=== PATIENT | female | born 1970 | race Caucasian/White ===

== ENCOUNTER 2017-07-18 14:40 | Emergency (ER) | payer OTHER ==
[2017-07-18 15:04] LABS: Urine Blood 2+ (NEG); Urine Glucose TRACE (NEG); Urine Protein 2+ (NEG)
[2017-07-18 15:18] LABS: Urine Bacteria >50 /HPF (<20); Urine Culture Reflex Order NOT NEEDED; Urine RBC <5 /HPF (NONE SEEN)
[2017-07-18] MEDS ORDERED: LIDOCAINE 1% 20 ML MDV ONE (15:18)
[2017-07-18] MEDS ORDERED: CEFTRIAXONE 1000 MG/VIAL ONE (15:18)
[2017-07-18] MEDS ORDERED: ONDANSETRON 4 MG (ODT) TAB ONE (15:18)
--- NOTE | 2017-07-18 15:42 | EDPHYS ---
Physician Documentation [facility] Name: Xochitl Gonsalez Age: 47 yrs Sex: Female : 1970 Arrival Date: 07/18/2017 Time: 14:42 Bed 24 Private MD: Kalyani High ED Physician Andi Hernandez HPI: 07/18 15:11 This 47 yrs old Female presents to ER via Ambulatory with complaints of cp Urinary Problem. 15:11 The patient presents with urinary symptoms, dysuria, frequency. cp 15:11 Onset: The symptoms/episode began/occurred last week. Associated signs and symptoms: cp Pertinent negatives: constipation, diarrhea, fever, hematuria, vomiting, back pain. Severity of symptoms: in the emergency department the symptoms are unchanged, despite home interventions. 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 - Social history:: Smoking status: Patient/guardian denies using tobacco. ROS: 15:20 Constitutional: Negative for body aches, chills, fever, poor PO intake. cp 15:20 Eyes: Negative for injury, pain, redness, and discharge. cp 15:20 Neck: Negative for pain with movement, pain at rest, stiffness. 15:20 Cardiovascular: Negative for chest pain, edema, palpitations. 15:20 Respiratory: Negative for cough, shortness of breath, wheezing. 15:20 Abdomen/GI: Positive for abdominal pain, of the suprapubic area, Negative for vomiting, diarrhea, constipation. 15:20 : Positive for urinary symptoms. 15:20 Skin: Negative for cellulitis, rash. 15:20 Neuro: Negative for dizziness, headache, weakness. 15:20 All other systems are negative. Exam: 15:30 Constitutional: The patient appears in no acute distress, alert, awake, non-toxic, well cp developed, well nourished. 15:30 Head/Face: Normocephalic, atraumatic. cp 15:30 Eyes: Periorbital structures: appear normal, Conjunctiva: normal, no exudate, no injection, Lids and lashes: appear normal, bilaterally. 15:30 ENT: External ear(s): are unremarkable, Nose: is normal, Mouth: is normal, Posterior pharynx: is normal, airway is patent. 15:30 Neck: ROM/movement: is normal, is supple, without pain, no range of motions limitations. 15:30 Chest/axilla: Inspection: normal. 15:30 Cardiovascular: Rate: tachycardic, Rhythm: regular. 15:30 Respiratory: the patient does not display signs of respiratory distress, Respirations: normal, no use of accessory muscles, no retractions, no splinting, no tachypnea, labored breathing, is not present, Breath sounds: are clear throughout, no decreased breath sounds, no stridor, no wheezing. 15:30 Abdomen/GI: Inspection: abdomen appears normal, Bowel sounds: active, all quadrants, Palpation: soft, in all quadrants, mild abdominal tenderness, in the suprapubic area, rebound tenderness, is not appreciated, involuntary guarding, is not appreciated. 15:30 Back: CVA tenderness, is absent. Vital Signs: 14:47 BP 147 / 84; Pulse 113; Resp 18; Temp 97.8; Pulse Ox 100% on R/A; Weight 120.2 kg; la1 Height 5 ft. 6 in. (167.64 cm); 14:58 BP 133 / 78; Pulse 94; Resp 18; Pulse Ox 99% on R/A; tl3 15:25 BP 137 / 71; Pulse 104; Resp 16; Pulse Ox 100% ; tl3 15:56 BP 133 / 71; Pulse 96; Resp 18; Pulse Ox 100% ; tl3 14:47 Body Mass Index 42.77 (120.20 kg, 167.64 cm) la1 MDM: 14:48 Patient medically screened. wa 15:00 Differential diagnosis: pelvic inflammatory disease, urinary tract infection, cp vaginosis, sepsis, kidney stone, pyelonephritis. 15:40 Data reviewed: vital signs, nurses notes, lab test result(s), and as a result, I will cp discharge patient. 15:41 Counseling: I had a detailed discussion with the patient and/or guardian regarding: the cp historical points, exam findings, and any diagnostic results supporting the discharge/admit diagnosis, lab results, the need for outpatient follow up, a family practitioner, to return to the emergency department if symptoms worsen or persist or if there are any questions or concerns that arise at home. 07/18 15:02 Order name: Urine Microscopic Only [facility] 07/18 15:02 Order name: Urine Culture [facility] 07/18 15:03 Order name: Urine Dipstick--Ancillary (enter results) [facility] 07/18 15:03 Order name: Urine Dipstick-Ancillary; Complete Time: 15:06 [facility] 07/18 15:07 Interpretation: Normal except: UBLD 2+; UPROT 2+; U NIT POSITIVE; UESTR 3+. cp 07/18 15:11 Order name: PO challenge; Complete Time: 15:24 cp Administered Medications: 15:24 Drug: Rocephin (cefTRIAXone) 1 grams Route: IM; Site: right gluteus; tl3 15:56 Follow up: Response: No adverse reaction tl3 15:24 Drug: Zofran 4 mg Route: PO; tl3 15:38 Follow up: Response: No adverse reaction tl3 Disposition: 07/18/17 15:42 Discharged to Home. Impression: Urinary tract infection, site not specified. - Condition is Stable. - Discharge Instructions: Urinary Tract Infection. - Prescriptions for Pyridium 200 mg Oral Tablet - take 1 tablet by ORAL route every 8 hours for 3 days; 6 tablet. Zofran 4 mg Oral Tablet - take 1 tablet by ORAL route every 12 hours As needed; 20 tablet. Bactrim DS 800- 160 mg Oral Tablet - take 1 tablet by ORAL route every 12 hours for 7 days; 14 tablet. - Medication Reconciliation Form, Thank You Letter, Antibiotic Education, Prescription Opioid Use, Work release form form. - Follow up: Private Physician; When: 1 - 2 days; Reason: Recheck today's complaints. - Problem is new. - Symptoms have improved. Addendum: 07/27/2017 05:53 Co-signature as Attending Physician, Andi Hernandez MD I agree with the assessment and w a plan of care. Signatures: Dispatcher [employer] ED[facility] Lexx Carson RN RN la1 Mario Pittman PA PA cp Appiah, William, MD MD wa Lowrey, Tammy RN RN tl3 Corrections: (The following items were deleted from the chart) 07/18 15:58 15:42 07/18/2017 15:42 Discharged to Home. Impression: Urinary tract infection, site tl3 not specified. Condition is Stable. Forms are Medication Reconciliation Form, Thank You Letter, Antibiotic Education, Prescription Opioid Use. Follow up: Private Physician; When: 1 - 2 days; Reason: Recheck today's complaints. Problem is new. Symptoms have improved. cp
--- NOTE | 2017-07-18 15:42 | ER ---
Nurse's Notes [facility] Name: Xochitl Gonsalez Age: 47 yrs Sex: Female : 1970 Arrival Date: 07/18/2017 Time: 14:42 Bed 24 Private MD: Kalyani High Diagnosis: Urinary tract infection, site not specified Presentation: 07/18 14:45 Presenting complaint: Patient states: I have been having pain with urination and a la1 little bit of white discharge for the last few days. Pt denies N/V or back pain. Transition of care: patient was not received from another setting of care. Onset of symptoms was July 18, 2017. Initial Sepsis Screen: Does the patient meet any 2 criteria? No. Patient's initial sepsis screen is negative. Does the patient have a suspected source of infection? No. Patient's initial sepsis screen is negative. Care prior to arrival: None. 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 - Social history:: Smoking status: Patient/guardian denies using tobacco. Screenin:58 Abuse screen: Denies threats or abuse. Nutritional screening: No deficits noted. tl3 Tuberculosis screening: No symptoms or risk factors identified. Fall Risk None identified. Assessment: 14:58 Reassessment: pt c/o pain to bladder after urination. General: Appears uncomfortable, tl3 obese, well groomed, well developed, well nourished, Behavior is calm, cooperative, appropriate for age. Pain: Complains of pain in suprapubic area. Neuro: Level of Consciousness is awake, alert, obeys commands, Oriented to person, place, time, situation, Appropriate for age. Cardiovascular: Heart tones S1 S2 present Capillary refill < 3 seconds in bilateral fingers. Respiratory: Airway is patent Trachea midline Respiratory effort is even, unlabored, Respiratory pattern is regular, symmetrical, Breath sounds are clear bilaterally. GI: Bowel sounds present X 4 quads. hyperactive in right upper quadrant, left upper quadrant, right lower quadrant and left lower quadrant. : Reports cramping, urinary frequency, since last few days. EENT: No signs and/or symptoms were reported regarding the EENT system. Derm: No signs and/or symptoms reported regarding the dermatologic system. Musculoskeletal: No signs and/or symptoms reported regarding the musculoskeletal system. 15:25 Reassessment: No changes from previously documented assessment. Patient and/or family tl3 updated on plan of care and expected duration. Pain level reassessed. Patient is alert, oriented x 3, equal unlabored respirations, skin warm/dry/pink. pt taking PO challenge. 15:56 Reassessment: Patient appears in no apparent distress at this time. No changes from tl3 previously documented assessment. Patient and/or family updated on plan of care and expected duration. Pain level reassessed. Patient is alert, oriented x 3, equal unlabored respirations, skin warm/dry/pink. injection site without any redness, swelling or drainage. Vital Signs: 14:47 BP 147 / 84; Pulse 113; Resp 18; Temp 97.8; Pulse Ox 100% on R/A; Weight 120.2 kg; la1 Height 5 ft. 6 in. (167.64 cm); 14:58 BP 133 / 78; Pulse 94; Resp 18; Pulse Ox 99% on R/A; tl3 15:25 BP 137 / 71; Pulse 104; Resp 16; Pulse Ox 100% ; tl3 15:56 BP 133 / 71; Pulse 96; Resp 18; Pulse Ox 100% ; tl3 14:47 Body Mass Index 42.77 (120.20 kg, 167.64 cm) la1 ED Course: 14:42 Patient arrived in ED. mr 14:42 Kalyani High is Private Physician. mr 14:46 Triage completed. la1 14:47 Arm band placed on left wrist. la1 14:48 Andi Hernandez MD is Attending Physician. wa 14:48 Natalya Ha, ALE is Primary Nurse. tl3 14:48 Mario Pittman PA is PHCP. cp 14:58 Resting quietly. Awaiting ED provider evaluation. tl3 14:58 Patient has correct armband on for positive identification. Bed in low position. Call tl3 light in reach. Side rails up X 1. Pulse ox on. NIBP on. Warm blanket given. 14:58 No provider procedures requiring assistance completed. tl3 15:06 Urine Dipstick--Ancillary (enter results) Sent. tl3 15:56 Patient did not have IV access during this emergency room visit. tl3 Administered Medications: 15:24 Drug: Rocephin (cefTRIAXone) 1 grams Route: IM; Site: right gluteus; tl3 15:56 Follow up: Response: No adverse reaction tl3 15:24 Drug: Zofran 4 mg Route: PO; tl3 15:38 Follow up: Response: No adverse reaction tl3 Outcome: 15:42 Discharge ordered by MD. lara 15:56 Discharged to home ambulatory. tl3 15:56 Condition: stable 15:56 Discharge instructions given to patient, Instructed on discharge instructions, follow up and referral plans. medication usage, Demonstrated understanding of instructions, follow-up care, medications, Prescriptions given X 3. 15:58 Patient left the ED. tl3 Addendum: 07/22/2017 10:55 Addendum: Culture Results: Positive urine culture. Bacteria is resistant to, has i w intermediate sensitivity, or is not tested against prescribed antibiotics. Report given to NAZARIO for further evaluation and then to farm field manager for follow up with patient. Phone call Attempt #1 pt did not answer, left voice mail with call back number. 07/23/2017 18:42 Addendum: Culture Results: Positive urine culture. Pt instructed to follow-up with PCP. a a5 Pt states feeling better, pt states "I feel way better now". Signatures: Lolis Miner Molly More RN RN iw Cherry Knott RN RN aa5 Lexx Carson RN RN la1 Mario Pittman PA PA cp Appiah, William, MD MD wa Lowrey, Tammy, RN RN tl3 Corrections: (The following items were deleted from the chart) 07/22 10:56 10:55 Addendum: Culture Results: Positive urine culture. Bacteria is resistant to, has iw intermediate sensitivity, or is not tested against prescribed antibiotics. Report given to NAZARIO for further evaluation and then to farm field manager for follow up with patient. Phone call Attempt #1 pt did not answer, unable to leave [facility]
[2017-07-18 16:09] VITALS: TEMP 97.8
[2017-07-18 16:12] VITALS: O2SAT 100
[2017-07-18 16:13] VITALS: BP 133/71
== END 2017-07-18 15:58 | disposition home or self-care (01) ==
LOC: ER 14:40
DX: N39.0 Urinary tract infection, site not specified (principal)
CPT/HCPCS: 81003; 81015; 87077; 87086; 87088; 87186; 96372; 99284

== ENCOUNTER 2023-02-09 13:51 | Emergency (ER) | payer OTHER ==
--- OUTSIDE RECORDS SUMMARY | 2023-02-09 14:07 | XMS REPORT | Continuity of Care Document ---
:1970 Author Organization [facility] t Address [address] [place] [address] [place] [id number] Care Team Providers Name Role Phone Audrey Montgomery Primary Care Physician JACKIE RING Attending Clinician Unavailable EMILY DAS Attending Clinician Unavailable Ok Yap MD Attending Clinician [facility] Attending Clinician Unavailable Archana De La Torre DO Attending Clinician ARCHANA DE LA TORRE Attending Clinician Unavailable Lab, Ang - Db Attending Clinician Unavailable Audrey Montgomery Attending Clinician AUDREY NESS Attending Clinician Unavailable KEYLA DURHAM Attending Clinician Unavailable [email or web address] Attending Clinician Unavailable Doctor Unassigned, [place] Attending Clinician Unavailable IZABELA ELLIOTT Attending Clinician Unavailable Sara Jackson LVN Attending Clinician Unavailable Izabela Newman Attending Clinician JARED GARCIA Attending Clinician Unavailable Jared Wakefield Attending Clinician Unknown, Attending Attending Clinician Unavailable FANY RICHARD Attending Clinician Unavailable FANY RICHARD Attending Clinician Unavailable Jena Zarate RN Attending Clinician Unavailable [place], Nephrology Attending Clinician Unavailable Po, [facility] Main Attending Clinician Unavailable BRENNAN DIETRICH Attending Clinician Unavailable BRENNAN DIETRICH Attending Clinician Unavailable Prashant Lawrence MD Attending Clinician TABITHA TIRADO Attending Clinician Unavailable Provider, [facility] Temp Attending Clinician Unavailable Tabitha Tirado CNM Attending Clinician Fany Richard DO Attending Clinician Therapist, [facility] Respiratory Attending Clinician Unavailable León Dias MD Attending Clinician LEÓN DIAS Attending Clinician Unavailable Arden AGUILERA, Ronit Bobo Attending Clinician Unavailable , [facility] Sleep [facility] Bed Attending Clinician Unavailable Brennan Dietrich MD Attending Clinician VIKY SRINIVASAN Attending Clinician Unavailable Viky Srinivasan MD Attending Clinician Eduardo Ghotra MD Attending Clinician EDUARDO GHOTRA Attending Clinician Unavailable EDUARDO GHOTRA Attending Clinician Unavailable Ebraifeanyim ECOTHERAPIST, Rania Attending Clinician BELL QUEEN Attending Clinician Unavailable Bell Queen MD Attending Clinician Provider, [facility] Attending Clinician Unavailable Bismark Stewart RN Attending Clinician Unavailable DEDRICK JACOB Attending Clinician Unavailable VALENTIN ALDANA Attending Clinician Unavailable ARACELI LOMAS Attending Clinician Unavailable TOMY PATRICK Attending Clinician Unavailable [email or web address] Admitting Clinician Unavailable VIKY SRINIVASAN Admitting Clinician Unavailable Payers Payer Name Policy Type Policy Number Effective Date Expiration Date Violet boston [facility] [place] STAR [id number] 2021 00:00:00 Problems Condition Condition Condition Status Onset Resolution Last Treating Co mments Source Name Details Category Date Date Treatment Clinician Date History of History of Disease Active Overview : Univers hysterecto hysterecto 2-28 Formattin ity of my for my for 00:00: g of this [place] indication indication 00 note Me dical other than other than might be Branch cancer cancer different from the original. Still has ovaries Snoring Snoring Disease Active 2021-03 Univers 0-07 ity of 00:00: [place] 00 Medical Branch Prediabete Prediabete Disease Active 2021-03 U nivers s s 0-07 ity of 00:00: [place] [facility] Elevated Elevated Disease Active Unive rs brain brain 8-24 ity of natriureti natriureti [place] c peptide c peptide 00 Medi faye (BNP) (BNP) Branch level level Vitamin D Vitamin D Disease Active Uni vers deficiency deficiency 8-24 it y of 00:00: [place] 00 Medical Branch Elevated Elevated Disease Active Unive rs ALT ALT 8-24 ity of measuremen measuremen [place] [facility] [place] Uncontroll Uncontroll Disease Active U abhishek ed ed 8-21 ity of hypertensi hypertensi 00:[place] Bilateral Bilateral Disease Active Uni vers lower lower 8-21 ity of extremity extremity 00:00: [place] edema edema 00 Medical Branch Orthopnea Orthopnea Disease Active Uni vers 8-21 ity of 00:00: [place] 00 Medical Branch Anxiety Anxiety Disease Active Univers with with 8-21 it[place] of depression depression 00:00[place] [facility] [place] Hot Hot Disease Active Univers flashes flashes 8-21 ity of 00:00: [place] 00 Medical Branch Acquired Acquired Disease Active Unive rs hypothyroi hypothyroi 8-21 it y of dism dism 00:00: [place] [facility] Morbid Morbid Disease Active Univers obesity obesity 8-21 ity of with BMI with BMI 00:00: [place] of of 00 Medical 50.0-59.9, 50.0-59.9, Br anch adult adult PAD PAD Disease Active Univers (periphera (periphera 8-21 it y of l artery l artery 00:00: [place] disease) disease) 00 Medica l Branch Chronic Chronic Disease Active Univers migraine migraine 8-21 ity of without without 00:00: [place] aura aura 00 Medical without without Branch status status migrainosu migrainosu s, not s, not intractabl intractabl e e Allergies, Adverse Reactions, Alerts Allergy Allergy Status Severity Reaction(s) Onset Inactive Treating Comm ents Source Name Type Date Date Clinician EGG DRUG Active Other-Cmnt 2021-03 Univer s INGREDI - ity of 00:00: [place] 00 Medical Branch SHELLFIS DRUG Active Diarrhea 2021-03 Univer s H INGREDI 03-27 ity of DERIVED 00:00: 00 Medical Branch Egg Propensi Active Other - See 2021-03 Uni vers ty to comments 03-27 ity of adverse 00:00: [place] reaction 00 Medical s Branch Shellfis Propensi Active Diarrhea 2021-03 Univ ers h ty to 03-27 ity of Derived adverse 00:00: [place] reaction 00 Medical s Branch Ibuprofe Drug Active Other - See Uni vers n Allergy comments 10-24 ity of 00:00: [place] 00 Medical Branch IBUPROFE DRUG Active Low Other-Cmnt Univ ers N INGREDI 10-24 ity of 00:00: [place] [facility] Molds Propensi Active Other - See Had Uni vers Extract ty to comments 10-06 allergy ity of adverse 00:00: test done [place] reaction 00 Medical s Branch MOLDS DRUG Active High Other-Cmnt Univer s EXTRACT 10-06 ity of 00:00: Medical Branch Social History Social Habit Start Date Stop Date Quantity Comments Source History [facility] University o f Alcohol Frequency [facility] edical Branch History [facility] o f Alcohol Std Drinks [place] [facility] History [facility] o f Alcohol Binge [place] [facility] al Branch Gender identity Universit y of [facility] Sexual orientation Univer sity of [facility] Alcohol intake 2022-11-25 2022-11-25 Current drinker Unive rsity of 00:00:00 00:00:00 of alcohol [facility] (finding) Branch History of Social 2022-10-19 2022-10-19 Univers ity of function 00:00:00 00:00:00 [facility] Exposure to 2022-06-05 2022-06-15 Not sure University of SARS-CoV-2 (event) 00:00:00 15:25:00 [facility] Alcohol Comment 2022-05-05 2022-05-05 rarely Universit y of 00:00:00 00:00:00 [facility] Tobacco use and 2021-12-12 2021-12-12 Smokeless Universit y of exposure 00:00:00 00:00:00 tobacco non-user [facility] [place] Cigarettes smoked 2021-12-12 2021-12-12 Univers ity of current (pack per 00:00:00 00:00:00 [facility] ) - Reported Branch Cigarette 2021-12-12 2021-12-12 University of pack-years 00:00:00 00:00:00 [facility] History of tobacco 2001-10-06 Cigarette Smoker University of use 00:00:00 [facility] Sex [birth year] Universit y of 00:00:00 00:00:00 [facility] Smoking Status Start Date Stop Date Source Ex-smoker 2021-12-12 00:00:00 2021-12-12 00:00:00 Universi ty [facility] Never smoked tobacco [facility] Medications Ordered Filled Start Stop Current Ordering Indication Dosage Frequency Signature Comments Components Source Medication Medication Date Date Medication? Clinician (SIG) Name Name atenoloL 50 0 Yes [id number] 50mg Take 1 Univers mg tablet 8-24 tablet by ity o f 00:00: mouth [place] 00 every Medical morning. Branch hydroCHLORO 0 Yes [id number] 25mg Take 1 Univers thiazide 25 8-24 tablet by ity of mg tablet 00:00: mouth [place] 00 every Medical morning. Branch atorvastati 2022- Yes [id number] 20mg Take 1 Univers n 20 mg 8-24 tablet by ity of tablet 00:00: mouth at [place] 00 bedtime. Medical Branch traZODone 2022-0 Yes [id number] TAKE 1 U nivers 50 mg 8-24 TABLET BY ity of tablet 00:00: MOUTH [place] 00 EVERY Medical NIGHT AT [place] BEDTIME NEEDED FOR INSOMNIA atenoloL 50 2022-0 Yes [id number] 50mg Take 1 Univers mg tablet 8-24 tablet by ity o f 00:00: mouth [place] 00 every Medical morning. Branch hydroCHLORO 2022-0 Yes [id number] 25mg Take 1 Univers thiazide 25 8-24 tablet by ity of mg tablet 00:00: mouth [place] 00 every Medical morning. Branch atorvastati 2022-0 Yes [id number] 20mg Take 1 Univers n 20 mg 8-24 tablet by ity of tablet 00:00: mouth at [place] 00 bedtime. Medical Branch traZODone 2022-0 Yes [id number] TAKE 1 U nivers 50 mg 8-24 TABLET BY ity of tablet 00:00: MOUTH [place] 00 EVERY Medical NIGHT AT [place] BEDTIME NEEDED FOR INSOMNIA venlafaxine 2022-0 Yes [id number] Take 1 tab Univers 37.5 mg 8-24 PO every ity of tablet 00:00: other day [place] 00 x 5 weeks, Medical then take Branch 1 tab PO every 3 days x 3 weeks to taper. levothyroxi 2022-0 Yes [id number] 75ug Take 1 Univers ne 75 mcg 8-24 tablet by ity o f tablet 00:00: mouth [place] 00 every Medical morning. Branch atenoloL 50 2022-0 Yes [id number] 50mg Take 1 Univers mg tablet 8-24 tablet by ity o f 00:00: mouth [place] 00 every Medical morning. Branch hydroCHLORO 2022-0 Yes [id number] 25mg Take 1 Univers thiazide 25 8-24 tablet by ity of mg tablet 00:00: mouth [place] 00 every Medical morning. Branch atorvastati 2022-0 Yes [id number] 20mg Take 1 Univers n 20 mg 8-24 tablet by ity of tablet 00:00: mouth at [place] 00 bedtime. Medical Branch traZODone 2022-0 Yes [id number] TAKE 1 U nivers 50 mg 8-24 TABLET BY ity of tablet 00:00: MOUTH [place] 00 EVERY Medical NIGHT AT [place] BEDTIME NEEDED FOR INSOMNIA venlafaxine 2022-0 Yes [id number] Take 1 tab Univers 37.5 mg 8-24 PO every ity of tablet 00:00: other day [place] 00 x 5 weeks, Medical then take Branch 1 tab PO every 3 days x 3 weeks to taper. levothyroxi 2022-0 Yes [id number] 75ug Take 1 Univers ne 75 mcg 8-24 tablet by ity o f tablet 00:00: mouth [place] 00 every Medical morning. Branch atenoloL 50 2022-0 Yes [id number] 50mg Take 1 Univers mg tablet 8-24 tablet by ity o f 00:00: mouth [place] 00 every Medical morning. Branch hydroCHLORO 2022-0 Yes [id number] 25mg Take 1 Univers thiazide 25 8-24 tablet by ity of mg tablet 00:00: mouth [place] 00 every Medical morning. Branch atorvastati 2022-0 Yes [id number] 20mg Take 1 Univers n 20 mg 8-24 tablet by ity of tablet 00:00: mouth at [place] 00 bedtime. Medical Branch traZODone 2022-0 Yes [id number] TAKE 1 U nivers 50 mg 8-24 TABLET BY ity of tablet 00:00: MOUTH [place] 00 EVERY Medical NIGHT AT [place] BEDTIME NEEDED FOR INSOMNIA venlafaxine 2022-0 Yes [id number] Take 1 tab Univers 37.5 mg 8-24 PO every ity of tablet 00:00: other day [place] 00 x 5 weeks, Medical then take Branch 1 tab PO every 3 days x 3 weeks to taper. levothyroxi 2022-0 Yes [id number] 75ug Take 1 Univers ne 75 mcg 8-24 tablet by ity o f tablet 00:00: mouth [place] 00 every Medical morning. Branch atenoloL 50 2022-0 Yes [id number] 50mg Take 1 Univers mg tablet 8-24 tablet by ity o f 00:00: mouth [place] 00 every Medical morning. Branch hydroCHLORO 2022-0 Yes [id number] 25mg Take 1 Univers thiazide 25 8-24 tablet by ity of mg tablet 00:00: mouth [place] 00 every Medical morning. Branch atorvastati 2022-0 Yes [id number] 20mg Take 1 Univers n 20 mg 8-24 tablet by ity of tablet 00:00: mouth at [place] 00 bedtime. Medical Branch traZODone 2022-0 Yes [id number] TAKE 1 U nivers 50 mg 8-24 TABLET BY ity of tablet 00:00: MOUTH [place] 00 EVERY Medical NIGHT AT [place] BEDTIME NEEDED FOR INSOMNIA venlafaxine 2022-0 Yes [id number] Take 1 tab Univers 37.5 mg 8-24 PO every ity of tablet 00:00: other day [place] 00 x 5 weeks, Medical then take Branch 1 tab PO every 3 days x 3 weeks to taper. levothyroxi 2022-0 Yes [id number] 75ug Take 1 Univers ne 75 mcg 8-24 tablet by ity o f tablet 00:00: mouth [place] 00 every Medical morning. Branch atenoloL 50 2022-0 Yes [id number] 50mg Take 1 Univers mg tablet 8-24 tablet by ity o f 00:00: mouth [place] 00 every Medical morning. Branch hydroCHLORO 2022-0 Yes [id number] 25mg Take 1 Univers thiazide 25 8-24 tablet by ity of mg tablet 00:00: mouth [place] 00 every Medical morning. Branch atorvastati 2022-0 Yes [id number] 20mg Take 1 Univers n 20 mg 8-24 tablet by ity of tablet 00:00: mouth at [place] 00 bedtime. Medical Branch traZODone 2022-0 Yes [id number] TAKE 1 U nivers 50 mg 8-24 TABLET BY ity of tablet 00:00: MOUTH [place] 00 EVERY Medical NIGHT AT [place] BEDTIME NEEDED FOR INSOMNIA venlafaxine 0 Yes [id number] Take 1 tab Univers 37.5 mg 8-24 PO every ity of tablet 00:00: other day [place] 00 x 5 weeks, Medical then take Branch 1 tab PO every 3 days x 3 weeks to taper. levothyroxi 2022-0 Yes [id number] 75ug Take 1 Univers ne 75 mcg 8-24 tablet by ity o f tablet 00:00: mouth [place] 00 every Medical morning. Branch atenoloL 50 2022-0 Yes [id number] 50mg Take 1 Univers mg tablet 8-24 tablet by ity o f 00:00: mouth [place] 00 every Medical morning. Branch hydroCHLORO 2022-0 Yes [id number] 25mg Take 1 Univers thiazide 25 8-24 tablet by ity of mg tablet 00:00: mouth [place] 00 every Medical morning. Branch atorvastati 2022-0 Yes [id number] 20mg Take 1 Univers n 20 mg 8-24 tablet by ity of tablet 00:00: mouth at [place] 00 bedtime. Medical Branch traZODone 2022-0 Yes [id number] TAKE 1 U nivers 50 mg 8-24 TABLET BY ity of tablet 00:00: MOUTH [place] 00 EVERY Medical NIGHT AT [place] BEDTIME NEEDED FOR INSOMNIA venlafaxine 2022-0 Yes [id number] Take 1 tab Univers 37.5 mg 8-24 PO every ity of tablet 00:00: other day [place] 00 x 5 weeks, Medical then take Branch 1 tab PO every 3 days x 3 weeks to taper. levothyroxi 2022-0 Yes [id number] 75ug Take 1 Univers ne 75 mcg 8-24 tablet by ity o f tablet 00:00: mouth [place] 00 every Medical morning. Branch hydroCHLORO 2022-0 Yes [id number] 25mg Take 1 Univers thiazide 25 8-24 tablet by ity of mg tablet 00:00: mouth [place] 00 every Medical morning. Branch atorvastati 2022-0 Yes [id number] 20mg Take 1 Univers n 20 mg 8-24 tablet by ity of tablet 00:00: mouth at [place] 00 bedtime. Medical Branch traZODone 2022-0 Yes [id number] TAKE 1 U nivers 50 mg 8-24 TABLET BY ity of tablet 00:00: MOUTH [place] 00 EVERY Medical NIGHT AT [place] BEDTIME NEEDED FOR INSOMNIA venlafaxine 0 Yes [id number] Take 1 tab Univers 37.5 mg 8-24 PO every ity of tablet 00:00: other day [place] 00 x 5 weeks, Medical then take Branch 1 tab PO every 3 days x 3 weeks to taper. levothyroxi 2022-0 Yes [id number] 75ug Take 1 Univers ne 75 mcg 8-24 tablet by ity o f tablet 00:00: mouth [place] 00 every Medical morning. Branch hydroCHLORO 0 Yes [id number] 25mg Take 1 Univers thiazide 25 8-24 tablet by ity of mg tablet 00:00: mouth [place] 00 every Medical morning. Branch atorvastati 2022-0 Yes [id number] 20mg Take 1 Univers n 20 mg 8-24 tablet by ity of tablet 00:00: mouth at [place] 00 bedtime. Medical Branch traZODone 2022-0 Yes [id number] TAKE 1 U nivers 50 mg 8-24 TABLET BY ity of tablet 00:00: MOUTH [place] 00 EVERY Medical NIGHT AT [place] BEDTIME NEEDED FOR INSOMNIA venlafaxine 2022-0 Yes [id number] Take 1 tab Univers 37.5 mg 8-24 PO every ity of tablet 00:00: other day [place] 00 x 5 weeks, Medical then take Branch 1 tab PO every 3 days x 3 weeks to taper. levothyroxi 2022-0 Yes [id number] 75ug Take 1 Univers ne 75 mcg 8-24 tablet by ity o f tablet 00:00: mouth [place] 00 every Medical morning. Branch hydroCHLORO 2022-0 Yes [id number] 25mg Take 1 Univers thiazide 25 8-24 tablet by ity of mg tablet 00:00: mouth [place] 00 every Medical morning. Branch atorvastati 2022-0 Yes [id number] 20mg Take 1 Univers n 20 mg 8-24 tablet by ity of tablet 00:00: mouth at [place] 00 bedtime. Medical Branch traZODone 2022-0 Yes [id number] TAKE 1 U nivers 50 mg 8-24 TABLET BY ity of tablet 00:00: MOUTH [place] 00 EVERY Medical NIGHT AT [place] BEDTIME NEEDED FOR INSOMNIA venlafaxine 2022-0 Yes [id number] Take 1 tab Univers 37.5 mg 8-24 PO every ity of tablet 00:00: other day [place] 00 x 5 weeks, Medical then take Branch 1 tab PO every 3 days x 3 weeks to taper. levothyroxi 2022-0 Yes [id number] 75ug Take 1 Univers ne 75 mcg 8-24 tablet by ity o f tablet 00:00: mouth [place] 00 every Medical morning. Branch hydroCHLORO 2022-0 Yes [id number] 25mg Take 1 Univers thiazide 25 8-24 tablet by ity of mg tablet 00:00: mouth [place] 00 every Medical morning. Branch atorvastati 2022-0 Yes [id number] 20mg Take 1 Univers n 20 mg 8-24 tablet by ity of tablet 00:00: mouth at [place] 00 bedtime. Medical Branch traZODone 2022-0 Yes [id number] TAKE 1 U nivers 50 mg 8-24 TABLET BY ity of tablet 00:00: MOUTH [place] 00 EVERY Medical NIGHT AT [place] BEDTIME NEEDED FOR INSOMNIA venlafaxine 2022-0 Yes [id number] Take 1 tab Univers 37.5 mg 8-24 PO every ity of tablet 00:00: other day [place] 00 x 5 weeks, Medical then take Branch 1 tab PO every 3 days x 3 weeks to taper. levothyroxi 2022-0 Yes [id number] 75ug Take 1 Univers ne 75 mcg 8-24 tablet by ity o f tablet 00:00: mouth [place] 00 every Medical morning. Branch hydroCHLORO 2022-0 Yes [id number] 25mg Take 1 Univers thiazide 25 8-24 tablet by ity of mg tablet 00:00: mouth [place] 00 every Medical morning. Branch atorvastati 2022-0 Yes [id number] 20mg Take 1 Univers n 20 mg 8-24 tablet by ity of tablet 00:00: mouth at [place] 00 bedtime. Medical Branch traZODone 2022-0 Yes [id number] TAKE 1 U nivers 50 mg 8-24 TABLET BY ity of tablet 00:00: MOUTH [place] 00 EVERY Medical NIGHT AT [place] BEDTIME NEEDED FOR INSOMNIA venlafaxine 2022-0 Yes [id number] Take 1 tab Univers 37.5 mg 8-24 PO every ity of tablet 00:00: other day [place] 00 x 5 weeks, Medical then take Branch 1 tab PO every 3 days x 3 weeks to taper. levothyroxi 2022-0 Yes [id number] 75ug Take 1 Univers ne 75 mcg 8-24 tablet by ity o f tablet 00:00: mouth [place] 00 every Medical morning. Branch hydroCHLORO 2022-0 Yes [id number] 25mg Take 1 Univers thiazide 25 8-24 tablet by ity of mg tablet 00:00: mouth [place] 00 every Medical morning. Branch atorvastati 2022-0 Yes [id number] 20mg Take 1 Univers n 20 mg 8-24 tablet by ity of tablet 00:00: mouth at [place] 00 bedtime. Medical Branch traZODone 2022-0 Yes [id number] TAKE 1 U nivers 50 mg 8-24 TABLET BY ity of tablet 00:00: MOUTH [place] 00 EVERY Medical NIGHT AT [place] BEDTIME NEEDED FOR INSOMNIA venlafaxine 2022-0 Yes [id number] Take 1 tab Univers 37.5 mg 8-24 PO every ity of tablet 00:00: other day [place] 00 x 5 weeks, Medical then take Branch 1 tab PO every 3 days x 3 weeks to taper. levothyroxi 2022-0 Yes [id number] 75ug Take 1 Univers ne 75 mcg 8-24 tablet by ity o f tablet 00:00: mouth [place] 00 every Medical morning. Branch hydroCHLORO 2022-0 Yes [id number] 25mg Take 1 Univers thiazide 25 8-24 tablet by ity of mg tablet 00:00: mouth [place] 00 every Medical morning. Branch atorvastati 2022-0 Yes [id number] 20mg Take 1 Univers n 20 mg 8-24 tablet by ity of tablet 00:00: mouth at [place] 00 bedtime. Medical Branch traZODone 2022-0 Yes [id number] TAKE 1 U nivers 50 mg 8-24 TABLET BY ity of tablet 00:00: MOUTH [place] 00 EVERY Medical NIGHT AT [place] BEDTIME NEEDED FOR INSOMNIA venlafaxine 0 Yes [id number] Take 1 tab Univers 37.5 mg 8-24 PO every ity of tablet 00:00: other day [place] 00 x 5 weeks, Medical then take Branch 1 tab PO every 3 days x 3 weeks to taper. levothyroxi 2022-0 Yes [id number] 75ug Take 1 Univers ne 75 mcg 8-24 tablet by ity o f tablet 00:00: mouth [place] 00 every Medical morning. Branch hydroCHLORO 2022-0 Yes [id number] 25mg Take 1 Univers thiazide 25 8-24 tablet by ity of mg tablet 00:00: mouth [place] 00 every Medical morning. Branch atorvastati 0 Yes [id number] 20mg Take 1 Univers n 20 mg 8-24 tablet by ity of tablet 00:00: mouth at [place] 00 bedtime. Medical Branch traZODone 2022-0 Yes [id number] TAKE 1 U nivers 50 mg 8-24 TABLET BY ity of tablet 00:00: MOUTH [place] 00 EVERY Medical NIGHT AT [place] BEDTIME NEEDED FOR INSOMNIA venlafaxine 0 Yes [id number] Take 1 tab Univers 37.5 mg 8-24 PO every ity of tablet 00:00: other day [place] 00 x 5 weeks, Medical then take Branch 1 tab PO every 3 days x 3 weeks to taper. levothyroxi 2022-0 Yes [id number] 75ug Take 1 Univers ne 75 mcg 8-24 tablet by ity o f tablet 00:00: mouth [place] 00 every Medical morning. Branch hydroCHLORO 2022-0 Yes [id number] 25mg Take 1 Univers thiazide 25 8-24 tablet by ity of mg tablet 00:00: mouth [place] 00 every Medical morning. Branch atorvastati 2022-0 Yes [id number] 20mg Take 1 Univers n 20 mg 8-24 tablet by ity of tablet 00:00: mouth at [place] 00 bedtime. Medical Branch traZODone 2022-0 Yes [id number] TAKE 1 U nivers 50 mg 8-24 TABLET BY ity of tablet 00:00: MOUTH [place] 00 EVERY Medical NIGHT AT [place] BEDTIME NEEDED FOR INSOMNIA venlafaxine 2022-0 Yes [id number] Take 1 tab Univers 37.5 mg 8-24 PO every ity of tablet 00:00: other day [place] 00 x 5 weeks, Medical then take Branch 1 tab PO every 3 days x 3 weeks to taper. levothyroxi 2022-0 Yes [id number] 75ug Take 1 Univers ne 75 mcg 8-24 tablet by ity o f tablet 00:00: mouth [place] 00 every Medical morning. Branch hydroCHLORO 2022-0 Yes [id number] 25mg Take 1 Univers thiazide 25 8-24 tablet by ity of mg tablet 00:00: mouth [place] 00 every Medical morning. Branch atorvastati 2022-0 Yes [id number] 20mg Take 1 Univers n 20 mg 8-24 tablet by ity of tablet 00:00: mouth at [place] 00 bedtime. Medical Branch traZODone 2022-0 Yes [id number] TAKE 1 U nivers 50 mg 8-24 TABLET BY ity of tablet 00:00: MOUTH [place] 00 EVERY Medical NIGHT AT [place] BEDTIME NEEDED FOR INSOMNIA venlafaxine 2022-0 Yes [id number] Take 1 tab Univers 37.5 mg 8-24 PO every ity of tablet 00:00: other day [place] 00 x 5 weeks, Medical then take Branch 1 tab PO every 3 days x 3 weeks to taper. levothyroxi 2022-0 Yes [id number] 75ug Take 1 Univers ne 75 mcg 8-24 tablet by ity o f tablet 00:00: mouth [place] 00 every Medical morning. Branch hydroCHLORO 2022-0 Yes [id number] 25mg Take 1 Univers thiazide 25 8-24 tablet by ity of mg tablet 00:00: mouth [place] 00 every Medical morning. Branch atorvastati 2022-0 Yes [id number] 20mg Take 1 Univers n 20 mg 8-24 tablet by ity of tablet 00:00: mouth at [place] 00 bedtime. Medical Branch traZODone 2022-0 Yes [id number] TAKE 1 U nivers 50 mg 8-24 TABLET BY ity of tablet 00:00: MOUTH [place] 00 EVERY Medical NIGHT AT [place] BEDTIME NEEDED FOR INSOMNIA venlafaxine 2022-0 Yes [id number] Take 1 tab Univers 37.5 mg 8-24 PO every ity of tablet 00:00: other day [place] 00 x 5 weeks, Medical then take Branch 1 tab PO every 3 days x 3 weeks to taper. levothyroxi 2022-0 Yes [id number] 75ug Take 1 Univers ne 75 mcg 8-24 tablet by ity o f tablet 00:00: mouth [place] 00 every Medical morning. Branch hydroCHLORO 2022-0 Yes [id number] 25mg Take 1 Univers thiazide 25 8-24 tablet by ity of mg tablet 00:00: mouth [place] 00 every Medical morning. Branch atorvastati 2022-0 Yes [id number] 20mg Take 1 Univers n 20 mg 8-24 tablet by ity of tablet 00:00: mouth at [place] 00 bedtime. Medical Branch traZODone 2022-0 Yes [id number] TAKE 1 U nivers 50 mg 8-24 TABLET BY ity of tablet 00:00: MOUTH [place] 00 EVERY Medical NIGHT AT [place] BEDTIME NEEDED FOR INSOMNIA venlafaxine 0 Yes [id number] Take 1 tab Univers 37.5 mg 8-24 PO every ity of tablet 00:00: other day [place] 00 x 5 weeks, Medical then take Branch 1 tab PO every 3 days x 3 weeks to taper. levothyroxi 2022-0 Yes [id number] 75ug Take 1 Univers ne 75 mcg 8-24 tablet by ity o f tablet 00:00: mouth [place] 00 every Medical morning. Branch hydroCHLORO 2022-0 Yes [id number] 25mg Take 1 Univers thiazide 25 8-24 tablet by ity of mg tablet 00:00: mouth [place] 00 every Medical morning. Branch atorvastati 2022-0 Yes [id number] 20mg Take 1 Univers n 20 mg 8-24 tablet by ity of tablet 00:00: mouth at [place] 00 bedtime. Medical Branch traZODone 2022-0 Yes [id number] TAKE 1 U nivers 50 mg 8-24 TABLET BY ity of tablet 00:00: MOUTH [place] 00 EVERY Medical NIGHT AT [place] BEDTIME NEEDED FOR INSOMNIA venlafaxine 2022-0 Yes [id number] Take 1 tab [facility] 37.5 mg 8-24 PO every [facility] of tablet 00:00: other day [place] 00 x 5 weeks, Medical then take Branch 1 tab PO every 3 days x 3 weeks to taper. levothyroxi 2022-0 Yes [id number] 75ug Take 1 [facility] ne 75 mcg 8-24 tablet by ity o f tablet 00:00: mouth [place] 00 every Medical morning. Branch hydroCHLORO 2022-0 Yes [id number] 25mg Take 1 [facility] thiazide 25 8-24 tablet by [facility]y of mg tablet 00:00: mouth [place] 00 every Medical morning. Branch atorvastati 2022-0 Yes [id number] 20mg Take 1 [facility] n 20 mg 8-24 tablet by [facility] of tablet 00:00: mouth at [place] 00 bedtime. Medical Branch traZODone 2022-0 Yes [id number] TAKE 1 [facility] nivers 50 mg 8-24 TABLET BY ity of tablet 00:00: MOUTH [place] 00 EVERY Medical NIGHT AT [place] BEDTIME NEEDED FOR INSOMNIA venlafaxine 2022-0 Yes [id number] Take 1 tab [facility] 37.5 mg 8-24 PO every [facility] of tablet 00:00: other day [place] 00 x 5 weeks, Medical then take Branch 1 tab PO every 3 days x 3 weeks to taper. levothyroxi 2022-0 Yes [id number] 75ug Take 1 [facility] ne 75 mcg 8-24 tablet by ity o f tablet 00:00: mouth [place] 00 every Medical morning. Branch hydroCHLORO 2022-0 Yes [id number] 25mg Take 1 [facility] thiazide 25 8-24 tablet by ity of mg tablet 00:00: mouth [place] 00 every Medical morning. Branch atorvastati 2022-0 Yes [id number] 20mg Take 1 [facility] n 20 mg 8-24 tablet by it[facility] of tablet 00:00: mouth at [place] 00 bedtime. Medical Branch traZODone 2022-0 Yes [id number] TAKE 1 [facility] nivers 50 mg 8-24 TABLET BY ity of tablet 00:00: MOUTH [place] 00 EVERY Medical NIGHT AT [place] BEDTIME NEEDED FOR INSOMNIA venlafaxine 2022-0 Yes [id number] Take 1 tab [facility] 37.5 mg 8-24 PO every [facility] of tablet 00:00: other day [place] 00 x 5 weeks, Medical then take Branch 1 tab PO every 3 days x 3 weeks to taper. levothyroxi 2022-0 Yes [id number] 75ug Take 1 [facility] ne 75 mcg 8-24 tablet by ity o f tablet 00:00: mouth [place] 00 every Medical morning. Branch hydroCHLORO 2022-0 Yes [id number] 25mg Take 1 [facility] thiazide 25 8-24 tablet by [facility] of mg tablet 00:00: mouth [place] 00 every Medical morning. Branch atorvastati 2022-0 Yes [id number] 20mg Take 1 [facility] n 20 mg 8-24 tablet by [facility] of tablet 00:00: mouth at [place] 00 bedtime. Medical Branch traZODone 2022-0 Yes [id number] TAKE 1 [facility] nivers 50 mg 8-24 TABLET BY it[facility] of tablet 00:00: MOUTH [place] 00 EVERY Medical NIGHT AT [place] BEDTIME NEEDED FOR INSOMNIA venlafaxine 2022-0 Yes [id number] Take 1 tab [facility] 37.5 mg 8-24 PO every [facility] of tablet 00:00: other day [place] 00 x 5 weeks, Medical then take Branch 1 tab PO every 3 days x 3 weeks to taper. levothyroxi 2022-0 Yes [id number] 75ug Take 1 [facility] ne 75 mcg 8-24 tablet by ity o f tablet 00:00: mouth [place] 00 every Medical morning. Branch hydroCHLORO 2022-0 Yes [id number] 25mg Take 1 [facility] thiazide 25 8-24 tablet by [facility]y of mg tablet 00:00: mouth [place] 00 every Medical morning. Branch atorvastati 2022-0 Yes [id number] 20mg Take 1 [facility] n 20 mg 8-24 tablet by [facility] of tablet 00:00: mouth at [place] 00 bedtime. Medical Branch traZODone 2022-0 Yes [id number] TAKE 1 [facility] nivers 50 mg 8-24 TABLET BY ity of tablet 00:00: MOUTH [place] 00 EVERY Medical NIGHT AT [place] BEDTIME NEEDED FOR INSOMNIA venlafaxine 2022-0 Yes [id number] Take 1 tab [facility] 37.5 mg 8-24 PO every [facility] of tablet 00:00: other day [place] 00 x 5 weeks, Medical then take Branch 1 tab PO every 3 days x 3 weeks to taper. levothyroxi 2022-0 Yes [id number] 75ug Take 1 [facility] ne 75 mcg 8-24 tablet by ity o f tablet 00:00: mouth [place] 00 every Medical morning. Branch hydroCHLORO 2022-0 Yes [id number] 25mg Take 1 [facility] thiazide 25 8-24 tablet by ity of mg tablet 00:00: mouth [place] 00 every Medical morning. Branch atorvastati 2022-0 Yes [id number] 20mg Take 1 [facility] n 20 mg 8-24 tablet by [facility] of tablet 00:00: mouth at [place] 00 bedtime. Medical Branch traZODone 2022-0 Yes [id number] TAKE 1 [facility] nivers 50 mg 8-24 TABLET BY ity of tablet 00:00: MOUTH [place] 00 EVERY Medical NIGHT AT [place] BEDTIME NEEDED FOR INSOMNIA venlafaxine 2022-0 Yes [id number] Take 1 tab [facility] 37.5 mg 8-24 PO every [facility] of tablet 00:00: other day [place] 00 x 5 weeks, Medical then take Branch 1 tab PO every 3 days x 3 weeks to taper. levothyroxi 2022-0 Yes [id number] 75ug Take 1 [facility] ne 75 mcg 8-24 tablet by ity o f tablet 00:00: mouth [place] 00 every Medical morning. Branch hydroCHLORO 2022-0 Yes [id number] 25mg Take 1 [facility] thiazide 25 8-24 tablet by ity of mg tablet 00:00: mouth [place] 00 every Medical morning. Branch atorvastati 2022-0 Yes [id number] 20mg Take 1 [facility] n 20 mg 8-24 tablet by it[facility] of tablet 00:00: mouth at [place] 00 bedtime. Medical Branch traZODone 2022-0 Yes [id number] TAKE 1 [facility] nivers 50 mg 8-24 TABLET BY it[facility] of tablet 00:00: MOUTH [place] 00 EVERY Medical NIGHT AT [place] BEDTIME NEEDED FOR INSOMNIA venlafaxine 2022-0 Yes [id number] Take 1 tab [facility] 37.5 mg 8-24 PO every [facility] of tablet 00:00: other day [place] 00 x 5 weeks, Medical then take Branch 1 tab PO every 3 days x 3 weeks to taper. levothyroxi 2022-0 Yes [id number] 75ug Take 1 [facility] ne 75 mcg 8-24 tablet by ity o f tablet 00:00: mouth [place] 00 every Medical morning. Branch hydroCHLORO 2022-0 Yes [id number] 25mg Take 1 [facility] thiazide 25 8-24 tablet by ity of mg tablet 00:00: mouth [place] 00 every Medical morning. Branch atorvastati 2022-0 Yes [id number] 20mg Take 1 [facility] n 20 mg 8-24 tablet by ity of tablet 00:00: mouth at [place] 00 bedtime. Medical Branch traZODone 2023-0 Yes [id number] TAKE 1 [facility] nivers 50 mg 8-24 TABLET BY ity of tablet 00:00: MOUTH [place] 00 EVERY Medical NIGHT AT [place] BEDTIME NEEDED FOR INSOMNIA venlafaxine Yes [id number] Take 1 tab [facility] 37.5 mg 8-24 PO every it[facility] of tablet 00:00: other day [place] 00 x 5 weeks, Medical then take Branch 1 tab PO every 3 days x 3 weeks to taper. levothyroxi Yes [id number] 75ug Take 1 [facility] ne 75 mcg 8-24 tablet by ity o f tablet 00:00: mouth [place] 00 every Medical morning. [place] atenoloL 50 2022- No [id number] 50mg Take 1 [facility] mg tablet 10-29 tablet by ity of 00:00: 00:00 [facility] 00 :00 every Medical morning. [place] atenoloL 50 2022- No [id number] 50mg Take 1 [facility] mg tablet 10-29 tablet by ity of 00:00: 00:00 [facility] 00 :00 every Medical morning. [place] atenoloL 50 2022- No [id number] 50mg Take 1 [facility] mg tablet 10-29 tablet by ity of 00:00: 00:00 [facility] 00 :00 every Medical morning. [place] atenoloL 50 2022- No [id number] 50mg Take 1 [facility] mg tablet 10-29 tablet by ity of 00:00: 00:00 [facility] 00 :00 every Medical morning. [place] atenoloL 50 2022- No [id number] 50mg Take 1 [facility] mg tablet 10-29 tablet by ity of 00:00: 00:00 [facility] 00 :00 every Medical morning. [place] atenoloL 50 2022-2022- No [id number] 50mg Take 1 [facility] mg tablet 10-29- tablet by ity of 00:00: 00:00 [facility] 00 :00 every Medical morning. [place] atenoloL 50 2022-2022- No [id number] 50mg Take 1 [facility] mg tablet 10-29 tablet by ity of 00:00: 00:00 [facility] 00 :00 every Medical morning. [place] atenoloL 50 2022-0 2022- No [id number] 50mg Take 1 [facility] mg tablet 8-24 09-20 tablet by ity of 00:00: 00:00 mouth [place] 00 :00 every Medical morning. Branch ATENOLOL 50 2022-0 Yes [id number] TAKE ONE [facility] mg tablet 8-20 TABLET BY ity o f 00:00: MOUTH [place] 00 EVERY Medical MORNING Branch ATENOLOL 50 2022-0 2022- No [id number] TAKE ONE [facility] mg tablet 8-20 08-24 TABLET BY ity of 00:00: 00:00 MOUTH [place] 00 :00 EVERY Medical MORNING Branch ATENOLOL 50 2022-0 2022- No [id number] TAKE ONE [facility] mg tablet 8-20 08-24 TABLET BY ity of 00:00: 00:00 MOUTH [place] 00 :00 EVERY Medical MORNING Branch atenoloL 50 2022-0 Yes [id number] 50mg Take 1 [facility] mg tablet 8-15 tablet by ity o f 00:00: mouth in [place] 00 the Medical morning. Branch atenoloL 50 2022-0 Yes [id number] 50mg Take 1 [facility] mg tablet 8-15 tablet by ity o f 00:00: mouth in [place] 00 the Medical morning. Branch atenoloL 50 2022-0 Yes [id number] 50mg Take 1 [facility] mg tablet 8-15 tablet by ity o f 00:00: mouth in [place] 00 the Medical morning. Branch atenoloL 50 2022-0 Yes [id number] 50mg Take 1 [facility] mg tablet 8-15 tablet by ity o f 00:00: mouth in [place] 00 the Medical morning. Branch atenoloL 50 2022-0 Yes [id number] 50mg Take 1 [facility] mg tablet 8-15 tablet by ity o f 00:00: mouth in [place] 00 the Medical morning. Branch atenoloL 50 2022-0 Yes [id number] 50mg Take 1 [facility] mg tablet 8-15 tablet by ity o f 00:00: mouth in [place] 00 the Medical morning. Branch atenoloL 50 2022-0 Yes [id number] 50mg Take 1 [facility] mg tablet 8-15 tablet by ity o f 00:00: mouth in [place] 00 the Medical morning. Branch atenoloL 50 2022-0 Yes [id number] 50mg Take 1 [facility] mg tablet 8-15 tablet by ity o f 00:00: mouth in [place] the Medical morning. Branch atenoloL 50 3-0 Yes [id number] 50mg Take 1 [facility] mg tablet 8-15 tablet by ity o f 00:00: mouth in [place] the Medical morning. Branch atenoloL 50 3-0 Yes [id number] 50mg Take 1 [facility] mg tablet 8-15 tablet by ity o f 00:00: mouth in [place] the Medical morning. Branch atenoloL 50 3-0 Yes [id number] 50mg Take 1 [facility] mg tablet 8-15 tablet by ity o f 00:00: mouth in [place] the Medical morning. Branch atenoloL 50 3-0 Yes [id number] 50mg Take 1 [facility] mg tablet 8-15 tablet by ity o f 00:00: mouth in [place] the Medical morning. Branch atenoloL 50 3-0 Yes [id number] 50mg Take 1 [facility] mg tablet 8-15 tablet by ity o f 00:00: mouth in [place] the Medical morning. Branch atenoloL 50 3-0 Yes [id number] 50mg Take 1 [facility] mg tablet 8-15 tablet by ity o f 00:00: mouth in [place] the Medical morning. Branch atenoloL 50 3-0 Yes [id number] 50mg Take 1 [facility] mg tablet 8-15 tablet by ity o f 00:00: mouth in [place] the Medical morning. Branch atenoloL 50 3-0 Yes [id number] 50mg Take 1 [facility] mg tablet 8-15 tablet by ity o f 00:00: mouth in [place] the Medical morning. Branch atenoloL 50 3-0 Yes [id number] 50mg Take 1 [facility] mg tablet 8-15 tablet by ity o f 00:00: mouth in [place] the Medical morning. Branch atenoloL 50 3-0 Yes [id number] 50mg Take 1 [facility] mg tablet 8-15 tablet by ity o f 00:00: mouth in [place] the Medical morning. Branch atenoloL 50 3-0 Yes [id number] 50mg Take 1 [facility] mg tablet 8-15 tablet by ity o f 00:00: mouth in [place] the Medical morning. Branch atenoloL 50 3-0 Yes [id number] 50mg Take 1 [facility] mg tablet 8-15 tablet by ity o f 00:00: mouth in [place] the Medical morning. Branch atenoloL 50 2022-0 Yes [id number] 50mg Take 1 [facility] mg tablet 8-15 tablet by ity o f 00:00: mouth in [place] the Medical morning. Branch atenoloL 50 3-0 Yes [id number] 50mg Take 1 [facility] mg tablet 8-15 tablet by ity o f 00:00: mouth in [place] the Medical morning. Branch atenoloL 50 2022-0 Yes [id number] 50mg Take 1 [facility] mg tablet 8-15 tablet by ity o f 00:00: mouth in [place] the Medical morning. Branch atenoloL 50 3-0 Yes [id number] 50mg Take 1 [facility] mg tablet 8-15 tablet by ity o f 00:00: mouth in [place] the Medical morning. Branch atenoloL 50 2022-0 Yes [id number] 50mg Take 1 [facility] mg tablet 8-15 tablet by ity o f 00:00: mouth in [place] the Medical morning. Branch atenoloL 50 2022-0 Yes [id number] 50mg Take 1 [facility] mg tablet 8-15 tablet by ity o f 00:00: mouth in [place] the Medical morning. Branch atenoloL 50 2022-0 Yes [id number] 50mg Take 1 [facility] mg tablet 8-15 tablet by ity o f 00:00: mouth in [place] the Medical morning. Branch atenoloL 50 2022-0 Yes [id number] 50mg Take 1 [facility] mg tablet 8-15 tablet by ity o f 00:00: mouth in [place] the Medical morning. Branch atenoloL 50 2022-0 Yes [id number] 50mg Take 1 [facility] mg tablet 8-15 tablet by ity o f 00:00: mouth in [place] the Medical morning. Branch baclofen 10 2022-0 Yes baclofen [place] mg tablet 8-14 10 mg ity of 08:13: tablet [address] baclofen 10 2022-0 Yes baclofen [place] mg tablet 8-14 10 mg ity of 08:13: tablet [address] baclofen 10 2022-0 Yes baclofen [place] mg tablet 8-14 10 mg ity of 08:13: tablet [address] baclofen 10 2023-0 Yes baclofen [place] mg tablet 8-14 10 mg ity of 08:13: tablet [address] baclofen 10 Yes baclofen [place] mg tablet 8-14 10 mg ity of 08:13: tablet [address] baclofen 10 Yes baclofen [place] mg tablet 8-14 10 mg ity of 08:13: tablet [address] baclofen 10 Yes baclofen [place] mg tablet 8-14 10 mg ity of 08:13: tablet [address] baclofen 10 Yes baclofen [place] mg tablet 8-14 10 mg ity of 08:13: tablet [address] baclofen 10 Yes baclofen [place] mg tablet 8-14 10 mg ity of 08:13: tablet [address] baclofen 10 Yes baclofen [place] mg tablet 8-14 10 mg ity of 08:13: tablet [address] baclofen 10 Yes baclofen [place] mg tablet 8-14 10 mg ity of 08:13: tablet [address] baclofen 10 Yes baclofen [place] mg tablet 8-14 10 mg ity of 08:13: tablet [address] baclofen 10 Yes baclofen [place] mg tablet 8-14 10 mg ity of 08:13: tablet [address] baclofen 10 0 Yes baclofen [place] mg tablet 8-14 10 mg ity of 08:13: tablet [address] baclofen 10 Yes baclofen [place] mg tablet 8-14 10 mg ity of 08:13: tablet [address] baclofen 10 0 Yes baclofen [place] mg tablet 8-14 10 mg ity of 08:13: tablet [address] baclofen 10 Yes baclofen [place] mg tablet 8-14 10 mg ity of 08:13: tablet [address] baclofen 10 0 Yes baclofen [place] mg tablet 8-14 10 mg ity of 08:13: tablet [address] baclofen 10 Yes baclofen [place] mg tablet 8-14 10 mg ity of 08:13: tablet [address] baclofen 10 0 Yes baclofen [place] mg tablet 8-14 10 mg ity of 08:13: tablet [address] baclofen 10 0 Yes baclofen [place] mg tablet 8-14 10 mg ity of 08:13: tablet [address] baclofen 10 0 Yes baclofen [place] mg tablet 8-14 10 mg ity of 08:13: tablet [address] baclofen 10 Yes baclofen [place] mg tablet 8-14 10 mg ity of 08:13: tablet [address] baclofen 10 Yes baclofen [place] mg tablet 8-14 10 mg ity of 08:13: tablet [address] baclofen 10 Yes baclofen [place] mg tablet 8-14 10 mg ity of 08:13: tablet [address] baclofen 10 Yes baclofen [place] mg tablet 8-14 10 mg ity of 08:13: tablet [address] baclofen 10 Yes baclofen [place] mg tablet 8-14 10 mg ity of 08:13: tablet [address] baclofen 10 Yes baclofen [place] mg tablet 8-14 10 mg ity of 08:13: tablet [address] baclofen 10 0 Yes baclofen [place] mg tablet 8-14 10 mg ity of 08:13: tablet [address] baclofen 10 0 Yes baclofen [place] mg tablet 8-14 10 mg ity of 08:13: tablet [address] baclofen 10 0 Yes baclofen [place] mg tablet 8-14 10 mg ity of 08:13: tablet [address] baclofen 10 2022-0 Yes baclofen [place] mg tablet 8-14 10 mg ity of 08:13: tablet [address] baclofen 10 2022-0 Yes baclofen [place] mg tablet 8-14 10 mg ity of 08:13: tablet [address] baclofen 10 2022-0 Yes baclofen [place] mg tablet 8-14 10 mg ity of 08:13: tablet [address] baclofen 10 0 Yes baclofen [place] mg tablet 8-14 10 mg ity of 08:13: tablet [place] [address] Medical Branch baclofen 10 Yes baclofen Un [facility] mg tablet 8-14 10 mg ity of 08:13: tablet [place] [address] Medical Branch baclofen 10 Yes baclofen [place] mg tablet 8-14 10 mg ity of 08:13: tablet [place] [address] Medical Branch baclofen 10 Yes baclofen [place] mg tablet 8-14 10 mg ity of 08:13: tablet [place] [address] Medical Branch baclofen 10 Yes baclofen [place] mg tablet 8-14 10 mg ity of 08:13: tablet [place] [address] Medical Branch baclofen 10 Yes baclofen [place] mg tablet 8-14 10 mg ity of 08:13: tablet [place] [address] Medical Branch baclofen 10 Yes baclofen [facility] [place] mg tablet 8-14 10 mg ity of 08:13: tablet [address] ubrogepant 2022-0 Yes [id number] 100mg Take 1 [facility] 100 mg Tab 8-14 tablet by ity of 00:00: mouth as [place] [address] needed for Medical Other Branch (Headache) for up to 40 doses. If symptoms persist or return, may repeat dose after 2 hours. Maximum: 200 mg per 24 hours topiramate 3-0 Yes [id number] 50mg Take 1 [facility] 50 mg 8-14 tablet by ity of tablet 00:00: mouth in [place] [address] the Medical morning Branch and 1 tablet in the evening. ubrogepant 3-0 Yes [id number] 100mg Take 1 [facility] 100 mg Tab 8-14 tablet by ity of 00:00: mouth as [place] [address] needed for Medical Other Branch (Headache) for up to 40 doses. If symptoms persist or return, may repeat dose after 2 hours. Maximum: 200 mg per 24 hours topiramate 3-0 Yes [id number] 50mg Take 1 [facility] 50 mg 8-14 tablet by ity of tablet 00:00: mouth in [place] 00 the Medical morning Branch and 1 tablet in the evening. ubrogepant 2023-0 Yes [id number] 100mg Take 1 [facility] 100 mg Tab 8-14 tablet by ity of 00:00: mouth as [place] [address] needed for Medical Other Branch (Headache) for up to 40 doses. If symptoms persist or return, may repeat dose after 2 hours. Maximum: 200 mg per 24 hours topiramate 2023-0 Yes [id number] 50mg Take 1 [facility] 50 mg 8-14 tablet by ity of tablet 00:00: mouth in [place] 00 the Medical morning Branch and 1 tablet in the evening. ubrogepant 2023-0 Yes [id number] 100mg Take 1 [facility] 100 mg Tab 8-14 tablet by ity of 00:00: mouth as [place] 00 needed for Medical Other Branch (Headache) for up to 40 doses. If symptoms persist or return, may repeat dose after 2 hours. Maximum: 200 mg per 24 hours topiramate 2023-0 Yes [id number] 50mg Take 1 [facility] 50 mg 8-14 tablet by ity of tablet 00:00: mouth in [place] 00 the Medical morning Branch and 1 tablet in the evening. ubrogepant 2023-0 Yes [id number] 100mg Take 1 [facility] 100 mg Tab 8-14 tablet by ity of 00:00: mouth as [place] needed for Medical Other Branch (Headache) . If symptoms persist or return, may repeat dose after 2 hours. Maximum: 200 mg per 24 hours topiramate 2023-0 Yes [id number] 50mg Take 1 [facility] 50 mg 8-14 tablet by ity of tablet 00:00: mouth in [place] 00 the Medical morning Branch and 1 tablet in the evening. ubrogepant 2023-0 Yes [id number] 100mg Take 1 [facility] 100 mg Tab 8-14 tablet by ity of 00:00: mouth as [place] 00 needed for Medical Other Branch (Headache) . If symptoms persist or return, may repeat dose after 2 hours. Maximum: 200 mg per 24 hours topiramate 2023-0 Yes [id number] 50mg Take 1 [facility] 50 mg 8-14 tablet by ity of tablet 00:00: mouth in [place] 00 the Medical morning Branch and 1 tablet in the evening. ubrogepant 2023-0 Yes [id number] 100mg Take 1 [facility] 100 mg Tab 8-14 tablet by ity of 00:00: mouth as [place] 00 needed for Medical Other Branch (Headache) . If symptoms persist or return, may repeat dose after 2 hours. Maximum: 200 mg per 24 hours topiramate 2023-0 Yes [id number] 50mg Take 1 [facility] 50 mg 8-14 tablet by ity of tablet 00:00: mouth in [place] 00 the Medical morning Branch and 1 tablet in the evening. ubrogepant 2023-0 Yes [id number] 100mg Take 1 [facility] 100 mg Tab 8-14 tablet by ity of 00:00: mouth as [place] 00 needed for Medical Other Branch (Headache) . If symptoms persist or return, may repeat dose after 2 hours. Maximum: 200 mg per 24 hours topiramate 2023-0 Yes [id number] 50mg Take 1 [facility] 50 mg 8-14 tablet by ity of tablet 00:00: mouth in [place] 00 the Medical morning Branch and 1 tablet in the evening. ubrogepant 2023-0 Yes [id number] 100mg Take 1 [facility] 100 mg Tab 8-14 tablet by ity of 00:00: mouth as [place] [address] needed for Medical Other Branch (Headache) . If symptoms persist or return, may repeat dose after 2 hours. Maximum: 200 mg per 24 hours topiramate 2023-0 Yes [id number] 50mg Take 1 [facility] 50 mg 8-14 tablet by ity of tablet 00:00: mouth in [place] 00 the Medical morning Branch and 1 tablet in the evening. ubrogepant 2023-0 Yes [id number] 100mg Take 1 [facility] 100 mg Tab 8-14 tablet by ity of 00:00: mouth as [place] [address] needed for Medical Other Branch (Headache) . If symptoms persist or return, may repeat dose after 2 hours. Maximum: 200 mg per 24 hours topiramate 2023-0 Yes [id number] 50mg Take 1 [facility] 50 mg 8-14 tablet by ity of tablet 00:00: mouth in [place] 00 the Medical morning Branch and 1 tablet in the evening. ubrogepant 2023-0 Yes [id number] 100mg Take 1 [facility] 100 mg Tab 8-14 tablet by ity of 00:00: mouth as [place] [address] needed for Medical Other Branch (Headache) . If symptoms persist or return, may repeat dose after 2 hours. Maximum: 200 mg per 24 hours topiramate 2023-0 Yes [id number] 50mg Take 1 [facility] 50 mg 8-14 tablet by ity of tablet 00:00: mouth in [place] 00 the Medical morning Branch and 1 tablet in the evening. ubrogepant 2023-0 Yes [id number] 100mg Take 1 [facility] 100 mg Tab 8-14 tablet by ity of 00:00: mouth as [place] 00 needed for Medical Other Branch (Headache) . If symptoms persist or return, may repeat dose after 2 hours. Maximum: 200 mg per 24 hours topiramate 2023-0 Yes [id number] 50mg Take 1 [facility] 50 mg 8-14 tablet by ity of tablet 00:00: mouth in [place] 00 the Medical morning Branch and 1 tablet in the evening. ubrogepant 2023-0 Yes [id number] 100mg Take 1 [facility] 100 mg Tab 8-14 tablet by ity of 00:00: mouth as [place] 00 needed for Medical Other Branch (Headache) . If symptoms persist or return, may repeat dose after 2 hours. Maximum: 200 mg per 24 hours topiramate 2023-0 Yes [id number] 50mg Take 1 [facility] 50 mg 8-14 tablet by ity of tablet 00:00: mouth in [place] 00 the Medical morning Branch and 1 tablet in the evening. ubrogepant 2023-0 Yes [id number] 100mg Take 1 [facility] 100 mg Tab 8-14 tablet by ity of 00:00: mouth as [place] needed for Medical Other Branch (Headache) . If symptoms persist or return, may repeat dose after 2 hours. Maximum: 200 mg per 24 hours topiramate 2023-0 Yes [id number] 50mg Take 1 [facility] 50 mg 8-14 tablet by ity of tablet 00:00: mouth in [place] 00 the Medical morning Branch and 1 tablet in the evening. ubrogepant 2023-0 Yes [id number] 100mg Take 1 [facility] 100 mg Tab 8-14 tablet by ity of 00:00: mouth as [place] needed for Medical Other Branch (Headache) . If symptoms persist or return, may repeat dose after 2 hours. Maximum: 200 mg per 24 hours topiramate 2023-0 Yes [id number] 50mg Take 1 [facility] 50 mg 8-14 tablet by ity of tablet 00:00: mouth in [place] 00 the Medical morning Branch and 1 tablet in the evening. ubrogepant 2023-0 Yes [id number] 100mg Take 1 [facility] 100 mg Tab 8-14 tablet by ity of 00:00: mouth as [place] 00 needed for Medical Other Branch (Headache) . If symptoms persist or return, may repeat dose after 2 hours. Maximum: 200 mg per 24 hours topiramate 2023-0 Yes [id number] 50mg Take 1 [facility] 50 mg 8-14 tablet by ity of tablet 00:00: mouth in [place] 00 the Medical morning Branch and 1 tablet in the evening. ubrogepant 2023-0 Yes [id number] 100mg Take 1 [facility] 100 mg Tab 8-14 tablet by ity of 00:00: mouth as [place] 00 needed for Medical Other Branch (Headache) . If symptoms persist or return, may repeat dose after 2 hours. Maximum: 200 mg per 24 hours topiramate 2023-0 Yes [id number] 50mg Take 1 [facility] 50 mg 8-14 tablet by ity of tablet 00:00: mouth in [place] 00 the Medical morning Branch and 1 tablet in the evening. ubrogepant 2023-0 Yes [id number] 100mg Take 1 [facility] 100 mg Tab 8-14 tablet by ity of 00:00: mouth as [place] [address] needed for Medical Other Branch (Headache) . If symptoms persist or return, may repeat dose after 2 hours. Maximum: 200 mg per 24 hours topiramate 2023-0 Yes [id number] 50mg Take 1 [facility] 50 mg 8-14 tablet by ity of tablet 00:00: mouth in [place] 00 the Medical morning Branch and 1 tablet in the evening. ubrogepant 2023-0 Yes [id number] 100mg Take 1 [facility] 100 mg Tab 8-14 tablet by ity of 00:00: mouth as [place] [address] needed for Medical Other Branch (Headache) . If symptoms persist or return, may repeat dose after 2 hours. Maximum: 200 mg per 24 hours topiramate 2023-0 Yes [id number] 50mg Take 1 [facility] 50 mg 8-14 tablet by ity of tablet 00:00: mouth in [place] 00 the Medical morning Branch and 1 tablet in the evening. ubrogepant 2023-0 Yes [id number] 100mg Take 1 [facility] 100 mg Tab 8-14 tablet by ity of 00:00: mouth as [place] 00 needed for Medical Other Branch (Headache) . If symptoms persist or return, may repeat dose after 2 hours. Maximum: 200 mg per 24 hours topiramate 2023-0 Yes [id number] 50mg Take 1 [facility] 50 mg 8-14 tablet by [facility]y of tablet 00:00: mouth in [place] 00 the Medical morning Branch and 1 tablet in the evening. ubrogepant 2023-0 Yes [id number] 100mg Take 1 [facility] 100 mg Tab 8-14 tablet by [facility] of 00:00: mouth as [place] 00 needed for Medical Other Branch (Headache) . If symptoms persist or return, may repeat dose after 2 hours. Maximum: 200 mg per 24 hours topiramate 2023-0 Yes [id number] 50mg Take 1 [facility] 50 mg 8-14 tablet by [facility] of tablet 00:00: mouth in [place] 00 the Medical morning Branch and 1 tablet in the evening. ubrogepant 2023-0 Yes [id number] 100mg Take 1 [facility] 100 mg Tab 8-14 tablet by [facility] of 00:00: mouth as [place] 00 needed for Medical Other Branch (Headache) . If symptoms persist or return, may repeat dose after 2 hours. Maximum: 200 mg per 24 hours topiramate 2023-0 Yes [id number] 50mg Take 1 [facility] 50 mg 8-14 tablet by [facility] of tablet 00:00: mouth in [place] 00 the Medical morning Branch and 1 tablet in the evening. ubrogepant 2023-0 Yes [id number] 100mg Take 1 [facility] 100 mg Tab 8-14 tablet by [facility] of 00:00: mouth as [place] 00 needed for Medical Other Branch (Headache) . If symptoms persist or return, may repeat dose after 2 hours. Maximum: 200 mg per 24 hours topiramate 2023-0 Yes [id number] 50mg Take 1 [facility] 50 mg 8-14 tablet by [facility] of tablet 00:00: mouth in [place] 00 the Medical morning Branch and 1 tablet in the evening. ubrogepant 2023-0 Yes [id number] 100mg Take 1 [facility] 100 mg Tab 8-14 tablet by [facility] of 00:00: mouth as [place] 00 needed for Medical Other Branch (Headache) . If symptoms persist or return, may repeat dose after 2 hours. Maximum: 200 mg per 24 hours topiramate 2023-0 Yes [id number] 50mg Take 1 [facility] 50 mg 8-14 tablet by [facility] of tablet 00:00: mouth in [place] 00 the Medical morning Branch and 1 tablet in the evening. ubrogepant 2023-0 Yes [id number] 100mg Take 1 [facility] 100 mg Tab 8-14 tablet by [facility] of 00:00: mouth as [place] 00 needed for Medical Other Branch (Headache) . If symptoms persist or return, may repeat dose after 2 hours. Maximum: 200 mg per 24 hours topiramate 2023-0 Yes [id number] 50mg Take 1 [facility] 50 mg 8-14 tablet by [facility] of tablet 00:00: mouth in [place] 00 the Medical morning Branch and 1 tablet in the evening. ubrogepant 2023-0 Yes [id number] 100mg Take 1 [facility] 100 mg Tab 8-14 tablet by [facility] of 00:00: mouth as [place] 00 needed for Medical Other Branch (Headache) . If symptoms persist or return, may repeat dose after 2 hours. Maximum: 200 mg per 24 hours topiramate 2023-0 Yes [id number] 50mg Take 1 [facility] 50 mg 8-14 tablet by [facility] of tablet 00:00: mouth in [place] 00 the Medical morning Branch and 1 tablet in the evening. ubrogepant 2023-0 Yes [id number] 100mg Take 1 [facility] 100 mg Tab 8-14 tablet by [facility] of 00:00: mouth as [place] 00 needed for Medical Other Branch (Headache) . If symptoms persist or return, may repeat dose after 2 hours. Maximum: 200 mg per 24 hours topiramate 2023-0 Yes [id number] 50mg Take 1 [facility] 50 mg 8-14 tablet by [facility] of tablet 00:00: mouth in [place] 00 the Medical morning Branch and 1 tablet in the evening. ubrogepant 2023-0 Yes [id number] 100mg Take 1 [facility] 100 mg Tab 8-14 tablet by [facility] of 00:00: mouth as [place] 00 needed for Medical Other Branch (Headache) . If symptoms persist or return, may repeat dose after 2 hours. Maximum: 200 mg per 24 hours topiramate 2023-0 Yes [id number] 50mg Take 1 [facility] 50 mg 8-14 tablet by [facility] of tablet 00:00: mouth in [place] 00 the Medical morning Branch and 1 tablet in the evening. ubrogepant 2023-0 Yes [id number] 100mg Take 1 [facility] 100 mg Tab 8-14 tablet by [facility] of 00:00: mouth as [place] 00 needed for Medical Other Branch (Headache) . If symptoms persist or return, may repeat dose after 2 hours. Maximum: 200 mg per 24 hours topiramate 2023-0 Yes [id number] 50mg Take 1 [facility] 50 mg 8-14 tablet by [facility] of tablet 00:00: mouth in [place] 00 the Medical morning Branch and 1 tablet in the evening. ubrogepant 2023-0 Yes [id number] 100mg Take 1 [facility] 100 mg Tab 8-14 tablet by [facility] of 00:00: mouth as [place] 00 needed for Medical Other Branch (Headache) . If symptoms persist or return, may repeat dose after 2 hours. Maximum: 200 mg per 24 hours topiramate 2023-0 Yes [id number] 50mg Take 1 [facility] 50 mg 8-14 tablet by [facility] of tablet 00:00: mouth in [place] 00 the Medical morning Branch and 1 tablet in the evening. ubrogepant 2023-0 Yes [id number] 100mg Take 1 [facility] 100 mg Tab 8-14 tablet by [facility] of 00:00: mouth as [place] 00 needed for Medical Other Branch (Headache) . If symptoms persist or return, may repeat dose after 2 hours. Maximum: 200 mg per 24 hours topiramate 2023-0 Yes [id number] 50mg Take 1 [facility] 50 mg 8-14 tablet by [facility] of tablet 00:00: mouth in [place] 00 the Medical morning Branch and 1 tablet in the evening. ubrogepant 2023-0 Yes [id number] 100mg Take 1 [facility] 100 mg Tab 8-14 tablet by [facility] of 00:00: mouth as [place] 00 needed for Medical Other Branch (Headache) . If symptoms persist or return, may repeat dose after 2 hours. Maximum: 200 mg per 24 hours topiramate 2023-0 Yes [id number] 50mg Take 1 [facility] 50 mg 8-14 tablet by [facility] of tablet 00:00: mouth in [place] 00 the Medical morning Branch and 1 tablet in the evening. hydroCHLORO 2023-0 Yes [id number] 25mg Take 1 [facility] thiazide 25 6-14 tablet by [facility] of mg tablet 00:00: mouth [place] 00 every Medical morning. Branch Follow-up for refills and fasting labs. traZODone 2023-0 Yes [id number] TAKE 1 [facility] 50 mg 6-14 TABLET BY [facility] of tablet 00:00: MOUTH [place] 00 EVERY Medical NIGHT AT Branch BEDTIME NEEDED FOR INSOMNIA hydroCHLORO 2023-0 Yes [id number] 25mg Take 1 [facility] thiazide 25 6-14 tablet by [facility] of mg tablet 00:00: mouth [place] 00 every Medical morning. Branch Follow-up for refills and fasting labs. traZODone 2023-0 Yes [id number] TAKE 1 [facility] 50 mg 6-14 TABLET BY it[facility] of tablet 00:00: MOUTH [place] 00 EVERY Medical NIGHT AT Branch BEDTIME NEEDED FOR INSOMNIA hydroCHLORO 2023-0 Yes [id number] 25mg Take 1 [facility] thiazide 25 6-14 tablet by [facility] of mg tablet 00:00: mouth [place] 00 every Medical morning. Branch Follow-up for refills and fasting labs. traZODone 2023-0 Yes [id number] TAKE 1 [facility] 50 mg 6-14 TABLET BY [facility] of tablet 00:00: MOUTH [place] 00 EVERY Medical NIGHT AT Branch BEDTIME NEEDED FOR INSOMNIA hydroCHLORO 2023-0 Yes [id number] 25mg Take 1 [facility] thiazide 25 6-14 tablet by [facility] of mg tablet 00:00: mouth [place] 00 every Medical morning. Branch Follow-up for refills and fasting labs. traZODone 2023-0 Yes [id number] TAKE 1 [facility] 50 mg 6-14 TABLET BY [facility] of tablet 00:00: MOUTH [place] 00 EVERY Medical NIGHT AT Branch BEDTIME NEEDED FOR INSOMNIA hydroCHLORO 2023-0 Yes [id number] 25mg Take 1 [facility] thiazide 25 6-14 tablet by [facility] of mg tablet 00:00: mouth [place] 00 every Medical morning. Branch Follow-up for refills and fasting labs. traZODone 2023-0 Yes [id number] TAKE 1 [facility] 50 mg 6-14 TABLET BY [facility] of tablet 00:00: MOUTH [place] 00 EVERY Medical NIGHT AT Branch BEDTIME NEEDED FOR INSOMNIA hydroCHLORO 2023-0 Yes [id number] 25mg Take 1 [facility] thiazide 25 6-14 tablet by [facility] of mg tablet 00:00: mouth [place] 00 every Medical morning. Branch Follow-up for refills and fasting labs. traZODone 2023-0 Yes [id number] TAKE 1 [facility] 50 mg 6-14 TABLET BY [facility] of tablet 00:00: MOUTH [place] 00 EVERY Medical NIGHT AT Branch BEDTIME NEEDED FOR INSOMNIA hydroCHLORO 2023-0 Yes [id number] 25mg Take 1 [facility] thiazide 25 6-14 tablet by [facility] of mg tablet 00:00: mouth [place] 00 every Medical morning. Branch Follow-up for refills and fasting labs. traZODone 2023-0 Yes [id number] TAKE 1 [facility] 50 mg 6-14 TABLET BY [facility] of tablet 00:00: MOUTH [place] 00 EVERY Medical NIGHT AT Branch BEDTIME NEEDED FOR INSOMNIA hydroCHLORO 2022-0 2022- No [id number] 25mg Take 1 [facility] thiazide 25 6-14 08-24 tablet by it y of mg tablet 00:00: 00:00 mouth [place] 00 :00 every Medical morning. Branch Follow-up for refills and fasting labs. traZODone 2022- No [id number] TAKE 1 [facility] 50 mg 6-14 08-24 TABLET BY [facility] of tablet 00:00: 00:00 MOUTH [place] 00 :00 EVERY Medical NIGHT AT Branch BEDTIME NEEDED FOR INSOMNIA hydroCHLORO 2022- No [id number] 25mg Take 1 [facility] thiazide 25 6-14 08-24 tablet by it y of mg tablet 00:00: 00:00 mouth [place] 00 :00 every Medical morning. Branch Follow-up for refills and fasting labs. traZODone 2022- No [id number] TAKE 1 [facility] 50 mg 6-14 08-24 TABLET BY [facility] of tablet 00:00: 00:00 MOUTH [place] 00 :00 EVERY Medical NIGHT AT Branch BEDTIME NEEDED FOR INSOMNIA AMLODIPINE 2022-0 Yes [id number] TAKE ONE [facility] 10 mg 6-12 TABLET BY [facility] of tablet 00:00: MOUTH [place] 00 EVERY Medical MORNING Branch AMLODIPINE 3-0 Yes [id number] TAKE ONE [facility] 10 mg 6-12 TABLET BY [facility] of tablet 00:00: MOUTH [place] 00 EVERY Medical MORNING Branch AMLODIPINE 3-0 Yes [id number] TAKE ONE [facility] 10 mg 6-12 TABLET BY [facility] of tablet 00:00: MOUTH [place] 00 EVERY Medical MORNING Branch AMLODIPINE 2023-0 Yes [id number] TAKE ONE [facility] 10 mg 6-12 TABLET BY [facility] of tablet 00:00: MOUTH [place] 00 EVERY Medical MORNING Branch AMLODIPINE 3-0 Yes [id number] TAKE ONE [facility] 10 mg 6-12 TABLET BY [facility] of tablet 00:00: MOUTH [place] 00 EVERY Medical MORNING Branch AMLODIPINE 2023-0 Yes [id number] TAKE ONE [facility] 10 mg 6-12 TABLET BY [facility] of tablet 00:00: MOUTH [place] 00 EVERY Medical MORNING Branch AMLODIPINE 3-0 Yes [id number] TAKE ONE [facility] 10 mg 6-12 TABLET BY [facility] of tablet 00:00: MOUTH [place] 00 EVERY Medical MORNING Branch AMLODIPINE 2023-0 Yes [id number] TAKE ONE [facility] 10 mg 6-12 TABLET BY [facility] of tablet 00:00: MOUTH [place] 00 EVERY Medical MORNING Branch AMLODIPINE 2023-0 Yes [id number] TAKE ONE [facility] 10 mg 6-12 TABLET BY [facility] of tablet 00:00: MOUTH [place] 00 EVERY Medical MORNING Branch AMLODIPINE 2023-0 Yes [id number] TAKE ONE [facility] 10 mg 6-12 TABLET BY [facility] of tablet 00:00: MOUTH [place] 00 EVERY Medical MORNING Branch AMLODIPINE 2023-0 Yes [id number] TAKE ONE [facility] 10 mg 6-12 TABLET BY it[facility] of tablet 00:00: MOUTH [place] 00 EVERY Medical MORNING Branch AMLODIPINE 2023-0 Yes [id number] TAKE ONE [facility] 10 mg 6-12 TABLET BY ity of tablet 00:00: MOUTH 00 EVERY Medical MORNING Branch AMLODIPINE 2023-0 Yes [id number] TAKE ONE [facility] 10 mg 6-12 TABLET BY it[facility] of tablet 00:00: MOUTH 00 EVERY Medical MORNING Branch AMLODIPINE 2023-0 Yes [id number] TAKE ONE [facility] 10 mg 6-12 TABLET BY it[facility] of tablet 00:00: MOUTH [place] 00 EVERY Medical MORNING Branch AMLODIPINE 2023-0 Yes [id number] TAKE ONE [facility] 10 mg 6-12 TABLET BY ity of tablet 00:00: MOUTH 00 EVERY Medical MORNING Branch AMLODIPINE 2023-0 Yes [id number] TAKE ONE [facility] 10 mg 6-12 TABLET BY ity of tablet 00:00: MOUTH 00 EVERY Medical MORNING Branch AMLODIPINE 2023-0 Yes [id number] TAKE ONE [facility] 10 mg 6-12 TABLET BY ity of tablet 00:00: MOUTH 00 EVERY Medical MORNING Branch AMLODIPINE 2023-0 Yes [id number] TAKE ONE [facility] 10 mg 6-12 TABLET BY ity of tablet 00:00: MOUTH [place] 00 EVERY Medical MORNING Branch AMLODIPINE 2023-0 Yes [id number] TAKE ONE [facility] 10 mg 6-12 TABLET BY it[facility] of tablet 00:00: MOUTH [place] 00 EVERY Medical MORNING Branch AMLODIPINE 2023-0 Yes [id number] TAKE ONE [facility] 10 mg 6-12 TABLET BY ity of tablet 00:00: MOUTH [place] 00 EVERY Medical MORNING Branch AMLODIPINE 2023-0 Yes [id number] TAKE ONE [facility] 10 mg 6-12 TABLET BY ity of tablet 00:00: MOUTH [place] 00 EVERY Medical MORNING Branch AMLODIPINE 2023-0 Yes [id number] TAKE ONE [facility] 10 mg 6-12 TABLET BY ity of tablet 00:00: MOUTH [place] 00 EVERY Medical MORNING Branch AMLODIPINE 2023-0 Yes [id number] TAKE ONE [facility] 10 mg 6-12 TABLET BY ity of tablet 00:00: MOUTH [place] 00 EVERY Medical MORNING Branch AMLODIPINE 2023-0 Yes [id number] TAKE ONE [facility] 10 mg 6-12 TABLET BY ity of tablet 00:00: MOUTH [place] 00 EVERY Medical MORNING Branch AMLODIPINE 2023-0 Yes [id number] TAKE ONE [facility] 10 mg 6-12 TABLET BY ity of tablet 00:00: MOUTH [place] 00 EVERY Medical MORNING Branch AMLODIPINE 2023-0 Yes [id number] TAKE ONE [facility] 10 mg 6-12 TABLET BY it[facility] of tablet 00:00: MOUTH [place] 00 EVERY Medical MORNING Branch AMLODIPINE 2023-0 Yes [id number] TAKE ONE [facility] 10 mg 6-12 TABLET BY ity of tablet 00:00: MOUTH [place] 00 EVERY Medical MORNING Branch AMLODIPINE 2023-0 Yes [id number] TAKE ONE [facility] 10 mg 6-12 TABLET BY ity of tablet 00:00: MOUTH [place] 00 EVERY Medical MORNING Branch AMLODIPINE 2023-0 Yes [id number] TAKE ONE [facility] 10 mg 6-12 TABLET BY ity of tablet 00:00: MOUTH [place] 00 EVERY Medical MORNING Branch AMLODIPINE 2023-0 Yes [id number] TAKE ONE [facility] 10 mg 6-12 TABLET BY ity of tablet 00:00: MOUTH [place] 00 EVERY Medical MORNING Branch AMLODIPINE 2023-0 Yes [id number] TAKE ONE [facility] 10 mg 6-12 TABLET BY ity of tablet 00:00: MOUTH [place] 00 EVERY Medical MORNING Branch AMLODIPINE 2023-0 Yes [id number] TAKE ONE [facility] 10 mg 6-12 TABLET BY ity of tablet 00:00: MOUTH [place] 00 EVERY Medical MORNING Branch AMLODIPINE 2023-0 Yes [id number] TAKE ONE [facility] 10 mg 6-12 TABLET BY ity of tablet 00:00: MOUTH [place] 00 EVERY Medical MORNING Branch AMLODIPINE 2023-0 Yes [id number] TAKE ONE [facility] 10 mg 6-12 TABLET BY ity of tablet 00:00: MOUTH [place] 00 EVERY Medical MORNING Branch AMLODIPINE 2023-0 Yes [id number] TAKE ONE [facility] 10 mg 6-12 TABLET BY ity of tablet 00:00: MOUTH [place] 00 EVERY Medical MORNING Branch AMLODIPINE 2023-0 Yes [id number] TAKE ONE [facility] 10 mg 6-12 TABLET BY ity of tablet 00:00: MOUTH [place] 00 EVERY Medical MORNING Branch atorvastati 2022-0 Yes [id number] 20mg Take 1 [facility] n 20 mg 6-08 tablet by it[facility] of tablet 00:00: mouth at [place] [address] bedtime. Medical MUST BE Branch SEEN FOR FURTHER REFILLS atorvastati 2022-0 Yes [id number] 20mg Take 1 [facility] n 20 mg 6-08 tablet by ity of tablet 00:00: mouth at [place] [address] bedtime. Medical MUST BE Branch SEEN FOR FURTHER REFILLS atorvastati 2022-0 Yes [id number] 20mg Take 1 [facility] n 20 mg 6-08 tablet by ity of tablet 00:00: mouth at [place] [address] bedtime. Medical MUST BE Branch SEEN FOR FURTHER REFILLS atorvastati 2022-0 Yes [id number] 20mg Take 1 [facility] n 20 mg 6-08 tablet by ity of tablet 00:00: mouth at [place] [address] bedtime. Medical MUST BE Branch SEEN FOR FURTHER REFILLS atorvastati 2022-0 Yes [id number] 20mg Take 1 [facility] n 20 mg 6-08 tablet by ity of tablet 00:00: mouth at [place] [address] bedtime. Medical MUST BE Branch SEEN FOR FURTHER REFILLS atorvastati 2022-0 Yes [id number] 20mg Take 1 [facility] n 20 mg 6-08 tablet by ity of tablet 00:00: mouth at [place] [address] bedtime. Medical MUST BE Branch SEEN FOR FURTHER REFILLS atorvastati 2022-0 Yes [id number] 20mg Take 1 [facility] n 20 mg 6-08 tablet by ity of tablet 00:00: mouth at [place] [address] bedtime. Medical MUST BE Branch SEEN FOR FURTHER REFILLS atorvastati 2022-0 Yes [id number] 20mg Take 1 [facility] n 20 mg 6-08 tablet by ity of tablet 00:00: mouth at [place] [address] bedtime. Medical MUST BE Branch SEEN FOR FURTHER REFILLS atorvastati 2022-0 Yes [id number] 20mg Take 1 [facility] n 20 mg 6-08 tablet by ity of tablet 00:00: mouth at [place] [address] bedtime. Medical MUST BE Branch SEEN FOR FURTHER REFILLS atorvastati 2022-0 Yes [id number] 20mg Take 1 [facility] n 20 mg 6-08 tablet by ity of tablet 00:00: mouth at [place] 00 bedtime. Medical MUST BE Branch SEEN FOR FURTHER REFILLS atorvastati 2023-0 2023- No [id number] 20mg Take 1 [facility] n 20 mg 08-13 tablet by ity of tablet 00:00: 00:00 mouth at [place] 00 :00 bedtime. Medical MUST BE Branch SEEN FOR FURTHER REFILLS atorvastati 2023-0 2023- No [id number] 20mg Take 1 [facility] n 20 mg 08-13 tablet by ity of tablet 00:00: 00:00 mouth at [place] 00 :00 bedtime. Medical MUST BE Branch SEEN FOR FURTHER REFILLS methylPREDN 2023-0 Yes [id number] follow [facility] ISolone 6-05 package ity of (MEDROL, 00:00: directions [place],) 4 mg 00 Medical tablets Branch methylPREDN 2023-0 Yes [id number] follow [facility] ISolone 6-05 package ity of (MEDROL, 00:00: directions [place],) 4 mg 00 Medical tablets Branch methylPREDN 2023-0 Yes [id number] follow [facility] ISolone 6-05 package ity of (MEDROL, 00:00: directions [place],) 4 mg 00 Medical tablets Branch methylPREDN 2023-0 Yes [id number] follow [facility] ISolone 6-05 package ity of (MEDROL, 00:00: directions [place],) 4 mg 00 Medical tablets Branch methylPREDN 2023-0 Yes [id number] follow [facility] ISolone 6-05 package ity of (MEDROL, 00:00: directions [place],) 4 mg 00 Medical tablets Branch methylPREDN 2023-0 Yes [id number] follow [facility] ISolone 6-05 package ity of (MEDROL, 00:00: directions [place],) 4 mg 00 Medical tablets Branch methylPREDN 2023-0 Yes [id number] follow [facility] ISolone 6-05 package ity of (MEDROL, 00:00: directions [place],) 4 mg 00 Medical tablets Branch methylPREDN 2023-0 Yes [id number] follow [facility] ISolone 6-05 package ity of (MEDROL, 00:00: directions [place],) 4 mg 00 Medical tablets Branch methylPREDN 2023-0 Yes [id number] follow [facility] ISolone 6-05 package ity of (MEDROL, 00:00: directions [place],) 4 mg 00 Medical tablets Branch methylPREDN 3-0 Yes [id number] follow [facility] ISolone 6-05 package ity of (MEDROL, 00:00: directions [place],) 4 mg 00 Medical tablets Branch methylPREDN 3-0 Yes [id number] follow [facility] ISolone 6-05 package ity of (MEDROL, 00:00: directions [place],) 4 mg 00 Medical tablets Branch methylPREDN 2022-0 3- No [id number] follow [facility] ISolone 6-05 08-24 package ity of (MEDROL, 00:00: 00:00 directions [place],) 4 mg 00 :00 Medical tablets Branch methylPREDN 2022-0 3- No [id number] follow [facility] ISolone 6-05 08-24 package ity of (MEDROL, 00:00: 00:00 directions [place],) 4 mg 00 :00 Medical tablets Branch amoxicillin 2022-0 3- No [id number] 1{tbl} Take 1 [facility] -clavulanat 6-05 06-16 tablet by it y of e 00:00: 04:59 mouth in [place] (AUGMENTIN) 00 :00 the Medical 875-125 mg morning Branch per tablet and 1 tablet in the evening. Do all this for 10 days. amoxicillin 2022-0 2022- No [id number] 1{tbl} Take 1 [facility] -clavulanat 6-05 06-16 tablet by it y of e 00:00: 04:59 mouth in [place] (AUGMENTIN) 00 :00 the Medical 875-125 mg morning Branch per tablet and 1 tablet in the evening. Do all this for 10 days. amoxicillin 2022-0 2022- No [id number] 1{tbl} Take 1 [facility] -clavulanat 6-05 06-16 tablet by it y of e 00:00: 04:59 mouth in [place] (AUGMENTIN) 00 :00 the Medical 875-125 mg morning Branch per tablet and 1 tablet in the evening. Do all this for 10 days. amoxicillin 2022-0 3- No [id number] 1{tbl} Take 1 [facility] -clavulanat 6-05 06-16 tablet by it y of e 00:00: 04:59 mouth in [place] (AUGMENTIN) 00 :00 the Medical 875-125 mg morning Branch per tablet and 1 tablet in the evening. Do all this for 10 days. amoxicillin 2022- No [id number] 1{tbl} Take 1 [facility] -clavulanat 6- 06-16 tablet by it y of e 00:00: 04:59 mouth in [place] (AUGMENTIN) 00 :00 the Medical 875-125 mg morning Branch per tablet and 1 tablet in the evening. Do all this for 10 days. codeine-gua 2022- No 10mL Take 10 mL [facility] ifenesin 08-10-11 by mouth ity of 10-100 mg/5 00:00: 04:59 every 6 [place] mL oral 00 :00 (six) Medical solution hours as Branch needed for Cough for up to 5 days. Indication s: cough codeine-gua 2022- No 10mL Take 10 mL [facility] ifenesin 08-10-11 by mouth ity of 10-100 mg/5 00:00: 04:59 every 6 [place] mL oral 00 :00 (six) Medical solution hours as Branch needed for Cough for up to 5 days. Indication s: cough traZODone 2022-0 Yes [id number] TAKE 1 [facility] n[facility] 50 mg 4-26 TABLET BY ity of tablet 00:00: MOUTH [place] 00 EVERY Medical NIGHT AT Branch BEDTIME NEEDED FOR INSOMNIA traZODone 2022-0 Yes [id number] TAKE 1 [facility] nivers 50 mg 4-26 TABLET BY ity of tablet 00:00: MOUTH [place] 00 EVERY Medical NIGHT AT Branch BEDTIME NEEDED FOR INSOMNIA traZODone 2022-0 Yes [id number] TAKE 1 [facility] nivers 50 mg 4-26 TABLET BY ity of tablet 00:00: MOUTH [place] 00 EVERY Medical NIGHT AT Branch BEDTIME NEEDED FOR INSOMNIA traZODone 2022-0 Yes [id number] TAKE 1 [facility] nivers 50 mg 4-26 TABLET BY ity of tablet 00:00: MOUTH [place] 00 EVERY Medical NIGHT AT Branch BEDTIME NEEDED FOR INSOMNIA traZODone 2022-0 2022- No [id number] TAKE 1 [facility] 50 mg 4-26 06-14 TABLET BY ity of tablet 00:00: 00:00 MOUTH [place] 00 :00 EVERY Medical NIGHT AT Branch BEDTIME NEEDED FOR INSOMNIA traZODone 2023-0 2023- No [id number] TAKE 1 [facility] 50 mg 4-26 06-14 TABLET BY ity of tablet 00:00: 00:00 MOUTH [place] 00 :00 EVERY Medical NIGHT AT [place] BEDTIME NEEDED FOR INSOMNIA aspirin 81 2023-0 Yes 81mg Take 1 [facility] mg chewable 4-10 tablet by ity of tablet 00:00: mouth in [place] 00 the Medical morning. Branch aspirin 81 2023-0 Yes 81mg Take 1 [facility] mg chewable 4-10 tablet by ity of tablet 00:00: mouth in [place] 00 the Medical morning. Branch aspirin 81 2023-0 Yes 81mg Take 1 [facility] mg chewable 4-10 tablet by ity of tablet 00:00: mouth in [place] the Medical morning. Branch aspirin 81 2023-0 Yes 81mg Take 1 [facility] mg chewable 4-10 tablet by ity of tablet 00:00: mouth in [place] the Medical morning. Branch aspirin 81 2023-0 Yes 81mg Take 1 [facility] mg chewable 4-10 tablet by ity of tablet 00:00: mouth in [place] the Medical morning. Branch aspirin 81 2023-0 Yes 81mg Take 1 [facility] mg chewable 4-10 tablet by ity of tablet 00:00: mouth in [place] the Medical morning. Branch aspirin 81 2023-0 Yes 81mg Take 1 [facility] mg chewable 4-10 tablet by ity of tablet 00:00: mouth in [place] the Medical morning. Branch aspirin 81 2023-0 Yes 81mg Take 1 [facility] mg chewable 4-10 tablet by ity of tablet 00:00: mouth in [place] the Medical morning. Branch aspirin 81 2023-0 Yes 81mg Take 1 [facility] mg chewable 4-10 tablet by ity of tablet 00:00: mouth in [place] 00 the Medical morning. Branch aspirin 81 2023-0 Yes 81mg Take 1 [facility] mg chewable 4-10 tablet by ity of tablet 00:00: mouth in [place] 00 the Medical morning. Branch aspirin 81 2023-0 Yes 81mg Take 1 [facility] mg chewable 4-10 tablet by ity of tablet 00:00: mouth in [place] 00 the Medical morning. Branch aspirin 81 2023-0 Yes 81mg Take 1 [facility] mg chewable 4-10 tablet by ity of tablet 00:00: mouth in [place] 00 the Medical morning. Branch aspirin 81 2023-0 Yes 81mg Take 1 [facility] mg chewable 4-10 tablet by ity of tablet 00:00: mouth in [place] 00 the Medical morning. Branch aspirin 81 2023-0 Yes 81mg Take 1 [facility] mg chewable 4-10 tablet by ity of tablet 00:00: mouth in [place] 00 the Medical morning. Branch aspirin 81 2023-0 Yes 81mg Take 1 [facility] mg chewable 4-10 tablet by ity of tablet 00:00: mouth in [place] 00 the Medical morning. Branch aspirin 81 2023-0 Yes 81mg Take 1 [facility] mg chewable 4-10 tablet by ity of tablet 00:00: mouth in [place] the Medical morning. Branch aspirin 81 2023-0 Yes 81mg Take 1 [facility] rs mg chewable 4-10 tablet by ity of tablet 00:00: mouth in [place] the Medical morning. Branch aspirin 81 2023-0 Yes 81mg Take 1 [facility] mg chewable 4-10 tablet by ity of tablet 00:00: mouth in [place] the Medical morning. Branch aspirin 81 2023-0 Yes 81mg Take 1 [facility] mg chewable 4-10 tablet by ity of tablet 00:00: mouth in [place] the Medical morning. Branch aspirin 81 2023-0 Yes 81mg Take 1 [facility] mg chewable 4-10 tablet by ity of tablet 00:00: mouth in [place] 00 the Medical morning. Branch aspirin 81 2023-0 Yes 81mg Take 1 [facility] mg chewable 4-10 tablet by ity of tablet 00:00: mouth in [place] 00 the Medical morning. Branch aspirin 81 2023-0 Yes 81mg Take 1 [facility] mg chewable 4-10 tablet by ity of tablet 00:00: mouth in [place] 00 the Medical morning. Branch aspirin 81 2023-0 Yes 81mg Take 1 [facility] mg chewable 4-10 tablet by ity of tablet 00:00: mouth in [place] 00 the Medical morning. Branch aspirin 81 2023-0 Yes 81mg Take 1 [facility] mg chewable 4-10 tablet by ity of tablet 00:00: mouth in [place] 00 the Medical morning. Branch aspirin 81 2023-0 Yes 81mg Take 1 [facility] mg chewable 4-10 tablet by ity of tablet 00:00: mouth in [place] 00 the Medical morning. Branch aspirin 81 2023-0 Yes 81mg Take 1 [facility] mg chewable 4-10 tablet by ity of tablet 00:00: mouth in [place] 00 the Medical morning. Branch aspirin 81 2023-0 Yes 81mg Take 1 [facility] mg chewable 4-10 tablet by ity of tablet 00:00: mouth in [place] 00 the Medical morning. Branch aspirin 81 2023-0 Yes 81mg Take 1 [facility] mg chewable 4-10 tablet by ity of tablet 00:00: mouth in [place] 00 the Medical morning. Branch aspirin 81 2023-0 Yes 81mg Take 1 [facility] mg chewable 4-10 tablet by ity of tablet 00:00: mouth in [place] 00 the Medical morning. Branch aspirin 81 2023-0 Yes 81mg Take 1 [facility] mg chewable 4-10 tablet by ity of tablet 00:00: mouth in [place] the Medical morning. Branch aspirin 81 2023-0 Yes 81mg Take 1 [facility] mg chewable 4-10 tablet by [facility] tablet 00:00: mouth in [place] the Medical morning. Branch aspirin 81 2023-0 Yes 81mg Take 1 [facility] mg chewable 4-10 tablet by [facility] tablet 00:00: mouth in [place] 00 the Medical morning. Branch aspirin 81 2023-0 Yes 81mg Take 1 [facility] mg chewable 4-10 tablet by [facility] tablet 00:00: mouth in [place] 00 the Medical morning. Branch aspirin 81 2023-0 Yes 81mg Take 1 [facility] mg chewable 4-10 tablet by [facility] tablet 00:00: mouth in [place] 00 the Medical morning. Branch aspirin 81 2023-0 Yes 81mg Take 1 [facility] mg chewable 4-10 tablet by [facility] tablet 00:00: mouth in [place] 00 the Medical morning. Branch aspirin 81 2023-0 Yes 81mg Take 1 [facility] mg chewable 4-10 tablet by [facility] tablet 00:00: mouth in [place] 00 the Medical morning. Branch aspirin 81 2023-0 Yes 81mg Take 1 [facility] mg chewable 4-10 tablet by [facility] tablet 00:00: mouth in [place] 00 the Medical morning. Branch aspirin 81 2023-0 Yes 81mg Take 1 [facility] mg chewable 4-10 tablet by [facility] tablet 00:00: mouth in [place] 00 the Medical morning. Branch aspirin 81 2023-0 Yes 81mg Take 1 [facility] mg chewable 4-10 tablet by [facility] tablet 00:00: mouth in [place] 00 the Medical morning. Branch aspirin 81 2023-0 Yes 81mg Take 1 [facility] mg chewable 4-10 tablet by [facility] tablet 00:00: mouth in [place] 00 the Medical morning. Branch aspirin 81 2023-0 Yes 81mg Take 1 [facility] mg chewable 4-10 tablet by [facility] tablet 00:00: mouth in [place] 00 the Medical morning. Branch aspirin 81 2023-0 Yes 81mg Take 1 [facility] mg chewable 4-10 tablet by [facility] tablet 00:00: mouth in [place] 00 the Medical morning. Branch aspirin 81 2023-0 Yes 81mg Take 1 [facility] mg chewable 4-10 tablet by [facility] of tablet 00:00: mouth in [place] 00 the Medical morning. Branch aspirin 81 2023-0 Yes 81mg Take 1 [facility] mg chewable 4-10 tablet by [facility] tablet 00:00: mouth in [place] 00 the Medical morning. Branch traZODone 2023-0 Yes [id number] TAKE 1 [facility] 50 mg 3-24 ATBLET BY [facility] of tablet 00:00: MOUTH [place] 00 EVERY Medical NIGHT AT [place] BEDTIME NEEDED FOR INSOMNIA HYDROCHLORO 3-0 Yes [id number] TAKE ONE [facility] THIAZIDE 25 3-24 TABLET BY [facility] of mg tablet 00:00: MOUTH [place] 00 EVERY Medical MORNING Branch traZODone 2023-0 Yes [id number] TAKE 1 [facility] 50 mg 3-24 ATBLET BY ity of tablet 00:00: MOUTH [place] 00 EVERY Medical NIGHT AT [place] BEDTIME NEEDED FOR INSOMNIA HYDROCHLORO 2023-0 Yes [id number] TAKE ONE [facility] THIAZIDE 25 3-24 TABLET BY [facility] of mg tablet 00:00: MOUTH [place] 00 EVERY Medical MORNING Branch traZODone 2023-0 Yes [id number] TAKE 1 [facility] 50 mg 3-24 ATBLET BY ity of tablet 00:00: MOUTH [place] 00 EVERY Medical NIGHT AT Branch BEDTIME NEEDED FOR INSOMNIA HYDROCHLORO 2023-0 Yes [id number] TAKE ONE [facility] THIAZIDE 25 3-24 TABLET BY [facility] of mg tablet 00:00: MOUTH [place] 00 EVERY Medical MORNING Branch traZODone 3-0 Yes [id number] TAKE 1 [facility] 50 mg 3-24 ATBLET BY ity of tablet 00:00: MOUTH [place] 00 EVERY Medical NIGHT AT Branch BEDTIME NEEDED FOR INSOMNIA HYDROCHLORO 3-0 Yes [id number] TAKE ONE [facility] THIAZIDE 25 3-24 TABLET BY it[facility] of mg tablet 00:00: MOUTH [place] 00 EVERY Medical MORNING Branch traZODone 3-0 Yes [id number] TAKE 1 [facility] 50 mg 3-24 ATBLET BY ity of tablet 00:00: MOUTH [place] 00 EVERY Medical NIGHT AT Branch BEDTIME NEEDED FOR INSOMNIA HYDROCHLORO 2022-0 Yes [id number] TAKE ONE [facility] THIAZIDE 25 3-24 TABLET BY ity of mg tablet 00:00: MOUTH [place] 00 EVERY Medical MORNING Branch traZODone 2022-0 Yes [id number] TAKE 1 [facility] 50 mg 3-24 ATBLET BY ity of tablet 00:00: MOUTH [place] 00 EVERY Medical NIGHT AT Branch BEDTIME NEEDED FOR INSOMNIA HYDROCHLORO 3-0 Yes [id number] TAKE ONE [facility] THIAZIDE 25 3-24 TABLET BY ity of mg tablet 00:00: MOUTH [place] 00 EVERY Medical MORNING Branch traZODone 3-0 Yes [id number] TAKE 1 [facility] 50 mg 3-24 ATBLET BY ity of tablet 00:00: MOUTH [place] 00 EVERY Medical NIGHT AT Branch BEDTIME NEEDED FOR INSOMNIA HYDROCHLORO 3-0 Yes [id number] TAKE ONE [facility] THIAZIDE 25 3-24 TABLET BY ity of mg tablet 00:00: MOUTH [place] 00 EVERY Medical MORNING Branch traZODone 3-0 Yes [id number] TAKE 1 [facility] 50 mg 3-24 ATBLET BY ity of tablet 00:00: MOUTH [place] 00 EVERY Medical NIGHT AT Branch BEDTIME NEEDED FOR INSOMNIA HYDROCHLORO 3-0 Yes [id number] TAKE ONE [facility] THIAZIDE 25 3-24 TABLET BY ity of mg tablet 00:00: MOUTH [place] 00 EVERY Medical MORNING Branch HYDROCHLORO 2023-0 Yes [id number] TAKE ONE [facility] THIAZIDE 25 3-24 TABLET BY ity of mg tablet 00:00: MOUTH [place] 00 EVERY Medical MORNING Branch HYDROCHLORO 2023-0 Yes [id number] TAKE ONE [facility] THIAZIDE 25 3-24 TABLET BY ity of mg tablet 00:00: [facility] 00 EVERY Medical MORNING Branch HYDROCHLORO 2023-0 Yes [id number] TAKE ONE Univers THIAZIDE 25 3-24 TABLET BY ity of mg tablet 00:00: [facility] 00 EVERY Medical MORNING Branch HYDROCHLORO 2023-0 Yes [id number] TAKE ONE Univers THIAZIDE 25 3-24 TABLET BY ity of mg tablet 00:00: [facility] 00 EVERY Medical MORNING Branch HYDROCHLORO 2023-0 Yes [id number] TAKE ONE [facility] THIAZIDE 25 3-24 TABLET BY ity of mg tablet 00:00: [facility] 00 EVERY Medical MORNING Branch HYDROCHLORO 2023-0 2023- No [id number] TAKE ONE Univers THIAZIDE 25 3-24 06-13 TABLET BY it y of mg tablet 00:00: 00:00 [facility] 00 :00 EVERY Medical MORNING Branch HYDROCHLORO 2023-0 2023- No [id number] TAKE ONE Univers THIAZIDE 25 3-24 06-13 TABLET BY it y of mg tablet 00:00: 00:00 [facility] 00 :00 EVERY Medical MORNING Branch traZODone 3-0 3- No [id number] TAKE 1 [facility] 50 mg 3-24 04-26 ATBLET BY ity of tablet 00:00: 00:00 [facility] 00 :00 EVERY Medical NIGHT AT Branch BEDTIME NEEDED FOR INSOMNIA PANTOPRAZOL 2022-0 Yes [id number] TAKE ONE Univers E 40 mg EC 3-15 TABLET BY ity of tablet 00:00: [facility] 00 EVERY Medical MORNING Branch PANTOPRAZOL 3-0 Yes [id number] TAKE ONE Univers E 40 mg EC 3-15 TABLET BY ity of tablet 00:00: [facility] 00 EVERY Medical MORNING Branch PANTOPRAZOL 3-0 Yes [id number] TAKE ONE Univers E 40 mg EC 3-15 TABLET BY ity of tablet 00:00: [facility] 00 EVERY Medical MORNING Branch PANTOPRAZOL 3-0 Yes [id number] TAKE ONE Univers E 40 mg EC 3-15 TABLET BY ity of tablet 00:00: [facility] 00 EVERY Medical MORNING Branch PANTOPRAZOL 3-0 Yes [id number] TAKE ONE Univers E 40 mg EC 3-15 TABLET BY ity of tablet 00:00: [facility] 00 EVERY Medical MORNING Branch PANTOPRAZOL 2023-0 Yes [id number] TAKE ONE Univers E 40 mg EC 3-15 TABLET BY ity of tablet 00:00: [facility] 00 EVERY Medical MORNING Branch PANTOPRAZOL 2023-0 Yes [id number] TAKE ONE Univers E 40 mg EC 3-15 TABLET BY ity of tablet 00:00: [facility] 00 EVERY Medical MORNING Branch PANTOPRAZOL 3-0 Yes [id number] TAKE ONE Univers E 40 mg EC 3-15 TABLET BY ity of tablet 00:00: [facility] 00 EVERY Medical MORNING Branch PANTOPRAZOL 3-0 Yes [id number] TAKE ONE Univers E 40 mg EC 3-15 TABLET BY ity of tablet 00:00: [facility] EVERY Medical MORNING Branch PANTOPRAZOL 2022-0 Yes [id number] TAKE ONE Univers E 40 mg EC 3-15 TABLET BY ity of tablet 00:00: [facility] EVERY Medical MORNING Branch PANTOPRAZOL 3-0 Yes [id number] TAKE ONE Univers E 40 mg EC 3-15 TABLET BY ity of tablet 00:00: [facility] EVERY Medical MORNING Branch PANTOPRAZOL 3-0 Yes [id number] TAKE ONE Univers E 40 mg EC 3-15 TABLET BY ity of tablet 00:00: [facility] EVERY Medical MORNING Branch PANTOPRAZOL 3-0 Yes [id number] TAKE ONE Univers E 40 mg EC 3-15 TABLET BY ity of tablet 00:00: [facility] EVERY Medical MORNING Branch PANTOPRAZOL 3-0 Yes [id number] TAKE ONE Univers E 40 mg EC 3-15 TABLET BY ity of tablet 00:00: [facility] EVERY Medical MORNING Branch PANTOPRAZOL 2023-0 Yes [id number] TAKE ONE Univers E 40 mg EC 3-15 TABLET BY ity of tablet 00:00: [facility] 00 EVERY Medical MORNING Branch PANTOPRAZOL 2023-0 Yes [id number] TAKE ONE Univers E 40 mg EC 3-15 TABLET BY ity of tablet 00:00: [facility] 00 EVERY Medical MORNING Branch PANTOPRAZOL 3-0 Yes [id number] TAKE ONE Univers E 40 mg EC 3-15 TABLET BY ity of tablet 00:00: [facility] EVERY Medical MORNING Branch PANTOPRAZOL 3-0 Yes [id number] TAKE ONE Univers E 40 mg EC 3-15 TABLET BY ity of tablet 00:00: MOUTH [place] 00 EVERY Medical MORNING Branch PANTOPRAZOL 2023-0 Yes [id number] TAKE ONE Univers E 40 mg EC 3-15 TABLET BY ity of tablet 00:00: MOUTH [place] 00 EVERY Medical MORNING Branch PANTOPRAZOL 2023-0 Yes [id number] TAKE ONE Univers E 40 mg EC 3-15 TABLET BY ity of tablet 00:00: MOUTH [place] 00 EVERY Medical MORNING Branch PANTOPRAZOL 2023-0 Yes [id number] TAKE ONE Univers E 40 mg EC 3-15 TABLET BY ity of tablet 00:00: MOUTH [place] 00 EVERY Medical MORNING Branch PANTOPRAZOL 2023-0 Yes [id number] TAKE ONE Univers E 40 mg EC 3-15 TABLET BY ity of tablet 00:00: MOUTH [place] 00 EVERY Medical MORNING Branch PANTOPRAZOL 2023-0 Yes [id number] TAKE ONE Univers E 40 mg EC 3-15 TABLET BY ity of tablet 00:00: MOUTH [place] 00 EVERY Medical MORNING Branch PANTOPRAZOL 2023-0 Yes [id number] TAKE ONE Univers E 40 mg EC 3-15 TABLET BY ity of tablet 00:00: MOUTH [place] 00 EVERY Medical MORNING Branch PANTOPRAZOL 2023-0 Yes [id number] TAKE ONE Univers E 40 mg EC 3-15 TABLET BY ity of tablet 00:00: MOUTH [place] 00 EVERY Medical MORNING Branch PANTOPRAZOL 2023-0 Yes [id number] TAKE ONE Univers E 40 mg EC 3-15 TABLET BY ity of tablet 00:00: MOUTH [place] 00 EVERY Medical MORNING Branch PANTOPRAZOL 2023-0 Yes [id number] TAKE ONE Univers E 40 mg EC 3-15 TABLET BY ity of tablet 00:00: MOUTH [place] 00 EVERY Medical MORNING Branch PANTOPRAZOL 2023-0 Yes [id number] TAKE ONE Univers E 40 mg EC 3-15 TABLET BY ity of tablet 00:00: MOUTH [place] 00 EVERY Medical MORNING Branch PANTOPRAZOL 2023-0 Yes [id number] TAKE ONE Univers E 40 mg EC 3-15 TABLET BY ity of tablet 00:00: MOUTH [place] 00 EVERY Medical MORNING Branch PANTOPRAZOL 2023-0 Yes [id number] TAKE ONE Univers E 40 mg EC 3-15 TABLET BY ity of tablet 00:00: MOUTH [place] 00 EVERY Medical MORNING Branch PANTOPRAZOL 2023-0 Yes [id number] TAKE ONE Univers E 40 mg EC 3-15 TABLET BY ity of tablet 00:00: MOUTH [place] 00 EVERY Medical MORNING Branch PANTOPRAZOL 2023-0 Yes [id number] TAKE ONE Univers E 40 mg EC 3-15 TABLET BY ity of tablet 00:00: MOUTH [place] 00 EVERY Medical MORNING Branch PANTOPRAZOL 2023-0 Yes [id number] TAKE ONE Univers E 40 mg EC 3-15 TABLET BY ity of tablet 00:00: MOUTH [place] 00 EVERY Medical MORNING Branch PANTOPRAZOL 2023-0 Yes [id number] TAKE ONE Univers E 40 mg EC 3-15 TABLET BY ity of tablet 00:00: MOUTH [place] 00 EVERY Medical MORNING Branch PANTOPRAZOL 2023-0 Yes [id number] TAKE ONE Univers E 40 mg EC 3-15 TABLET BY ity of tablet 00:00: MOUTH [place] 00 EVERY Medical MORNING Branch PANTOPRAZOL 3-0 Yes [id number] TAKE ONE Univers E 40 mg EC 3-15 TABLET BY ity of tablet 00:00: [facility] 00 EVERY Medical MORNING Branch PANTOPRAZOL 3-0 Yes [id number] TAKE ONE Univers E 40 mg EC 3-15 TABLET BY ity of tablet 00:00: MOUTH [place] 00 EVERY Medical MORNING Branch PANTOPRAZOL 2023-0 Yes [id number] TAKE ONE Univers E 40 mg EC 3-15 TABLET BY ity of tablet 00:00: MOUTH [place] 00 EVERY Medical MORNING Branch PANTOPRAZOL 2023-0 Yes [id number] TAKE ONE Univers E 40 mg EC 3-15 TABLET BY ity of tablet 00:00: [facility] 00 EVERY Medical MORNING Branch PANTOPRAZOL 2023-0 Yes [id number] TAKE ONE Univers E 40 mg EC 3-15 TABLET BY ity of tablet 00:00: [facility] 00 EVERY Medical MORNING Branch PANTOPRAZOL 2023-0 Yes [id number] TAKE ONE Univers E 40 mg EC 3-15 TABLET BY ity of tablet 00:00: MOUTH [place] 00 EVERY Medical MORNING Branch PANTOPRAZOL 2023-0 Yes [id number] TAKE ONE Univers E 40 mg EC 3-15 TABLET BY ity of tablet 00:00: [facility] 00 EVERY Medical MORNING Branch PANTOPRAZOL 2023-0 Yes [id number] TAKE ONE Univers E 40 mg EC 3-15 TABLET BY ity of tablet 00:00: [facility] 00 EVERY Medical MORNING Branch PANTOPRAZOL 3-0 Yes [id number] TAKE ONE Univers E 40 mg EC 3-15 TABLET BY ity of tablet 00:00: MOUTH [place] 00 EVERY Medical MORNING Branch PANTOPRAZOL 2022-0 Yes [id number] TAKE ONE Univers E 40 mg EC 3-15 TABLET BY ity of tablet 00:00: MOUTH [place] 00 EVERY Medical MORNING Branch PANTOPRAZOL 2022-0 Yes [id number] TAKE ONE Univers E 40 mg EC 3-15 TABLET BY ity of tablet 00:00: MOUTH [place] EVERY Medical MORNING Branch PANTOPRAZOL 2022-0 Yes [id number] TAKE ONE Univers E 40 mg EC 3-15 TABLET BY ity of tablet 00:00: MOUTH [place] 00 EVERY Medical MORNING Branch PANTOPRAZOL 2022-0 Yes [id number] TAKE ONE Univers E 40 mg EC 3-15 TABLET BY ity of tablet 00:00: MOUTH [place] EVERY Medical MORNING Branch PANTOPRAZOL 2022-0 Yes [id number] TAKE ONE Univers E 40 mg EC 3-15 TABLET BY ity of tablet 00:00: MOUTH [place] EVERY Medical MORNING Branch PANTOPRAZOL 2022-0 Yes [id number] TAKE ONE Univers E 40 mg EC 3-15 TABLET BY ity of tablet 00:00: MOUTH [place] 00 EVERY Medical MORNING Branch acetaminoph 2022- No acetaminop Univers en-codeine 05-05 hen 300 ity o f 300-30 mg 19:35: 00:00 mg-codeine [place] tablet 30 :00 30 mg Medical tablet Branch acetaminoph 2022- No acetaminop Univers en-codeine 05-05 hen 300 ity o f 300-30 mg 19:35: 00:00 mg-codeine [place] tablet 30 :00 30 mg Medical tablet Branch acetaminoph 2022- No acetaminop Univers en-codeine 05-05 hen 300 ity o f 300-30 mg 19:35: 00:00 mg-codeine [place] tablet 30 :00 30 mg Medical tablet Branch gabapentin 2022- No gabapentin [facility] 300 mg 05-05 300 mg ity of capsule 19:34: 00:[place] 1 [place] :[place] tab BID [facility] Branch gabapentin 2022- No gabapentin Univers 300 mg 05-05 300 mg ity of capsule 19:34: 00:00 capsule 1 [place] :[place] tab BID Medical Branch gabapentin 3-0 3- No gabapentin [facility] 300 mg 2- 02-28 300 mg ity of capsule 19:34: 00:[place] :[place] tab BID [facility] Branch baclofen 10 2022-0 Yes baclofen [facility] mg tablet 2-28 10 mg ity of 09:12: tablet [address] Branch baclofen 10 2022-0 Yes baclofen [facility] mg tablet 2-28 10 mg ity of 09:12: tablet [address] Branch baclofen 10 0 Yes baclofen [facility] mg tablet 2-28 10 mg ity of 09:12: tablet [address] Branch baclofen 10 Yes baclofen [facility] mg tablet 2-28 10 mg ity of 09:12: tablet [address] baclofen 10 Yes baclofen [facility] mg tablet 2-28 10 mg ity of 09:12: tablet [address] baclofen 10 Yes baclofen [facility] mg tablet 2-28 10 mg ity of 09:12: tablet [address] baclofen 10 Yes baclofen [facility] mg tablet 2-28 10 mg ity of 09:12: tablet [address] Branch baclofen 10 Yes baclofen [facility] mg tablet 2-28 10 mg ity of 09:12: tablet [address] baclofen 10 0 Yes baclofen [facility] mg tablet 2-28 10 mg ity of 09:12: tablet [address] Branch baclofen 10 2022-0 Yes baclofen [facility] mg tablet 2-28 10 mg ity of 09:12: tablet [address] baclofen 10 2022-0 Yes baclofen [facility] mg tablet 2-28 10 mg ity of 09:12: tablet [address] Branch baclofen 10 2022- Yes baclofen [facility] mg tablet 2-28 10 mg ity of 09:12: tablet [address] baclofen 10 0 Yes baclofen [facility] mg tablet 2-28 10 mg ity of 09:12: tablet [address] Branch baclofen 10 2022-0 Yes baclofen [facility] mg tablet 2-28 10 mg ity of 09:12: tablet [facility] baclofen 10 0 Yes baclofen [facility] mg tablet 2-28 10 mg ity of 09:12: tablet [facility] baclofen 10 0 Yes baclofen [facility] mg tablet 2-28 10 mg ity of 09:12: tablet [facility] baclofen 10 0 Yes baclofen [facility] mg tablet 2-28 10 mg ity of 09:12: tablet [place] [facility] baclofen 10 0 Yes baclofen [facility] mg tablet 2-28 10 mg ity of 09:12: tablet [place] [facility] baclofen 10 0 Yes baclofen [facility] mg tablet 2-28 10 mg ity of 09:12: tablet [place] [facility] baclofen 10 Yes baclofen [facility] mg tablet 2-28 10 mg ity of 09:12: tablet [place] [facility] traZODone 2022-0 Yes [id number] TAKE ONE Univers 50 mg 1-17 TABLET BY ity of tablet 00:00: MOUTH [place] 00 EVERY Medical NIGHT AT Branch BEDTIME NEEDED FOR INSOMNIA traZODone 3-0 Yes [id number] TAKE ONE Univers 50 mg 1-17 TABLET BY ity of tablet 00:00: MOUTH [place] 00 EVERY Medical NIGHT AT Branch BEDTIME NEEDED FOR INSOMNIA traZODone 2023-0 Yes [id number] TAKE ONE Univers 50 mg 1-17 TABLET BY ity of tablet 00:00: MOUTH [place] 00 EVERY Medical NIGHT AT Branch BEDTIME NEEDED FOR INSOMNIA traZODone 2023-0 Yes [id number] TAKE ONE Univers 50 mg 1-17 TABLET BY ity of tablet 00:00: MOUTH [place] 00 EVERY Medical NIGHT AT Branch BEDTIME NEEDED FOR INSOMNIA traZODone 2023-0 Yes [id number] TAKE ONE Univers 50 mg 1-17 TABLET BY ity of tablet 00:00: MOUTH [place] 00 EVERY Medical NIGHT AT Branch BEDTIME NEEDED FOR INSOMNIA traZODone 2023-0 Yes [id number] TAKE ONE Univers 50 mg 1-17 TABLET BY ity of tablet 00:00: MOUTH [place] 00 EVERY Medical NIGHT AT Branch BEDTIME NEEDED FOR INSOMNIA traZODone 2023-0 Yes [id number] TAKE ONE [facility] 50 mg 1-17 TABLET BY ity of tablet 00:00: MOUTH [place] 00 EVERY Medical NIGHT AT Branch BEDTIME NEEDED FOR INSOMNIA traZODone 2023-0 Yes [id number] TAKE ONE [facility] 50 mg 1-17 TABLET BY ity of tablet 00:00: MOUTH [place] 00 EVERY Medical NIGHT AT Branch BEDTIME NEEDED FOR INSOMNIA traZODone 2023-0 Yes [id number] TAKE ONE Univers 50 mg 1-17 TABLET BY ity of tablet 00:00: MOUTH [place] 00 EVERY Medical NIGHT AT Branch BEDTIME NEEDED FOR INSOMNIA traZODone 2023-0 Yes [id number] TAKE ONE Univers 50 mg 1-17 TABLET BY ity of tablet 00:00: MOUTH [place] 00 EVERY Medical NIGHT AT Branch BEDTIME NEEDED FOR INSOMNIA traZODone 2023-0 Yes [id number] TAKE ONE Univers 50 mg 1-17 TABLET BY ity of tablet 00:00: MOUTH [place] 00 EVERY Medical NIGHT AT Branch BEDTIME NEEDED FOR INSOMNIA traZODone 2023-0 Yes [id number] TAKE ONE Univers 50 mg 1-17 TABLET BY ity of tablet 00:00: MOUTH [place] 00 EVERY Medical NIGHT AT Branch BEDTIME NEEDED FOR INSOMNIA traZODone 2023-0 Yes [id number] TAKE ONE Univers 50 mg 1-17 TABLET BY ity of tablet 00:00: MOUTH [place] 00 EVERY Medical NIGHT AT Branch BEDTIME NEEDED FOR INSOMNIA traZODone 2023-0 Yes [id number] TAKE ONE Univers 50 mg 1-17 TABLET BY ity of tablet 00:00: MOUTH [place] 00 EVERY Medical NIGHT AT Branch BEDTIME NEEDED FOR INSOMNIA traZODone 2023-0 Yes [id number] TAKE ONE Univers 50 mg 1-17 TABLET BY ity of tablet 00:00: MOUTH [place] 00 EVERY Medical NIGHT AT Branch BEDTIME NEEDED FOR INSOMNIA traZODone 2023-0 Yes [id number] TAKE ONE [facility] 50 mg 1-17 TABLET BY ity of tablet 00:00: MOUTH [place] 00 EVERY Medical NIGHT AT Branch BEDTIME NEEDED FOR INSOMNIA traZODone 2023-0 Yes [id number] TAKE ONE [facility] 50 mg 1-17 TABLET BY ity of tablet 00:00: MOUTH [place] 00 EVERY Medical NIGHT AT Branch BEDTIME NEEDED FOR INSOMNIA traZODone 2023-0 2023- No [id number] TAKE ONE [facility] 50 mg 1-17 03-24 TABLET BY ity of tablet 00:00: 00:00 MOUTH [place] 00 :00 EVERY Medical NIGHT AT [place] BEDTIME NEEDED FOR INSOMNIA traZODone 2023-0 2023- No [id number] TAKE ONE Univers 50 mg 1-17 03-24 TABLET BY ity of tablet 00:00: 00:00 MOUTH [place] 00 :00 EVERY Medical NIGHT AT [place] BEDTIME NEEDED FOR INSOMNIA HYDROCHLORO 2023-0 Yes [id number] TAKE ONE Univers THIAZIDE 25 1-09 TABLET BY ity of mg tablet 00:00: MOUTH [place] 00 EVERY Medical MORNING Branch HYDROCHLORO 2023-0 Yes [id number] TAKE ONE Univers THIAZIDE 25 1-09 TABLET BY ity of mg tablet 00:00: MOUTH [place] 00 EVERY Medical MORNING Branch HYDROCHLORO 2023-0 Yes [id number] TAKE ONE Univers THIAZIDE 25 1-09 TABLET BY ity of mg tablet 00:00: MOUTH [place] 00 EVERY Medical MORNING Branch HYDROCHLORO 2023-0 Yes [id number] TAKE ONE Univers THIAZIDE 25 1-09 TABLET BY ity of mg tablet 00:00: MOUTH [place] 00 EVERY Medical MORNING Branch HYDROCHLORO 2023-0 Yes [id number] TAKE ONE Univers THIAZIDE 25 1-09 TABLET BY ity of mg tablet 00:00: MOUTH [place] 00 EVERY Medical MORNING Branch HYDROCHLORO 2023-0 Yes [id number] TAKE ONE Univers THIAZIDE 25 1-09 TABLET BY ity of mg tablet 00:00: MOUTH [place] 00 EVERY Medical MORNING Branch HYDROCHLORO 2023-0 Yes [id number] TAKE ONE [facility] THIAZIDE 25 1-09 TABLET BY ity of mg tablet 00:00: MOUTH [place] 00 EVERY Medical MORNING Branch HYDROCHLORO 2023-0 Yes [id number] TAKE ONE [facility] THIAZIDE 25 1-09 TABLET BY ity of mg tablet 00:00: MOUTH [place] 00 EVERY Medical MORNING Branch HYDROCHLORO 2023-0 Yes [id number] TAKE ONE Univers THIAZIDE 25 1-09 TABLET BY ity of mg tablet 00:00: MOUTH [place] 00 EVERY Medical MORNING Branch HYDROCHLORO 2023-0 Yes [id number] TAKE ONE Univers THIAZIDE 25 1-09 TABLET BY ity of mg tablet 00:00: MOUTH [place] 00 EVERY Medical MORNING Branch HYDROCHLORO 2023-0 Yes [id number] TAKE ONE Univers THIAZIDE 25 1-09 TABLET BY ity of mg tablet 00:00: MOUTH [place] 00 EVERY Medical MORNING Branch HYDROCHLORO 2023-0 Yes [id number] TAKE ONE Univers THIAZIDE 25 1-09 TABLET BY ity of mg tablet 00:00: MOUTH [place] 00 EVERY Medical MORNING Branch HYDROCHLORO 2023-0 Yes [id number] TAKE ONE Univers THIAZIDE 25 1-09 TABLET BY ity of mg tablet 00:00: MOUTH [place] 00 EVERY Medical MORNING Branch HYDROCHLORO 2023-0 Yes [id number] TAKE ONE Univers THIAZIDE 25 1-09 TABLET BY ity of mg tablet 00:00: MOUTH [place] 00 EVERY Medical MORNING Branch HYDROCHLORO 2023-0 Yes [id number] TAKE ONE Univers THIAZIDE 25 1-09 TABLET BY ity of mg tablet 00:00: MOUTH [place] 00 EVERY Medical MORNING Branch HYDROCHLORO 2023-0 Yes [id number] TAKE ONE Univers THIAZIDE 25 1-09 TABLET BY ity of mg tablet 00:00: MOUTH [place] 00 EVERY Medical MORNING Branch HYDROCHLORO 2023-0 Yes [id number] TAKE ONE Univers THIAZIDE 25 1-09 TABLET BY ity of mg tablet 00:00: MOUTH [place] 00 EVERY Medical MORNING Branch HYDROCHLORO 2023-0 Yes [id number] TAKE ONE Univers THIAZIDE 25 1-09 TABLET BY ity of mg tablet 00:00: MOUTH [place] 00 EVERY Medical MORNING Branch HYDROCHLORO 2023-0 Yes [id number] TAKE ONE Univers THIAZIDE 25 1-09 TABLET BY ity of mg tablet 00:00: MOUTH [place] 00 EVERY Medical MORNING Branch HYDROCHLORO 2023-0 Yes [id number] TAKE ONE Univers THIAZIDE 25 1-09 TABLET BY ity of mg tablet 00:00: MOUTH [place] 00 EVERY Medical MORNING Branch HYDROCHLORO 2023-0 Yes [id number] TAKE ONE Univers THIAZIDE 25 1-09 TABLET BY ity of mg tablet 00:00: MOUTH [place] 00 EVERY Medical MORNING Branch HYDROCHLORO 2023-0 2023- No [id number] TAKE ONE Univers THIAZIDE 25 1-09 03-24 TABLET BY it y of mg tablet 00:00: 00:00 MOUTH [place] 00 :00 EVERY Medical MORNING Branch HYDROCHLORO 2023-0 2023- No [id number] TAKE ONE Univers THIAZIDE 25 1-09 03-24 TABLET BY it y of mg tablet 00:00: 00:00 MOUTH [place] 00 :00 EVERY Medical MORNING Branch budesonide- 2021-1 Yes [id number] 2{puff} Inhale 2 Univers formoteroL 2-13 Puffs in ity o f (SYMBICORT) 00:00: the [place] 160-4.5 00 morning Medical mcg/actuati and 2 Branch on inhaler Puffs in the evening. budesonide- 2021-03 Yes [id number] 2{puff} Inhale 2 Univers formoteroL 2-13 Puffs in ity o f (SYMBICORT) 00:00: the [place] 160-4.5 00 morning Medical mcg/actuati and 2 Branch on inhaler Puffs in the evening. budesonide- 2021-03 Yes [id number] 2{puff} Inhale 2 Univers formoteroL 2-13 Puffs in ity o f (SYMBICORT) 00:00: the [place] 160-4.5 00 morning Medical mcg/actuati and 2 Branch on inhaler Puffs in the evening. budesonide- 2021-03 Yes [id number] 2{puff} Inhale 2 Univers formoteroL 2-13 Puffs in ity o f (SYMBICORT) 00:00: the [place] 160-4.5 00 morning Medical mcg/actuati and 2 Branch on inhaler Puffs in the evening. budesonide- 2021-03 Yes [id number] 2{puff} Inhale 2 Univers formoteroL 2-13 Puffs in ity o f (SYMBICORT) 00:00: the [place] 160-4.5 00 morning Medical mcg/actuati and 2 Branch on inhaler Puffs in the evening. budesonide- 2021-03 Yes [id number] 2{puff} Inhale 2 Univers formoteroL 2-13 Puffs in ity o f (SYMBICORT) 00:00: the [place] 160-4.5 00 morning Medical mcg/actuati and 2 Branch on inhaler Puffs in the evening. budesonide- 2021-03 Yes [id number] 2{puff} Inhale 2 Univers formoteroL 2-13 Puffs in ity o f (SYMBICORT) 00:00: the [place] 160-4.5 00 morning Medical mcg/actuati and 2 Branch on inhaler Puffs in the evening. budesonide- 2021-03 Yes [id number] 2{puff} Inhale 2 Univers formoteroL 2-13 Puffs in ity o f (SYMBICORT) 00:00: the [place] 160-4.5 00 morning Medical mcg/actuati and 2 Branch on inhaler Puffs in the evening. budesonide- 2021-03 Yes [id number] 2{puff} Inhale 2 Univers formoteroL 2-13 Puffs in ity o f (SYMBICORT) 00:00: the [place] 160-4.5 00 morning Medical mcg/actuati and 2 Branch on inhaler Puffs in the evening. budesonide- 2021-03 Yes [id number] 2{puff} Inhale 2 [facility] formoteroL 2-13 Puffs in ity o f (SYMBICORT) 00:00: the [place] 160-4.5 00 morning Medical mcg/actuati and 2 Branch on inhaler Puffs in the evening. budesonide- 2021-03 Yes [id number] 2{puff} Inhale 2 [facility] formoteroL 2-13 Puffs in ity o f (SYMBICORT) 00:00: the [place] 160-4.5 00 morning Medical mcg/actuati and 2 Branch on inhaler Puffs in the evening. budesonide- 2021-03 Yes [id number] 2{puff} Inhale 2 [facility] formoteroL 2-13 Puffs in ity o f (SYMBICORT) 00:00: the [place] 160-4.5 00 morning Medical mcg/actuati and 2 Branch on inhaler Puffs in the evening. budesonide- 2021-03 Yes [id number] 2{puff} Inhale 2 [facility] formoteroL 2-13 Puffs in ity o f (SYMBICORT) 00:00: the [place] 160-4.5 00 morning Medical mcg/actuati and 2 Branch on inhaler Puffs in the evening. budesonide- 2021-03 Yes [id number] 2{puff} Inhale 2 [facility] formoteroL 2-13 Puffs in ity o f (SYMBICORT) 00:00: the [place] 160-4.5 00 morning Medical mcg/actuati and 2 Branch on inhaler Puffs in the evening. budesonide- 2021-03 Yes [id number] 2{puff} Inhale 2 [facility] formoteroL 2-13 Puffs in ity o f (SYMBICORT) 00:00: the [place] 160-4.5 00 morning Medical mcg/actuati and 2 Branch on inhaler Puffs in the evening. budesonide- 2021-03 Yes [id number] 2{puff} Inhale 2 [facility] formoteroL 2-13 Puffs in ity o f (SYMBICORT) 00:00: the [place] 160-4.5 00 morning Medical mcg/actuati and 2 Branch on inhaler Puffs in the evening. budesonide- 2021-03 Yes [id number] 2{puff} Inhale 2 [facility] formoteroL 2-13 Puffs in ity o f (SYMBICORT) 00:00: the [place] 160-4.5 00 morning Medical mcg/actuati and 2 Branch on inhaler Puffs in the evening. budesonide- 2021-03 Yes [id number] 2{puff} Inhale 2 [facility] formoteroL 2-13 Puffs in ity o f (SYMBICORT) 00:00: the [place] 160-4.5 00 morning Medical mcg/actuati and 2 Branch on inhaler Puffs in the evening. budesonide- 2021-03 Yes [id number] 2{puff} Inhale 2 [facility] formoteroL 2-13 Puffs in ity o f (SYMBICORT) 00:00: the [place] 160-4.5 00 morning Medical mcg/actuati and 2 Branch on inhaler Puffs in the evening. budesonide- 2021-03 Yes [id number] 2{puff} Inhale 2 [facility] formoteroL 2-13 Puffs in ity o f (SYMBICORT) 00:00: the [place] 160-4.5 00 morning Medical mcg/actuati and 2 Branch on inhaler Puffs in the evening. budesonide- 2021-03 Yes [id number] 2{puff} Inhale 2 [facility] formoteroL 2-13 Puffs in ity o f (SYMBICORT) 00:00: the [place] 160-4.5 00 morning Medical mcg/actuati and 2 Branch on inhaler Puffs in the evening. budesonide- 2021-03 Yes [id number] 2{puff} Inhale 2 [facility] formoteroL 2-13 Puffs in ity o f (SYMBICORT) 00:00: the [place] 160-4.5 00 morning Medical mcg/actuati and 2 Branch on inhaler Puffs in the evening. budesonide- 2021-03 Yes [id number] 2{puff} Inhale 2 [facility] formoteroL 2-13 Puffs in ity o f (SYMBICORT) 00:00: the [place] 160-4.5 00 morning Medical mcg/actuati and 2 Branch on inhaler Puffs in the evening. budesonide- 2021-03 Yes [id number] 2{puff} Inhale 2 [facility] formoteroL 2-13 Puffs in ity o f (SYMBICORT) 00:00: the [place] 160-4.5 00 morning Medical mcg/actuati and 2 Branch on inhaler Puffs in the evening. budesonide- 2021-03 Yes [id number] 2{puff} Inhale 2 [facility] formoteroL 2-13 Puffs in ity o f (SYMBICORT) 00:00: the [place] 160-4.5 00 morning Medical mcg/actuati and 2 Branch on inhaler Puffs in the evening. budesonide- 2021-03 Yes [id number] 2{puff} Inhale 2 [facility] formoteroL 2-13 Puffs in ity o f (SYMBICORT) 00:00: the [place] 160-4.5 00 morning Medical mcg/actuati and 2 Branch on inhaler Puffs in the evening. budesonide- 2021-03 Yes [id number] 2{puff} Inhale 2 [facility] formoteroL 2-13 Puffs in ity o f (SYMBICORT) 00:00: the [place] 160-4.5 00 morning Medical mcg/actuati and 2 Branch on inhaler Puffs in the evening. budesonide- 2021-03 Yes [id number] 2{puff} Inhale 2 [facility] formoteroL 2-13 Puffs in ity o f (SYMBICORT) 00:00: the [place] 160-4.5 00 morning Medical mcg/actuati and 2 Branch on inhaler Puffs in the evening. budesonide- 2021-03 Yes [id number] 2{puff} Inhale 2 [facility] formoteroL 2-13 Puffs in ity o f (SYMBICORT) 00:00: the [place] 160-4.5 00 morning Medical mcg/actuati and 2 Branch on inhaler Puffs in the evening. budesonide- 2021-03 Yes [id number] 2{puff} Inhale 2 [facility] formoteroL 2-13 Puffs in ity o f (SYMBICORT) 00:00: the [place] 160-4.5 00 morning Medical mcg/actuati and 2 Branch on inhaler Puffs in the evening. budesonide- 2021-03 Yes [id number] 2{puff} Inhale 2 [facility] formoteroL 2-13 Puffs in ity o f (SYMBICORT) 00:00: the [place] 160-4.5 00 morning Medical mcg/actuati and 2 Branch on inhaler Puffs in the evening. budesonide- 2021-03 Yes [id number] 2{puff} Inhale 2 [facility] formoteroL 2-13 Puffs in ity o f (SYMBICORT) 00:00: the [place] 160-4.5 00 morning Medical mcg/actuati and 2 Branch on inhaler Puffs in the evening. budesonide- 2021-03 Yes [id number] 2{puff} Inhale 2 [facility] formoteroL 2-13 Puffs in ity o f (SYMBICORT) 00:00: the [place] 160-4.5 00 morning Medical mcg/actuati and 2 Branch on inhaler Puffs in the evening. budesonide- 2021-03 Yes [id number] 2{puff} Inhale 2 [facility] formoteroL 2-13 Puffs in ity o f (SYMBICORT) 00:00: the [place] 160-4.5 00 morning Medical mcg/actuati and 2 Branch on inhaler Puffs in the evening. budesonide- 2021-03 Yes [id number] 2{puff} Inhale 2 [facility] formoteroL 2-13 Puffs in ity o f (SYMBICORT) 00:00: the [place] 160-4.5 00 morning Medical mcg/actuati and 2 Branch on inhaler Puffs in the evening. budesonide- 2021-03 Yes [id number] 2{puff} Inhale 2 [facility] formoteroL 2-13 Puffs in ity o f (SYMBICORT) 00:00: the [place] 160-4.5 00 morning Medical mcg/actuati and 2 Branch on inhaler Puffs in the evening. budesonide- 2021-03 Yes [id number] 2{puff} Inhale 2 [facility] formoteroL 2-13 Puffs in ity o f (SYMBICORT) 00:00: the [place] 160-4.5 00 morning Medical mcg/actuati and 2 Branch on inhaler Puffs in the evening. budesonide- 2021-03 Yes [id number] 2{puff} Inhale 2 [facility] formoteroL 2-13 Puffs in ity o f (SYMBICORT) 00:00: the [place] 160-4.5 00 morning Medical mcg/actuati and 2 Branch on inhaler Puffs in the evening. budesonide- 2021-03 Yes [id number] 2{puff} Inhale 2 [facility] formoteroL 2-13 Puffs in ity o f (SYMBICORT) 00:00: the [place] 160-4.5 00 morning Medical mcg/actuati and 2 Branch on inhaler Puffs in the evening. budesonide- 2021-03 Yes [id number] 2{puff} Inhale 2 [facility] formoteroL 2-13 Puffs in ity o f (SYMBICORT) 00:00: the [place] 160-4.5 00 morning Medical mcg/actuati and 2 Branch on inhaler Puffs in the evening. budesonide- 2021-03 Yes [id number] 2{puff} Inhale 2 [facility] formoteroL 2-13 Puffs in ity o f (SYMBICORT) 00:00: the [place] 160-4.5 00 morning Medical mcg/actuati and 2 Branch on inhaler Puffs in the evening. budesonide- 2021-03 Yes [id number] 2{puff} Inhale 2 [facility] formoteroL 2-13 Puffs in ity o f (SYMBICORT) 00:00: the [place] 160-4.5 00 morning Medical mcg/actuati and 2 Branch on inhaler Puffs in the evening. budesonide- 2021-03 Yes [id number] 2{puff} Inhale 2 [facility] formoteroL 2-13 Puffs in ity o f (SYMBICORT) 00:00: the [place] 160-4.5 00 morning Medical mcg/actuati and 2 Branch on inhaler Puffs in the evening. budesonide- 2021-03 Yes [id number] 2{puff} Inhale 2 [facility] formoteroL 2-13 Puffs in ity o f (SYMBICORT) 00:00: the [place] 160-4.5 00 morning Medical mcg/actuati and 2 Branch on inhaler Puffs in the evening. budesonide- 2021-03 Yes [id number] 2{puff} Inhale 2 [facility] formoteroL 2-13 Puffs in ity o f (SYMBICORT) 00:00: the [place] 160-4.5 00 morning Medical mcg/actuati and 2 Branch on inhaler Puffs in the evening. budesonide- 2021-03 Yes [id number] 2{puff} Inhale 2 [facility] formoteroL 2-13 Puffs in ity o f (SYMBICORT) 00:00: the [place] 160-4.5 00 morning Medical mcg/actuati and 2 Branch on inhaler Puffs in the evening. budesonide- 2021-03 Yes [id number] 2{puff} Inhale 2 [facility] formoteroL 2-13 Puffs in ity o f (SYMBICORT) 00:00: the [place] 160-4.5 00 morning Medical mcg/actuati and 2 Branch on inhaler Puffs in the evening. budesonide- 2021-03 Yes [id number] 2{puff} Inhale 2 [facility] formoteroL 2-13 Puffs in ity o f (SYMBICORT) 00:00: the [place] 160-4.5 00 morning Medical mcg/actuati and 2 Branch on inhaler Puffs in the evening. budesonide- 2021-03 Yes [id number] 2{puff} Inhale 2 [facility] formoteroL 2-13 Puffs in ity o f (SYMBICORT) 00:00: the [place] 160-4.5 00 morning Medical mcg/actuati and 2 Branch on inhaler Puffs in the evening. budesonide- 2021-03 Yes [id number] 2{puff} Inhale 2 [facility] formoteroL 2-13 Puffs in ity o f (SYMBICORT) 00:00: the [place] 160-4.5 00 morning Medical mcg/actuati and 2 Branch on inhaler Puffs in the evening. budesonide- 2021-03 Yes [id number] 2{puff} Inhale 2 [facility] formoteroL 2-13 Puffs in ity o f (SYMBICORT) 00:00: the [place] 160-4.5 00 morning Medical mcg/actuati and 2 Branch on inhaler Puffs in the evening. budesonide- 2021-03 Yes [id number] 2{puff} Inhale 2 [facility] formoteroL 2-13 Puffs in ity o f (SYMBICORT) 00:00: the [place] 160-4.5 00 morning Medical mcg/actuati and 2 Branch on inhaler Puffs in the evening. budesonide- 2021-03 Yes [id number] 2{puff} Inhale 2 [facility] formoteroL 2-13 Puffs in ity o f (SYMBICORT) 00:00: the [place] 160-4.5 00 morning Medical mcg/actuati and 2 Branch on inhaler Puffs in the evening. budesonide- 2021-03 Yes [id number] 2{puff} Inhale 2 [facility] formoteroL 2-13 Puffs in ity o f (SYMBICORT) 00:00: the [place] 160-4.5 00 morning Medical mcg/actuati and 2 Branch on inhaler Puffs in the evening. budesonide- 2021-03 Yes [id number] 2{puff} Inhale 2 [facility] formoteroL 2-13 Puffs in ity o f (SYMBICORT) 00:00: the [place] 160-4.5 00 morning Medical mcg/actuati and 2 Branch on inhaler Puffs in the evening. budesonide- 2021-03 Yes [id number] 2{puff} Inhale 2 [facility] formoteroL 2-13 Puffs in ity o f (SYMBICORT) 00:00: the [place] 160-4.5 00 morning Medical mcg/actuati and 2 Branch on inhaler Puffs in the evening. budesonide- 2021-03 Yes [id number] 2{puff} Inhale 2 [facility] formoteroL 2-13 Puffs in ity o f (SYMBICORT) 00:00: the [place] 160-4.5 00 morning Medical mcg/actuati and 2 Branch on inhaler Puffs in the evening. budesonide- 2021-03 Yes [id number] 2{puff} Inhale 2 [facility] formoteroL 2-13 Puffs in ity o f (SYMBICORT) 00:00: the [place] 160-4.5 00 morning Medical mcg/actuati and 2 Branch on inhaler Puffs in the evening. budesonide- 2021-03 Yes [id number] 2{puff} Inhale 2 [facility] formoteroL 2-13 Puffs in ity o f (SYMBICORT) 00:00: the [place] 160-4.5 00 morning Medical mcg/actuati and 2 Branch on inhaler Puffs in the evening. budesonide- 2021-03 Yes [id number] 2{puff} Inhale 2 [facility] formoteroL 2-13 Puffs in ity o f (SYMBICORT) 00:00: the [place] 160-4.5 00 morning Medical mcg/actuati and 2 Branch on inhaler Puffs in the evening. budesonide- 2021-03 Yes [id number] 2{puff} Inhale 2 [facility] formoteroL 2-13 Puffs in ity o f (SYMBICORT) 00:00: the [place] 160-4.5 00 morning Medical mcg/actuati and 2 Branch on inhaler Puffs in the evening. budesonide- 2021-03 Yes [id number] 2{puff} Inhale 2 [facility] formoteroL 2-13 Puffs in ity o f (SYMBICORT) 00:00: the [place] 160-4.5 00 morning Medical mcg/actuati and 2 Branch on inhaler Puffs in the evening. budesonide- 2021-03 Yes [id number] 2{puff} Inhale 2 [facility] formoteroL 2-13 Puffs in ity o f (SYMBICORT) 00:00: the [place] 160-4.5 00 morning Medical mcg/actuati and 2 Branch on inhaler Puffs in the evening. budesonide- 2021-03 Yes [id number] 2{puff} Inhale 2 [facility] formoteroL 2-13 Puffs in ity o f (SYMBICORT) 00:00: the [place] 160-4.5 00 morning Medical mcg/actuati and 2 Branch on inhaler Puffs in the evening. budesonide- 2021-03 Yes [id number] 2{puff} Inhale 2 [facility] formoteroL 2-13 Puffs in ity o f (SYMBICORT) 00:00: the [place] 160-4.5 00 morning Medical mcg/actuati and 2 Branch on inhaler Puffs in the evening. budesonide- 2021-03 Yes [id number] 2{puff} Inhale 2 [facility] formoteroL 2-13 Puffs in ity o f (SYMBICORT) 00:00: the [place] 160-4.5 00 morning Medical mcg/actuati and 2 Branch on inhaler Puffs in the evening. budesonide- 2021-03 Yes [id number] 2{puff} Inhale 2 [facility] formoteroL 2-13 Puffs in ity o f (SYMBICORT) 00:00: the [place] 160-4.5 00 morning Medical mcg/actuati and 2 Branch on inhaler Puffs in the evening. budesonide- 2021-03 Yes [id number] 2{puff} Inhale 2 [facility] formoteroL 2-13 Puffs in ity o f (SYMBICORT) 00:00: the [place] 160-4.5 00 morning Medical mcg/actuati and 2 Branch on inhaler Puffs in the evening. budesonide- 2021-03 Yes [id number] 2{puff} Inhale 2 [facility] formoteroL 2-13 Puffs in ity o f (SYMBICORT) 00:00: the [place] 160-4.5 00 morning Medical mcg/actuati and 2 Branch on inhaler Puffs in the evening. budesonide- 2021-03 Yes [id number] 2{puff} Inhale 2 [facility] formoteroL 2-13 Puffs in ity o f (SYMBICORT) 00:00: the [place] 160-4.5 00 morning Medical mcg/actuati and 2 Branch on inhaler Puffs in the evening. budesonide- 2021-03 Yes [id number] 2{puff} Inhale 2 [facility] formoteroL 2-13 Puffs in ity o f (SYMBICORT) 00:00: the [place] 160-4.5 00 morning Medical mcg/actuati and 2 Branch on inhaler Puffs in the evening. budesonide- 2021-03 Yes [id number] 2{puff} Inhale 2 [facility] formoteroL 2-13 Puffs in ity o f (SYMBICORT) 00:00: the [place] 160-4.5 00 morning Medical mcg/actuati and 2 Branch on inhaler Puffs in the evening. budesonide- 2021-03 Yes [id number] 2{puff} Inhale 2 [facility] formoteroL 2-13 Puffs in ity o f (SYMBICORT) 00:00: the [place] 160-4.5 00 morning Medical mcg/actuati and 2 Branch on inhaler Puffs in the evening. budesonide- 2021-03 Yes [id number] 2{puff} Inhale 2 [facility] formoteroL 2-13 Puffs in ity o f (SYMBICORT) 00:00: the [place] 160-4.5 00 morning Medical mcg/actuati and 2 Branch on inhaler Puffs in the evening. hydroCHLORO 2021-03- No 25mg Take 25 mg [facility] thiazide 25 2-12 12-12 by mouth ity of mg tablet 08:49: 00:00 in the [place] 02 :00 morning. Medical Branch hydroCHLORO 2021-03- No 25mg Take 25 mg [facility] thiazide 25 2-12 12-12 by mouth ity of mg tablet 08:49: 00:00 in the [place] 02 :00 morning. Medical Branch hydroCHLORO 2021-03- No 25mg Take 25 mg [facility] thiazide 25 2-12 12-12 by mouth ity of mg tablet 08:49: 00:00 in the [place] 02 :00 morning. Medical Branch hydroCHLORO 2021-03- No 25mg Take 25 mg [facility] thiazide 25 2-12 12-12 by mouth ity of mg tablet 08:49: 00:00 in the [place] 02 :00 morning. Medical Branch hydroCHLORO 2021-03- No 25mg Take 25 mg [facility] thiazide 25 2-12 12-12 by mouth ity of mg tablet 08:49: 00:00 in the [place] 02 :00 morning. Medical Branch traZODone 2021-03 Yes [id number] TAKE ONE [facility] 50 mg 2-12 TABLET BY ity of tablet 00:00: MOUTH [place] [id number] EVERY Medical NIGHT AT [place] BEDTIME NEEDED FOR INSOMNIA traZODone 2021-03 Yes [id number] TAKE ONE [facility] 50 mg 2-12 TABLET BY ity of tablet 00:00: MOUTH [place] 00 EVERY Medical NIGHT AT [place] BEDTIME NEEDED FOR INSOMNIA hydroCHLORO 2021-03 Yes [id number] 25mg Take 1 [facility] thiazide 25 2-12 tablet by ity of mg tablet 00:00: mouth in [facility] 00 the Medical morning. Branch traZODone 2021-03 Yes [id number] TAKE ONE Univers 50 mg 2-12 TABLET BY ity of tablet 00:00: MOUTH [place] 00 EVERY Medical NIGHT AT Branch BEDTIME NEEDED FOR INSOMNIA traZODone 2021-03 Yes [id number] TAKE ONE [facility] 50 mg 2-12 TABLET BY ity of tablet 00:00: MOUTH [place] 00 EVERY Medical NIGHT AT Branch BEDTIME NEEDED FOR INSOMNIA hydroCHLORO 2021-03 Yes [id number] 25mg Take 1 [facility] thiazide 25 2-12 tablet by ity of mg tablet 00:00: mouth [place] 00 the Medical morning. Branch traZODone 2021-03 Yes [id number] TAKE ONE [facility] 50 mg 2-12 TABLET BY ity of tablet 00:00: MOUTH [place] 00 EVERY Medical NIGHT AT Branch BEDTIME NEEDED FOR INSOMNIA hydroCHLORO 2021-03 Yes [id number] 25mg Take 1 [facility] thiazide 25 2-12 tablet by ity of mg tablet 00:00: mouth [place] 00 the Medical morning. Branch traZODone 2021-03 Yes [id number] TAKE ONE [facility] 50 mg 2-12 TABLET BY ity of tablet 00:00: MOUTH [place] 00 EVERY Medical NIGHT AT Branch BEDTIME NEEDED FOR INSOMNIA hydroCHLORO 2021-03 Yes [id number] 25mg Take 1 [facility] thiazide 25 2-12 tablet by ity of mg tablet 00:00: mouth [place] 00 the Medical morning. Branch traZODone 2021-03 Yes [id number] TAKE ONE [facility] 50 mg 2-12 TABLET BY ity of tablet 00:00: MOUTH [place] 00 EVERY Medical NIGHT AT Branch BEDTIME NEEDED FOR INSOMNIA hydroCHLORO 2021-03 Yes [id number] 25mg Take 1 [facility] thiazide 25 2-12 tablet by ity of mg tablet 00:00: mouth [place] 00 the Medical morning. Branch traZODone 2021-03 Yes [id number] TAKE ONE [facility] 50 mg 2-12 TABLET BY ity of tablet 00:00: MOUTH [place] 00 EVERY Medical NIGHT AT Branch BEDTIME NEEDED FOR INSOMNIA traZODone 2021-03 Yes [id number] TAKE ONE [facility] 50 mg 2-12 TABLET BY ity of tablet 00:00: MOUTH [place] 00 EVERY Medical NIGHT AT Branch BEDTIME NEEDED FOR INSOMNIA traZODone 2021-03 Yes [id number] TAKE ONE [facility] 50 mg 2-12 TABLET BY ity of tablet 00:00: MOUTH [place] 00 EVERY Medical NIGHT AT [place] BEDTIME NEEDED FOR INSOMNIA traZODone 2021-03- No [id number] TAKE ONE [facility] 50 mg 2-12 - TABLET BY ity of tablet 00:00: 00:00 MOUTH [place] 00 :00 EVERY Medical NIGHT AT [place] BEDTIME NEEDED FOR INSOMNIA hydroCHLORO 2021-03- No [id number] 25mg Take 1 [facility] thiazide 25 2-12 - tablet by it y of mg tablet 00:00: 00:00 mouth in [place] 00 :00 the Medical morning. Branch amLODIPine 2021-03 Yes [id number] 10mg Take 1 U nivers 10 mg 2-07 tablet by ity of tablet 00:00: mouth in [place] 00 the Medical morning. Branch amLODIPine 2021-03 Yes [id number] 10mg Take 1 U nivers 10 mg 2-07 tablet by ity of tablet 00:00: mouth in [place] 00 the Medical morning. Branch amLODIPine 2021-03 Yes [id number] 10mg Take 1 U nivers 10 mg 2-07 tablet by ity of tablet 00:00: mouth in [place] 00 the Medical morning. Branch amLODIPine 2021-03 Yes [id number] 10mg Take 1 U nivers 10 mg 2-07 tablet by ity of tablet 00:00: mouth in [place] 00 the Medical morning. Branch amLODIPine 2021-03 Yes [id number] 10mg Take 1 U nivers 10 mg 2-07 tablet by ity of tablet 00:00: mouth in [place] 00 the Medical morning. Branch amLODIPine 2021-03 Yes [id number] 10mg Take 1 U nivers 10 mg 2-07 tablet by ity of tablet 00:00: mouth in [place] 00 the Medical morning. Branch amLODIPine 2021-03 Yes [id number] 10mg Take 1 U nivers 10 mg 2-07 tablet by ity of tablet 00:00: mouth in [place] 00 the Medical morning. Branch amLODIPine 2021-03 Yes [id number] 10mg Take 1 U nivers 10 mg 2-07 tablet by ity of tablet 00:00: mouth in [place] 00 the Medical morning. Branch amLODIPine 2021-03 Yes [id number] 10mg Take 1 U nivers 10 mg 2-07 tablet by ity of tablet 00:00: mouth in [place] 00 the Medical morning. Branch amLODIPine 2021-03 Yes [id number] 10mg Take 1 U nivers 10 mg 2-07 tablet by ity of tablet 00:00: mouth in [place] the Medical morning. Branch amLODIPine 2021- Yes [id number] 10mg Take 1 U nivers 10 mg 2-07 tablet by ity of tablet 00:00: mouth in [place] the Medical morning. Branch amLODIPine 2021-03 Yes [id number] 10mg Take 1 U nivers 10 mg 2-07 tablet by ity of tablet 00:00: mouth in [place] 00 the Medical morning. Branch amLODIPine 2021-03 Yes [id number] 10mg Take 1 U nivers 10 mg 2-07 tablet by ity of tablet 00:00: mouth in [place] the Medical morning. Branch amLODIPine 2021- Yes [id number] 10mg Take 1 U nivers 10 mg 2-07 tablet by ity of tablet 00:00: mouth in [place] the Medical morning. Branch amLODIPine 2021-03 Yes [id number] 10mg Take 1 U nivers 10 mg 2-07 tablet by ity of tablet 00:00: mouth in [place] the Medical morning. Branch amLODIPine 2021-03 Yes [id number] 10mg Take 1 U nivers 10 mg 2-07 tablet by ity of tablet 00:00: mouth in [place] the Medical morning. Branch amLODIPine 2021-03 Yes [id number] 10mg Take 1 U nivers 10 mg 2-07 tablet by ity of tablet 00:00: mouth in [place] the Medical morning. Branch amLODIPine 2021- Yes [id number] 10mg Take 1 U nivers 10 mg 2-07 tablet by ity of tablet 00:00: mouth in [place] the Medical morning. Branch amLODIPine 2021- Yes [id number] 10mg Take 1 U nivers 10 mg 2-07 tablet by ity of tablet 00:00: mouth in [place] the Medical morning. Branch amLODIPine 2021- Yes [id number] 10mg Take 1 U nivers 10 mg 2-07 tablet by ity of tablet 00:00: mouth in [place] 00 the Medical morning. Branch amLODIPine 2021- Yes [id number] 10mg Take 1 U nivers 10 mg 2-07 tablet by ity of tablet 00:00: mouth in [place] 00 the Medical morning. Branch amLODIPine 2021-03 Yes [id number] 10mg Take 1 U nivers 10 mg 2-07 tablet by ity of tablet 00:00: mouth in [place] the Medical morning. Branch amLODIPine 2021-1 Yes [id number] 10mg Take 1 U nivers 10 mg 2-07 tablet by ity of tablet 00:00: mouth in [place] the Medical morning. Branch amLODIPine 2021- Yes [id number] 10mg Take 1 U nivers 10 mg 2-07 tablet by ity of tablet 00:00: mouth in [place] the Medical morning. Branch amLODIPine 2021- Yes [id number] 10mg Take 1 U nivers 10 mg 2-07 tablet by ity of tablet 00:00: mouth in [place] the Medical morning. Branch amLODIPine 2021- Yes [id number] 10mg Take 1 U nivers 10 mg 2-07 tablet by ity of tablet 00:00: mouth in [place] the Medical morning. Branch amLODIPine 2021- Yes [id number] 10mg Take 1 U nivers 10 mg 2-07 tablet by ity of tablet 00:00: mouth in [place] the Medical morning. Branch amLODIPine 2021-03 Yes [id number] 10mg Take 1 U nivers 10 mg 2-07 tablet by ity of tablet 00:00: mouth in [place] the Medical morning. Branch amLODIPine 2021- Yes [id number] 10mg Take 1 U nivers 10 mg 2-07 tablet by ity of tablet 00:00: mouth in [place] the Medical morning. Branch amLODIPine 2021- Yes [id number] 10mg Take 1 U nivers 10 mg 2-07 tablet by ity of tablet 00:00: mouth in [place] the Medical morning. Branch amLODIPine 2021- Yes [id number] 10mg Take 1 U nivers 10 mg 2-07 tablet by ity of tablet 00:00: mouth in [place] 00 the Medical morning. Branch amLODIPine 2021-1 Yes [id number] 10mg Take 1 U nivers 10 mg 2-07 tablet by ity of tablet 00:00: mouth in [place] 00 the Medical morning. Branch amLODIPine 2021-1 Yes [id number] 10mg Take 1 U nivers 10 mg 2-07 tablet by ity of tablet 00:00: mouth in [place] 00 the Medical morning. Branch amLODIPine 2021-03 Yes [id number] 10mg Take 1 U nivers 10 mg 2-07 tablet by ity of tablet 00:00: mouth in [place] 00 the Medical morning. Branch amLODIPine 2021-03 Yes [id number] 10mg Take 1 U nivers 10 mg 2-07 tablet by ity of tablet 00:00: mouth in [place] 00 the Medical morning. Branch amLODIPine 2021-03 Yes [id number] 10mg Take 1 U nivers 10 mg 2-07 tablet by ity of tablet 00:00: mouth in [place] 00 the Medical morning. Branch amLODIPine 2021-03 Yes [id number] 10mg Take 1 U nivers 10 mg 2-07 tablet by ity of tablet 00:00: mouth in [place] 00 the Medical morning. Branch amLODIPine 2021-03 Yes [id number] 10mg Take 1 U nivers 10 mg 2-07 tablet by ity of tablet 00:00: mouth in [place] the Medical morning. Branch amLODIPine 2021-03 Yes [id number] 10mg Take 1 U nivers 10 mg 2-07 tablet by ity of tablet 00:00: mouth in [place] the Medical morning. Branch amLODIPine 2021-03 Yes [id number] 10mg Take 1 U nivers 10 mg 2-07 tablet by ity of tablet 00:00: mouth in [place] the Medical morning. Branch amLODIPine 2021-03 Yes [id number] 10mg Take 1 U nivers 10 mg 2-07 tablet by ity of tablet 00:00: mouth in [place] the Medical morning. Branch amLODIPine 2021-03 Yes [id number] 10mg Take 1 U nivers 10 mg 2-07 tablet by ity of tablet 00:00: mouth in [place] the Medical morning. Branch amLODIPine 2021-03 Yes [id number] 10mg Take 1 U nivers 10 mg 2-07 tablet by ity of tablet 00:00: mouth in [place] 00 the Medical morning. Branch amLODIPine 2021-03- No [id number] 10mg Take 1 [facility] 10 mg 2-07 06-12 tablet by ity of tablet 00:00: 00:00 mouth in [place] 00 :00 the Medical morning. Branch hydroCHLORO 2021-03 Yes 25mg Take 25 mg [facility] thiazide 25 1-22 by mouth ity of mg tablet 09:16: in the [place] 49 morning. Medical Branch gabapentin 2021-03 Yes gabapentin U nivers 300 mg 1-22 300 mg ity of capsule 09:16: capsule 1 [place] 49 tab BID Medical Branch acetaminoph 2021-03 Yes acetaminop [facility] en-codeine 1-22 hen 300 ity of 300-30 mg 09:16: mg-codeine [place] tablet 49 30 mg Medical tablet Branch hydroCHLORO 2021-03 Yes 25mg Take 25 mg [facility] thiazide 25 1-22 by mouth ity of mg tablet 09:16: in the [place] 49 morning. Medical Branch gabapentin 2021-03 Yes gabapentin U nivers 300 mg 1-22 300 mg ity of capsule 09:16: capsule 1 [place] 49 tab BID Medical Branch acetaminoph 2021-03 Yes acetaminop [facility] en-codeine 1-22 hen 300 ity of 300-30 mg 09:16: mg-codeine [place] tablet 49 30 mg Medical tablet Branch hydroCHLORO 2021-03 Yes 25mg Take 25 mg [facility] thiazide 25 1-22 by mouth ity of mg tablet 09:16: in the [place] morning. Medical Branch gabapentin 2021-03 Yes gabapentin U n[facility] 300 mg 1-22 300 mg ity of capsule 09:16: capsule 1 [place] 49 tab BID [facility] Branch acetaminoph 2021-03 Yes acetaminop [facility] en-codeine 1-22 hen 300 ity of 300-30 mg 09:16: mg-codeine [place] tablet 49 30 mg Medical tablet Branch hydroCHLORO 2021-03 Yes 25mg Take 25 mg [facility] thiazide 25 1-22 by mouth ity of mg tablet 09:16: in the [place] morning. Medical Branch gabapentin 2021-03 Yes gabapentin U n[facility] 300 mg 1-22 300 mg ity of capsule 09:16: capsule 1 [place] 49 tab BID Medical Branch acetaminoph 2021-03 Yes acetaminop [facility] en-codeine 1-22 hen 300 ity of 300-30 mg 09:16: mg-codeine [place] tablet 49 30 mg Medical tablet Branch hydroCHLORO 2021-03 Yes 25mg Take 25 mg [facility] thiazide 25 1-22 by mouth ity of mg tablet 09:16: in the [place] 49 morning. Medical Branch gabapentin 2021-03 Yes gabapentin U n[facility] 300 mg 1-22 300 mg ity of capsule 09:16: capsule 1 [place] 49 tab BID Medical Branch acetaminoph 2021-03 Yes acetaminop [facility] en-codeine 1-22 hen 300 ity of 300-30 mg 09:16: mg-codeine [place] tablet 49 30 mg Medical tablet Branch hydroCHLORO 2021-03 Yes 25mg Take 25 mg [facility] thiazide 25 1-22 by mouth ity of mg tablet 09:16: in the [place] 49 morning. Medical Branch gabapentin 2021-03 Yes gabapentin U nivers 300 mg 1-22 300 mg ity of capsule 09:16: capsule 1 [place] 49 tab BID [facility] 2021-03 Yes acetaminop [facility] en-codeine 1-22 hen 300 ity of 300-30 mg 09:16: mg-codeine [place] tablet 49 30 mg Medical tablet Branch gabapentin 2021-03 Yes gabapentin U nivers 300 mg 1-22 300 mg ity of capsule 09:16: capsule 1 [place] 49 tab BID [facility] acetamino 2021-03 Yes acetaminop [facility] en-codeine 1-22 hen 300 ity of 300-30 mg 09:16: mg-codeine [place] tablet 49 30 mg Medical tablet Branch gabapentin 2021-03 Yes gabapentin U nivers 300 mg 1-22 300 mg ity of capsule 09:16: capsule 1 [place] 49 tab BID [facility] acetamino 2021-03 Yes acetaminop [facility] en-codeine 1-22 hen 300 ity of 300-30 mg 09:16: mg-codeine [place] tablet 49 30 mg Medical tablet Branch gabapentin 2021-03 Yes gabapentin U n[facility] 300 mg 1-22 300 mg ity of capsule 09:16: capsule 1 [place] 49 tab BID [facility] acetamino 2021-03 Yes acetaminop [facility] en-codeine 1-22 hen 300 ity of 300-30 mg 09:16: mg-codeine [place] tablet 49 30 mg Medical tablet Branch gabapentin 2021-03 Yes gabapentin U n[facility] 300 mg 1-22 300 mg ity of capsule 09:16: capsule 1 [place] 49 tab BID [facility] acetamino 2021-03 Yes acetaminop [facility] en-codeine 1-22 hen 300 ity of 300-30 mg 09:16: mg-codeine [place] tablet 49 30 mg Medical tablet Branch gabapentin 2021-03 Yes gabapentin U [facility] 300 mg 1-22 300 mg ity of capsule 09:16: capsule 1 [place] 49 tab BID [facility] 2021-03 Yes acetaminop [facility] en-codeine 1-22 hen 300 ity of 300-30 mg 09:16: mg-codeine [place] tablet 49 30 mg Medical tablet Branch gabapentin 2021-03 Yes gabapentin U [facility] 300 mg 1-22 300 mg ity of capsule 09:16: capsule 1 [place] 49 tab BID [facility] 2021-03 Yes acetaminop [facility] en-codeine 1-22 hen 300 ity of 300-30 mg 09:16: mg-codeine [place] tablet 49 30 mg Medical tablet Branch gabapentin 2021-03 Yes gabapentin U [facility] 300 mg 1-22 300 mg ity of capsule 09:16: capsule 1 [place] 49 tab BID [facility] 2021-03 Yes acetaminop [facility] en-codeine 1-22 hen 300 ity of 300-30 mg 09:16: mg-codeine [place] tablet 49 30 mg Medical tablet Branch gabapentin 2021-03 Yes gabapentin U [facility] 300 mg 1-22 300 mg ity of capsule 09:16: capsule 1 [place] 49 tab BID [facility] 2021-03 Yes acetaminop [facility] en-codeine 1-22 hen 300 ity of 300-30 mg 09:16: mg-codeine [place] tablet 49 30 mg Medical tablet Branch gabapentin 2021-03 Yes gabapentin U [facility] 300 mg 1-22 300 mg ity of capsule 09:16: capsule 1 [place] 49 tab BID [facility] 2021-03 Yes acetaminop [facility] en-codeine 1-22 hen 300 ity of 300-30 mg 09:16: mg-codeine [place] tablet 49 30 mg Medical tablet Branch gabapentin 2021-03 Yes gabapentin U n[facility] 300 mg 1-22 300 mg ity of capsule 09:16: capsule 1 [place] 49 tab BID [facility] 2021-03 Yes acetaminop [facility] en-codeine 1-22 hen 300 ity of 300-30 mg 09:16: mg-codeine [place] tablet 49 30 mg Medical tablet Branch gabapentin 2021-03 Yes gabapentin U n[facility] 300 mg 1-22 300 mg ity of capsule 09:16: capsule 1 [place] 49 tab BID [facility] 2022-1 Yes acetaminop [facility] en-codeine 1-22 hen 300 ity of 300-30 mg 09:16: mg-codeine [place] tablet 49 30 mg Medical tablet Branch gabapentin 2021-03 Yes gabapentin U [facility] 300 mg 1-22 300 mg ity of capsule 09:16: capsule 1 [place] 49 tab BID [facility] 2021-03 Yes acetaminop [facility] en-codeine 1-22 hen 300 ity of 300-30 mg 09:16: mg-codeine [place] tablet 49 30 mg Medical tablet Branch gabapentin 2021-03 Yes gabapentin U n[facility] 300 mg 1-22 300 mg ity of capsule 09:16: capsule 1 [place] 49 tab BID [facility] 2021-03 Yes acetaminop [facility] en-codeine 1-22 hen 300 ity of 300-30 mg 09:16: mg-codeine [place] tablet 49 30 mg Medical tablet Branch gabapentin 2021-03 Yes gabapentin U [facility] 300 mg 1-22 300 mg ity of capsule 09:16: capsule 1 [place] 49 tab BID [facility] 2021-03 Yes acetaminop [facility] en-codeine 1-22 hen 300 ity of 300-30 mg 09:16: mg-codeine [place] tablet 49 30 mg Medical tablet Branch gabapentin 2021-03 Yes gabapentin U [facility] 300 mg 1-22 300 mg ity of capsule 09:16: capsule 1 [place] 49 tab BID [facility] 2021-03 Yes acetaminop [facility] en-codeine 1-22 hen 300 ity of 300-30 mg 09:16: mg-codeine [place] tablet 49 30 mg Medical tablet Branch gabapentin 2021-03 Yes gabapentin U [facility] 300 mg 1-22 300 mg ity of capsule 09:16: capsule 1 [place] 49 tab BID [facility] 2021-03 Yes acetaminop [facility] en-codeine 1-22 hen 300 ity of 300-30 mg 09:16: mg-codeine [place] tablet 49 30 mg Medical tablet Branch gabapentin 2021-03 Yes gabapentin U n[facility] 300 mg 1-22 300 mg ity of capsule 09:16: capsule 1 [place] 49 tab BID [facility] 2021-03 Yes acetaminop [facility] en-codeine 1-22 hen 300 ity of 300-30 mg 09:16: mg-codeine [place] tablet 49 30 mg Medical tablet Branch gabapentin 2021-03 Yes gabapentin U [facility] 300 mg 1-22 300 mg ity of capsule 09:16: capsule 1 [place] 49 tab BID [facility] 2021-03 Yes acetaminop [facility] en-codeine 1-22 hen 300 ity of 300-30 mg 09:16: mg-codeine [place] tablet 49 30 mg Medical tablet Branch gabapentin 2021-03 Yes gabapentin U n[facility] 300 mg 1-22 300 mg ity of capsule 09:16: capsule 1 [place] 49 tab BID [facility] 2021-03 Yes acetaminop [facility] en-codeine 1-22 hen 300 ity of 300-30 mg 09:16: mg-codeine [place] tablet 49 30 mg Medical tablet Branch gabapentin 2021-03 Yes gabapentin U n[facility] 300 mg 1-22 300 mg ity of capsule 09:16: capsule 1 [place] 49 tab BID [facility] 2021-03 Yes acetaminop [facility] en-codeine 1-22 hen 300 ity of 300-30 mg 09:16: mg-codeine [place] tablet 49 30 mg Medical tablet Branch gabapentin 2021-03 Yes gabapentin U n[facility] 300 mg 1-22 300 mg ity of capsule 09:16: capsule 1 [place] 49 tab BID [facility] 2021-03 Yes acetaminop [facility] en-codeine 1-22 hen 300 ity of 300-30 mg 09:16: mg-codeine [place] tablet 49 30 mg Medical tablet Branch gabapentin 2021-03 Yes gabapentin U n[facility] 300 mg 1-22 300 mg ity of capsule 09:16: capsule 1 [place] 49 tab BID [facility] 2021-03 Yes acetaminop [facility] en-codeine 1-22 hen 300 ity of 300-30 mg 09:16: mg-codeine [place] tablet 49 30 mg Medical tablet Branch gabapentin 2021-03 Yes gabapentin U n[facility] 300 mg 1-22 300 mg ity of capsule 09:16: capsule 1 [place] 49 tab BID [facility] 2021-03 Yes acetaminop [facility] en-codeine 1-22 hen 300 ity of 300-30 mg 09:16: mg-codeine [place] tablet 49 30 mg Medical tablet Branch gabapentin 2021-03 Yes gabapentin U n[facility] 300 mg 1-22 300 mg ity of capsule 09:16: capsule 1 [place] 49 tab BID Medical Branch acetaminoph 2021-03 Yes acetaminop [facility] en-codeine 1-22 hen 300 ity of 300-30 mg 09:16: mg-codeine [place] tablet 49 30 mg Medical tablet Branch hydroCHLORO 2021-03 Yes 25mg Take 25 mg [facility] thiazide 25 1-22 by mouth ity of mg tablet 09:16: in the [place] 49 morning. Medical Branch gabapentin 2021-03 Yes gabapentin U n[facility] 300 mg 1-22 300 mg ity of capsule 09:16: capsule 1 [place] 49 tab BID Medical Branch acetaminoph 2021-03 Yes acetaminop [facility] en-codeine 1-22 hen 300 ity of 300-30 mg 09:16: mg-codeine [place] tablet 49 30 mg Medical tablet Branch traZODone 2021-03 Yes [id number] TAKE ONE Univers 50 mg 1-10 TABLET BY ity of tablet 00:00: MOUTH AT [place] 00 BEDTIME Medical NEEDED FOR Branch INSOMNIA traZODone 2021-03 Yes [id number] TAKE ONE [facility] 50 mg 1-10 TABLET BY ity of tablet 00:00: MOUTH AT [place] 00 BEDTIME Medical NEEDED FOR Branch INSOMNIA traZODone 2021-03 Yes [id number] TAKE ONE [facility] 50 mg 1-10 TABLET BY ity of tablet 00:00: MOUTH AT [place] 00 BEDTIME Medical NEEDED FOR Branch INSOMNIA traZODone 2021-03 Yes [id number] TAKE ONE [facility] 50 mg 1-10 TABLET BY ity of tablet 00:00: MOUTH AT [place] 00 BEDTIME Medical NEEDED FOR Branch INSOMNIA traZODone 2021-03 Yes [id number] TAKE ONE [facility] 50 mg 1-10 TABLET BY ity of tablet 00:00: MOUTH AT [place] 00 BEDTIME Medical NEEDED FOR Branch INSOMNIA traZODone 2021-03 Yes [id number] TAKE ONE [facility] 50 mg 1-10 TABLET BY ity of tablet 00:00: MOUTH AT [place] 00 BEDTIME Medical NEEDED FOR Branch INSOMNIA traZODone 2021-03 Yes [id number] TAKE ONE [facility] 50 mg 1-10 TABLET BY ity of tablet 00:00: MOUTH AT [place] [address] BEDTIME Medical NEEDED FOR Branch INSOMNIA traZODone 2021-03- No [id number] TAKE ONE [facility] 50 mg 1-10 12-12 TABLET BY ity of tablet 00:00: 00:00 MOUTH AT [place] 00 :00 BEDTIME Medical NEEDED FOR Branch INSOMNIA topiramate 2021-032- No 50mg Take 50 mg Univers (TOPAMAX) 0-14 10-14 by mouth. ity of 50 mg 09:34: 00:00 [place] tablet 45 :00 Medical Branch topiramate 2021-1 Yes [id number] 50mg Take 1 [facility] 50 mg 0-14 tablet by ity of tablet 00:00: mouth in [place] 00 the Medical morning Branch and 1 tablet in the evening. topiramate 2021-1 Yes [id number] 50mg Take 1 [facility] 50 mg 0-14 tablet by ity of tablet 00:00: mouth in [place] 00 the Medical morning Branch and 1 tablet in the evening. topiramate 2021-1 Yes [id number] 50mg Take 1 [facility] 50 mg 0-14 tablet by ity of tablet 00:00: mouth in [place] 00 the Medical morning Branch and 1 tablet in the evening. topiramate 2021-1 Yes [id number] 50mg Take 1 [facility] 50 mg 0-14 tablet by ity of tablet 00:00: mouth in [place] 00 the Medical morning Branch and 1 tablet in the evening. topiramate 2021-1 Yes [id number] 50mg Take 1 [facility] 50 mg 0-14 tablet by ity of tablet 00:00: mouth in [place] 00 the Medical morning Branch and 1 tablet in the evening. topiramate 2021-1 Yes [id number] 50mg Take 1 [facility] 50 mg 0-14 tablet by ity of tablet 00:00: mouth in [place] 00 the Medical morning Branch and 1 tablet in the evening. topiramate 2021-1 Yes [id number] 50mg Take 1 [facility] 50 mg 0-14 tablet by ity of tablet 00:00: mouth in [place] 00 the Medical morning Branch and 1 tablet in the evening. topiramate 2021-1 Yes [id number] 50mg Take 1 [facility] 50 mg 0-14 tablet by ity of tablet 00:00: mouth in [place] 00 the Medical morning Branch and 1 tablet in the evening. topiramate 2021-1 Yes [id number] 50mg Take 1 [facility] 50 mg 0-14 tablet by ity of tablet 00:00: mouth in [place] 00 the Medical morning Branch and 1 tablet in the evening. topiramate 2-1 Yes [id number] 50mg Take 1 [facility] 50 mg 0-14 tablet by ity of tablet 00:00: mouth in [place] [address] the Medical morning Branch and 1 tablet in the evening. topiramate 2-1 Yes [id number] 50mg Take 1 [facility] 50 mg 0-14 tablet by ity of tablet 00:00: mouth in [place] [address] the Medical morning Branch and 1 tablet in the evening. topiramate 2021-1 Yes [id number] 50mg Take 1 [facility] 50 mg 0-14 tablet by ity of tablet 00:00: mouth in [place] [address] the Medical morning Branch and 1 tablet in the evening. topiramate 2021-1 Yes [id number] 50mg Take 1 [facility] 50 mg 0-14 tablet by ity of tablet 00:00: mouth in [place] [address] the Medical morning Branch and 1 tablet in the evening. topiramate 2021-1 Yes [id number] 50mg Take 1 [facility] 50 mg 0-14 tablet by ity of tablet 00:00: mouth in [place] [address] the Medical morning Branch and 1 tablet in the evening. topiramate 2021-1 Yes [id number] 50mg Take 1 [facility] 50 mg 0-14 tablet by ity of tablet 00:00: mouth in [place] [address] the Medical morning Branch and 1 tablet in the evening. topiramate 2021-1 Yes [id number] 50mg Take 1 [facility] 50 mg 0-14 tablet by ity of tablet 00:00: mouth in [place] [address] the Medical morning Branch and 1 tablet in the evening. topiramate 2021-1 Yes [id number] 50mg Take 1 [facility] 50 mg 0-14 tablet by ity of tablet 00:00: mouth in [place] [address] the Medical morning Branch and 1 tablet in the evening. topiramate 2-1 Yes [id number] 50mg Take 1 [facility] 50 mg 0-14 tablet by ity of tablet 00:00: mouth in [place] [address] the Medical morning Branch and 1 tablet in the evening. topiramate 2-1 Yes [id number] 50mg Take 1 [facility] 50 mg 0-14 tablet by ity of tablet 00:00: mouth in [place] [address] the Medical morning Branch and 1 tablet in the evening. topiramate 2-1 Yes [id number] 50mg Take 1 [facility] 50 mg 0-14 tablet by ity of tablet 00:00: mouth in [place] [address] the Medical morning Branch and 1 tablet in the evening. topiramate 2021-1 Yes [id number] 50mg Take 1 [facility] 50 mg 0-14 tablet by ity of tablet 00:00: mouth in [place] [address] the Medical morning Branch and 1 tablet in the evening. topiramate 2021-1 Yes [id number] 50mg Take 1 [facility] 50 mg 0-14 tablet by ity of tablet 00:00: mouth in [place] [address] the Medical morning Branch and 1 tablet in the evening. topiramate 2021-1 Yes [id number] 50mg Take 1 [facility] 50 mg 0-14 tablet by ity of tablet 00:00: mouth in [place] [address] the Medical morning Branch and 1 tablet in the evening. topiramate 2021-1 Yes [id number] 50mg Take 1 [facility] 50 mg 0-14 tablet by ity of tablet 00:00: mouth in [place] [address] the Medical morning Branch and 1 tablet in the evening. topiramate 2021-1 Yes [id number] 50mg Take 1 [facility] 50 mg 0-14 tablet by ity of tablet 00:00: mouth in [place] [address] the Medical morning [place] and 1 tablet in the evening. topiramate 2021-1 Yes [id number] 50mg Take 1 [facility] 50 mg 0-14 tablet by ity of tablet 00:00: mouth in [place] [address] the Medical morning [place] and 1 tablet in the evening. topiramate 2021-1 Yes [id number] 50mg Take 1 [facility] 50 mg 0-14 tablet by ity of tablet 00:00: mouth in [place] [address] the Medical morning Branch and 1 tablet in the evening. topiramate 2021-1 Yes [id number] 50mg Take 1 [facility] 50 mg 0-14 tablet by ity of tablet 00:00: mouth in [place] [address] the Medical morning Branch and 1 tablet in the evening. topiramate 2021-1 Yes [id number] 50mg Take 1 [facility] 50 mg 0-14 tablet by ity of tablet 00:00: mouth in [place] [address] the Medical morning [place] and 1 tablet in the evening. topiramate 2021-1 Yes [id number] 50mg Take 1 [facility] 50 mg 0-14 tablet by ity of tablet 00:00: mouth in [address] Medical morning [place] and 1 tablet in the evening. topiramate 2021-1 Yes [id number] 50mg Take 1 [facility] 50 mg 0-14 tablet by ity of tablet 00:00: mouth in [place] 00 the Medical morning Branch and 1 tablet in the evening. topiramate 2021-1 Yes [id number] 50mg Take 1 [facility] 50 mg 0-14 tablet by ity of tablet 00:00: mouth in [place] 00 the Medical morning Branch and 1 tablet in the evening. topiramate 2021-1 Yes [id number] 50mg Take 1 [facility] 50 mg 0-14 tablet by ity of tablet 00:00: mouth in [place] 00 the Medical morning Branch and 1 tablet in the evening. topiramate 2021-1 Yes [id number] 50mg Take 1 [facility] 50 mg 0-14 tablet by ity of tablet 00:00: mouth in [place] [address] the Medical morning Branch and 1 tablet in the evening. topiramate 2021-1 Yes [id number] 50mg Take 1 [facility] 50 mg 0-14 tablet by ity of tablet 00:00: mouth in [place] [address] the Medical morning Branch and 1 tablet in the evening. topiramate 2021-1 Yes [id number] 50mg Take 1 [facility] 50 mg 0-14 tablet by ity of tablet 00:00: mouth in [place] [address] the Medical morning Branch and 1 tablet in the evening. topiramate 2021-1 Yes [id number] 50mg Take 1 [facility] 50 mg 0-14 tablet by ity of tablet 00:00: mouth in [place] [address] the Medical morning Branch and 1 tablet in the evening. topiramate 2021-1 Yes [id number] 50mg Take 1 [facility] 50 mg 0-14 tablet by ity of tablet 00:00: mouth in [place] [address] the Medical morning Branch and 1 tablet in the evening. topiramate 2021-1 Yes [id number] 50mg Take 1 [facility] 50 mg 0-14 tablet by ity of tablet 00:00: mouth in [place] [address] the Medical morning Branch and 1 tablet in the evening. topiramate 2021-1 Yes [id number] 50mg Take 1 [facility] 50 mg 0-14 tablet by ity of tablet 00:00: mouth in [place] [address] the Medical morning Branch and 1 tablet in the evening. topiramate 2021-1 Yes [id number] 50mg Take 1 [facility] 50 mg 0-14 tablet by ity of tablet 00:00: mouth in [place] [address] the Medical morning Branch and 1 tablet in the evening. topiramate 2-1 Yes [id number] 50mg Take 1 [facility] 50 mg 0-14 tablet by ity of tablet 00:00: mouth in [place] [address] the Medical morning Branch and 1 tablet in the evening. topiramate 2-1 Yes [id number] 50mg Take 1 [facility] 50 mg 0-14 tablet by ity of tablet 00:00: mouth in [place] [address] the Medical morning Branch and 1 tablet in the evening. topiramate 2-1 Yes [id number] 50mg Take 1 [facility] 50 mg 0-14 tablet by ity of tablet 00:00: mouth in [place] [address] the Medical morning Branch and 1 tablet in the evening. topiramate 2-1 Yes [id number] 50mg Take 1 [facility] 50 mg 0-14 tablet by ity of tablet 00:00: mouth in [place] [address] the Medical morning Branch and 1 tablet in the evening. topiramate 2021-1 Yes [id number] 50mg Take 1 [facility] 50 mg 0-14 tablet by ity of tablet 00:00: mouth in [place] [address] the Medical morning [place] and 1 tablet in the evening. topiramate 2021-1 Yes [id number] 50mg Take 1 [facility] 50 mg 0-14 tablet by ity of tablet 00:00: mouth in [place] [address] the Medical morning [place] and 1 tablet in the evening. topiramate 2-1 Yes [id number] 50mg Take 1 [facility] 50 mg 0-14 tablet by ity of tablet 00:00: mouth in [place] [address] the Medical morning [place] and 1 tablet in the evening. topiramate 2-1 Yes [id number] 50mg Take 1 [facility] 50 mg 0-14 tablet by ity of tablet 00:00: mouth in [address] Medical morning [place] and 1 tablet in the evening. topiramate 2-1 Yes [id number] 50mg Take 1 [facility] 50 mg 0-14 tablet by ity of tablet 00:00: mouth in [address] Medical morning [place] and 1 tablet in the evening. topiramate 2022-1 Yes [id number] 50mg Take 1 [facility] 50 mg 0-14 tablet by ity of tablet 00:00: mouth in [address] Medical morning [place] and 1 tablet in the evening. topiramate 2022-1 Yes [id number] 50mg Take 1 [facility] 50 mg 0-14 tablet by ity of tablet 00:00: mouth in [place] 00 the Medical morning Branch and 1 tablet in the evening. topiramate 2021-03 Yes [id number] 50mg Take 1 [facility] 50 mg 0-14 tablet by ity of tablet 00:00: mouth in [place] 00 the Medical morning Branch and 1 tablet in the evening. topiramate 2021-03 Yes [id number] 50mg Take 1 [facility] 50 mg 0-14 tablet by ity of tablet 00:00: mouth in [place] 00 the Medical morning Branch and 1 tablet in the evening. topiramate 2021-03 Yes [id number] 50mg Take 1 [facility] 50 mg 0-14 tablet by ity of tablet 00:00: mouth in [place] 00 the Medical morning Branch and 1 tablet in the evening. topiramate 2021-03- No [id number] 50mg Take 1 [facility] 50 mg 0-14 08-14 tablet by ity of tablet 00:00: 00:00 mouth in [place] 00 :00 the Medical morning Branch and 1 tablet in the evening. topiramate 2021-03- No [id number] 50mg Take 1 [facility] 50 mg 0-14 08-14 tablet by ity of tablet 00:00: 00:00 mouth in [place] 00 :00 the Medical morning Branch and 1 tablet in the evening. topiramate 2021-03- No [id number] 50mg Take 1 [facility] 50 mg 0-14 08-14 tablet by ity of tablet 00:00: 00:00 mouth in [place] 00 :00 the Medical morning [place] and 1 tablet in the evening. topiramate 2021-03 Yes 50mg Take 50 mg U nivers (TOPAMAX) 0-07 by mouth. ity o f 50 mg 09:14: [place] tablet 20 [facility] topiramate 2021-03 Yes 50mg Take 50 mg U nivers (TOPAMAX) 0-07 by mouth. ity o f 50 mg 09:14: [place] tablet 20 [facility] topiramate 2021-03 Yes 50mg Take 50 mg U nivers (TOPAMAX) 0-07 by mouth. ity o f 50 mg 09:14: [place] tablet 20 [facility] topiramate 2021-03 Yes 50mg Take 50 mg U nivers (TOPAMAX) 0-07 by mouth. ity o f 50 mg 09:14: [place] tablet 20 Medical Branch topiramate 2021-03 Yes 50mg Take 50 mg U nivers (TOPAMAX) 0-07 by mouth. ity o f 50 mg 09:14: [place] tablet 20 Medical Branch topiramate 2021-03 Yes 50mg Take 50 mg U nivers (TOPAMAX) 0-07 by mouth. ity o f 50 mg 09:14: [place] tablet 20 Medical Branch atorvastati 2021-03- No Take by Un beto n calcium 0-07 10-07 mouth. ity of (ATORVASTAT 09:12: 00:00 [place] IN ORAL) 58 :00 Medical Branch atorvastati 2021-03- No Take by Un beto n calcium 0-07 10-07 mouth. ity of (ATORVASTAT 09:12: 00:00 [place] IN ORAL) 58 :00 Medical Branch atorvastati 2021-03- No Take by Un beto n calcium 0-07 10-07 mouth. ity of (ATORVASTAT 09:12: 00:00 [place] IN ORAL) 58 :00 Medical Branch atorvastati 2021-03- No Take by Un beto n calcium 0-07 10-07 mouth. ity of (ATORVASTAT 09:12: 00:00 [place] IN ORAL) 58 :00 Medical Branch atorvastati 2021-03- No Take by Un beto n calcium 0-07 10-07 mouth. ity of (ATORVASTAT 09:12: 00:00 [place] IN ORAL) 58 :00 Medical [place] gabapentin 2021-03 Yes gabapentin U nivers 300 mg 0-07 300 mg ity of capsule 08:16: capsule 1 [place] 06 tab BID Medical Branch acetaminoph 2021-03 Yes acetaminop [facility] en-codeine 0-07 hen 300 ity of 300-30 mg 08:16: mg-codeine [place] tablet 06 30 mg Medical tablet Branch gabapentin 2021-03 Yes gabapentin U nivers 300 mg 0-07 300 mg ity of capsule 08:16: capsule 1 [place] 06 tab BID Medical Branch acetaminoph 2021-03 Yes acetaminop [facility] en-codeine 0-07 hen 300 ity of 300-30 mg 08:16: mg-codeine [place] tablet 06 30 mg Medical tablet Branch gabapentin 2021-03 Yes gabapentin U nivers 300 mg 0-07 300 mg ity of capsule 08:16: capsule 1 [place] 06 tab BID [facility] 2021-03 Yes acetaminop Univers en-codeine 0-07 hen 300 ity of 300-30 mg 08:16: mg-codeine [place] tablet 06 30 mg Medical tablet Branch gabapentin 2021-03 Yes gabapentin U nivers 300 mg 0-07 300 mg ity of capsule 08:16: capsule 1 [place] tab BID [facility] 2021-03 Yes acetaminop Univers en-codeine 0-07 hen 300 ity of 300-30 mg 08:16: mg-codeine [place] tablet 06 30 mg Medical tablet Branch gabapentin 2021-03 Yes gabapentin U nivers 300 mg 0-07 300 mg ity of capsule 08:16: capsule 1 tab BID [facility] 2021-03 Yes acetaminop [facility] en-codeine 0-07 hen 300 ity of 300-30 mg 08:16: mg-codeine [place] tablet 06 30 mg Medical tablet Branch gabapentin 2021-03 Yes gabapentin U nivers 300 mg 0-07 300 mg ity of capsule 08:16: capsule 1 tab BID [facility] 2021-03 Yes acetaminop [facility] en-codeine 0-07 hen 300 ity of 300-30 mg 08:16: mg-codeine [place] tablet 06 30 mg Medical tablet Branch gabapentin 2021-03 Yes gabapentin U nivers 300 mg 0-07 300 mg ity of capsule 08:16: capsule 1 [place] tab BID [facility] 2021-03 Yes acetaminop [facility] en-codeine 0-07 hen 300 ity of 300-30 mg 08:16: mg-codeine [place] tablet 06 30 mg Medical tablet Branch gabapentin 2021-03 Yes gabapentin U nivers 300 mg 0-07 300 mg ity of capsule 08:16: capsule 1 [place] tab BID [facility] 2021-03 Yes acetaminop [facility] en-codeine 0-07 hen 300 ity of 300-30 mg 08:16: mg-codeine [place] tablet 06 30 mg Medical tablet Branch gabapentin 2021-03 Yes gabapentin U nivers 300 mg 0-07 300 mg ity of capsule 08:16: capsule 1 06 tab BID Medical Branch acetaminoph 2021-03 Yes acetaminop [facility] en-codeine 0-07 hen 300 ity of 300-30 mg 08:16: mg-codeine [place] tablet 06 30 mg Medical tablet Branch gabapentin 2021-03 Yes gabapentin [facility] 300 mg 0-07 300 mg [facility] capsule 08:16: capsule 1 06 tab BID [facility] acetaminoph 2021-03 Yes acetaminop [facility] en-codeine 0-07 hen 300 [facility] of 300-30 mg 08:16: mg-codeine [place] tablet 06 30 mg Medical tablet Branch gabapentin 2021-03 Yes gabapentin [facility] 300 mg 0-07 300 mg [facility] capsule 08:16: capsule 1 06 tab BID [facility] acetaminoph 2021-03 Yes acetaminop [facility] en-codeine 0-07 hen 300 [facility] of 300-30 mg 08:16: mg-codeine [place] tablet 06 30 mg Medical tablet Branch amLODIPine 2021-03 Yes [id number] 5mg Take 1 [facility] n[facility] 5 mg tablet 0-07 tablet by [facility] of 00:00: mouth in [place] the Medical morning. Branch atenoloL 50 2021-03 Yes [id number] 50mg Take 1 [facility] mg tablet 0-07 tablet by [facility] o f 00:00: mouth in [place] the Medical morning. Branch atorvastati 2021-03 Yes [id number] 20mg Take 1 [facility] n 20 mg 0-07 tablet by [facility] of tablet 00:00: mouth at [place] 00 bedtime. [facility] venlafaxine 2021-03 Yes [id number] 37.5mg Take 1 [facility] 37.5 mg 0-07 tablet by [facility] of tablet 00:00: mouth in [place] the Medical morning. Branch amLODIPine 2021-03 Yes [id number] 5mg Take 1 [facility] n[facility] 5 mg tablet 0-07 tablet by [facility] of 00:00: mouth in [place] the Medical morning. Branch atenoloL 50 2021-03 Yes [id number] 50mg Take 1 [facility] mg tablet 0-07 tablet by [facility] o f 00:00: mouth in [place] 00 the Medical morning. [facility] atorvastati 2021-03 Yes [id number] 20mg Take 1 [facility] n 20 mg 0-07 tablet by [facility] of tablet 00:00: mouth at [place] 00 bedtime. [facility] venlafaxine 2021-03 Yes [id number] 37.5mg Take 1 [facility] 37.5 mg 0-07 tablet by [facility] of tablet 00:00: mouth in [place] 00 the Medical morning. Branch atenoloL 50 2021-03 Yes [id number] 50mg Take 1 [facility] mg tablet 0-07 tablet by [facility] o f 00:00: mouth in [place] 00 the Medical morning. [facility] atorvastati 2021-03 Yes [id number] 20mg Take 1 [facility] n 20 mg 0-07 tablet by [facility] of tablet 00:00: mouth at [place] 00 bedtime. [facility] venlafaxine 2021-03 Yes [id number] 37.5mg Take 1 [facility] 37.5 mg 0-07 tablet by [facility] of tablet 00:00: mouth in [place] 00 the Medical morning. Branch atenoloL 50 2021-03 Yes [id number] 50mg Take 1 [facility] mg tablet 0-07 tablet by [facility] o f 00:00: mouth in [place] the Medical morning. [facility] atorvastati 2021-03 Yes [id number] 20mg Take 1 [facility] n 20 mg 0-07 tablet by [facility] of tablet 00:00: mouth at [place] 00 bedtime. [facility] venlafaxine 2021-03 Yes [id number] 37.5mg Take 1 [facility] 37.5 mg 0-07 tablet by [facility] of tablet 00:00: mouth in [place] the Medical morning. Branch atenoloL 50 2021-03 Yes [id number] 50mg Take 1 [facility] mg tablet 0-07 tablet by [facility] o f 00:00: mouth in [place] the Medical morning. [facility] atorvastati 2021-03 Yes [id number] 20mg Take 1 [facility] n 20 mg 0-07 tablet by [facility] of tablet 00:00: mouth at [place] 00 bedtime. [facility] venlafaxine 2021-03 Yes [id number] 37.5mg Take 1 [facility] 37.5 mg 0-07 tablet by [facility] of tablet 00:00: mouth in [place] 00 the Medical morning. Branch atenoloL 50 2021-03 Yes [id number] 50mg Take 1 [facility] mg tablet 0-07 tablet by [facility] o f 00:00: mouth in [place] 00 the Medical morning. [facility] atorvastati 2021-03 Yes [id number] 20mg Take 1 [facility] n 20 mg 0-07 tablet by [facility] of tablet 00:00: mouth at [place] 00 bedtime. [facility] venlafaxine 2021-03 Yes [id number] 37.5mg Take 1 [facility] 37.5 mg 0-07 tablet by [facility] of tablet 00:00: mouth in [place] the Medical morning. Branch atenoloL 50 2021-03 Yes [id number] 50mg Take 1 [facility] mg tablet 0-07 tablet by [facility] o f 00:00: mouth in [place] the Medical morning. [facility] atorvastati 2021-03 Yes [id number] 20mg Take 1 [facility] n 20 mg 0-07 tablet by [facility] of tablet 00:00: mouth at [place] 00 bedtime. [facility] venlafaxine 2021-03 Yes [id number] 37.5mg Take 1 [facility] 37.5 mg 0-07 tablet by [facility] of tablet 00:00: mouth in [place] the Medical morning. Branch atenoloL 50 2021-03 Yes [id number] 50mg Take 1 [facility] mg tablet 0-07 tablet by [facility] o f 00:00: mouth in [place] the Medical morning. [facility] atorvastati 2021-03 Yes [id number] 20mg Take 1 [facility] n 20 mg 0-07 tablet by [facility] of tablet 00:00: mouth at [place] 00 bedtime. [facility] venlafaxine 2021-03 Yes [id number] 37.5mg Take 1 [facility] 37.5 mg 0-07 tablet by [facility] of tablet 00:00: mouth in [place] the Medical morning. Branch atenoloL 50 2021-03 Yes [id number] 50mg Take 1 [facility] mg tablet 0-07 tablet by [facility] o f 00:00: mouth in [place] the Medical morning. [facility] atorvastati 2021-03 Yes [id number] 20mg Take 1 [facility] n 20 mg 0-07 tablet by [facility] of tablet 00:00: mouth at [place] 00 bedtime. [facility] venlafaxine 2021-03 Yes [id number] 37.5mg Take 1 [facility] 37.5 mg 0-07 tablet by [facility] of tablet 00:00: mouth in [place] 00 the Medical morning. Branch atenoloL 50 2021-03 Yes [id number] 50mg Take 1 [facility] mg tablet 0-07 tablet by [facility] o f 00:00: mouth in [place] 00 the Medical morning. [facility] atorvastati 2021-03 Yes [id number] 20mg Take 1 [facility] n 20 mg 0-07 tablet by [facility] of tablet 00:00: mouth at [place] 00 bedtime. [facility] venlafaxine 2021-03 Yes [id number] 37.5mg Take 1 [facility] 37.5 mg 0-07 tablet by [facility] of tablet 00:00: mouth in [place] 00 the Medical morning. Branch atenoloL 50 2021-03 Yes [id number] 50mg Take 1 [facility] mg tablet 0-07 tablet by [facility] o f 00:00: mouth in [place] 00 the Medical morning. [facility] atorvastati 2021-03 Yes [id number] 20mg Take 1 [facility] n 20 mg 0-07 tablet by [facility] of tablet 00:00: mouth at [place] 00 bedtime. [facility] venlafaxine 2021-03 Yes [id number] 37.5mg Take 1 [facility] 37.5 mg 0-07 tablet by [facility] of tablet 00:00: mouth in [place] the Medical morning. Branch atenoloL 50 2021-03 Yes [id number] 50mg Take 1 [facility] mg tablet 0-07 tablet by [facility] o f 00:00: mouth in [place] 00 the Medical morning. [facility] atorvastati 2021-03 Yes [id number] 20mg Take 1 [facility] n 20 mg 0-07 tablet by [facility] of tablet 00:00: mouth at [place] [address] bedtime. [facility] venlafaxine 2021-03 Yes [id number] 37.5mg Take 1 [facility] 37.5 mg 0-07 tablet by [facility] of tablet 00:00: mouth in [place] the Medical morning. Branch atenoloL 50 2021-03 Yes [id number] 50mg Take 1 [facility] mg tablet 0-07 tablet by [facility] o f 00:00: mouth in [place] 00 the Medical morning. [facility] atorvastati 2021-03 Yes [id number] 20mg Take 1 [facility] n 20 mg 0-07 tablet by [facility] of tablet 00:00: mouth at [place] [address] bedtime. [facility] venlafaxine 2021-03 Yes [id number] 37.5mg Take 1 [facility] 37.5 mg 0-07 tablet by [facility] of tablet 00:00: mouth in [place] 00 the Medical morning. Branch atenoloL 50 2021-03 Yes [id number] 50mg Take 1 [facility] mg tablet 0-07 tablet by [facility] o f 00:00: mouth in [place] the Medical morning. [facility] atorvastati 2021-03 Yes [id number] 20mg Take 1 [facility] n 20 mg 0-07 tablet by [facility] of tablet 00:00: mouth at [place] 00 bedtime. [facility] venlafaxine 2021-03 Yes [id number] 37.5mg Take 1 [facility] 37.5 mg 0-07 tablet by [facility] of tablet 00:00: mouth in [place] 00 the Medical morning. Branch atenoloL 50 2021-03 Yes [id number] 50mg Take 1 [facility] mg tablet 0-07 tablet by [facility] o f 00:00: mouth in [place] 00 the Medical morning. [facility] atorvastati 2021-03 Yes [id number] 20mg Take 1 [facility] n 20 mg 0-07 tablet by [facility] of tablet 00:00: mouth at [place] 00 bedtime. [facility] venlafaxine 2021-03 Yes [id number] 37.5mg Take 1 [facility] 37.5 mg 0-07 tablet by [facility] of tablet 00:00: mouth in [place] the Medical morning. Branch atenoloL 50 2021-03 Yes [id number] 50mg Take 1 [facility] mg tablet 0-07 tablet by [facility] o f 00:00: mouth in [place] the Medical morning. [facility] atorvastati 2021-03 Yes [id number] 20mg Take 1 [facility] n 20 mg 0-07 tablet by [facility] of tablet 00:00: mouth at [place] 00 bedtime. [facility] venlafaxine 2021-03 Yes [id number] 37.5mg Take 1 [facility] 37.5 mg 0-07 tablet by [facility] of tablet 00:00: mouth in [place] the Medical morning. Branch atenoloL 50 2021-03 Yes [id number] 50mg Take 1 [facility] mg tablet 0-07 tablet by [facility] o f 00:00: mouth in [place] 00 the Medical morning. [facility] atorvastati 2021-03 Yes [id number] 20mg Take 1 [facility] n 20 mg 0-07 tablet by [facility] of tablet 00:00: mouth at [place] 00 bedtime. [facility] venlafaxine 2021-03 Yes [id number] 37.5mg Take 1 [facility] 37.5 mg 0-07 tablet by [facility] of tablet 00:00: mouth in [place] the Medical morning. Branch atenoloL 50 2021-03 Yes [id number] 50mg Take 1 [facility] mg tablet 0-07 tablet by [facility] o f 00:00: mouth in [place] the Medical morning. [facility] atorvastati 2021-03 Yes [id number] 20mg Take 1 [facility] n 20 mg 0-07 tablet by [facility] of tablet 00:00: mouth at [place] 00 bedtime. [facility] venlafaxine 2021-03 Yes [id number] 37.5mg Take 1 [facility] 37.5 mg 0-07 tablet by [facility] of tablet 00:00: mouth in [place] 00 the Medical morning. Branch atenoloL 50 2021-03 Yes [id number] 50mg Take 1 [facility] mg tablet 0-07 tablet by [facility] o f 00:00: mouth in [place] the Medical morning. [facility] atorvastati 2021-03 Yes [id number] 20mg Take 1 [facility] n 20 mg 0-07 tablet by [facility] of tablet 00:00: mouth at [place] [address] bedtime. [facility] venlafaxine 2021-03 Yes [id number] 37.5mg Take 1 [facility] 37.5 mg 0-07 tablet by [facility] of tablet 00:00: mouth in [place] the Medical morning. Branch atenoloL 50 2021-03 Yes [id number] 50mg Take 1 [facility] mg tablet 0-07 tablet by [facility] o f 00:00: mouth in [place] the Medical morning. [facility] atorvastati 2021-03 Yes [id number] 20mg Take 1 [facility] n 20 mg 0-07 tablet by [facility] of tablet 00:00: mouth at [place] 00 bedtime. [facility] venlafaxine 2021-03 Yes [id number] 37.5mg Take 1 [facility] 37.5 mg 0-07 tablet by [facility] of tablet 00:00: mouth in [place] 00 the Medical morning. Branch atenoloL 50 2021-03 Yes [id number] 50mg Take 1 [facility] mg tablet 0-07 tablet by it[facility] o f 00:00: mouth in [place] 00 the Medical morning. [facility] atorvastati 2021-03 Yes [id number] 20mg Take 1 [facility] n 20 mg 0-07 tablet by [facility] of tablet 00:00: mouth at [place] [address] bedtime. [facility] venlafaxine 2021-03 Yes [id number] 37.5mg Take 1 [facility] 37.5 mg 0-07 tablet by [facility] of tablet 00:00: mouth in [place] 00 the Medical morning. [facility] atenoloL 50 2021-03 Yes [id number] 50mg Take 1 [facility] mg tablet 0-07 tablet by [facility] o f 00:00: mouth in [place] 00 the Medical morning. [facility] atorvastati 2021-03 Yes [id number] 20mg Take 1 [facility] n 20 mg 0-07 tablet by [facility] of tablet 00:00: mouth at [place] 00 bedtime. [facility] venlafaxine 2021-03 Yes [id number] 37.5mg Take 1 [facility] 37.5 mg 0-07 tablet by [facility] of tablet 00:00: mouth in [place] 00 the Medical morning. Branch atenoloL 50 2021-03 Yes [id number] 50mg Take 1 [facility] mg tablet 0-07 tablet by [facility] o f 00:00: mouth in [place] 00 the Medical morning. [facility] atorvastati 2021-03 Yes [id number] 20mg Take 1 [facility] n 20 mg 0-07 tablet by [facility] of tablet 00:00: mouth at [place] 00 bedtime. [facility] venlafaxine 2021-03 Yes [id number] 37.5mg Take 1 [facility] 37.5 mg 0-07 tablet by [facility] of tablet 00:00: mouth in [place] the Medical morning. Branch atenoloL 50 2021-03 Yes [id number] 50mg Take 1 [facility] mg tablet 0-07 tablet by [facility] o f 00:00: mouth in [place] 00 the Medical morning. [facility] atorvastati 2021-03 Yes [id number] 20mg Take 1 [facility] n 20 mg 0-07 tablet by [facility] of tablet 00:00: mouth at [place] 00 bedtime. [facility] venlafaxine 2021-03 Yes [id number] 37.5mg Take 1 [facility] 37.5 mg 0-07 tablet by [facility] of tablet 00:00: mouth in [place] 00 the Medical morning. Branch atenoloL 50 2021-03 Yes [id number] 50mg Take 1 [facility] mg tablet 0-07 tablet by [facility] o f 00:00: mouth in [place] 00 the Medical morning. [facility] atorvastati 2021-03 Yes [id number] 20mg Take 1 [facility] n 20 mg 0-07 tablet by [facility] of tablet 00:00: mouth at [place] 00 bedtime. [facility] venlafaxine 2021-03 Yes [id number] 37.5mg Take 1 [facility] 37.5 mg 0-07 tablet by [facility] of tablet 00:00: mouth in [place] 00 the Medical morning. Branch atenoloL 50 2021-03 Yes [id number] 50mg Take 1 [facility] mg tablet 0-07 tablet by ity o f 00:00: mouth in [place] 00 the Medical morning. [facility] atorvastati 2021-03 Yes [id number] 20mg Take 1 [facility] n 20 mg 0-07 tablet by [facility] of tablet 00:00: mouth at [place] 00 bedtime. [facility] venlafaxine 2021-03 Yes [id number] 37.5mg Take 1 [facility] 37.5 mg 0-07 tablet by [facility] of tablet 00:00: mouth in [place] 00 the Medical morning. Branch atenoloL 50 2021-03 Yes [id number] 50mg Take 1 [facility] mg tablet 0-07 tablet by [facility] o f 00:00: mouth in [place] 00 the Medical morning. [facility] atorvastati 2021-03 Yes [id number] 20mg Take 1 [facility] n 20 mg 0-07 tablet by [facility] of tablet 00:00: mouth at [place] 00 bedtime. [facility] venlafaxine 2021-03 Yes [id number] 37.5mg Take 1 [facility] 37.5 mg 0-07 tablet by [facility] of tablet 00:00: mouth in [place] 00 the Medical morning. Branch atenoloL 50 2021-03 Yes [id number] 50mg Take 1 [facility] mg tablet 0-07 tablet by [facility] o f 00:00: mouth in [place] 00 the Medical morning. [facility] atorvastati 2021-03 Yes [id number] 20mg Take 1 [facility] n 20 mg 0-07 tablet by [facility] of tablet 00:00: mouth at [place] 00 bedtime. [facility] venlafaxine 2021-03 Yes [id number] 37.5mg Take 1 [facility] 37.5 mg 0-07 tablet by [facility] of tablet 00:00: mouth in [place] 00 the Medical morning. Branch atenoloL 50 2021-03 Yes [id number] 50mg Take 1 [facility] mg tablet 0-07 tablet by [facility] o f 00:00: mouth in [place] 00 the Medical morning. [facility] atorvastati 2021-03 Yes [id number] 20mg Take 1 [facility] n 20 mg 0-07 tablet by [facility] of tablet 00:00: mouth at [place] 00 bedtime. [facility] venlafaxine 2021-03 Yes [id number] 37.5mg Take 1 [facility] 37.5 mg 0-07 tablet by [facility] of tablet 00:00: mouth in [place] the Medical morning. Branch atenoloL 50 2021-03 Yes [id number] 50mg Take 1 [facility] mg tablet 0-07 tablet by [facility] o f 00:00: mouth in [place] the Medical morning. [facility] atorvastati 2021-03 Yes [id number] 20mg Take 1 [facility] n 20 mg 0-07 tablet by [facility] of tablet 00:00: mouth at [place] 00 bedtime. [facility] venlafaxine 2021-03 Yes [id number] 37.5mg Take 1 [facility] 37.5 mg 0-07 tablet by [facility] of tablet 00:00: mouth in [place] the Medical morning. Branch atenoloL 50 2021-03 Yes [id number] 50mg Take 1 [facility] mg tablet 0-07 tablet by [facility] o f 00:00: mouth in [place] the Medical morning. [facility] atorvastati 2021-03 Yes [id number] 20mg Take 1 [facility] n 20 mg 0-07 tablet by [facility] of tablet 00:00: mouth at [place] 00 bedtime. [facility] venlafaxine 2021-03 Yes [id number] 37.5mg Take 1 [facility] 37.5 mg 0-07 tablet by [facility] of tablet 00:00: mouth in [place] the Medical morning. Branch atenoloL 50 2021-03 Yes [id number] 50mg Take 1 [facility] mg tablet 0-07 tablet by [facility] o f 00:00: mouth in [place] the Medical morning. [facility] atorvastati 2021-03 Yes [id number] 20mg Take 1 [facility] n 20 mg 0-07 tablet by [facility] of tablet 00:00: mouth at [place] 00 bedtime. [facility] venlafaxine 2021-03 Yes [id number] 37.5mg Take 1 [facility] 37.5 mg 0-07 tablet by [facility] of tablet 00:00: mouth in [place] 00 the Medical morning. Branch atenoloL 50 2021-03 Yes [id number] 50mg Take 1 [facility] mg tablet 0-07 tablet by [facility] o f 00:00: mouth in [place] 00 the Medical morning. [facility] atorvastati 2021-03 Yes [id number] 20mg Take 1 [facility] n 20 mg 0-07 tablet by [facility] of tablet 00:00: mouth at [place] 00 bedtime. [facility] venlafaxine 2021-03 Yes [id number] 37.5mg Take 1 [facility] 37.5 mg 0-07 tablet by [facility] of tablet 00:00: mouth in [place] 00 the Medical morning. [facility] atenoloL 50 2021-03 Yes [id number] 50mg Take 1 [facility] mg tablet 0-07 tablet by [facility] o f 00:00: mouth in [place] 00 the Medical morning. [facility] atorvastati 2021-03 Yes [id number] 20mg Take 1 [facility] n 20 mg 0-07 tablet by [facility] of tablet 00:00: mouth at [place] 00 bedtime. [facility] venlafaxine 2021-03 Yes [id number] 37.5mg Take 1 [facility] 37.5 mg 0-07 tablet by [facility] of tablet 00:00: mouth in [place] the Medical morning. [facility] atenoloL 50 2021-03 Yes [id number] 50mg Take 1 [facility] mg tablet 0-07 tablet by [facility] o f 00:00: mouth in [place] the Medical morning. [facility] atorvastati 2021-03 Yes [id number] 20mg Take 1 [facility] n 20 mg 0-07 tablet by [facility] of tablet 00:00: mouth at [place] [address] bedtime. [facility] venlafaxine 2021-03 Yes [id number] 37.5mg Take 1 [facility] 37.5 mg 0-07 tablet by [facility] of tablet 00:00: mouth in [place] the Medical morning. Branch atenoloL 50 2021-03 Yes [id number] 50mg Take 1 [facility] mg tablet 0-07 tablet by [facility] o f 00:00: mouth in [place] 00 the Medical morning. [facility] atorvastati 2021-03 Yes [id number] 20mg Take 1 [facility] n 20 mg 0-07 tablet by [facility] of tablet 00:00: mouth at [place] [address] bedtime. [facility] venlafaxine 2021-03 Yes [id number] 37.5mg Take 1 [facility] 37.5 mg 0-07 tablet by [facility] of tablet 00:00: mouth in [place] 00 the Medical morning. [facility] atenoloL 50 2021-03 Yes [id number] 50mg Take 1 [facility] mg tablet 0-07 tablet by [facility] o f 00:00: mouth in [place] 00 the Medical morning. [facility] atorvastati 2021-03 Yes [id number] 20mg Take 1 [facility] n 20 mg 0-07 tablet by [facility] of tablet 00:00: mouth at [place] 00 bedtime. [facility] venlafaxine 2021-03 Yes [id number] 37.5mg Take 1 [facility] 37.5 mg 0-07 tablet by [facility] of tablet 00:00: mouth in [place] the Medical morning. Branch atenoloL 50 2021-03 Yes [id number] 50mg Take 1 [facility] mg tablet 0-07 tablet by [facility] o f 00:00: mouth in [place] the Medical morning. [facility] atorvastati 2021-03 Yes [id number] 20mg Take 1 [facility] n 20 mg 0-07 tablet by [facility] of tablet 00:00: mouth at [place] [address] bedtime. [facility] venlafaxine 2021-03 Yes [id number] 37.5mg Take 1 [facility] 37.5 mg 0-07 tablet by [facility] of tablet 00:00: mouth in [place] the Medical morning. [facility] atenoloL 50 2021-03 Yes [id number] 50mg Take 1 [facility] mg tablet 0-07 tablet by [facility] o f 00:00: mouth in [place] the Medical morning. [facility] atorvastati 2021-03 Yes [id number] 20mg Take 1 [facility] n 20 mg 0-07 tablet by [facility] of tablet 00:00: mouth at [place] [address] bedtime. [facility] venlafaxine 2021-03 Yes [id number] 37.5mg Take 1 [facility] 37.5 mg 0-07 tablet by [facility] of tablet 00:00: mouth in [place] the Medical morning. [facility] atenoloL 50 2021-03 Yes [id number] 50mg Take 1 [facility] mg tablet 0-07 tablet by [facility] o f 00:00: mouth in [place] 00 the Medical morning. [facility] atorvastati 2021-03 Yes [id number] 20mg Take 1 [facility] n 20 mg 0-07 tablet by [facility] of tablet 00:00: mouth at [place] 00 bedtime. [facility] venlafaxine 2021-03 Yes [id number] 37.5mg Take 1 [facility] 37.5 mg 0-07 tablet by [facility] of tablet 00:00: mouth in [place] 00 the Medical morning. Branch atenoloL 50 2021-03 Yes [id number] 50mg Take 1 [facility] mg tablet 0-07 tablet by [facility] o f 00:00: mouth in [place] 00 the Medical morning. [facility] atorvastati 2021-03 Yes [id number] 20mg Take 1 [facility] n 20 mg 0-07 tablet by [facility] of tablet 00:00: mouth at [place] 00 bedtime. [facility] venlafaxine 2021-03 Yes [id number] 37.5mg Take 1 [facility] 37.5 mg 0-07 tablet by [facility] of tablet 00:00: mouth in [place] 00 the Medical morning. [facility] atenoloL 50 2021-03 Yes [id number] 50mg Take 1 [facility] mg tablet 0-07 tablet by [facility] o f 00:00: mouth in [place] 00 the Medical morning. [facility] atorvastati 2021-03 Yes [id number] 20mg Take 1 [facility] n 20 mg 0-07 tablet by [facility] of tablet 00:00: mouth at [place] 00 bedtime. [facility] venlafaxine 2021-03 Yes [id number] 37.5mg Take 1 [facility] 37.5 mg 0-07 tablet by [facility] of tablet 00:00: mouth in [place] 00 the Medical morning. [facility] atenoloL 50 2021-03 Yes [id number] 50mg Take 1 [facility] mg tablet 0-07 tablet by [facility] o f 00:00: mouth in [place] 00 the Medical morning. [facility] atorvastati 2021-03 Yes [id number] 20mg Take 1 [facility] n 20 mg 0-07 tablet by [facility] of tablet 00:00: mouth at [place] 00 bedtime. [facility] venlafaxine 2021-03 Yes [id number] 37.5mg Take 1 [facility] 37.5 mg 0-07 tablet by [facility] of tablet 00:00: mouth in [place] 00 the Medical morning. Branch atenoloL 50 2021-03 Yes [id number] 50mg Take 1 [facility] mg tablet 0-07 tablet by [facility] o f 00:00: mouth in [place] 00 the Medical morning. [facility] atorvastati 2021-03 Yes [id number] 20mg Take 1 [facility] n 20 mg 0-07 tablet by [facility] of tablet 00:00: mouth at [place] 00 bedtime. [facility] venlafaxine 2021-03 Yes [id number] 37.5mg Take 1 [facility] 37.5 mg 0-07 tablet by [facility] of tablet 00:00: mouth in [place] the Medical morning. [place] atenoloL 50 2021-03 Yes [id number] 50mg Take 1 [facility] mg tablet 0-07 tablet by [facility] o f 00:00: mouth in [place] the Medical morning. [facility] atorvastati 2021-03 Yes [id number] 20mg Take 1 [facility] n 20 mg 0-07 tablet by [facility] of tablet 00:00: mouth at [place] [address] bedtime. [facility] venlafaxine 2021-03 Yes [id number] 37.5mg Take 1 [facility] 37.5 mg 0-07 tablet by [facility] of tablet 00:00: mouth in [place] the Medical morning. [facility] atenoloL 50 2021-03 Yes [id number] 50mg Take 1 [facility] mg tablet 0-07 tablet by [facility] o f 00:00: mouth in [place] the Medical morning. [place] venlafaxine 2021-03 Yes [id number] 37.5mg Take 1 [facility] 37.5 mg 0-07 tablet by [facility] of tablet 00:00: mouth in [place] the Medical morning. [facility] atenoloL 50 2021-03 Yes [id number] 50mg Take 1 [facility] mg tablet 0-07 tablet by [facility] o f 00:00: mouth in [place] the Medical morning. [facility] venlafaxine 2021-03 Yes [id number] 37.5mg Take 1 [facility] 37.5 mg 0-07 tablet by [facility] of tablet 00:00: mouth in [place] the Medical morning. [facility] atenoloL 50 2021-03 Yes [id number] 50mg Take 1 [facility] mg tablet 0-07 tablet by [facility] o f 00:00: mouth in [place] the Medical morning. [facility] venlafaxine 2021-03 Yes [id number] 37.5mg Take 1 [facility] 37.5 mg 0-07 tablet by [facility] of tablet 00:00: mouth in [place] 00 the Medical morning. Branch atenoloL 50 2021-03 Yes [id number] 50mg Take 1 [facility] mg tablet 0-07 tablet by [facility] o f 00:00: mouth in [place] 00 the Medical morning. [facility] venlafaxine 2021-03 Yes [id number] 37.5mg Take 1 [facility] 37.5 mg 0-07 tablet by [facility] of tablet 00:00: mouth in [place] 00 the Medical morning. [facility] atenoloL 50 2021-03 Yes [id number] 50mg Take 1 [facility] mg tablet 0-07 tablet by [facility] o f 00:00: mouth in [place] the Medical morning. [facility] venlafaxine 2021-03 Yes [id number] 37.5mg Take 1 [facility] 37.5 mg 0-07 tablet by [facility] of tablet 00:00: mouth in [place] the Medical morning. Branch atenoloL 50 2021-03 Yes [id number] 50mg Take 1 [facility] mg tablet 0-07 tablet by [facility] o f 00:00: mouth in [place] the Medical morning. [facility] venlafaxine 2021-03 Yes [id number] 37.5mg Take 1 [facility] 37.5 mg 0-07 tablet by [facility] of tablet 00:00: mouth in [place] the Medical morning. Branch atenoloL 50 2021-03 Yes [id number] 50mg Take 1 [facility] mg tablet 0-07 tablet by [facility] o f 00:00: mouth in [place] the Medical morning. [facility] venlafaxine 2021-03 Yes [id number] 37.5mg Take 1 [facility] 37.5 mg 0-07 tablet by [facility] of tablet 00:00: mouth in [place] the Medical morning. [facility] venlafaxine 2021-03 Yes [id number] 37.5mg Take 1 [facility] 37.5 mg 0-07 tablet by [facility] of tablet 00:00: mouth in [place] the Medical morning. [facility] venlafaxine 2021-03 Yes [id number] 37.5mg Take 1 [facility] 37.5 mg 0-07 tablet by [facility] of tablet 00:00: mouth in [place] the Medical morning. [facility] venlafaxine 2021-03 Yes [id number] 37.5mg Take 1 [facility] 37.5 mg 0-07 tablet by [facility] of tablet 00:00: mouth in [place] the Medical morning. [facility] venlafaxine 2021-03 Yes [id number] 37.5mg Take 1 [facility] 37.5 mg 0-07 tablet by [facility] of tablet 00:00: mouth in [place] 00 the Medical morning. [facility] amLODIPine 2021-03 Yes [id number] 5mg Take 1 [facility] n[facility] 5 mg tablet 0-07 tablet by [facility] of 00:00: mouth in [place] 00 the Medical morning. [facility] atenoloL 50 2021-03 Yes [id number] 50mg Take 1 [facility] mg tablet 0-07 tablet by [facility] o f 00:00: mouth in [place] 00 the Medical morning. [facility] atorvastati 2021-03 Yes [id number] 20mg Take 1 [facility] n 20 mg 0-07 tablet by [facility] of tablet 00:00: mouth at [place] [address] bedtime. [facility] amLODIPine 2021-03 Yes [id number] 5mg Take 1 [facility] n[facility] 5 mg tablet 0-07 tablet by [facility] of 00:00: mouth in [place] 00 the Medical morning. [facility] atenoloL 50 2021-03 Yes [id number] 50mg Take 1 [facility] mg tablet 0-07 tablet by [facility] o f 00:00: mouth in [place] 00 the Medical morning. [facility] atorvastati 2021-03 Yes [id number] 20mg Take 1 [facility] n 20 mg 0-07 tablet by [facility] of tablet 00:00: mouth at [place] [address] bedtime. [facility] amLODIPine 2021-03 Yes [id number] 5mg Take 1 [facility] n[facility] 5 mg tablet 0-07 tablet by [facility] of 00:00: mouth in [place] the Medical morning. [facility] atenoloL 50 2021-03 Yes [id number] 50mg Take 1 [facility] mg tablet 0-07 tablet by [facility] o f 00:00: mouth in [place] the Medical morning. [facility] atorvastati 2021-03 Yes [id number] 20mg Take 1 [facility] n 20 mg 0-07 tablet by [facility] of tablet 00:00: mouth at [place] [address] bedtime. [facility] amLODIPine 2021-03 Yes [id number] 5mg Take 1 [facility] n[facility] 5 mg tablet 0-07 tablet by [facility] of 00:00: mouth in [place] the Medical morning. [facility] atenoloL 50 2021-03 Yes [id number] 50mg Take 1 [facility] mg tablet 0-07 tablet by [facility] o f 00:00: mouth in [place] 00 the Medical morning. [facility] atorvastati 2021-03 Yes [id number] 20mg Take 1 [facility] n 20 mg 0-07 tablet by ity of tablet 00:00: mouth at [place] [address] bedtime. [facility] Branch amLODIPine 2021-03 Yes [id number] 5mg Take 1 U nivers 5 mg tablet 0-07 tablet by ity of 00:00: mouth in [place] 00 the Medical morning. Branch atenoloL 50 2021-03 Yes [id number] 50mg Take 1 [facility] mg tablet 0-07 tablet by ity o f 00:00: mouth in [place] the Medical morning. Branch atorvastati 2021-03 Yes [id number] 20mg Take 1 [facility] n 20 mg 0-07 tablet by ity of tablet 00:00: mouth at [place] [address] bedtime. [facility] Branch venlafaxine 2021-03 Yes [id number] 37.5mg Take 1 [facility] 37.5 mg 0-07 tablet by ity of tablet 00:00: mouth in [place] 00 the Medical morning. Branch amLODIPine 2021-03 Yes [id number] 5mg Take 1 U nivers 5 mg tablet 0-07 tablet by ity of 00:00: mouth in [place] 00 the Medical morning. Branch atenoloL 50 2021-03 Yes [id number] 50mg Take 1 [facility] mg tablet 0-07 tablet by ity o f 00:00: mouth in [place] the Medical morning. Branch atorvastati 2021-03 Yes [id number] 20mg Take 1 [facility] n 20 mg 0-07 tablet by ity of tablet 00:00: mouth at [place] [address] bedtime. [facility] Branch venlafaxine 2021-03 Yes [id number] 37.5mg Take 1 [facility] 37.5 mg 0-07 tablet by ity of tablet 00:00: mouth in [place] the Medical morning. Branch amLODIPine 2021-03 Yes [id number] 5mg Take 1 U nivers 5 mg tablet 0-07 tablet by ity of 00:00: mouth in [place] the Medical morning. Branch atenoloL 50 2021-03 Yes [id number] 50mg Take 1 [facility] mg tablet 0-07 tablet by ity o f 00:00: mouth in [place] the Medical morning. Branch atorvastati 2021-03 Yes [id number] 20mg Take 1 [facility] n 20 mg 0-07 tablet by ity of tablet 00:00: mouth at [place] [address] bedtime. [facility] Branch venlafaxine 2021-03 Yes [id number] 37.5mg Take 1 [facility] 37.5 mg 0-07 tablet by ity of tablet 00:00: mouth in [place] 00 the Medical morning. Branch amLODIPine 2021-03 Yes [id number] 5mg Take 1 U nivers 5 mg tablet 0-07 tablet by ity of 00:00: mouth in [place] 00 the Medical morning. Branch atenoloL 50 2021-03 Yes [id number] 50mg Take 1 [facility] mg tablet 0-07 tablet by ity o f 00:00: mouth in [place] the Medical morning. Branch atorvastati 2021-03 Yes [id number] 20mg Take 1 [facility] n 20 mg 0-07 tablet by ity of tablet 00:00: mouth at [place] [address] bedtime. [facility] Branch venlafaxine 2021-03 Yes [id number] 37.5mg Take 1 [facility] 37.5 mg 0-07 tablet by ity of tablet 00:00: mouth in [place] 00 the Medical morning. Branch amLODIPine 2021-03 Yes [id number] 5mg Take 1 [facility] nivers 5 mg tablet 0-07 tablet by ity of 00:00: mouth in [place] the Medical morning. Branch atenoloL 50 2021-03 Yes [id number] 50mg Take 1 [facility] mg tablet 0-07 tablet by ity o f 00:00: mouth in [place] the Medical morning. Branch atorvastati 2021-03 Yes [id number] 20mg Take 1 [facility] n 20 mg 0-07 tablet by ity of tablet 00:00: mouth at [place] [address] bedtime. [facility] Branch venlafaxine 2021-03 Yes [id number] 37.5mg Take 1 [facility] 37.5 mg 0-07 tablet by ity of tablet 00:00: mouth in [place] the Medical morning. Branch amLODIPine 2021-03 Yes [id number] 5mg Take 1 [facility] nivers 5 mg tablet 0-07 tablet by ity of 00:00: mouth in [place] the Medical morning. Branch atenoloL 50 2021-03 Yes [id number] 50mg Take 1 [facility] mg tablet 0-07 tablet by ity o f 00:00: mouth in [place] the Medical morning. Branch atorvastati 2021-03 Yes [id number] 20mg Take 1 [facility] n 20 mg 0-07 tablet by ity of tablet 00:00: mouth at [place] [address] bedtime. Medical Branch venlafaxine 2021-03 Yes [id number] 37.5mg Take 1 [facility] 37.5 mg 0-07 tablet by ity of tablet 00:00: mouth in [place] 00 the Medical morning. Branch amLODIPine 2021-03 Yes [id number] 5mg Take 1 [facility] nivers 5 mg tablet 0-07 tablet by ity of 00:00: mouth in [place] 00 the Medical morning. Branch atenoloL 50 2021-03 Yes [id number] 50mg Take 1 [facility] mg tablet 0-07 tablet by ity o f 00:00: mouth in [place] 00 the Medical morning. Branch atorvastati 2021-03 Yes [id number] 20mg Take 1 [facility] n 20 mg 0-07 tablet by ity of tablet 00:00: mouth at [place] 00 bedtime. [facility] Branch venlafaxine 2021-03 Yes [id number] 37.5mg Take 1 [facility] 37.5 mg 0-07 tablet by ity of tablet 00:00: mouth in [place] 00 the Medical morning. Branch amLODIPine 2021-03 Yes [id number] 5mg Take 1 [facility] nivers 5 mg tablet 0-07 tablet by ity of 00:00: mouth in [place] 00 the Medical morning. Branch atenoloL 50 2021-03 Yes [id number] 50mg Take 1 [facility] mg tablet 0-07 tablet by ity o f 00:00: mouth in [place] 00 the Medical morning. Branch atorvastati 2021-03 Yes [id number] 20mg Take 1 [facility] n 20 mg 0-07 tablet by ity of tablet 00:00: mouth at [place] [address] bedtime. Medical Branch venlafaxine 2021-03 Yes [id number] 37.5mg Take 1 [facility] 37.5 mg 0-07 tablet by ity of tablet 00:00: mouth in [place] 00 the Medical morning. Branch venlafaxine 2021-03- No [id number] 37.5mg Take 1 [facility] 37.5 mg 0-07 08-24 tablet by ity of tablet 00:00: 00:00 mouth in [place] 00 :00 the Medical morning. Branch venlafaxine 2021-03- No [id number] 37.5mg Take 1 [facility] 37.5 mg 0-07 08-24 tablet by ity of tablet 00:00: 00:00 mouth in [place] 00 :00 the Medical morning. Branch venlafaxine 2021-03- No [id number] 37.5mg Take 1 [facility] 37.5 mg 0-07 08-24 tablet by ity of tablet 00:00: 00:00 mouth in [place] 00 :00 the Medical morning. Branch atenoloL 50 2021-03- No [id number] 50mg Take 1 [facility] mg tablet 0- 08-14 tablet by ity of 00:00: 00:00 mouth in [place] 00 :00 the Medical morning. Branch atenoloL 50 2021-03- No [id number] 50mg Take 1 [facility] mg tablet 0- 08-14 tablet by ity of 00:00: 00:00 mouth in [place] 00 :00 the Medical morning. Branch atorvastati 2021-03- No [id number] 20mg Take 1 [facility] n 20 mg 0-09 10-08 tablet by ity of tablet 00:00: 00:00 mouth at [place] 00 :00 bedtime. [facility] Branch atorvastati 2021-03- No [id number] 20mg Take 1 [facility] n 20 mg 0-09 10-08 tablet by ity of tablet 00:00: 00:00 mouth at [place] 00 :00 bedtime. [facility] amLODIPine 2021-03- No [id number] 5mg Take 1 [facility] 5 mg tablet 0-07 tablet by it y of 00:00: 00:00 mouth in [place] 00 :00 the Medical morning. Branch amLODIPine 2021-2021- No [id number] 5mg Take 1 [facility] 5 mg tablet 0-09 16-07 tablet by it y of 00:00: 00:00 mouth in [place] 00 :00 the Medical morning. Branch amLODIPine 2021-2021- No [id number] 5mg Take 1 [facility] 5 mg tablet 0-09 16-07 tablet by it y of 00:00: 00:00 mouth in [place] 00 :00 the Medical morning. Branch pantoprazol 2021-03- No 40mg Take 40 mg [facility] e 40 mg EC 0-05 10-05 by mouth ity of tablet 13:28: 00:00 in the [place] 05 :00 morning. Medical Branch pantoprazol 2021-2021- No 40mg Take 40 mg [facility] e 40 mg EC 0-05 10-05 by mouth ity of tablet 13:28: 00:00 in the [place] 05 :00 morning. [facility] Branch pantoprazol 2021-03- No 40mg Take 40 mg [facility] e 40 mg EC 0-05 10-05 by mouth ity of tablet 13:28: 00:00 in the [place] 05 :00 morning. [facility] Branch pantoprazol 2021-03- 40mg Take 40 mg [facility] e 40 mg EC 0-05 10-05 by mouth ity of tablet 13:28: 00:00 in the [place] 02 :00 morning. [facility] Branch pantoprazol 2021-03 Yes [id number] 40mg Take 1 [facility] e 40 mg EC 0-05 tablet by ity of tablet 00:00: mouth in [place] 00 the Medical morning. Branch pantoprazol 2021-03 Yes [id number] 40mg Take 1 [facility] e 40 mg EC 0-05 tablet by ity of tablet 00:00: mouth in [place] the Medical morning. Branch pantoprazol 2021-03 Yes [id number] 40mg Take 1 [facility] e 40 mg EC 0-05 tablet by ity of tablet 00:00: mouth in [place] the Medical morning. Branch pantoprazol 2021-03 Yes [id number] 40mg Take 1 [facility] e 40 mg EC 0-05 tablet by ity of tablet 00:00: mouth in [place] 00 the Medical morning. Branch pantoprazol 2021-03 Yes [id number] 40mg Take 1 [facility] e 40 mg EC 0-05 tablet by ity of tablet 00:00: mouth in [place] the Medical morning. Branch pantoprazol 2021-03 Yes [id number] 40mg Take 1 [facility] e 40 mg EC 0-05 tablet by ity of tablet 00:00: mouth in [place] the Medical morning. Branch pantoprazol 2021-03 Yes [id number] 40mg Take 1 [facility] e 40 mg EC 0-05 tablet by ity of tablet 00:00: mouth in [place] the Medical morning. Branch pantoprazol 2021-03 Yes [id number] 40mg Take 1 [facility] e 40 mg EC 0-05 tablet by ity of tablet 00:00: mouth in [place] 00 the Medical morning. Branch pantoprazol 2021-03 Yes [id number] 40mg Take 1 [facility] e 40 mg EC 0-05 tablet by ity of tablet 00:00: mouth in [place] 00 the Medical morning. Branch pantoprazol 2021-03 Yes [id number] 40mg Take 1 [facility] e 40 mg EC 0-05 tablet by ity of tablet 00:00: mouth in [place] 00 the Medical morning. Branch pantoprazol 2021- Yes [id number] 40mg Take 1 [facility] e 40 mg EC 0-05 tablet by ity of tablet 00:00: mouth in [place] 00 the Medical morning. Branch pantoprazol 2021-03 Yes [id number] 40mg Take 1 [facility] e 40 mg EC 0-05 tablet by ity of tablet 00:00: mouth in [place] 00 the Medical morning. Branch pantoprazol 2021-03 Yes [id number] 40mg Take 1 [facility] e 40 mg EC 0-05 tablet by ity of tablet 00:00: mouth in [place] the Medical morning. Branch pantoprazol 2021-03 Yes [id number] 40mg Take 1 [facility] e 40 mg EC 0-05 tablet by ity of tablet 00:00: mouth in [place] the Medical morning. Branch pantoprazol 2021-03 Yes [id number] 40mg Take 1 [facility] e 40 mg EC 0-05 tablet by ity of tablet 00:00: mouth in [place] the Medical morning. Branch pantoprazol 2021-03 Yes [id number] 40mg Take 1 [facility] e 40 mg EC 0-05 tablet by ity of tablet 00:00: mouth in [place] the Medical morning. Branch pantoprazol 2021-03 Yes [id number] 40mg Take 1 [facility] e 40 mg EC 0-05 tablet by ity of tablet 00:00: mouth in [place] the Medical morning. Branch pantoprazol 2021-03 Yes [id number] 40mg Take 1 [facility] e 40 mg EC 0-05 tablet by ity of tablet 00:00: mouth in [place] the Medical morning. Branch pantoprazol 2021-03 Yes [id number] 40mg Take 1 [facility] e 40 mg EC 0-05 tablet by ity of tablet 00:00: mouth in [place] the Medical morning. Branch pantoprazol 2021-03 Yes [id number] 40mg Take 1 [facility] e 40 mg EC 0-05 tablet by ity of tablet 00:00: mouth in [place] 00 the Medical morning. Branch pantoprazol 2021-03 Yes [id number] 40mg Take 1 [facility] e 40 mg EC 0-05 tablet by ity of tablet 00:00: mouth in [place] 00 the Medical morning. Branch pantoprazol 2021-03 Yes [id number] 40mg Take 1 [facility] e 40 mg EC 0-05 tablet by ity of tablet 00:00: mouth in [place] 00 the Medical morning. Branch pantoprazol 2021-03 Yes [id number] 40mg Take 1 [facility] e 40 mg EC 0-05 tablet by ity of tablet 00:00: mouth in [place] the Medical morning. Branch pantoprazol 2021-03 Yes [id number] 40mg Take 1 [facility] e 40 mg EC 0-05 tablet by ity of tablet 00:00: mouth in [place] the Medical morning. Branch pantoprazol 2021-03 Yes [id number] 40mg Take 1 [facility] e 40 mg EC 0-05 tablet by ity of tablet 00:00: mouth in [place] the Medical morning. Branch pantoprazol 2021-03 Yes [id number] 40mg Take 1 [facility] e 40 mg EC 0-05 tablet by ity of tablet 00:00: mouth in [place] the Medical morning. Branch pantoprazol 2021-03 Yes [id number] 40mg Take 1 [facility] e 40 mg EC 0-05 tablet by ity of tablet 00:00: mouth in [place] the Medical morning. Branch pantoprazol 2021-03 Yes [id number] 40mg Take 1 [facility] e 40 mg EC 0-05 tablet by ity of tablet 00:00: mouth in [place] the Medical morning. Branch pantoprazol 2021-03 Yes [id number] 40mg Take 1 [facility] e 40 mg EC 0-05 tablet by ity of tablet 00:00: mouth in [place] the Medical morning. Branch pantoprazol 2021-03 Yes [id number] 40mg Take 1 [facility] e 40 mg EC 0-05 tablet by ity of tablet 00:00: mouth in [place] the Medical morning. Branch pantoprazol 2021-03 Yes [id number] 40mg Take 1 [facility] e 40 mg EC 0-05 tablet by ity of tablet 00:00: mouth in [place] the Medical morning. Branch pantoprazol 2021-03 Yes [id number] 40mg Take 1 [facility] e 40 mg EC 0-05 tablet by ity of tablet 00:00: mouth in [place] the Medical morning. Branch traZODone 2021-03 Yes [id number] Take 1 tab [facility] 50 mg 0-05 PO qhs as ity of tablet 00:00: needed for [place] [address] insomnia Medical Branch pantoprazol 2021-03 Yes [id number] 40mg Take 1 [facility] e 40 mg EC 0-05 tablet by ity of tablet 00:00: mouth in [place] the Medical morning. Branch traZODone 2021- Yes [id number] Take 1 tab [facility] 50 mg 0-05 PO qhs as ity of tablet 00:00: needed for [place] insomnia Medical Branch pantoprazol 2021-03 Yes [id number] 40mg Take 1 [facility] e 40 mg EC 0-05 tablet by ity of tablet 00:00: mouth in [place] the Medical morning. Branch traZODone 2021- Yes [id number] Take 1 tab [facility] 50 mg 0-05 PO qhs as ity of tablet 00:00: needed for [place] insomnia Medical Branch pantoprazol 2021-03 Yes [id number] 40mg Take 1 [facility] e 40 mg EC 0-05 tablet by ity of tablet 00:00: mouth in [place] the morning. Branch traZODone 2021- Yes [id number] Take 1 tab [facility] 50 mg 0-05 PO qhs as ity of tablet 00:00: needed for [place] insomnia Medical Branch pantoprazol 2021-03 Yes [id number] 40mg Take 1 [facility] e 40 mg EC 0-05 tablet by ity of tablet 00:00: mouth in [place] the morning. Branch traZODone 2021-03 Yes [id number] Take 1 tab [facility] 50 mg 0-05 PO qhs as ity of tablet 00:00: needed for [place] insomnia Medical Branch pantoprazol 2021-03 Yes [id number] 40mg Take 1 [facility] e 40 mg EC 0-05 tablet by ity of tablet 00:00: mouth in [place] the morning. Branch traZODone 2021- Yes [id number] Take 1 tab [facility] 50 mg 0-05 PO qhs as ity of tablet 00:00: needed for [place] insomnia Medical Branch pantoprazol 2021-03 Yes [id number] 40mg Take 1 [facility] e 40 mg EC 0-05 tablet by ity of tablet 00:00: mouth in [place] the morning. Branch traZODone 2021- Yes [id number] Take 1 tab [facility] 50 mg 0-05 PO qhs as ity of tablet 00:00: needed for [place] insomnia Medical Branch pantoprazol 2021-03 Yes [id number] 40mg Take 1 [facility] e 40 mg EC 0-05 tablet by ity of tablet 00:00: mouth in [place] the Medical morning. Branch traZODone 2021- Yes [id number] Take 1 tab [facility] 50 mg 0-05 PO qhs as ity of tablet 00:00: needed for [place] insomnia Medical Branch pantoprazol 2021- Yes [id number] 40mg Take 1 [facility] e 40 mg EC 0-05 tablet by ity of tablet 00:00: mouth in [place] the Medical morning. Branch traZODone 2021- Yes [id number] Take 1 tab [facility] 50 mg 0-05 PO qhs as ity of tablet 00:00: needed for [place] insomnia Medical Branch pantoprazol 2021- Yes [id number] 40mg Take 1 [facility] e 40 mg EC 0-05 tablet by ity of tablet 00:00: mouth in [place] the Medical morning. Branch traZODone 2021- Yes [id number] Take 1 tab [facility] 50 mg 0-05 PO qhs as ity of tablet 00:00: needed for [place] insomnia Medical Branch pantoprazol 2021- Yes [id number] 40mg Take 1 [facility] e 40 mg EC 0-05 tablet by ity of tablet 00:00: mouth in [place] the Medical morning. Branch traZODone 2021- Yes [id number] Take 1 tab [facility] 50 mg 0-05 PO qhs as ity of tablet 00:00: needed for [place] insomnia Medical Branch pantoprazol 2021- Yes [id number] 40mg Take 1 [facility] e 40 mg EC 0-05 tablet by ity of tablet 00:00: mouth in [place] the Medical morning. Branch traZODone 2021- Yes [id number] Take 1 tab [facility] 50 mg 0-05 PO qhs as ity of tablet 00:00: needed for [place] insomnia Medical Branch pantoprazol 2021- Yes [id number] 40mg Take 1 [facility] e 40 mg EC 0-05 tablet by ity of tablet 00:00: mouth in [place] the Medical morning. Branch pantoprazol 2021- Yes [id number] 40mg Take 1 [facility] e 40 mg EC 0-05 tablet by ity of tablet 00:00: mouth in [place] the Medical morning. Branch pantoprazol 2021- Yes [id number] 40mg Take 1 [facility] e 40 mg EC 0-05 tablet by ity of tablet 00:00: mouth in [place] 00 the Medical morning. [place] pantoprazol 2021-03- No [id number] 40mg Take 1 [facility] e 40 mg EC 0-05 03-15 tablet by ity of tablet 00:00: 00:00 mouth in [place] 00 :00 the Medical morning. [place] pantoprazol 2021-03- No [id number] 40mg Take 1 [facility] e 40 mg EC 0-05 03-15 tablet by ity of tablet 00:00: 00:00 mouth in [place] 00 :00 the Medical morning. [place] traZODone 2021-03- No [id number] Take 1 tab [facility] 50 mg 0-05 11-10 PO qhs as ity of tablet 00:00: 00:[place] [facility] traZODone 2021-03- No [id number] Take 1 tab [facility] 50 mg 0-05 11-10 PO qhs as ity of tablet 00:00: 00:[place] insomnia [facility] montelukast 2021- No montelukas [facility] 10 mg -16 -16 t 10 mg ity of tablet 11:00: 00:00 tablet [place] 11 :00 [facility] montelukast 2021- No mont[place]ukas [facility] 10 mg -16 -16 t 10 mg ity of tablet 11:00: 00:00 tablet [place] 11 :00 [facility] montelukast 2021- No montelukas [facility] 10 mg -16 -16 t 10 mg ity of tablet 11:00: 00:00 tablet [place] 11 :00 [facility] montelukast 2021- No montelukas [facility] 10 mg 16 -16 t 10 mg ity of tablet 11:00: 00:00 tablet [place] 11 :00 [facility] montelukast 2021- No montelukas [facility] 10 mg -16 -16 t 10 mg ity of tablet 11:00: 00:00 tablet [place] 11 :00 [facility] atenoloL 50 Yes [id number] 50mg Take 1 [facility] mg tablet 8-21 tablet by ity o f 00:00: mouth in [place] 00 the Medical morning. Branch atenoloL 50 2021-0 Yes [id number] 50mg Take 1 [facility] mg tablet 8-21 tablet by ity o f 00:00: mouth in [place] 00 the Medical morning. Branch atenoloL 50 2021-0 Yes [id number] 50mg Take 1 [facility] mg tablet 8-21 tablet by ity o f 00:00: mouth in [place] 00 the Medical morning. Branch atenoloL 50 2021-0 Yes [id number] 50mg Take 1 [facility] mg tablet 8-21 tablet by ity o f 00:00: mouth in [place] 00 the Medical morning. Branch atenoloL 50 2021-0 2- No [id number] 50mg Take 1 [facility] mg tablet 8-21 10-07 tablet by ity of 00:00: 00:00 mouth in [place] 00 :00 the Medical morning. Branch atenoloL 50 2021-0 2- No [id number] 50mg Take 1 [facility] mg tablet 8-21 10-07 tablet by ity of 00:00: 00:00 mouth in [place] 00 :00 the Medical morning. Branch atenoloL 50 2021-0 2021- No [id number] 50mg Take 1 [facility] mg tablet 8-21 10-07 tablet by ity of 00:00: 00:00 mouth in [place] 00 :00 the Medical morning. Branch atenoloL 50 2021-0 2- No [id number] 50mg Take 1 [facility] mg tablet 8-21 10-07 tablet by ity of 00:00: 00:00 mouth in [place] 00 :00 the Medical morning. Branch atorvastati Yes Take by Uni vers n calcium 8-19 mouth. ity of (ATORVASTAT 15:51: [place] IN ORAL) [facility] Branch atorvastati Yes Take by Uni vers n calcium 8-19 mouth. ity of (ATORVASTAT 15:51: [place] IN ORAL) [facility] Branch atorvastati Yes Take by Uni vers n calcium 8-19 mouth. ity of (ATORVASTAT 15:51: [place] IN ORAL) 07 [facility] Branch atorvastati Yes Take by Uni vers n calcium 8-19 mouth. ity of (ATORVASTAT 15:51: [place] IN ORAL) 07 Medical Branch pantoprazol 2022-0 Yes 40mg Take 40 mg [facility] e 40 mg EC 8-19 by mouth ity o f tablet 14:46: in the [place] 55 morning. Medical Branch pantoprazol 2-0 Yes 40mg Take 40 mg [facility] e 40 mg EC 8-19 by mouth ity o f tablet 14:46: in the [place] 55 morning. Medical Branch pantoprazol 2-0 Yes 40mg Take 40 mg [facility] e 40 mg EC 8-19 by mouth ity o f tablet 14:46: in the [place] 55 morning. Medical Branch montelukast 2021-0 Yes montelukas [facility] 10 mg 8-19 t 10 mg ity of tablet 14:45: tablet [place] 54 Medical Branch hydroCHLORO 2022-0 Yes 25mg Take 25 mg [facility] thiazide 25 8-19 by mouth ity of mg tablet 14:45: in the [place] 54 morning. Medical Branch hydroCHLORO 2-0 Yes 25mg Take 25 mg [facility] thiazide 25 8-19 by mouth ity of mg tablet 14:45: in the [place] 54 morning. Medical Branch hydroCHLORO 2-0 Yes 25mg Take 25 mg [facility] thiazide 25 8-19 by mouth ity of mg tablet 14:45: in the [place] 54 morning. Medical Branch hydroCHLORO 2022-0 Yes 25mg Take 25 mg [facility] thiazide 25 8-19 by mouth ity of mg tablet 14:45: in the [place] 54 morning. Medical Branch hydroCHLORO 2022-0 Yes 25mg Take 25 mg [facility] thiazide 25 8-19 by mouth ity of mg tablet 14:45: in the [place] 54 morning. Medical Branch hydroCHLORO 2022-0 Yes 25mg Take 25 mg [facility] thiazide 25 8-19 by mouth ity of mg tablet 14:45: in the [place] 54 morning. Medical Branch hydroCHLORO 2022-0 Yes 25mg Take 25 mg [facility] thiazide 25 8-19 by mouth ity of mg tablet 14:45: in the [place] 54 morning. Medical Branch hydroCHLORO 2022-0 Yes 25mg Take 25 mg [facility] thiazide 25 8-19 by mouth ity of mg tablet 14:45: in the [place] 54 morning. Medical Branch hydroCHLORO 2022-0 Yes 25mg Take 25 mg [facility] thiazide 25 8-19 by mouth ity of mg tablet 14:45: in the [place] 54 morning. Medical Branch hydroCHLORO 2022-0 Yes 25mg Take 25 mg [facility] thiazide 25 8-19 by mouth ity of mg tablet 14:45: in the [place] 54 morning. Medical Branch hydroCHLORO 2021-0 Yes 25mg Take 25 mg [facility] thiazide 25 8-19 by mouth ity of mg tablet 14:45: in the [place] 54 morning. Medical Branch hydroCHLORO 2021-0 Yes 25mg Take 25 mg [facility] thiazide 25 8-19 by mouth ity of mg tablet 14:45: in the [place] 54 morning. Medical Branch hydroCHLORO 2021-0 Yes 25mg Take 25 mg [facility] thiazide 25 8-19 by mouth ity of mg tablet 14:45: in the [place] 54 morning. Medical Branch hydroCHLORO 2021-0 Yes 25mg Take 25 mg [facility] thiazide 25 8-19 by mouth ity of mg tablet 14:45: in the [place] 54 morning. Medical Branch hydroCHLORO 2021-0 Yes 25mg Take 25 mg [facility] thiazide 25 8-19 by mouth ity of mg tablet 14:45: in the [place] 54 morning. Medical Branch hydroCHLORO 2021-0 Yes 25mg Take 25 mg [facility] thiazide 25 8-19 by mouth ity of mg tablet 14:45: in the [place] 54 morning. Medical Branch baclofen 10 Yes baclofen Un beto mg tablet 8-19 10 mg ity of 14:43: tablet [facility] Branch baclofen 10 Yes baclofen Un beto mg tablet 8-19 10 mg ity of 14:43: tablet [facility] baclofen 10 Yes baclofen Un beto mg tablet 8-19 10 mg ity of 14:43: tablet [facility] Branch baclofen 10 Yes baclofen Un beto mg tablet 8-19 10 mg ity of 14:43: tablet [facility] Branch baclofen 10 Yes baclofen Un beto mg tablet 8-19 10 mg ity of 14:43: tablet [facility] Branch baclofen 10 Yes baclofen Un beto mg tablet 8-19 10 mg ity of 14:43: tablet [facility] baclofen 10 Yes baclofen Un beto mg tablet 8-19 10 mg ity of 14:43: tablet [facility] Branch baclofen 10 Yes baclofen Un beto mg tablet 8-19 10 mg ity of 14:43: tablet [address] [place] [address] baclofen 10 Yes baclofen Un beto mg tablet 8-19 10 mg ity of 14:43: tablet [address] [place] [address] baclofen 10 Yes baclofen Un beto mg tablet 8-19 10 mg ity of 14:43: tablet [address] [place] [address] baclofen 10 Yes baclofen Un beto mg tablet 8-19 10 mg ity of 14:43: tablet [address] [place] [address] baclofen 10 Yes baclofen Un beto mg tablet 8-19 10 mg ity of 14:43: tablet [address] [place] [address] baclofen 10 Yes baclofen Un beto mg tablet 8-19 10 mg ity of 14:43: tablet [address] [place] [address] baclofen 10 Yes baclofen Un beto mg tablet 8-19 10 mg ity of 14:43: tablet [address] [place] [address] baclofen 10 Yes baclofen Un beto mg tablet 8-19 10 mg ity of 14:43: tablet [address] [place] [address] baclofen 10 Yes baclofen Un beto mg tablet 8-19 10 mg ity of 14:43: tablet [address] [place] [address] baclofen 10 Yes baclofen Un beto mg tablet 8-19 10 mg ity of 14:43: tablet [address] [place] [address] baclofen 10 Yes baclofen Un beto mg tablet 8-19 10 mg ity of 14:43: tablet [address] [place] [address] baclofen 10 Yes baclofen Un beto mg tablet 8-19 10 mg ity of 14:43: tablet [address] [place] [address] baclofen 10 Yes baclofen Un beto mg tablet 8-19 10 mg ity of 14:43: tablet [address] [place] [address] baclofen 10 Yes baclofen Un beto mg tablet 8-19 10 mg ity of 14:43: tablet [address] [place] [address] baclofen 10 Yes baclofen Un beto mg tablet 8-19 10 mg ity of 14:43: tablet [address] [place] [address] baclofen 10 Yes baclofen Un beto mg tablet 8-19 10 mg ity of 14:43: tablet [address] [place] [address] baclofen 10 Yes baclofen Un beto mg tablet 8-19 10 mg ity of 14:43: tablet [facility] baclofen 10 Yes baclofen Un beto mg tablet 8-19 10 mg ity of 14:43: tablet [facility] baclofen 10 Yes baclofen Un beto mg tablet 8-19 10 mg ity of 14:43: tablet [facility] baclofen 10 Yes baclofen Un beto mg tablet 8-19 10 mg ity of 14:43: tablet [facility] baclofen 10 Yes baclofen Un beto mg tablet 8-19 10 mg ity of 14:43: tablet [address] [place] [address] baclofen 10 Yes baclofen Un beto mg tablet 8-19 10 mg ity of 14:43: tablet [facility] baclofen 10 Yes baclofen [facility] mg tablet 8-19 10 mg ity of 14:43: tablet [address] [place] [address] baclofen 10 Yes baclofen [facility] mg tablet 8-19 10 mg ity of 14:43: tablet [facility] baclofen 10 Yes baclofen [place] mg tablet 8-19 10 mg ity of 14:43: tablet [address] [place] [address] baclofen 10 Yes baclofen [place] mg tablet 8-19 10 mg ity of 14:43: tablet [address] [place] [address] baclofen 10 Yes baclofen [place] mg tablet 8-19 10 mg ity of 14:43: tablet [facility] baclofen 10 Yes baclofen [place] mg tablet 8-19 10 mg ity of 14:43: tablet [address] [place] [address] baclofen 10 Yes baclofen [place] mg tablet 8-19 10 mg ity of 14:43: tablet [facility] baclofen 10 Yes baclofen [place] mg tablet 8-19 10 mg ity of 14:43: tablet [address] [place] [address] baclofen 10 Yes baclofen [place] mg tablet 8-19 10 mg ity of 14:43: tablet [address] [place] [address] baclofen 10 Yes baclofen [facility] [place] mg tablet 8-19 10 mg ity of 14:43: tablet [facility] baclofen 10 Yes baclofen [place] mg tablet 8-19 10 mg ity of 14:43: tablet [facility] baclofen 10 Yes baclofen [place] mg tablet 8-19 10 mg ity of 14:43: tablet [facility] baclofen 10 Yes baclofen [facility] mg tablet 8-19 10 mg ity of 14:43: tablet [facility] baclofen 10 Yes baclofen [facility] [place] mg tablet 8-19 10 mg ity of 14:43: tablet [facility] baclofen 10 Yes baclofen [facility] [place] mg tablet 8-19 10 mg ity of 14:43: tablet [facility] baclofen 10 Yes baclofen [facility] [place] mg tablet 8-19 10 mg ity of 14:43: tablet [facility] baclofen 10 Yes baclofen [facility] mg tablet 8-19 10 mg ity of 14:43: tablet [facility] levothyroxi Yes [id number] 75ug Take 1 [facility] ne 75 mcg 8-19 tablet by ity o f tablet 00:00: mouth [place] 00 every Medical morning. Branch levothyroxi 0 Yes [id number] 75ug Take 1 [facility] ne 75 mcg 8-19 tablet by ity o f tablet 00:00: mouth [place] 00 every Medical morning. Branch levothyroxi 0 Yes [id number] 75ug Take 1 [facility] ne 75 mcg 8-19 tablet by ity o f tablet 00:00: mouth [place] 00 every Medical morning. Branch levothyroxi 0 Yes [id number] 75ug Take 1 [facility] ne 75 mcg 8-19 tablet by ity o f tablet 00:00: mouth [place] 00 every Medical morning. Branch levothyroxi 0 Yes [id number] 75ug Take 1 [facility] ne 75 mcg 8-19 tablet by ity o f tablet 00:00: mouth [place] 00 every Medical morning. Branch levothyroxi 0 Yes [id number] 75ug Take 1 [facility] ne 75 mcg 8-19 tablet by ity o f tablet 00:00: mouth [place] 00 every Medical morning. Branch levothyroxi 2021-0 Yes [id number] 75ug Take 1 [facility] ne 75 mcg 8-19 tablet by ity o f tablet 00:00: mouth [place] 00 every Medical morning. Branch levothyroxi 2021-0 Yes [id number] 75ug Take 1 [facility] ne 75 mcg 8-19 tablet by ity o f tablet 00:00: mouth [place] 00 every Medical morning. Branch levothyroxi 2021-0 Yes [id number] 75ug Take 1 [facility] ne 75 mcg 8-19 tablet by ity o f tablet 00:00: mouth [place] 00 every Medical morning. Branch levothyroxi 2021-0 Yes [id number] 75ug Take 1 [facility] ne 75 mcg 8-19 tablet by ity o f tablet 00:00: mouth [place] 00 every Medical morning. Branch levothyroxi 2021-0 Yes [id number] 75ug Take 1 [facility] ne 75 mcg 8-19 tablet by ity o f tablet 00:00: mouth [place] 00 every Medical morning. Branch levothyroxi 2021-0 Yes [id number] 75ug Take 1 [facility] ne 75 mcg 8-19 tablet by ity o f tablet 00:00: mouth [place] 00 every Medical morning. Branch levothyroxi 2021-0 Yes [id number] 75ug Take 1 [facility] ne 75 mcg 8-19 tablet by ity o f tablet 00:00: mouth [place] 00 every Medical morning. Branch levothyroxi 2021-0 Yes [id number] 75ug Take 1 [facility] ne 75 mcg 8-19 tablet by ity o f tablet 00:00: mouth [place] 00 every Medical morning. Branch levothyroxi 2021-0 Yes [id number] 75ug Take 1 [facility] ne 75 mcg 8-19 tablet by ity o f tablet 00:00: mouth [place] 00 every Medical morning. Branch levothyroxi 2021-0 Yes [id number] 75ug Take 1 [facility] ne 75 mcg 8-19 tablet by ity o f tablet 00:00: mouth [place] 00 every Medical morning. Branch levothyroxi 2021-0 Yes [id number] 75ug Take 1 [facility] ne 75 mcg 8-19 tablet by ity o f tablet 00:00: mouth [place] 00 every Medical morning. Branch levothyroxi 2021-0 Yes [id number] 75ug Take 1 [facility] ne 75 mcg 8-19 tablet by ity o f tablet 00:00: mouth [place] 00 every Medical morning. Branch levothyroxi 2021-0 Yes [id number] 75ug Take 1 [facility] ne 75 mcg 8-19 tablet by ity o f tablet 00:00: mouth [place] 00 every Medical morning. Branch levothyroxi 2021-0 Yes [id number] 75ug Take 1 [facility] ne 75 mcg 8-19 tablet by ity o f tablet 00:00: mouth [place] 00 every Medical morning. Branch levothyroxi 2021-0 Yes [id number] 75ug Take 1 [facility] ne 75 mcg 8-19 tablet by ity o f tablet 00:00: mouth [place] 00 every Medical morning. Branch levothyroxi 2021-0 Yes [id number] 75ug Take 1 [facility] ne 75 mcg 8-19 tablet by ity o f tablet 00:00: mouth [place] 00 every Medical morning. Branch levothyroxi 2021-0 Yes [id number] 75ug Take 1 [facility] ne 75 mcg 8-19 tablet by ity o f tablet 00:00: mouth [place] 00 every Medical morning. Branch levothyroxi 2021-0 Yes [id number] 75ug Take 1 [facility] ne 75 mcg 8-19 tablet by ity o f tablet 00:00: mouth [place] 00 every Medical morning. Branch levothyroxi 2021-0 Yes [id number] 75ug Take 1 [facility] ne 75 mcg 8-19 tablet by ity o f tablet 00:00: mouth [place] 00 every Medical morning. Branch levothyroxi 2021-0 Yes [id number] 75ug Take 1 [facility] ne 75 mcg 8-19 tablet by ity o f tablet 00:00: mouth [place] 00 every Medical morning. Branch levothyroxi 2021-0 Yes [id number] 75ug Take 1 [facility] ne 75 mcg 8-19 tablet by ity o f tablet 00:00: mouth [place] 00 every Medical morning. Branch levothyroxi 2021-0 Yes [id number] 75ug Take 1 [facility] ne 75 mcg 8-19 tablet by ity o f tablet 00:00: mouth [place] 00 every Medical morning. Branch levothyroxi 2021-0 Yes [id number] 75ug Take 1 [facility] ne 75 mcg 8-19 tablet by ity o f tablet 00:00: mouth [place] 00 every Medical morning. Branch levothyroxi 2021-0 Yes [id number] 75ug Take 1 [facility] ne 75 mcg 8-19 tablet by ity o f tablet 00:00: mouth [place] 00 every Medical morning. Branch levothyroxi 2021-0 Yes [id number] 75ug Take 1 [facility] ne 75 mcg 8-19 tablet by ity o f tablet 00:00: mouth [place] 00 every Medical morning. Branch levothyroxi 2021-0 Yes [id number] 75ug Take 1 [facility] ne 75 mcg 8-19 tablet by ity o f tablet 00:00: mouth [place] 00 every Medical morning. Branch levothyroxi 2021-0 Yes [id number] 75ug Take 1 [facility] ne 75 mcg 8-19 tablet by ity o f tablet 00:00: mouth [place] 00 every Medical morning. Branch levothyroxi 2021-0 Yes [id number] 75ug Take 1 [facility] ne 75 mcg 8-19 tablet by ity o f tablet 00:00: mouth [place] 00 every Medical morning. Branch levothyroxi 2021-0 Yes [id number] 75ug Take 1 [facility] ne 75 mcg 8-19 tablet by ity o f tablet 00:00: mouth [place] 00 every Medical morning. Branch levothyroxi 2021-0 Yes [id number] 75ug Take 1 [facility] ne 75 mcg 8-19 tablet by ity o f tablet 00:00: mouth [place] 00 every Medical morning. Branch levothyroxi 2021-0 Yes [id number] 75ug Take 1 [facility] ne 75 mcg 8-19 tablet by ity o f tablet 00:00: mouth [place] 00 every Medical morning. Branch levothyroxi 2021-0 Yes [id number] 75ug Take 1 [facility] ne 75 mcg 8-19 tablet by ity o f tablet 00:00: mouth [place] 00 every Medical morning. Branch levothyroxi 2021-0 Yes [id number] 75ug Take 1 [facility] ne 75 mcg 8-19 tablet by ity o f tablet 00:00: mouth [place] 00 every Medical morning. Branch levothyroxi 2021-0 Yes [id number] 75ug Take 1 [facility] ne 75 mcg 8-19 tablet by ity o f tablet 00:00: mouth [place] 00 every Medical morning. Branch levothyroxi 2021-0 Yes [id number] 75ug Take 1 [facility] ne 75 mcg 8-19 tablet by ity o f tablet 00:00: mouth [place] 00 every Medical morning. Branch levothyroxi 2021-0 Yes [id number] 75ug Take 1 [facility] ne 75 mcg 8-19 tablet by ity o f tablet 00:00: mouth [place] 00 every Medical morning. Branch levothyroxi 2021-0 Yes [id number] 75ug Take 1 [facility] ne 75 mcg 8-19 tablet by ity o f tablet 00:00: mouth [place] 00 every Medical morning. Branch levothyroxi 2021-0 Yes [id number] 75ug Take 1 [facility] ne 75 mcg 8-19 tablet by ity o f tablet 00:00: mouth [place] 00 every Medical morning. Branch levothyroxi 2021-0 Yes [id number] 75ug Take 1 [facility] ne 75 mcg 8-19 tablet by ity o f tablet 00:00: mouth [place] 00 every Medical morning. Branch levothyroxi 2021-0 Yes [id number] 75ug Take 1 [facility] ne 75 mcg 8-19 tablet by ity o f tablet 00:00: mouth [place] 00 every Medical morning. Branch levothyroxi 2021-0 Yes [id number] 75ug Take 1 [facility] ne 75 mcg 8-19 tablet by ity o f tablet 00:00: mouth [place] 00 every Medical morning. Branch levothyroxi 2021-0 Yes [id number] 75ug Take 1 [facility] ne 75 mcg 8-19 tablet by ity o f tablet 00:00: mouth [place] 00 every Medical morning. Branch levothyroxi 2021-0 Yes [id number] 75ug Take 1 [facility] ne 75 mcg 8-19 tablet by ity o f tablet 00:00: mouth [place] 00 every Medical morning. Branch levothyroxi 2021-0 Yes [id number] 75ug Take 1 [facility] ne 75 mcg 8-19 tablet by ity o f tablet 00:00: mouth [place] 00 every Medical morning. Branch levothyroxi 2021-0 Yes [id number] 75ug Take 1 [facility] ne 75 mcg 8-19 tablet by ity o f tablet 00:00: mouth [place] 00 every Medical morning. Branch levothyroxi 2021-0 Yes [id number] 75ug Take 1 [facility] ne 75 mcg 8-19 tablet by ity o f tablet 00:00: mouth [place] 00 every Medical morning. Branch levothyroxi 2021-0 Yes [id number] 75ug Take 1 [facility] ne 75 mcg 8-19 tablet by ity o f tablet 00:00: mouth [place] 00 every Medical morning. Branch levothyroxi 2021-0 Yes [id number] 75ug Take 1 [facility] ne 75 mcg 8-19 tablet by ity o f tablet 00:00: mouth [place] 00 every Medical morning. Branch levothyroxi 2021-0 Yes [id number] 75ug Take 1 [facility] ne 75 mcg 8-19 tablet by ity o f tablet 00:00: mouth [place] 00 every Medical morning. Branch levothyroxi 2021-0 Yes [id number] 75ug Take 1 [facility] ne 75 mcg 8-19 tablet by ity o f tablet 00:00: mouth [place] 00 every Medical morning. Branch venlafaxine 2021-0 Yes [id number] 37.5mg Take 1 [facility] 37.5 mg 8-19 tablet by ity of tablet 00:00: mouth in [place] 00 the Medical morning. Branch levothyroxi 2021-0 Yes [id number] 75ug Take 1 [facility] ne 75 mcg 8-19 tablet by ity o f tablet 00:00: mouth [place] 00 every Medical morning. Branch venlafaxine 2021-0 Yes [id number] 37.5mg Take 1 [facility] 37.5 mg 8-19 tablet by ity of tablet 00:00: mouth in [place] 00 the Medical morning. Branch levothyroxi 2021-0 Yes [id number] 75ug Take 1 [facility] ne 75 mcg 8-19 tablet by ity o f tablet 00:00: mouth [place] 00 every Medical morning. Branch venlafaxine 2021-0 Yes [id number] 37.5mg Take 1 [facility] 37.5 mg 8-19 tablet by ity of tablet 00:00: mouth in [place] 00 the Medical morning. Branch levothyroxi 2021-0 Yes [id number] 75ug Take 1 [facility] ne 75 mcg 8-19 tablet by ity o f tablet 00:00: mouth [place] 00 every Medical morning. Branch venlafaxine 2021-0 Yes [id number] 37.5mg Take 1 [facility] 37.5 mg 8-19 tablet by ity of tablet 00:00: mouth in [place] 00 the Medical morning. Branch levothyroxi 2021-0 Yes [id number] 75ug Take 1 [facility] ne 75 mcg 8-19 tablet by ity o f tablet 00:00: mouth [place] 00 every Medical morning. Branch venlafaxine 2021-0 Yes [id number] 37.5mg Take 1 [facility] 37.5 mg 8-19 tablet by ity of tablet 00:00: mouth in [place] 00 the Medical morning. Branch levothyroxi 2021-0 Yes [id number] 75ug Take 1 [facility] ne 75 mcg 8-19 tablet by ity o f tablet 00:00: mouth [place] 00 every Medical morning. Branch venlafaxine 2021-0 Yes [id number] 37.5mg Take 1 [facility] 37.5 mg 8-19 tablet by ity of tablet 00:00: mouth in [place] 00 the Medical morning. Branch levothyroxi 2021-0 Yes [id number] 75ug Take 1 [facility] ne 75 mcg 8-19 tablet by ity o f tablet 00:00: mouth [place] 00 every Medical morning. Branch venlafaxine 2021-0 Yes [id number] 37.5mg Take 1 [facility] 37.5 mg 8-19 tablet by ity of tablet 00:00: mouth in [place] 00 the Medical morning. Branch levothyroxi 2021-0 Yes [id number] 75ug Take 1 [facility] ne 75 mcg 8-19 tablet by ity o f tablet 00:00: mouth [place] 00 every Medical morning. Branch venlafaxine 2021-0 Yes [id number] 37.5mg Take 1 [facility] 37.5 mg 8-19 tablet by ity of tablet 00:00: mouth in [place] 00 the Medical morning. Branch levothyroxi 2021-0 Yes [id number] 75ug Take 1 [facility] ne 75 mcg 8-19 tablet by ity o f tablet 00:00: mouth [place] 00 every Medical morning. Branch levothyroxi 2021-0 Yes [id number] 75ug Take 1 [facility] ne 75 mcg 8-19 tablet by ity o f tablet 00:00: mouth [place] 00 every Medical morning. Branch levothyroxi 2021-0 Yes [id number] 75ug Take 1 [facility] ne 75 mcg 8-19 tablet by ity o f tablet 00:00: mouth [place] 00 every Medical morning. Branch levothyroxi 2021-0 Yes [id number] 75ug Take 1 [facility] ne 75 mcg 8-19 tablet by ity o f tablet 00:00: mouth [place] 00 every Medical morning. Branch levothyroxi 2021-0 Yes [id number] 75ug Take 1 [facility] ne 75 mcg 8-19 tablet by ity o f tablet 00:00: mouth [place] 00 every Medical morning. Branch levothyroxi 0 Yes [id number] 75ug Take 1 [facility] ne 75 mcg 8-19 tablet by ity o f tablet 00:00: mouth [place] 00 every Medical morning. Branch levothyroxi 0 Yes [id number] 75ug Take 1 [facility] ne 75 mcg 8-19 tablet by ity o f tablet 00:00: mouth [place] 00 every Medical morning. Branch levothyroxi 0 Yes [id number] 75ug Take 1 [facility] ne 75 mcg 8-19 tablet by ity o f tablet 00:00: mouth [place] 00 every Medical morning. Branch levothyroxi Yes [id number] 75ug Take 1 [facility] ne 75 mcg 8-19 tablet by ity o f tablet 00:00: mouth [place] 00 every Medical morning. Branch levothyroxi Yes [id number] 75ug Take 1 [facility] ne 75 mcg 8-19 tablet by ity o f tablet 00:00: mouth [place] 00 every Medical morning. Branch levothyroxi 2022- No [id number] 75ug Take 1 [facility] ne 75 mcg 8-19 08-24 tablet by ity of tablet 00:00: 00:00 mouth [place] 00 :00 every Medical morning. Branch levothyroxi 2021-0 2022- No [id number] 75ug Take 1 [facility] ne 75 mcg 8-19 08-24 tablet by ity of tablet 00:00: 00:00 mouth [place] 00 :00 every Medical morning. Branch levothyroxi 2021-2022- No [id number] 75ug Take 1 [facility] ne 75 mcg 8-19 08-24 tablet by ity of tablet 00:00: 00:00 mouth [place] 00 :00 every Medical morning. Branch levothyroxi 2021-0 2022- No [id number] 75ug Take 1 [facility] ne 75 mcg 8-19 08-24 tablet by ity of tablet 00:00: 00:00 mouth [place] 00 :00 every Medical morning. Branch levothyroxi 2021-0 2022- No [id number] 75ug Take 1 [facility] ne 75 mcg 8-19 08-24 tablet by ity of tablet 00:00: 00:00 mouth [place] 00 :00 every Medical morning. [place] levothyroxi 2022- No [id number] 75ug Take 1 [facility] ne 75 mcg 8-19 08-24 tablet by ity of tablet 00:00: 00:00 mouth [place] 00 :00 every Medical morning. [place] venlafaxine 2021- No [id number] 37.5mg Take 1 [facility] 37.5 mg 8-19 10-07 tablet by ity of tablet 00:00: 00:00 mouth in [place] 00 :00 the Medical morning. [place] venlafaxine 2021- No [id number] 37.5mg Take 1 [facility] 37.5 mg 8-19 10-07 tablet by ity of tablet 00:00: 00:00 mouth in [place] 00 :00 the Medical morning. [place] venlafaxine 2021- No [id number] 37.5mg Take 1 [facility] 37.5 mg 8-19 10-07 tablet by ity of tablet 00:00: 00:00 mouth in [place] 00 :00 the Medical morning. [place] venlafaxine 2021- No [id number] 37.5mg Take 1 [facility] 37.5 mg 8-19 10-07 tablet by ity of tablet 00:00: 00:00 mouth in [place] 00 :00 the Medical morning. [place] venlafaxine 2021- No [id number] 37.5mg Take 1 [facility] 37.5 mg 8-19 10-07 tablet by ity of tablet 00:00: 00:00 mouth in [place] 00 :00 the Medical morning. [place] fluticasone Yes [id number] 2{spray Use 2 [facility] propionate 8-01 } Sprays in ity of (FLONASE 00:00: each [place] ALLERGY 00 nostril in Medica l RELIEF) 50 the Branch mcg/actuati morning. on nasal spray fluticasone Yes [id number] 2{spray Use 2 [facility] propionate 8-01 } Sprays in ity of (FLONASE 00:00: each [place] ALLERGY 00 nostril in Medica l RELIEF) 50 the Branch mcg/actuati morning. on nasal spray fluticasone Yes [id number] 2{spray Use 2 [facility] propionate 8-01 } Sprays in ity of (FLONASE 00:00: each [place] ALLERGY 00 nostril in Medica l RELIEF) 50 the Branch mcg/actuati morning. on nasal spray fluticasone Yes [id number] 2{spray Use 2 [facility] propionate 8 } Sprays in ity of (FLONASE 00:00: each [place] ALLERGY 00 nostril in Medica l RELIEF) 50 the Branch mcg/actuati morning. on nasal spray fluticasone 2021- No [id number] 2{spray Use 2 [facility] propionate 10-06 } Sprays in ity of (FLONASE 00:00: 00:00 each [place] ALLERGY 00 :00 nostril in Medica l RELIEF) 50 the Branch mcg/actuati morning. on nasal spray fluticasone 2021- No [id number] 2{spray Use 2 [facility] propionate 10-06 } Sprays in ity of (FLONASE 00:00: 00:00 each [place] ALLERGY 00 :00 nostril in Medica l RELIEF) 50 the Branch mcg/actuati morning. on nasal spray fluticasone 2021- No [id number] 2{spray Use 2 [facility] propionate 10-06 } Sprays in ity of (FLONASE 00:00: 00:00 each [place] ALLERGY 00 :00 nostril in Medica l RELIEF) 50 the Branch mcg/actuati morning. on nasal spray fluticasone 2021- No [id number] 2{spray Use 2 [facility] propionate 10-06 } Sprays in ity of (FLONASE 00:00: 00:00 each [place] ALLERGY 00 :00 nostril in Medica l RELIEF) 50 the Branch mcg/actuati morning. on nasal spray fluticasone 2021- No [id number] 2{spray Use 2 [facility] propionate 10-06 } Sprays in ity of (FLONASE 00:00: 00:00 each [place] ALLERGY 00 :00 nostril in Medica l RELIEF) 50 the Branch mcg/actuati morning. on nasal spray montelukast 2- No [id number] 10mg Take 1 [facility] (SINGULAIR) 10-06 tablet by it y of 10 mg 00:00: 04:59 mouth in [place] tablet 00 :00 the Medical morning Branch for 30 days. montelukast 2021- No [id number] 10mg Take 1 [facility] (SINGULAIR) 10-06 tablet by it y of 10 mg 00:00: 04:59 mouth in [place] tablet 00 :00 the Medical morning Branch for 30 days. montelukast 2021- No [id number] 10mg Take 1 [facility] (SINGULAIR) 10-06 tablet by it y of 10 mg 00:00: 04:59 mouth in [place] tablet 00 :00 the Medical morning Branch for 30 days. montelukast 2021- No [id number] 10mg Take 1 [facility] (SINGULAIR) 10-06 tablet by it y of 10 mg 00:00: 04:59 mouth in [place] tablet 00 :00 the Medical morning Branch for 30 days. albuterol Yes [id number] 2{puff} Inhale 2 [facility] 90 7-06 Puffs ity of mcg/actuati 00:00: every 6 [place] on inhaler 00 (six) Medical hours as Branch needed for Wheezing or Shortness of Breath. albuterol Yes [id number] 2{puff} Inhale 2 [facility] 90 7-06 Puffs ity of mcg/actuati 00:00: every 6 [place] on inhaler 00 (six) Medical hours as Branch needed for Wheezing or Shortness of Breath. albuterol Yes [id number] 2{puff} Inhale 2 [facility] 90 7-06 Puffs ity of mcg/actuati 00:00: every 6 [place] on inhaler 00 (six) Medical hours as Branch needed for Wheezing or Shortness of Breath. albuterol Yes [id number] 2{puff} Inhale 2 [facility] 90 7-06 Puffs ity of mcg/actuati 00:00: every 6 [place] on inhaler 00 (six) Medical hours as Branch needed for Wheezing or Shortness of Breath. albuterol 2021- No [id number] 2{puff} Inhale 2 [facility] 90 7-06 10-07 Puffs ity of mcg/actuati 00:00: 00:00 every 6 [place] on inhaler 00 :00 (six) Medical hours as Branch needed for Wheezing or Shortness of Breath. albuterol 2021- No [id number] 2{puff} Inhale 2 [facility] 90 7-06 10-07 Puffs ity of mcg/actuati 00:00: 00:00 every 6 [place] on inhaler 00 :00 (six) Medical hours as Branch needed for Wheezing or Shortness of Breath. albuterol 2021- No [id number] 2{puff} Inhale 2 [facility] 90 7-06 10-07 Puffs ity of mcg/actuati 00:00: 00:00 every 6 [place] on inhaler 00 :00 (six) Medical hours as Branch needed for Wheezing or Shortness of Breath. albuterol 2021- No [id number] 2{puff} Inhale 2 [facility] 90 7-06 10-07 Puffs ity of mcg/actuati 00:00: 00:00 every 6 [place] on inhaler 00 :00 (six) Medical hours as Branch needed for Wheezing or Shortness of Breath. albuterol 2021- No [id number] 2{puff} Inhale 2 [facility] 90 7-06 10-07 Puffs ity of mcg/actuati 00:00: 00:00 every 6 [place] on inhaler 00 :00 (six) Medical hours as Branch needed for Wheezing or Shortness of Breath. traZODone 2018-03 Yes [facility] 50 mg 1-19 ity of tablet 00:00: [place] 00 [facility] traZODone 2018-03 Yes Univers 50 mg 1-19 ity of tablet 00:00: [place] 00 [facility] traZODone 2018-03 Yes [facility] 50 mg 1-19 ity of tablet 00:00: [place] 00 [facility] traZODone 2018-03- No Univers 50 mg 1-19 10-05 ity of tablet 00:00: 00:00 [place] 00 :00 [facility] traZODone 2018-03- No Univers 50 mg 1-19 10-05 ity of tablet 00:00: 00:00 [place] 00 :00 [facility] traZODone 2018-03- No Univers 50 mg 1-19 10-05 ity of tablet 00:00: 00:00 [place] 00 :00 [facility] traZODone 2018-03- No Univers 50 mg 1-19 10-05 ity of tablet 00:00: 00:00 [place] 00 :00 Medical Branch topiramate 2018-03 Yes 50mg Take 50 mg U nivers 50 mg 1-15 by mouth ity of tablet 00:00: in the [place] 00 morning Medical and 50 mg Branch in the evening. topiramate 2018-03 Yes 50mg Take 50 mg U nivers 50 mg 1-15 by mouth ity of tablet 00:00: in the [place] 00 morning Medical and 50 mg Branch in the evening. topiramate 2018-03 Yes 50mg Take 50 mg U nivers 50 mg 1-15 by mouth ity of tablet 00:00: in the [place] 00 morning Medical and 50 mg Branch in the evening. topiramate 2018-03 Yes 50mg Take 50 mg U nivers 50 mg 1-15 by mouth ity of tablet 00:00: in the [place] 00 morning Medical and 50 mg Branch in the evening. topiramate 2018-03- No 50mg Take 50 mg [facility] 50 mg 1-15 10-07 by mouth ity of tablet 00:00: 00:00 in the [place] 00 :00 morning Medical and 50 mg Branch in the evening. topiramate 2018-03- No 50mg Take 50 mg [facility] 50 mg 1-15 10-07 by mouth ity of tablet 00:00: 00:00 in the [place] 00 :00 morning Medical and 50 mg Branch in the evening. topiramate 2018-03- No 50mg Take 50 mg [facility] 50 mg 1-15 10-07 by mouth ity of tablet 00:00: 00:00 in the [place] 00 :00 morning Medical and 50 mg Branch in the evening. topiramate 2018-03- No 50mg Take 50 mg [facility] 50 mg 1-15 10-07 by mouth ity of tablet 00:00: 00:00 in the [place] 00 :00 morning Medical and 50 mg Branch in the evening. topiramate 2018-03- No 50mg Take 50 mg [facility] 50 mg 1-15 10-07 by mouth ity of tablet 00:00: 00:00 in the [place] 00 :00 morning Medical and 50 mg Branch in the evening. diclofenac 2018- Yes NAZARIO EXT AA U nivers 3 % gel 0-18 BID ity of 00:00: [place] 00 Medical Branch diclofenac 2018-1 Yes NAZARIO EXT AA U nivers 3 % gel 0-18 BID ity of 00:00: [place] 00 Medical Branch diclofenac 2019- Yes NAZARIO EXT AA U nivers 3 % gel 0-18 BID ity of 00:00: [place] 00 Medical Branch diclofenac 2019 Yes NAZARIO EXT AA U nivers 3 % gel 0-18 BID ity of 00:00: [place] 00 Medical Branch diclofenac 2019- Yes NAZARIO EXT AA U nivers 3 % gel 0-18 BID ity of 00:00: [place] Medical Branch diclofenac 2019- Yes NAZARIO EXT AA U nivers 3 % gel 0-18 BID ity of 00:00: [place] 00 Medical Branch diclofenac 2018-03 Yes NAZARIO EXT AA U nivers 3 % gel 0-18 BID ity of 00:00: [place] Medical Branch diclofenac 2019- Yes NAZARIO EXT AA U nivers 3 % gel 0-18 BID ity of 00:00: [place] [facility] Branch diclofenac 2018-03 Yes NAZARIO EXT AA U nivers 3 % gel 0-18 BID ity of 00:00: [place] [facility] Branch diclofenac 2019- Yes NAZARIO EXT AA U nivers 3 % gel 0-18 BID ity of 00:00: [place] [facility] Branch diclofenac 2018-03 Yes NAZARIO EXT AA U nivers 3 % gel 0-18 BID ity of 00:00: [place] 00 Medical Branch diclofenac 2019- Yes NAZARIO EXT AA U nivers 3 % gel 0-18 BID ity of 00:00: [place] [facility] Branch diclofenac 2019- Yes NAZARIO EXT AA U nivers 3 % gel 0-18 BID ity of 00:00: [place] 00 Medical Branch diclofenac 2019- Yes NAZARIO EXT AA U nivers 3 % gel 0-18 BID ity of 00:00: [place] 00 Medical Branch diclofenac 2019- Yes NAZARIO EXT AA U nivers 3 % gel 0-18 BID ity of 00:00: [place] 00 Medical Branch diclofenac 2019- Yes NAZARIO EXT AA U nivers 3 % gel 0-18 BID ity of 00:00: [place] 00 Medical Branch diclofenac 2019- Yes NAZARIO EXT AA U nivers 3 % gel 0-18 BID ity of 00:00: [place] 00 Medical Branch diclofenac 2019- Yes NAZARIO EXT AA U nivers 3 % gel 0-18 BID ity of 00:00: [place] 00 Medical Branch diclofenac 2019- Yes NAZARIO EXT AA U nivers 3 % gel 0-18 BID ity of 00:00: [place] 00 Medical Branch diclofenac 2019- Yes NAZARIO EXT AA U nivers 3 % gel 0-18 BID ity of 00:00: [place] 00 Medical Branch diclofenac 2019- Yes NAZARIO EXT AA U nivers 3 % gel 0-18 BID ity of 00:00: [place] Medical Branch diclofenac 2019- Yes NAZARIO EXT AA U nivers 3 % gel 0-18 BID ity of 00:00: [facility] diclofenac 2019- Yes NAZARIO EXT AA U nivers 3 % gel 0-18 BID ity of 00:00: [facility] diclofenac 2018- Yes NAZARIO EXT AA U nivers 3 % gel 0-18 BID ity of 00:00: [place] [facility] diclofenac 2019- Yes NAZARIO EXT AA U nivers 3 % gel 0-18 BID ity of 00:00: [facility] diclofenac 2018- Yes NAZARIO EXT AA U nivers 3 % gel 0-18 BID ity of 00:00: [facility] diclofenac 2019- Yes NAZARIO EXT AA U nivers 3 % gel 0-18 BID ity of 00:00: [facility] diclofenac 2018- Yes NAZARIO EXT AA U nivers 3 % gel 0-18 BID ity of 00:00: [place] [facility] diclofenac 2019- Yes NAZARIO EXT AA U nivers 3 % gel 0-18 BID ity of 00:00: [place] [facility] diclofenac 2019- Yes NAZARIO EXT AA U nivers 3 % gel 0-18 BID ity of 00:00: [place] [facility] diclofenac 2019- Yes NAZARIO EXT AA U nivers 3 % gel 0-18 BID ity of 00:00: [place] [facility] diclofenac 2019- Yes NAZARIO EXT AA U nivers 3 % gel 0-18 BID ity of 00:00: [place] [facility] diclofenac 2019- Yes NAZARIO EXT AA U nivers 3 % gel 0-18 BID ity of 00:00: [place] [facility] diclofenac 2019- Yes NAZARIO EXT AA U nivers 3 % gel 0-18 BID ity of 00:00: [place] [facility] diclofenac 2019- Yes NAZARIO EXT AA U nivers 3 % gel 0-18 BID ity of 00:00: [place] [facility] diclofenac 2019- Yes NAZARIO EXT AA U nivers 3 % gel 0-18 BID ity of 00:00: [place] [facility] diclofenac 2019- Yes NAZARIO EXT AA U nivers 3 % gel 0-18 BID ity of 00:00: [place] [facility] diclofenac 2019- Yes NAZARIO EXT AA U nivers 3 % gel 0-18 BID ity of 00:00: [facility] diclofenac 2019- Yes NAZARIO EXT AA U nivers 3 % gel 0-18 BID ity of 00:00: [place] [facility] diclofenac 2019- Yes NAZARIO EXT AA U nivers 3 % gel 0-18 BID ity of 00:00: [facility] diclofenac 2019- Yes NAZARIO EXT AA U nivers 3 % gel 0-18 BID ity of 00:00: [facility] diclofenac 2019- Yes NAZARIO EXT AA U nivers 3 % gel 0-18 BID ity of 00:00: [place] [facility] diclofenac 2019- Yes NAZARIO EXT AA U nivers 3 % gel 0-18 BID ity of 00:00: [facility] diclofenac 2019- Yes NAZARIO EXT AA U nivers 3 % gel 0-18 BID ity of 00:00: [facility] diclofenac 2019- Yes NAZARIO EXT AA U nivers 3 % gel 0-18 BID ity of 00:00: [place] [facility] diclofenac 2019- Yes NAZARIO EXT AA U nivers 3 % gel 0-18 BID ity of 00:00: [place] [facility] diclofenac 2019- Yes NAZARIO EXT AA U nivers 3 % gel 0-18 BID ity of 00:00: [place] [facility] diclofenac 2019- Yes NAZARIO EXT AA U nivers 3 % gel 0-18 BID ity of 00:00: [place] [facility] diclofenac 2019- Yes NAZARIO EXT AA U nivers 3 % gel 0-18 BID ity of 00:00: [place] [facility] diclofenac 2019- Yes NAZARIO EXT AA U nivers 3 % gel 0-18 BID ity of 00:00: [place] [facility] diclofenac 2019- Yes NAZARIO EXT AA U nivers 3 % gel 0-18 BID ity of 00:00: [place] [facility] diclofenac 2019- Yes NAZARIO EXT AA U nivers 3 % gel 0-18 BID ity of 00:00: [place] [facility] diclofenac 2019- Yes NAZARIO EXT AA U nivers 3 % gel 0-18 BID ity of 00:00: [place] [facility] diclofenac 2019- Yes NAZARIO EXT AA U nivers 3 % gel 0-18 BID ity of 00:00: [place] [facility] diclofenac 2019- Yes NAZARIO EXT AA U nivers 3 % gel 0-18 BID ity of 00:00: [place] [facility] diclofenac 2018-03 Yes NAZARIO EXT AA U nivers 3 % gel 0-18 BID ity of 00:00: [place] [facility] diclofenac 2019- Yes NAZARIO EXT AA U nivers 3 % gel 0-18 BID ity of 00:00: [place] [facility] diclofenac 2018- Yes NAZARIO EXT AA U nivers 3 % gel 0-18 BID ity of 00:00: [facility] diclofenac 2019- Yes NAZARIO EXT AA U nivers 3 % gel 0-18 BID ity of 00:00: [place] [facility] diclofenac 2018- Yes NAZARIO EXT AA U nivers 3 % gel 0-18 BID ity of 00:00: [place] [facility] diclofenac 2019- Yes NAZARIO EXT AA U nivers 3 % gel 0-18 BID ity of 00:00: [place] [facility] diclofenac 2019- Yes NAZARIO EXT AA U nivers 3 % gel 0-18 BID ity of 00:00: [place] [facility] diclofenac 2019- Yes NAZARIO EXT AA U nivers 3 % gel 0-18 BID ity of 00:00: [place] [facility] diclofenac 2019- Yes NAZARIO EXT AA U nivers 3 % gel 0-18 BID ity of 00:00: [place] [facility] diclofenac 2019- Yes NAZARIO EXT AA U nivers 3 % gel 0-18 BID ity of 00:00: [place] [facility] diclofenac 2019- Yes NAZARIO EXT AA U nivers 3 % gel 0-18 BID ity of 00:00: [place] [facility] diclofenac 2019- Yes NAZARIO EXT AA U nivers 3 % gel 0-18 BID ity of 00:00: [place] [facility] diclofenac 2019- Yes NAZARIO EXT AA U nivers 3 % gel 0-18 BID ity of 00:00: [place] [facility] diclofenac 2019- Yes NAZARIO EXT AA U nivers 3 % gel 0-18 BID ity of 00:00: [place] [facility] diclofenac 2019- Yes NAZARIO EXT AA U nivers 3 % gel 0-18 BID ity of 00:00: [place] [facility] diclofenac 2018- Yes NAZARIO EXT AA U nivers 3 % gel 0-18 BID ity of 00:00: [place] [facility] diclofenac 2019- Yes NAZARIO EXT AA U nivers 3 % gel 0-18 BID ity of 00:00: [place] [facility] diclofenac 2019 Yes NAZARIO EXT AA U nivers 3 % gel 0-18 BID ity of 00:00: [place] [facility] diclofenac 2019 Yes NAZARIO EXT AA U nivers 3 % gel 0-18 BID ity of 00:00: [facility] diclofenac 2019- Yes NAZARIO EXT AA U nivers 3 % gel 0-18 BID ity of 00:00: [facility] diclofenac 2019 Yes NAZARIO EXT AA U nivers 3 % gel 0-18 BID ity of 00:00: [facility] diclofenac 2019- Yes NAZARIO EXT AA U nivers 3 % gel 0-18 BID ity of 00:00: [facility] diclofenac 2019 Yes NAZARIO EXT AA U nivers 3 % gel 0-18 BID ity of 00:00: [facility] diclofenac 2019- Yes NAZARIO EXT AA U nivers 3 % gel 0-18 BID ity of 00:00: [facility] diclofenac 2018-03 Yes NAZARIO EXT AA U nivers 3 % gel 0-18 BID ity of 00:00: [place] [facility] diclofenac 2019- Yes NAZARIO EXT AA U nivers 3 % gel 0-18 BID ity of 00:00: [facility] diclofenac 2019 Yes NAZARIO EXT AA U nivers 3 % gel 0-18 BID ity of 00:00: [place] [facility] diclofenac 2019- Yes NAZARIO EXT AA U nivers 3 % gel 0-18 BID ity of 00:00: [place] [facility] diclofenac 2019- Yes NAZARIO EXT AA U nivers 3 % gel 0-18 BID ity of 00:00: [place] [facility] diclofenac 2019- Yes NAZARIO EXT AA U nivers 3 % gel 0-18 BID ity of 00:00: [place] [facility] diclofenac 2019- Yes NAZARIO EXT AA U nivers 3 % gel 0-18 BID ity of 00:00: [place] [facility] diclofenac 2019- Yes NAZARIO EXT AA U nivers 3 % gel 0-18 BID ity of 00:00: [place] [facility] diclofenac 2019- Yes NAZARIO EXT AA U nivers 3 % gel 0-18 BID ity of 00:00: [place] [facility] diclofenac 2019- Yes NAZARIO EXT AA U nivers 3 % gel 0-18 BID ity of 00:00: [place] [facility] diclofenac 2019- Yes NAZARIO EXT AA U nivers 3 % gel 0-18 BID ity of 00:00: [place] [facility] diclofenac 2019- Yes NAZARIO EXT AA U nivers 3 % gel 0-18 BID ity of 00:00: [facility] diclofenac 2019- Yes NAZARIO EXT AA U nivers 3 % gel 0-18 BID ity of 00:00: [facility] diclofenac 2018- Yes NAZARIO EXT AA U nivers 3 % gel 0-18 BID ity of 00:00: [place] [facility] diclofenac 2019- Yes NAZARIO EXT AA U nivers 3 % gel 0-18 BID ity of 00:00: [facility] diclofenac 2019- Yes NAZARIO EXT AA U nivers 3 % gel 0-18 BID ity of 00:00: [facility] diclofenac 2019- Yes NAZARIO EXT AA U nivers 3 % gel 0-18 BID ity of 00:00: [facility] diclofenac 2019- Yes NAZARIO EXT AA U nivers 3 % gel 0-18 BID ity of 00:00: [place] [facility] diclofenac 2019- Yes NAZARIO EXT AA U nivers 3 % gel 0-18 BID ity of 00:00: [place] [facility] diclofenac 2019- Yes NAZARIO EXT AA U nivers 3 % gel 0-18 BID ity of 00:00: [place] [facility] diclofenac 2019- Yes NAZARIO EXT AA U nivers 3 % gel 0-18 BID ity of 00:00: [place] [facility] diclofenac 2019- Yes NAZARIO EXT AA U nivers 3 % gel 0-18 BID ity of 00:00: [place] [facility] diclofenac 2019- Yes NAZARIO EXT AA U nivers 3 % gel 0-18 BID ity of 00:00: [place] [facility] diclofenac 2019- Yes NAZARIO EXT AA U nivers 3 % gel 0-18 BID ity of 00:00: [place] [facility] diclofenac 2019- Yes NAZARIO EXT AA U nivers 3 % gel 0-18 BID ity of 00:00: [place] [facility] diclofenac 2019- Yes NAZARIO EXT AA U nivers 3 % gel 0-18 BID ity of 00:00: [place] [facility] diclofenac 2019-1 Yes NAZARIO EXT AA U nivers 3 % gel 0-18 BID ity of 00:00: [facility] diclofenac 2019-1 Yes NAZARIO EXT AA U nivers 3 % gel 0-18 BID ity of 00:00: [place] [facility] Immunizations Ordered Filled Date Status Comments Source Immunization Name Immunization Name SARS-COV-2 COVID-19 2020-06-21 Completed [facility] PFIZER VACCINE 00:00:00 [facility] SARS-COV-2 COVID-19 2020-06-21 Completed [facility] PFIZER VACCINE 00:00:00 [facility] SARS-COV-2 COVID-19 2020-06-21 Completed [facility] of PFIZER VACCINE 00:00:00 [facility] SARS-COV-2 COVID-19 2020-06-21 Completed [facility] of PFIZER VACCINE 00:00:00 [facility] SARS-COV-2 COVID-19 2020-06-21 Completed [facility] of PFIZER VACCINE 00:00:00 [facility] SARS-COV-2 COVID-19 2020-06-21 Completed [facility] of PFIZER VACCINE 00:00:00 [facility] SARS-COV-2 COVID-19 2020-06-21 Completed [facility] of PFIZER VACCINE 00:00:00 [facility] SARS-COV-2 COVID-19 2020-06-21 Completed [facility] of PFIZER VACCINE 00:00:00 [facility] SARS-COV-2 COVID-19 2020-06-21 Completed [facility] PFIZER VACCINE 00:00:00 [facility] SARS-COV-2 COVID-19 2020-06-21 Completed [facility] of PFIZER VACCINE 00:00:00 [facility] SARS-COV-2 COVID-19 2020-06-21 Completed [facility] of PFIZER VACCINE 00:00:00 [facility] SARS-COV-2 COVID-19 2020-06-21 Completed [facility] of PFIZER VACCINE 00:00:00 [facility] SARS-COV-2 COVID-19 2020-06-21 Completed [facility] of PFIZER VACCINE 00:00:00 [facility] SARS-COV-2 COVID-19 2020-06-21 Completed [facility] PFIZER VACCINE 00:00:00 [facility] SARS-COV-2 COVID-19 2020-06-21 Completed [facility] of PFIZER VACCINE 00:00:00 [facility] SARS-COV-2 COVID-19 2020-06-21 Completed [facility] of PFIZER VACCINE 00:00:00 [facility] SARS-COV-2 COVID-19 2020-06-21 Completed [facility] PFIZER VACCINE 00:00:00 [facility] SARS-COV-2 COVID-19 2020-06-21 Completed [facility] of PFIZER VACCINE 00:00:00 [facility] SARS-COV-2 COVID-19 2020-06-21 Completed [facility] of PFIZER VACCINE 00:00:00 [facility] SARS-COV-2 COVID-19 2020-06-21 Completed [facility] of PFIZER VACCINE 00:00:00 [facility] SARS-COV-2 COVID-19 2020-06-21 Completed [facility] of PFIZER VACCINE 00:00:00 [facility] SARS-COV-2 COVID-19 2020-06-21 Completed [facility] of PFIZER VACCINE 00:00:00 [facility] SARS-COV-2 COVID-19 2020-06-21 Completed [facility] of PFIZER VACCINE 00:00:00 [facility] SARS-COV-2 COVID-19 2020-06-21 Completed [facility] of PFIZER VACCINE 00:00:00 [facility] SARS-COV-2 COVID-19 2020-06-21 Completed [facility] of PFIZER VACCINE 00:00:00 [facility] SARS-COV-2 COVID-19 2020-06-21 Completed [facility] of PFIZER VACCINE 00:00:00 [facility] SARS-COV-2 COVID-19 2020-06-21 Completed [facility] of PFIZER VACCINE 00:00:00 [facility] SARS-COV-2 COVID-19 2020-06-21 Completed [facility] of PFIZER VACCINE 00:00:00 [facility] SARS-COV-2 COVID-19 2020-06-21 Completed [facility] of PFIZER VACCINE 00:00:00 [facility] SARS-COV-2 COVID-19 2020-06-21 Completed [facility] PFIZER VACCINE 00:00:00 [facility] SARS-COV-2 COVID-19 2020-06-21 Completed [facility] of PFIZER VACCINE 00:00:00 [facility] SARS-COV-2 COVID-19 2020-06-21 Completed [facility] PFIZER VACCINE 00:00:00 [facility] SARS-COV-2 COVID-19 2020-06-21 Completed [facility] PFIZER VACCINE 00:00:00 [facility] SARS-COV-2 COVID-19 2020-06-21 Completed [facility] of PFIZER VACCINE 00:00:00 [facility] SARS-COV-2 COVID-19 2020-06-21 Completed [facility] PFIZER VACCINE 00:00:00 [facility] SARS-COV-2 COVID-19 2020-06-21 Completed [facility] of PFIZER VACCINE 00:00:00 [facility] SARS-COV-2 COVID-19 2020-06-21 Completed [facility] of PFIZER VACCINE 00:00:00 [facility] SARS-COV-2 COVID-19 2020-06-21 Completed [facility] of PFIZER VACCINE 00:00:00 [facility] SARS-COV-2 COVID-19 2020-06-21 Completed [facility] of PFIZER VACCINE 00:00:00 [facility] SARS-COV-2 COVID-19 2020-06-21 Completed [facility] of PFIZER VACCINE 00:00:00 [facility] SARS-COV-2 COVID-19 2020-06-21 Completed [facility] PFIZER VACCINE 00:00:00 [facility] SARS-COV-2 COVID-19 2020-06-21 Completed [facility] of PFIZER VACCINE 00:00:00 [facility] SARS-COV-2 COVID-19 2020-06-21 Completed [facility] of PFIZER VACCINE 00:00:00 [facility] SARS-COV-2 COVID-19 2020-06-21 Completed [facility] of PFIZER VACCINE 00:00:00 [facility] SARS-COV-2 COVID-19 2020-06-21 Completed [facility] of PFIZER VACCINE 00:00:00 [facility] SARS-COV-2 COVID-19 2020-06-21 Completed [facility] PFIZER VACCINE 00:00:00 [facility] SARS-COV-2 COVID-19 2020-06-21 Completed [facility] of PFIZER VACCINE 00:00:00 [facility] SARS-COV-2 COVID-19 2020-06-21 Completed [facility] of PFIZER VACCINE 00:00:00 [facility] SARS-COV-2 COVID-19 2020-06-21 Completed [facility] of PFIZER VACCINE 00:00:00 [facility] SARS-COV-2 COVID-19 2020-06-21 Completed [facility] of PFIZER VACCINE 00:00:00 [facility] SARS-COV-2 COVID-19 2020-06-21 Completed [facility] of PFIZER VACCINE 00:00:00 [facility] SARS-COV-2 COVID-19 2020-06-21 Completed [facility] of PFIZER VACCINE 00:00:00 [facility] SARS-COV-2 COVID-19 2020-06-21 Completed [facility] of PFIZER VACCINE 00:00:00 [facility] SARS-COV-2 COVID-19 2020-06-21 Completed [facility] of PFIZER VACCINE 00:00:00 [facility] SARS-COV-2 COVID-19 2020-06-21 Completed [facility] of PFIZER VACCINE 00:00:00 [facility] SARS-COV-2 COVID-19 2020-06-21 Completed [facility] of PFIZER VACCINE 00:00:00 [facility] SARS-COV-2 COVID-19 2020-06-21 Completed [facility] of PFIZER VACCINE 00:00:00 [facility] SARS-COV-2 COVID-19 2020-06-21 Completed [facility] of PFIZER VACCINE 00:00:00 [facility] SARS-COV-2 COVID-19 2020-06-21 Completed [facility] of PFIZER VACCINE 00:00:00 [facility] SARS-COV-2 COVID-19 2020-06-21 Completed [facility] of PFIZER VACCINE 00:00:00 [facility] SARS-COV-2 COVID-19 2020-06-21 Completed [facility] of PFIZER VACCINE 00:00:00 [facility] SARS-COV-2 COVID-19 2020-06-21 Completed [facility] of PFIZER VACCINE 00:00:00 [facility] SARS-COV-2 COVID-19 2020-06-21 Completed [facility] of PFIZER VACCINE 00:00:00 [facility] SARS-COV-2 COVID-19 2020-06-21 Completed [facility] of PFIZER VACCINE 00:00:00 [facility] SARS-COV-2 COVID-19 2020-06-21 Completed [facility] of PFIZER VACCINE 00:00:00 [facility] SARS-COV-2 COVID-19 2020-06-21 Completed [facility] of PFIZER VACCINE 00:00:00 [facility] SARS-COV-2 COVID-19 2020-06-21 Completed [facility] of PFIZER VACCINE 00:00:00 [facility] SARS-COV-2 COVID-19 2020-06-21 Completed [facility] of PFIZER VACCINE 00:00:00 [facility] SARS-COV-2 COVID-19 2020-06-21 Completed [facility] of PFIZER VACCINE 00:00:00 [facility] SARS-COV-2 COVID-19 2020-06-21 Completed [facility] of PFIZER VACCINE 00:00:00 [facility] SARS-COV-2 COVID-19 2020-06-21 Completed [facility] of PFIZER VACCINE 00:00:00 [facility] SARS-COV-2 COVID-19 2020-06-21 Completed [facility] of PFIZER VACCINE 00:00:00 [facility] SARS-COV-2 COVID-19 2020-06-21 Completed [facility] of PFIZER VACCINE 00:00:00 [facility] SARS-COV-2 COVID-19 2020-06-21 Completed [facility] of PFIZER VACCINE 00:00:00 [facility] SARS-COV-2 COVID-19 2020-06-21 Completed [facility] of PFIZER VACCINE 00:00:00 [facility] SARS-COV-2 COVID-19 2020-06-21 Completed [facility] of PFIZER VACCINE 00:00:00 [facility] SARS-COV-2 COVID-19 2020-06-21 Completed [facility] of PFIZER VACCINE 00:00:00 [facility] SARS-COV-2 COVID-19 2020-06-21 Completed [facility] of PFIZER VACCINE 00:00:00 [facility] SARS-COV-2 COVID-19 2020-05-31 Completed [facility] of PFIZER VACCINE 00:00:00 [facility] SARS-COV-2 COVID-19 2020-05-31 Completed [facility] of PFIZER VACCINE 00:00:00 [facility] SARS-COV-2 COVID-19 2020-05-31 Completed [facility] of PFIZER VACCINE 00:00:00 [facility] SARS-COV-2 COVID-19 2020-05-31 Completed [facility] of PFIZER VACCINE 00:00:00 [facility] SARS-COV-2 COVID-19 2020-05-31 Completed [facility] of PFIZER VACCINE 00:00:00 [facility] SARS-COV-2 COVID-19 2020-05-31 Completed [facility] of PFIZER VACCINE 00:00:00 [facility] SARS-COV-2 COVID-19 2020-05-31 Completed [facility] of PFIZER VACCINE 00:00:00 [facility] SARS-COV-2 COVID-19 2020-05-31 Completed [facility] of PFIZER VACCINE 00:00:00 [facility] SARS-COV-2 COVID-19 2020-05-31 Completed [facility] of PFIZER VACCINE 00:00:00 [facility] SARS-COV-2 COVID-19 2020-05-31 Completed [facility] of PFIZER VACCINE 00:00:00 [facility] SARS-COV-2 COVID-19 2020-05-31 Completed [facility] of PFIZER VACCINE 00:00:00 [facility] SARS-COV-2 COVID-19 2020-05-31 Completed [facility] of PFIZER VACCINE 00:00:00 [facility] SARS-COV-2 COVID-19 2020-05-31 Completed [facility] of PFIZER VACCINE 00:00:00 [facility] SARS-COV-2 COVID-19 2020-05-31 Completed [facility] of PFIZER VACCINE 00:00:00 [facility] SARS-COV-2 COVID-19 2020-05-31 Completed [facility] of PFIZER VACCINE 00:00:00 [facility] SARS-COV-2 COVID-19 2020-05-31 Completed [facility] of PFIZER VACCINE 00:00:00 [facility] SARS-COV-2 COVID-19 2020-05-31 Completed [facility] of PFIZER VACCINE 00:00:00 [facility] SARS-COV-2 COVID-19 2020-05-31 Completed [facility] of PFIZER VACCINE 00:00:00 [facility] SARS-COV-2 COVID-19 2020-05-31 Completed [facility] of PFIZER VACCINE 00:00:00 [facility] SARS-COV-2 COVID-19 2020-05-31 Completed [facility] of PFIZER VACCINE 00:00:00 [facility] SARS-COV-2 COVID-19 2020-05-31 Completed [facility] of PFIZER VACCINE 00:00:00 [facility] SARS-COV-2 COVID-19 2020-05-31 Completed [facility] of PFIZER VACCINE 00:00:00 [facility] SARS-COV-2 COVID-19 2020-05-31 Completed [facility] of PFIZER VACCINE 00:00:00 [facility] SARS-COV-2 COVID-19 2020-05-31 Completed [facility] of PFIZER VACCINE 00:00:00 [facility] SARS-COV-2 COVID-19 2020-05-31 Completed [facility] of PFIZER VACCINE 00:00:00 [facility] SARS-COV-2 COVID-19 2020-05-31 Completed [facility] of PFIZER VACCINE 00:00:00 [facility] SARS-COV-2 COVID-19 2020-05-31 Completed [facility] of PFIZER VACCINE 00:00:00 [facility] SARS-COV-2 COVID-19 2020-05-31 Completed [facility] of PFIZER VACCINE 00:00:00 [facility] SARS-COV-2 COVID-19 2020-05-31 Completed [facility] of PFIZER VACCINE 00:00:00 [facility] SARS-COV-2 COVID-19 2020-05-31 Completed [facility] of PFIZER VACCINE 00:00:00 [facility] SARS-COV-2 COVID-19 2020-05-31 Completed [facility] of PFIZER VACCINE 00:00:00 [facility] SARS-COV-2 COVID-19 2020-05-31 Completed [facility] of PFIZER VACCINE 00:00:00 [facility] SARS-COV-2 COVID-19 2020-05-31 Completed [facility] of PFIZER VACCINE 00:00:00 [facility] SARS-COV-2 COVID-19 2020-05-31 Completed [facility] PFIZER VACCINE 00:00:00 [facility] SARS-COV-2 COVID-19 2020-05-31 Completed [facility] PFIZER VACCINE 00:00:00 [facility] SARS-COV-2 COVID-19 2020-05-31 Completed [facility] PFIZER VACCINE 00:00:00 [facility] SARS-COV-2 COVID-19 2020-05-31 Completed [facility] PFIZER VACCINE 00:00:00 [facility] SARS-COV-2 COVID-19 2020-05-31 Completed [facility] PFIZER VACCINE 00:00:00 [facility] SARS-COV-2 COVID-19 2020-05-31 Completed [facility] PFIZER VACCINE 00:00:00 [facility] SARS-COV-2 COVID-19 2020-05-31 Completed [facility] PFIZER VACCINE 00:00:00 [facility] SARS-COV-2 COVID-19 2020-05-31 Completed [facility] of PFIZER VACCINE 00:00:00 [facility] SARS-COV-2 COVID-19 2020-05-31 Completed [facility] of PFIZER VACCINE 00:00:00 [facility] SARS-COV-2 COVID-19 2020-05-31 Completed [facility] of PFIZER VACCINE 00:00:00 [facility] SARS-COV-2 COVID-19 2020-05-31 Completed [facility] of PFIZER VACCINE 00:00:00 [facility] SARS-COV-2 COVID-19 2020-05-31 Completed [facility] of PFIZER VACCINE 00:00:00 [facility] SARS-COV-2 COVID-19 2020-05-31 Completed [facility] PFIZER VACCINE 00:00:00 [facility] SARS-COV-2 COVID-19 2020-05-31 Completed [facility] of PFIZER VACCINE 00:00:00 [facility] SARS-COV-2 COVID-19 2020-05-31 Completed [facility] of PFIZER VACCINE 00:00:00 [facility] SARS-COV-2 COVID-19 2020-05-31 Completed [facility] PFIZER VACCINE 00:00:00 [facility] SARS-COV-2 COVID-19 2020-05-31 Completed [facility] PFIZER VACCINE 00:00:00 [facility] SARS-COV-2 COVID-19 2020-05-31 Completed [facility] PFIZER VACCINE 00:00:00 [facility] SARS-COV-2 COVID-19 2020-05-31 Completed [facility] of PFIZER VACCINE 00:00:00 [facility] SARS-COV-2 COVID-19 2020-05-31 Completed [facility] of PFIZER VACCINE 00:00:00 [facility] SARS-COV-2 COVID-19 2020-05-31 Completed [facility] of PFIZER VACCINE 00:00:00 [facility] SARS-COV-2 COVID-19 2020-05-31 Completed [facility] PFIZER VACCINE 00:00:00 [facility] SARS-COV-2 COVID-19 2020-05-31 Completed [facility] PFIZER VACCINE 00:00:00 [facility] SARS-COV-2 COVID-19 2020-05-31 Completed [facility] PFIZER VACCINE 00:00:00 [facility] SARS-COV-2 COVID-19 2020-05-31 Completed [facility] PFIZER VACCINE 00:00:00 [facility] SARS-COV-2 COVID-19 2020-05-31 Completed [facility] PFIZER VACCINE 00:00:00 [facility] SARS-COV-2 COVID-19 2020-05-31 Completed [facility] PFIZER VACCINE 00:00:00 [facility] SARS-COV-2 COVID-19 2020-05-31 Completed [facility] PFIZER VACCINE 00:00:00 [facility] SARS-COV-2 COVID-19 2020-05-31 Completed [facility] PFIZER VACCINE 00:00:00 [facility] SARS-COV-2 COVID-19 2020-05-31 Completed [facility] PFIZER VACCINE 00:00:00 [facility] SARS-COV-2 COVID-19 2020-05-31 Completed [facility] PFIZER VACCINE 00:00:00 [facility] SARS-COV-2 COVID-19 2020-05-31 Completed [facility] PFIZER VACCINE 00:00:00 [facility] SARS-COV-2 COVID-19 2020-05-31 Completed [facility] PFIZER VACCINE 00:00:00 [facility] SARS-COV-2 COVID-19 2020-05-31 Completed [facility] PFIZER VACCINE 00:00:00 [facility] SARS-COV-2 COVID-19 2020-05-31 Completed [facility] PFIZER VACCINE 00:00:00 [facility] SARS-COV-2 COVID-19 2020-05-31 Completed [facility] PFIZER VACCINE 00:00:00 [facility] SARS-COV-2 COVID-19 2020-05-31 Completed [facility] PFIZER VACCINE 00:00:00 [facility] SARS-COV-2 COVID-19 2020-05-31 Completed [facility] of PFIZER VACCINE 00:00:00 [facility] SARS-COV-2 COVID-19 2020-05-31 Completed [facility] of PFIZER VACCINE 00:00:00 [facility] SARS-COV-2 COVID-19 2020-05-31 Completed [facility] of PFIZER VACCINE 00:00:00 [facility] SARS-COV-2 COVID-19 2020-05-31 Completed [facility] PFIZER VACCINE 00:00:00 [facility] SARS-COV-2 COVID-19 2020-05-31 Completed [facility] of PFIZER VACCINE 00:00:00 [facility] SARS-COV-2 COVID-19 2020-05-31 Completed [facility] of PFIZER VACCINE 00:00:00 [facility] SARS-COV-2 COVID-19 2020-05-31 Completed [facility] of PFIZER VACCINE 00:00:00 [facility] SARS-COV-2 COVID-19 2020-05-31 Completed [facility] PFIZER VACCINE 00:00:00 [facility] TDAP 2014-10-08 Completed [facility] 00:00:00 [facility] TDAP 2014-10-08 Completed [facility] of 00:00:00 [facility] TDAP 2014-10-08 Completed University of 00:00:00 [facility] TDAP 2014-10-08 Completed [facility] of 00:00:00 [facility] TDAP 2014-10-08 Completed [facility] of 00:00:00 [facility] TDAP 2014-10-08 Completed [facility] of 00:00:00 [facility] TDAP 2014-10-08 Completed [facility] of 00:00:00 [facility] TDAP 2014-10-08 Completed [facility] of 00:00:00 [facility] TDAP 2014-10-08 Completed [facility] of 00:00:00 [facility] TDAP 2014-10-08 Completed [facility] of 00:00:00 [facility] TDAP 2014-10-08 Completed [facility] of 00:00:00 [facility] TDAP 2014-10-08 Completed [facility] of 00:00:00 [facility] TDAP 2014-10-08 Completed [facility] of 00:00:00 [facility] TDAP 2014-10-08 Completed [facility] of 00:00:00 [facility] TDAP 2014-10-08 Completed [facility] of 00:00:00 [facility] TDAP 2014-10-08 Completed [facility] of 00:00:00 [facility] TDAP 2014-10-08 Completed [facility] of 00:00:00 [facility] TDAP 2014-10-08 Completed [facility] of 00:00:00 [facility] TDAP 2014-10-08 Completed [facility] of 00:00:00 [facility] TDAP 2014-10-08 Completed [facility] of 00:00:00 [facility] TDAP 2014-10-08 Completed [facility] of 00:00:00 [facility] TDAP 2014-10-08 Completed [facility] of 00:00:00 [facility] TDAP 2014-10-08 Completed [facility] of 00:00:00 [facility] TDAP 2014-10-08 Completed [facility] 00:00:00 [facility] TDAP 2014-10-08 Completed [facility] 00:00:00 [facility] TDAP 2014-10-08 Completed [facility] 00:00:00 [facility] TDAP 2014-10-08 Completed [facility] 00:00:00 [facility] TDAP 2014-10-08 Completed [facility] 00:00:00 [facility] TDAP 2014-10-08 Completed [facility] 00:00:00 [facility] TDAP 2014-10-08 Completed [facility] 00:00:00 [facility] TDAP 2014-10-08 Completed [facility] 00:00:00 [facility] TDAP 2014-10-08 Completed [facility] 00:00:00 [facility] TDAP 2014-10-08 Completed [facility] 00:00:00 [facility] TDAP 2014-10-08 Completed [facility] 00:00:00 [facility] TDAP 2014-10-08 Completed [facility] 00:00:00 [facility] TDAP 2014-10-08 Completed [facility] 00:00:00 [facility] TDAP 2014-10-08 Completed [facility] 00:00:00 [facility] TDAP 2014-10-08 Completed [facility] 00:00:00 [facility] TDAP 2014-10-08 Completed [facility] 00:00:00 [facility] TDAP 2014-10-08 Completed [facility] 00:00:00 [facility] TDAP 2014-10-08 Completed [facility] 00:00:00 [facility] TDAP 2014-10-08 Completed [facility] 00:00:00 [facility] TDAP 2014-10-08 Completed [facility] 00:00:00 [facility] TDAP 2014-10-08 Completed [facility] 00:00:00 [facility] TDAP 2014-10-08 Completed [facility] 00:00:00 [facility] TDAP 2014-10-08 Completed [facility] 00:00:00 [facility] TDAP 2014-10-08 Completed [facility] 00:00:00 [facility] TDAP 2014-10-08 Completed [facility] 00:00:00 [facility] TDAP 2014-10-08 Completed [facility] 00:00:00 [facility] TDAP 2014-10-08 Completed [facility] 00:00:00 [facility] TDAP 2014-10-08 Completed [facility] 00:00:00 [facility] TDAP 2014-10-08 Completed [facility] 00:00:00 [facility] TDAP 2014-10-08 Completed [facility] of 00:00:00 [facility] TDAP 2014-10-08 Completed [facility] 00:00:00 [facility] TDAP 2014-10-08 Completed [facility] of 00:00:00 [facility] TDAP 2014-10-08 Completed [facility] 00:00:00 [facility] TDAP 2014-10-08 Completed [facility] of 00:00:00 [facility] TDAP 2014-10-08 Completed [facility] of 00:00:00 [facility] TDAP 2014-10-08 Completed [facility] of 00:00:00 [facility] TDAP 2014-10-08 Completed [facility] of 00:00:00 [facility] TDAP 2014-10-08 Completed [facility] of 00:00:00 [facility] TDAP 2014-10-08 Completed [facility] of 00:00:00 [facility] TDAP 2014-10-08 Completed [facility] of 00:00:00 [facility] TDAP 2014-10-08 Completed [facility] of 00:00:00 [facility] TDAP 2014-10-08 Completed [facility] of 00:00:00 [facility] TDAP 2014-10-08 Completed [facility] of 00:00:00 [facility] TDAP 2014-10-08 Completed [facility] of 00:00:00 [facility] TDAP 2014-10-08 Completed [facility] of 00:00:00 [facility] TDAP 2014-10-08 Completed [facility] of 00:00:00 [facility] TDAP 2014-10-08 Completed [facility] of 00:00:00 [facility] TDAP 2014-10-08 Completed [facility] 00:00:00 [facility] TDAP 2014-10-08 Completed [facility] of 00:00:00 [facility] TDAP 2014-10-08 Completed [facility] of 00:00:00 [facility] TDAP 2014-10-08 Completed [facility] 00:00:00 [facility] TDAP 2014-10-08 Completed [facility] 00:00:00 [facility] TDAP 2014-10-08 Completed [facility] 00:00:00 [facility] TDAP 2014-10-08 Completed [facility] 00:00:00 [facility] TDAP 2014-10-08 Completed [facility] 00:00:00 [facility] SARS-COV-2 COVID-19 Unknown Completed [facility] SARS-COV-2 COVID-19 Unknown Completed [facility] PFIZER VACCINE [facility] TDAP Unknown Completed [facility] SARS-COV-2 COVID-19 Unknown Completed [facility] PFIZER VACCINE [facility] SARS-COV-2 COVID-19 Unknown Completed [facility] PFIZER VACCINE [facility] TDAP Unknown Completed [facility] SARS-COV-2 COVID-19 Unknown Completed [facility] of PFIZER VACCINE [facility] SARS-COV-2 COVID-19 Unknown Completed [facility] of PFIZER VACCINE [facility] TDAP Unknown Completed [facility] SARS-COV-2 COVID-19 Unknown Completed [facility] PFIZER VACCINE [facility] SARS-COV-2 COVID-19 Unknown Completed [facility] PFIZER VACCINE [facility] TDAP Unknown Completed [facility] SARS-COV-2 COVID-19 Unknown Completed [facility] PFIZER VACCINE [facility] SARS-COV-2 COVID-19 Unknown Completed [facility] of PFIZER VACCINE [facility] TDAP Unknown Completed [facility] SARS-COV-2 COVID-19 Unknown Completed [facility] PFIZER VACCINE [facility] SARS-COV-2 COVID-19 Unknown Completed [facility] PFIZER VACCINE [facility] TDAP Unknown Completed [facility] SARS-COV-2 COVID-19 Unknown Completed [facility] PFIZER VACCINE [facility] SARS-COV-2 COVID-19 Unknown Completed [facility] PFIZER VACCINE [facility] TDAP Unknown Completed [facility] SARS-COV-2 COVID-19 Unknown Completed [facility] PFIZER VACCINE [facility] SARS-COV-2 COVID-19 Unknown Completed [facility] PFIZER VACCINE [facility] TDAP Unknown Completed [facility] SARS-COV-2 COVID-19 Unknown Completed [facility] PFIZER VACCINE [facility] SARS-COV-2 COVID-19 Unknown Completed [facility] PFIZER VACCINE [facility] TDAP Unknown Completed [facility] SARS-COV-2 COVID-19 Unknown Completed [facility] PFIZER VACCINE [facility] SARS-COV-2 COVID-19 Unknown Completed [facility] PFIZER VACCINE [facility] TDAP Unknown Completed [facility] SARS-COV-2 COVID-19 Unknown Completed [facility] PFIZER VACCINE [facility] SARS-COV-2 COVID-19 Unknown Completed [facility] PFIZER VACCINE [facility] TDAP Unknown Completed [facility] SARS-COV-2 COVID-19 Unknown Completed [facility] PFIZER VACCINE [facility] SARS-COV-2 COVID-19 Unknown Completed [facility] PFIZER VACCINE [facility] TDAP Unknown Completed [facility] SARS-COV-2 COVID-19 Unknown Completed [facility] PFIZER VACCINE [facility] SARS-COV-2 COVID-19 Unknown Completed [facility] PFIZER VACCINE [facility] TDAP Unknown Completed [facility] SARS-COV-2 COVID-19 Unknown Completed [facility] PFIZER VACCINE [facility] SARS-COV-2 COVID-19 Unknown Completed [facility] PFIZER VACCINE [facility] TDAP Unknown Completed [facility] SARS-COV-2 COVID-19 Unknown Completed [facility] PFIZER VACCINE [facility] SARS-COV-2 COVID-19 Unknown Completed [facility] PFIZER VACCINE [facility] TDAP Unknown Completed [facility] SARS-COV-2 COVID-19 Unknown Completed [facility] PFIZER VACCINE [facility] SARS-COV-2 COVID-19 Unknown Completed [facility] PFIZER VACCINE [facility] TDAP Unknown Completed [facility] TDAP Unknown Completed [facility] SARS-COV-2 COVID-19 Unknown Completed [facility] PFIZER VACCINE [facility] SARS-COV-2 COVID-19 Unknown Completed [facility] PFIZER VACCINE [facility] TDAP Unknown Completed [facility] SARS-COV-2 COVID-19 Unknown Completed [facility] PFIZER VACCINE [facility] SARS-COV-2 COVID-19 Unknown Completed [facility] PFIZER VACCINE [facility] TDAP Unknown Completed [facility] SARS-COV-2 COVID-19 Unknown Completed [facility] PFIZER VACCINE [facility] SARS-COV-2 COVID-19 Unknown Completed [facility] PFIZER VACCINE [facility] TDAP Unknown Completed [facility] SARS-COV-2 COVID-19 Unknown Completed [facility] PFIZER VACCINE [facility] SARS-COV-2 COVID-19 Unknown Completed [facility] PFIZER VACCINE [facility] TDAP Unknown Completed [facility] SARS-COV-2 COVID-19 Unknown Completed [facility] PFIZER VACCINE [facility] SARS-COV-2 COVID-19 Unknown Completed [facility] PFIZER VACCINE [facility] TDAP Unknown Completed [facility] SARS-COV-2 COVID-19 Unknown Completed [facility] PFIZER VACCINE [facility] SARS-COV-2 COVID-19 Unknown Completed [facility] PFIZER VACCINE [facility] TDAP Unknown Completed [facility] SARS-COV-2 COVID-19 Unknown Completed [facility] PFIZER VACCINE [facility] SARS-COV-2 COVID-19 Unknown Completed [facility] PFIZER VACCINE [facility] TDAP Unknown Completed [facility] SARS-COV-2 COVID-19 Unknown Completed [facility] PFIZER VACCINE [facility] SARS-COV-2 COVID-19 Unknown Completed [facility] PFIZER VACCINE [facility] TDAP Unknown Completed [facility] SARS-COV-2 COVID-19 Unknown Completed [facility] PFIZER VACCINE [facility] SARS-COV-2 COVID-19 Unknown Completed [facility] PFIZER VACCINE [facility] TDAP Unknown Completed [facility] SARS-COV-2 COVID-19 Unknown Completed [facility] PFIZER VACCINE [facility] SARS-COV-2 COVID-19 Unknown Completed [facility] PFIZER VACCINE [facility] TDAP Unknown Completed [facility] SARS-COV-2 COVID-19 Unknown Completed [facility] PFIZER VACCINE [facility] SARS-COV-2 COVID-19 Unknown Completed [facility] PFIZER VACCINE [facility] TDAP Unknown Completed [facility] SARS-COV-2 COVID-19 Unknown Completed [facility] PFIZER VACCINE [facility] SARS-COV-2 COVID-19 Unknown Completed [facility] PFIZER VACCINE [facility] TDAP Unknown Completed [facility] Vital Signs Vital Name Observation Time Observation Value Comments Source Systolic blood 2023-01-20 20:23:00 134 mm[Hg] [facility] Diastolic blood 2023-01-20 20:23:00 89 mm[Hg] [facility] pressure [facility] Heart rate 2023-01-20 20:23:00 76 /min [facility] Body temperature 2023-01-20 20:23:00 36.22 [place] [facility] Respiratory rate 2023-01-20 20:23:00 16 /min [facility] Body height 2023-01-20 20:23:00 167.6 cm [facility] Body weight 2023-01-20 20:23:00 137.213 kg [facility] BMI 2023-01-20 20:23:00 48.82 kg/m2 [facility] Oxygen saturation in 2023-01-20 20:23:00 99 /min [facility] Arterial blood by [place] [email or web address] [facility] Systolic blood 2022-11-25 17:46:00 117 mm[Hg] [facility] of pressure [facility] Diastolic blood 2022-11-25 17:46:00 82 mm[Hg] [facility] pressure [facility] Heart rate 2022-11-25 17:46:00 69 /min [facility] Body temperature 2022-11-25 17:45:00 36.5 [place] [facility] Respiratory rate 2022-11-25 17:45:00 19 /min [facility] Body height 2022-11-25 17:45:00 167.6 cm [facility] Body weight 2022-11-25 17:45:00 135.626 kg [facility] BMI 2022-11-25 17:45:00 48.26 kg/m2 [facility] Oxygen saturation in 2022-11-25 17:45:00 99 /min [facility] Arterial blood by [employer] [facility] Systolic blood 2022-10-29 19:55:00 127 mm[Hg] [facility] pressure [facility] Diastolic blood 2022-10-29 19:55:00 80 mm[Hg] [facility] pressure [facility] Heart rate 2022-10-29 19:55:00 71 /min [facility] Body height 2022-10-29 19:55:00 167.6 cm [facility] Body weight 2022-10-29 19:55:00 138.801 kg [facility] BMI 2022-10-29 19:55:00 49.39 kg/m2 [facility] Oxygen saturation in 2022-10-29 19:55:00 98 /min [facility] Arterial blood by [facility] Systolic blood 2022-10-19 13:11:00 148 mm[Hg] [facility] pressure [facility] Diastolic blood 2022-10-19 13:11:00 81 mm[Hg] [facility] pressure [facility] Heart rate 2022-10-19 13:08:00 65 /min [facility] Respiratory rate 2022-10-19 13:08:00 18 /min [facility] Body height 2022-10-19 13:08:00 167.6 cm [facility] Body weight 2022-10-19 13:08:00 137.168 kg [facility] BMI 2022-10-19 13:08:00 48.81 kg/m2 [facility] Oxygen saturation in 2022-10-19 13:08:00 99 /min [facility] Arterial blood by [facility] Systolic blood 2022-08-10 14:54:00 136 mm[Hg] [facility] pressure [facility] Diastolic blood 2022-08-10 14:54:00 99 mm[Hg] [facility] pressure [facility] Heart rate 2022-08-10 14:52:00 90 /min [facility] Body temperature 2022-08-10 14:52:00 36.67 [place] [facility] Respiratory rate 2022-08-10 14:52:00 16 /min [facility] Body height 2022-08-10 14:52:00 167.6 cm [facility] Body weight 2022-08-10 14:52:00 133.811 kg [facility] BMI 2022-08-10 14:52:00 47.61 kg/m2 [facility] Oxygen saturation in 2022-08-10 14:52:00 97 /min [facility] Arterial blood by [facility] Systolic blood 2022-06-15 20:43:00 124 mm[Hg] [facility] pressure [facility] Diastolic blood 2022-06-15 20:43:00 70 mm[Hg] [facility] pressure [facility] Heart rate 2022-06-15 20:43:00 68 /min [facility] Respiratory rate 2022-06-15 20:43:00 19 /min [facility] Body height 2022-06-15 20:43:00 167.6 cm [facility] Body weight 2022-06-15 20:43:00 139.708 kg [facility] BMI 2022-06-15 20:43:00 49.71 kg/m2 [facility] Oxygen saturation in 2022-06-15 20:43:00 97 /min [facility] Arterial blood by [facility] Systolic blood 2022-05-05 15:05:00 123 mm[Hg] [facility] pressure [facility] Diastolic blood 2022-05-05 15:05:00 76 mm[Hg] [facility] pressure [facility] Heart rate 2022-05-05 15:05:00 70 /min [facility] Body temperature 2022-05-05 15:05:00 36.28 [place] [facility] Respiratory rate 2022-05-05 15:05:00 20 /min [facility] Body height 2022-05-05 15:05:00 167.6 cm [facility] Body weight 2022-05-05 15:05:00 136.397 kg [facility] BMI 2022-05-05 15:05:00 48.53 kg/m2 [facility] Systolic blood 2022-04-21 15:03:00 120 mm[Hg] [facility] pressure [facility] Diastolic blood 2022-04-21 15:03:00 71 mm[Hg] [facility] pressure [facility] Heart rate 2022-04-21 15:03:00 64 /min [facility] Respiratory rate 2022-04-21 15:03:00 19 /min [facility] Body height 2022-04-21 15:03:00 165.1 cm [facility] Body weight 2022-04-21 15:03:00 137.44 kg [facility] BMI 2022-04-21 15:03:00 50.42 kg/m2 [facility] Oxygen saturation in 2022-04-21 15:03:00 93 /min [facility] Arterial blood by [facility] faye Pulse oximetry Branch Systolic blood 2022-02-17 17:47:00 137 mm[Hg] Univer sity of pressure [facility] Diastolic blood 2022-02-17 17:47:00 86 mm[Hg] Unive rsity of pressure [facility] Heart rate 2022-02-17 17:47:00 64 /min [facility] Respiratory rate 2022-02-17 17:45:00 19 /min Univ ersity [facility] Body height 2022-02-17 17:45:00 167.6 cm [facility] Body weight 2022-02-17 17:45:00 139.209 kg [facility] BMI 2022-02-17 17:45:00 49.53 kg/m2 [facility] Oxygen saturation in 2022-02-17 17:45:00 99 /min University of Arterial blood by [facility] faye Pulse oximetry Branch Systolic blood 2022-01-27 15:17:00 138 mm[Hg] Univer sity of pressure [facility] Diastolic blood 2022-01-27 15:17:00 80 mm[Hg] Unive rsity of pressure [facility] Body weight 2022-01-27 15:17:00 140.615 kg [facility] BMI 2022-01-27 15:17:00 50.04 kg/m2 [facility] Systolic blood 2021-12-12 18:43:00 134 mm[Hg] Univer sity of pressure [facility] Diastolic blood 2021-12-12 18:43:00 71 mm[Hg] Unive rsity of pressure [facility] Heart rate 2021-12-12 18:43:00 71 /min [facility] Respiratory rate 2021-12-12 18:43:00 18 /min Univ [facility] Oxygen saturation in 2021-12-12 18:43:00 96 /min University of Arterial blood by [facility] Pulse oximetry Branch Body temperature 2021-12-12 18:41:00 36.22 [place] Univ ers[facility] Body height 2021-12-12 18:41:00 167.6 cm [facility] Body weight 2021-12-12 18:41:00 141.613 kg [facility] BMI 2021-12-12 18:41:00 50.39 kg/m2 [facility] Systolic blood 2021-12-12 18:46:00 150 mm[Hg] Univer sity of pressure [facility] Diastolic blood 2021-12-12 18:46:00 90 mm[Hg] Unive rsity of pressure [facility] Heart rate 2021-12-12 13:31:00 61 /min [facility] Body temperature 2021-12-12 13:31:00 36.39 [place] Univ [facility] Body height 2021-12-12 13:31:00 167.6 cm [facility] Body weight 2021-12-12 13:31:00 141.114 kg [facility] BMI 2021-12-12 13:31:00 50.21 kg/m2 [facility] Oxygen saturation in 2021-12-12 13:31:00 100 /min University of Arterial blood by [facility] Pulse oximetry Branch Systolic blood 2021-11-21 14:44:00 176 mm[Hg] Univer sity of pressure [facility] Diastolic blood 2021-11-21 14:44:00 84 mm[Hg] Unive rsity of pressure [facility] Heart rate 2021-11-21 14:39:00 90 /min [facility] Body height 2021-11-21 14:39:00 167.6 cm [facility] Body weight 2021-11-21 14:39:00 141.976 kg [facility] BMI 2021-11-21 14:39:00 50.52 kg/m2 Universi ty [facility] Oxygen saturation in 2021-11-21 14:39:00 95 /min University Arterial blood by [facility] Pulse oximetry Branch Procedures Procedure Date / Time Performing Clinician Source Performed [facility] PATIENT FINANCIAL 2022-05-05 14:45:42 Doctor Unassigned, [facility] POLICY [facility] PULMONARY FUNCTION TEST 2022-04-16 14:41:34 Fany Richard [facility] (RESULTS) Medical [place] DME/SUPPLY JUSTIFICATION 2022-04-07 06:01:00 Doctor Unassigned, [facility] [place] SLEEP STUDY DATA REPORT 2022-03-20 06:01:00 Doctor Unassigned, [facility] INSURANCE CORRESPONDENCE 2022-01-26 06:01:00 Doctor Unassigned, [facility] INSURANCE CORRESPONDENCE 2021-12-25 05:01:00 Doctor Unassigned, [facility] INSURANCE CORRESPONDENCE 2021-12-10 05:01:00 Doctor Unassigned, [facility] [place] EXTERNAL COLONOSCOPY 2020-01-01 10:30:00 Doctor Unassigned, [facility] [place] Encounters Start End Encounter Admission Attending Care Care Encounter Source Date/Time Date/Time Type Type Clinicians Facility Department ID 2023-01-22 2023-01-22 Telephone Ok Yap UNIVERS 1.2.840.114 [id number] Univers 00:00:00 00:00:00 [facility] 350.1.13.10 i [place] [id number] [facility] [address] Branch 2023-01-20 2023-01-20 Driller Operator [facility] UNIVERSIT 1.2.840.114 1 [id number] Univers 15:30:00 15:45:00 Visit Archana De La Torre [facility] 350.1.13.10 ity of [place] [id number] [facility] [address] 2023-01-20 2023-01-20 [facility] 1.2.84 0.114 [id number] Univers 15:00:00 15:30:00 Visit BrittArchana Scooby Miquel HEALTH 350.1.13.10 ity [place] [id number] [address] 2023-01-20 2023-01-20 [facility] [id number] Univers 15:00:00 15:00:00 ARCHANA ramires [facility] 2023-01-20 2023-01-20 Letter Ok Yap UNIVERSIT 1.2.840.114 1 [id number] Univers 00:00:00 00:00:00 (Out) [facility] Y HEALTH 350.1.13.10 i ty [place] [id number] [address] 2023-01-18 2023-01-18 Driller Operator Lab, [place] [facility] 1.2.840.1 14 [id number] Univers 07:45:00 08:00:00 Visit Audrey Ness HEALTH 350.1.13.10 ity of [place] 4.2.7.2.686 Michael as BALDEV?BLEA [id number] [address] MEDICAL OFFICE BUILDING 2023-01-18 2023-01-18 Outpatient [facility] [id number] Univers 07:45:00 07:41:14 AUDREY ramires [facility] 2023-01-14 2023-01-14 Telephone Ok Yap [facility] 1.2.840.114 [id number] Univers 00:00:00 00:00:00 [facility] HEALTH 350.1.13.10 i ty [place] [id number] [address] 2023-01-12 2023-01-12 Outpatient R MARVA [facility] [id number] Univers 13:30:00 13:30:00 KEYLA ramires o f [facility] 2023-01-12 2023-01-12 Telephone [facility] 1.2.652.398 [id number] Univers 00:00:00 00:00:00 Audrey A HEALTH 350.1.13.10 i ty of [place] 4.2.7.2.686 Michael as BALDEV?BLEA [id number] Az bassam [address] MEDICAL OFFICE BUILDING 2023-01-11 2023-01-11 Telephone Ok Yap [facility] 1.2.840.114 [id number] Univers 00:00:00 00:00:00 [facility] HEALTH 350.1.13.10 i ty [place] [id number] [address] 2023-01-04 2023-01-04 Outpatient GC_GCBZW_Ka PRIV PRIV [id number] [facility] 00:00:00 00:00:00 diyala_S [id number] Medic al 2023-01-03 2023-01-03 Outpatient GC_GCBZW_Ka PRIV PRIV [id number] [facility] 00:00:00 00:00:00 diyala_S [id number] Medic al 2022-12-25 2022-12-25 Patient Doctor KOBY 1.2.840.114 [id number] Univers 00:00:00 00:00:00 Secure Msg Unassigned, ARYAN 350.1.13.[address] [facility] 4.2.7.2.686 Michael as [id number] [address] 2022-12-22 2022-12-22 Telephone Ok Yap [facility] 1.2.840.114 [id number] Univers 00:00:00 00:00:00 [facility] 350.1.13.10 i ty [place] [id number] [address] 2022-12-15 2022-12-15 Outpatient R EARL, [facility] [id number] Univers 15:40:00 15:40:00 IZABELA ity [facility] 2022-11-25 2022-11-25 Office Ok Yap [facility] 1.2.84 0.114 [id number] Univers 13:00:00 14:00:00 Visit Acrhana De La Torre Y HEALTH 350.1.13.10 ity of [place] [id number] [address] 2022-11-25 2022-11-25 Outpatient R BRITT [facility] [id number] Univers 13:00:00 13:00:00 ARCHANA miquel [facility] 2022-11-25 2022-11-25 Letter Fracisco Ok BRETT 1.2.840.114 1 [id number] Univers 00:00:00 00:00:00 (Out) [place] Y HEALTH 350.1.13.10 i ty [place] [id number] [address] 2022-11-19 2022-11-19 Outpatient R THI [facility] [id number] Univers 07:45:00 08:11:19 AUDREY ramires [facility] 2022-11-19 2022-11-19 Driller Operator Lab, [place] [facility] 1.2.840.1 14 [id number] Univers 07:45:00 08:11:19 Visit Audrey Ness A HEALTH 350.1.13.10 ity of [place] 4.2.7.2.686 Michael as BALDEV?BLEA [id number] [facility] [address] [place] MEDICAL OFFICE BUILDING 2022-11-17 2022-11-17 Telephone Fracisco Ok BRETT 1.2.840.114 [id number] Univers 00:00:00 00:00:00 We[place] Y HEALTH 350.1.13.10 i ty [place] [id number] [address] 2022-11-01 2022-11-01 Telephone [facility] 1.2.337.915 [id number] Univers 00:00:00 00:00:00 Audrey A HEALTH 350.1.13.10 i ty of [place] 4.2.7.2.686 Michael as BALDEV?BLEA [id number] [facility] [address] [place] MEDICAL OFFICE BUILDING 2022-10-31 2022-10-31 Patient Doctor KOBY 1.2.840.114 [id number] Univers 00:00:00 00:00:00 Secure Msg Unassigned, ARYAN 350.1.13.[address] [facility] 4.2.7.2.686 Michael as [id number] [address] 2022-10-29 2022-10-29 Driller Operator Lab, Ang - Db [facility] 1.2.840.1 14 [id number] Univers 15:30:00 15:45:00 Visit Thi Audrey Vallecillo [facility] 350.1.13.10 ity of [place] 4.2.7.2.686 Michael as BALDEV?BLEA [id number] Az bassam [facility] [address] [place] MEDICAL OFFICE [facility] 2022-10-29 2022-10-29 Outpatient [facility] [id number] Univers 14:30:00 15:31:41 AUDREY ity [facility] 2022-10-29 2022-10-29 Office [facility] 1.2.840.114 [id number] Univers 14:30:00 15:31:41 Visit [facility] Uniiverse 350.1.13.10 i ty of [place] 4.2.7.2.686 Michael as BALDEV?BLEA [id number] Az bassam [facility] [address] [facility] OFFICE [facility] 2022-10-22 2022-10-22 Telephone [facility] 1.2.106.462 [id number] Univers 00:00:00 00:00:00 Emprego Ligado 350.1.13.10 it y of [place] 4.2.7.2.686 Michael as BALDEV?BLEA [id number] [facility] [address] [facility] OFFICE [facility] 2022-10-19 2022-10-19 Outpatient R [facility] [id number] Univers 08:00:00 08:52:25 JACKIE itmiquel [facility] 2022-10-19 2022-10-19 Office [facility] 1.2.840.114 [id number] Univers 08:00:00 08:52:25 Visit Emprego Ligado 350.1.13.10 it y of [place] 4.2.7.2.686 Michael as BALDEV?BLEA [id number] [facility] [address] [facility] OFFICE [facility] 2022-10-19 2022-10-19 Letter [facility] 1.2.840.114 [id number] Univers 00:00:00 00:00:00 (Out) Jackie HEALTH 350.1.13.10 it y of [place] 4.2.7.2.686 Michael as BALDEV?BLEA [id number] [facility] [address] [place] MEDICAL OFFICE [facility] 2022-10-19 2022-10-19 [facility] 1.2.840.114 [id number] Univers 00:00:00 00:00:00 Audrey A HEALTH 350.1.13.10 i ty of [place] 4.2.7.2.686 Michael as BALDEV?BLEA [id number] [address] OFFICE [facility] 2022-10-08 2022-10-08 Refill [facility] 1.2.840.114 [id number] Univers 00:00:00 00:00:00 Audrey A HEALTH 350.1.13.10 i ty of [place] 4.2.7.2.686 Michael as BALDEV?BLEA [id number] [address] OFFICE [facility] 2022-08-18 2022-08-18 Refill KOBY Jackson 1.2.840.114 [id number] Univers 00:00:00 00:00:00 Sara Whelan ARYAN 350.1.13.[address] [facility] 4.2.7.2.686 Michael as [id number] [address] 2022-08-17 2022-08-17 Patient [facility] 1.2.840.114 [id number] Univers 00:00:00 00:00:00 Secure Msg Audrey A HEALTH 350.1.13.10 [facility] 4.2.7.2.686 Michael as BALDEV?BLEA [id number] [address] OFFICE [facility] 2022-08-12 2022-08-12 Refill [facility] 1.2.840.114 [id number] Univers 00:00:00 00:00:00 Audrey A HEALTH 350.1.13.10 i ty of [place] 4.2.7.2.686 Michael as BALDEV?BLEA [id number] [facility] [address] [place] MEDICAL OFFICE [facility] 2022-08-12 2022-08-12 Refill [facility] 1.2.840.114 [id number] Univers 00:00:00 00:00:00 Izabela L HEALTH 350.1.13.10 it y of [place] 4.2.7.2.686 [place] LAMB [id number] [place] [address] [place] OFFICE [facility] 2022-08-10 2022-08-10 Outpatient R WAYLON [facility] [id number] Univers 09:40:00 10:02:30 REENU ity of [facility] 2022-08-10 2022-08-10 [facility]gent [facility] [place] 1.2.840.11 4 [id number] Univers 09:40:00 10:02:30 Care Unknown, Attending HEALTH 350.1.13.10 ity of [place] 4.2.7.2.686 Michael as BALDEV?BLEA [id number] [facility] [address] [facility] OFFICE [facility] 2022-07-31 2022-07-31 Outpatient R FANY RICHARD [facility] [id number] Univers 09:30:00 09:30:00 FANY RICHARD i ty of [facility] 2022-07-01 2022-07-01 Refill KOBY Zarate 1.2.840.114 [id number] Univers 00:00:00 00:00:00 Jena BAEZA 350.1.13.10 it y of HOSPITAL 4.2.7.2.686 Michael as [id number] [address] 2022-06-25 2022-06-25 Refill Thi [facility] 1.2.840.114 [id number] Univers 00:00:00 00:00:00 Audrey A HEALTH 350.1.13.10 i ty of [place] 4.2.7.2.686 Michael as BALDEV?BLEA [id number] [facility] 0[address] [facility] OFFICE [facility] 2022-06-23 2022-06-23 Telephone [facility] 1.2.449.600 [id number] Univers 00:00:00 00:00:00 Izabela RUEDA 350.1.13.10 i ty of [place].2.7.2.[place] [id number] Az dical NAL 059 [facility] 2022-06-22 2022-06-22 Telephone [place], UNIVERSIT 1.2.840.114 1 [id number] Univers 00:00:00 00:00:00 Nephrology Y HEALTH 350.1.13.10 ity of CL[place].2.[place] [id number] [address] 2022-06-15 2022-06-15 Driller Operator Soila, Adc Lab Main [facility] 1.2.8 40.114 [id number] Univers 16:30:00 16:45:00 Visit Izabela Elliott 350.1.13.10 ity of [place] 4.2.7.2.[place] [id number] [facility] 353 [facility] 2022-06-15 2022-06-15 Outpatient [facility] [id number] Univers 16:30:00 16:30:[address] [facility] 2022-06-15 2022-06-15 [facility] 1.2.840.114 [id number] Univers 15:40:00 16:12:15 Visit Izabela Bobo MOHIT 350.1.13.10 i ty of [place] 4[place]2.7.2.[place] [id number] [place] [address]239 [facility] 2022-06-15 2022-06-15 Letter [facility] 1.2.840.114 [id number] Univers 00:00:00 00:00:00 (Out) Izabela VAMRAAIMEE 350.1.13.10 i ty of [place] 4.2.7.2.686 [place] [id number] Az dical NAL 059 [facility] 2022-06-12 2022-06-12 Outpatient R BRENNAN DIETRICH [facility] [id number] Univers 20:00:00 20:00:00 BRENNAN DIETRICH ity [facility] 2022-06-11 2022-06-11 Telephone [facility] 1.2.353.938 [id number] Univers 00:00:00 00:00:00 Audrey A HEALTH 350.1.13.10 i ty of [place] 4.2.7.2.686 Michael as BALDEV?BLEA [id number] [address] OFFICE [facility] 2022-05-27 2022-05-27 Outpatient Leia ELLIOTT [facility] [id number] Univers 08:00:00 08:00:00 IZABELA miquel [facility] 2022-05-27 2022-05-27 Refill [facility] 1.2.840.114 [id number] Univers 00:00:00 00:00:00 Audrey A HEALTH 350.1.13.10 i ty of [place] 4.2.7.2.686 Michael as BALDEV?BLEA [id number] [address] OFFICE [facility] 2022-05-19 2022-05-19 Refill [facility] 1.2.840.114 [id number] Univers 00:00:00 00:00:00 Audrey A HEALTH 350.1.13.10 i ty of [place] 4.2.7.2.686 Michael as BALDEV?BLEA [id number] [address] 2022-05-19 2022-05-19 Refill [facility] 1.2.840.114 [id number] Univers 00:00:00 00:00:00 Prashant HEALTH 350.1.13.10 it y of [place] 4.2.7.2.686 Michael as BALDEV?BLEA [id number] [address] OFFICE [facility] 2022-05-13 2022-05-13 Outpatient Leia TIRADO [facility] [id number] Univers 00:00:00 00:00:00 TABITHA miquel [facility] 2022-05-05 2022-05-05 Outpatient Leia TIRADO [facility] [id number] Univers 09:00:00 09:52:[address] [facility] 2022-05-05 2022-05-05 Office Provider, Ang-Rmchp Temp [facility] 1 .2.840.114 [id number] Univers 09:00:00 09:52:58 Visit Tabitha Tirado RN TRANSPLANT 350.1.13.1 0 ity of [facility] 4.2.7.2.686 Michael as MATERNAL [id number] [facility] ical & CHILD [address] [place] [address] 2022-05-05 2022-05-05 Orders Doctor KOBY 1.2.840.114 [id number] Univers 00:00:00 00:00:00 Only Unassigned, ARYAN 350.1.13.[address] [facility] 4.2.7.2.686 Michael as [id number] [facility] [address] [place] 2022-05-05 2022-05-05 Letter Candida [facility] 1.2.840.114 [id number] Univers 00:00:00 00:00:00 (Out) Tabitha Vallecillo RN TRANSPLANT 350.1.13.10 i ty of [facility] 4.2.7.2.686 Michael as MATERNAL [id number] [facility] ical & CHILD [address] [place] [address] 2022-04-23 2022-04-23 Patient KOBY Richard 1.2.840.114 [id number] Univers 00:00:00 00:00:00 Secure Msg Fany BAEZA 350.1.13.[address] [facility] 4.2.7.2.686 Michael as [id number] [facility] [address] [place] 2022-04-21 2022-04-21 Outpatient R FANY RICHARD [facility] 10 [id number] Univers 09:00:00 09:42:37 FANY RICHARD i ty of [facility] 2022-04-21 2022-04-21 Office Janine MIJORGE 1.2.840.114 [id number] Univers 09:00:00 09:42:37 [facility] 350.1.13.10 i ty of [place] 4.2.[place].2.[place] [id number] Az dical NAL 085 [facility] 2022-04-21 2022-04-21 Letter Janine [facility] 1.2.840.114 [id number] [facility] Univers 00:00:00 00:00:00 (Out) Fany RUEDA 350.1.13.10 i ty of [place] 4.2.7.2.[place] [id number] Az dical NAL 085 [facility] 2022-04-16 2022-04-16 Driller Operator Therapist, Adc Respiratory [facility] 1.2.840.114 [id number] Univers 08:00:00 09:30:00 Visit León Dias 350.1.13. 10 ity of [place].2.7.2.[place] [id number] [facility] [address] [place] 2022-04-16 2022-04-16 Outpatient R EARLE [facility] [id number] Univers 08:00:00 08:00:00 LEÓN ity [facility] 2022-04-16 2022-04-16 Orders Jnaine [facility] 1.2.443.632 [id number] Univers 00:00:00 00:00:00 Only Fany [facility] 350.1.13.10 i ty of [facility] 4.2.7.2.686 [place] [id number] [facility] [address] [place] 2022-04-07 2022-04-07 Orders Doctor KOBY 1.2.840.114 [id number] Univers 00:00:00 00:00:00 Only Unassigned, ARYAN 350.1.13.[address] [facility] 4.2.7.2.686 Michael as [id number] [facility] [address] 2022-04-03 2022-04-03 Telephone Janine [facility] 1.2.936.136 [id number] Univers 00:00:00 00:00:00 Fany RUEDA 350.1.13.10 i ty of [place].2.[place] [id number] Az dical NAL 085 [facility] 2022-04-01 2022-04-01 Case Her STAR 1.2.840.114 10 [id number] Univers 00:00:00 00:00:00 Management , Ronit DURBIN 350.1.13.10 ity of [place]2.7.2.[place] [id number] [facility] [address] [place] 2022-04-01 2022-04-01 Telephone Arden ROBLEROGray 1.2.840.114 [id number] Univers 00:00:00 00:00:00 , Ronit KELLEYY 350.1.13.10 ity of [place].2.[place] [id number] [place] 6[address] [place] 2022-03-24 2022-03-24 Refmerna Lawrence [facility] 1.2.840.114 [id number] Univers 00:00:00 00:00:00 Prashant HEALTH 350.1.13.10 it y of [place] 4.2.7.2.686 Michael as BALDEV?BLEA [id number] [address] MEDICAL OFFICE BUILDING 2022-03-20 2022-03-20 Driller Operator 1, [facility] Bed [facility] 1. 2.840.114 [id number] Univers 20:00:00 22:30:00 Visit Brennan Dietrich 350.1.13. 10 ity of [place] 4.2.7.2.686 [place] [id number] [facility] [address] 2022-03-20 2022-03-20 Outpatient R BRENNAN DIETRICH [facility] [id number] Univers 20:00:00 20:00:00 BRENNAN DIETRICH ity of [facility] 2022-03-20 2022-03-20 Orders Doctor KOBY 1.2.840.114 [id number] Univers 00:00:00 00:00:00 Only Unassigned, ARYAN 350.1.13.10 ity of [place] [facility] 4.2.7.2.686 Michael as [id number] [facility] [address] 2022-03-18 2022-03-18 Patient Thi, [facility] 1.2.840.114 [id number] Univers 00:00:00 00:00:00 Secure Msg Audrey A HEALTH 350.1.13.10 ity of [place] 4.2.7.2.686 Michael as BALDEV?BLEA [id number] [address] OFFICE [facility] 2022-03-14 2022-03-14 Refill Lawrence [facility] 1.2.840.114 [id number] Univers 00:00:00 00:00:00 Prashant HEALTH 350.1.13.10 it y [facility] 4.2.7.2.686 Michael as BALDEV?BLEA [id number] [address] OFFICE [facility] 2022-02-17 2022-02-17 Office Janine [facility] 1.2.840.114 [id number] Univers 11:30:00 12:15:21 Visit Fany RUEDA 350.1.13.10 i ty of [facility] [place] [phone] [address] 2022-02-17 2022-02-17 Outpatient R FANY RICHARD [facility] 10 [id number] Univers 11:30:00 12:15:21 FANY RICHARD i ty of [facility] 2022-02-17 2022-02-17 Letter Janine [facility] 1.2.840.114 [id number] Univers 00:00:00 00:00:00 (Out) Fany [facility] 350.1.13.10 [place] [phone] [address] 2022-02-16 2022-02-16 Patient Thi [facility] 1.2.840.114 [id number] Univers 00:00:00 00:00:00 Secure Msg Audrey A HEALTH 350.1.13.10 ity of [place] 4.2.7.2.686 Michael as BALDEV?BLEA [phone] [address] OFFICE [facility] 2022-02-15 2022-02-15 Refill Thi [facility] 1.2.840.114 [id number] Univers 00:00:00 00:00:00 Audrey A HEALTH 350.1.13.10 i ty of [place] 4.2.7.2.686 Michael as BALDEV?BLEA [phone] [address] OFFICE [facility] 2022-02-13 2022-02-13 Refill Thi [facility] 1.2.840.114 [id number] Univers 00:00:00 00:00:00 Audrey A HEALTH 350.1.13.10 i ty [facility] 4.2.7.2.686 Michael as BALDEV?BLEA [phone] [address] OFFICE [facility] 2022-02-11 2022-02-11 [facility] 1.2.840.114 [id number] Univers 00:00:00 00:00:00 Secure Msg Izabela Bobo HEALTH 350.1.13.10 [place]y [place] [phone] [address] OFFICE [facility] 2022-02-07 2022-02-07 Patient Doctor KOBY 1.2.840.114 [id number] Univers 00:00:00 00:00:00 Secure Msg Unassigned, ARYAN 350.1.13.10 ity of [place] [facility] 4.2.7.2.686 Michael as [phone] [address] 2022-01-27 2022-01-27 [facility] [id number] [employer] 09:20:00 09:52:59 IZABELA ity of [facility] 2022-01-27 2022-01-27 Office [facility] 1.2.840.114 [id number] Univers 09:20:00 09:52:59 Visit Izabelaamerica RUEDA 350.1.13.10 i ty of [place] [phone] [address] 2022-01-27 2022-01-27 Letter [facility] 1.2.840.114 [id number] Univers 00:00:00 00:00:00 (Out) Izabelaamerica RUEDA 350.1.13.10 i ty of [facility] [place] 4.[place].7.2.[place] [phone] [address] 2022-01-26 2022-01-26 Orders Doctor KOBY 1.2.840.114 [id number] Univers 00:00:00 00:00:00 Only Unassigned, ARYAN 350.1.13.[address] [place] [facility] 4.2.7.2.686 Michael as [phone] [address] 2022-01-20 2022-01-20 Outpatient R EARL [facility] [id number] Univers 08:40:00 08:40:00 IZABELA ramires [facility] 2022-01-07 2022-01-07 Refill [facility] 1.2.840.114 [id number] Univers 00:00:00 00:00:00 Audrey A [facility] 350.1.13.10 i ty of [place] 4.2.7.2.686 Michael as BALDEV?BLEA [phone] [address] OFFICE [facility] 2022-01-01 2022-01-01 Outpatient R [facility] [id number] Univers 14:26:47 23:59:00 VIKY ramires o f [facility] 2022-01-01 2022-01-01 Patient [facility] 1.2.840.114 [id number] Univers 00:00:00 00:00:00 Secure Msg Viky RUEDA 350.1.13.10 it[place] [phone] [address] 2022-01-01 2022-01-01 Letter [facility] 1.2.840.114 [id number] Univers 00:00:00 00:00:00 (Out) Viky RUEDA 350.1.13.10 ity of [place] [id number] [address] 2021-12-31 2021-12-31 Outpatient R [facility] [id number] Univers 08:30:00 08:30:00 AUDREY ramires [facility] 2021-12-25 2021-12-25 Orders Doctor WHALEN 1.2.840.114 [id number] Univers 00:00:00 00:00:00 Only Unassigned, ARYAN 350.1.13.10 ity of [place] [facility] 4.2.7.2.686 Michael as [phone] [address] 2021-12-19 2021-12-19 Patient [facility] 1.2.840.114 [id number] Univers 00:00:00 00:00:00 Secure Msg Audrey A HEALTH 350.1.13.10 ity of [place] 4.2.7.2.686 Michael as BALDEV?BLEA [phone] [facility] [address] MEDICAL OFFICE BUILDING 2021-12-19 2021-12-19 Refmerna Ghotra [facility] 1.2.840.114 [id number] Univers 00:00:00 00:00:00 [facility] HEALTH 350.1.13.10 ity [facility] 4.2.7.2.686 [place] as BALDEV?BLEA [phone] Az dical EY [address] MEDICAL OFFICE [facility] 2021-12-19 2021-12-19 Telephone [facility] 1.2.531.160 [id number] Univers 00:00:00 00:00:00 Audrey A HEALTH 350.1.13.10 i ty [facility] 4.2.7.2.686 Michael as BALDEV?BLEA [phone] Az dicBryan [facility] [address] MEDICAL OFFICE [facility] 2021-12-12 2021-12-12 Office Craig [facility] 1.2.840.114 [id number] Univers 14:00:00 14:12:49 [facility] 350.1.13.10 ity of [facility] [place] 4[place] [phone] Az dical NAL 059 [facility] 2021-12-12 2021-12-12 Driller Operator Lab, Ang - Felix [facility] 1.2.840.1 14 [id number] Univers 09:30:00 09:45:00 Visit [facility] HEALTH 350.1.13.10 ity [facility] 4.2.7.2.686 Michael as BALDEV?BLEA [phone] Az dical [facility] [address] MEDICAL OFFICE BUILDING 2021-12-12 2021-12-12 Outpatient R [facility] [id number] Univers 08:30:00 09:24:33 AUDREY ity of [facility] 2021-12-12 2021-12-12 [facility] 1.2.840.114 [id number] Univers 08:30:00 09:24:33 Visit Audrey Vallecillo HEALTH 350.1.13.10 i ty of [place] 4.2.7.2.686 Michael as BALDEV?BLEA [phone] Az dical GURVINDER 044 [facility] 2021-12-12 2021-12-12 Letter [facility] 1.2.840.114 [id number] Univers 00:00:00 00:00:00 (Out) Arnoldalia [place] 350.1.13.10 ity of [place] [phone] Az dical NAL 059 [facility] 2021-12-10 2021-12-10 Orders Doctor KOBY 1.2.840.114 [id number] Univers 00:00:00 00:00:00 Only Unassigned, ARYAN 350.1.13.[address] [facility] 4.2.7.2.686 Michael as [phone] [address] 2021-12-05 2021-12-05 Refill [facility] 1.2.840.114 [id number] Univers 00:00:00 00:00:00 Audrey A HEALTH 350.1.13.10 i ty of [place] 4.2.7.2.686 Michael as BALDEV?BLEA [phone] Az dical KNEY 044 [facility] OFFICE [facility] 2021-11-26 2021-11-26 Patient Doctor [facility] 1.2.840.114 [id number] Univers 00:00:00 00:00:00 Secure Msg Unassigned, HEALTH 350.1.13.10 ity of [place] 4.2.7.2.686 Michael as BALDEV?BLEA [phone] Az dical KNEY 092 [facility] 2021-11-21 2021-11-21 Outpatient R PARADISE, EDUARDO [facility] [id number] [facility] 10:00:00 11:17:28 EDUARDO GHOTRA ity of [facility] 2021-11-21 2021-11-21 Office Paradise [facility] 1.2.840.114 [id number] [facility] 10:00:00 11:17:28 Visit Eduardo Pacheco HEALTH 350.1.13.10 ity of [place] 4.2.7.2.686 Michael as BALDEV?BLEA [phone] [address] OFFICE [facility] 2021-10-30 2021-10-30 Patient Manuel [facility] 1.2.840.114 [id number] Univers 00:00:00 00:00:00 Secure Msg Sara M HEALTH 350.1.13.10 ity of [place] 4.2.7.2.686 Michael as BALDEV?BLEA [id number] [address] OFFICE [facility] 2021-10-30 2021-10-30 Patient [facility] 1.2.840.114 [id number] Univers 00:00:00 00:00:00 Secure Msg Audrey A HEALTH 350.1.13.10 ity of [place] 4.2.7.2.686 Michael as BALDEV?BLEA [phone] [address] OFFICE [facility] 2021-10-29 2021-10-29 Telephone [facility] 1.2.080.662 [id number] Univers 00:00:00 00:00:00 Audrey A HEALTH 350.1.13.10 i ty of [place] 4.2.7.2.686 Michael as BALDEV?BLEA [phone] [address] OFFICE [facility] 2021-10-27 2021-10-27 Patient [facility] 1.2.840.114 [id number] Univers 00:00:00 00:00:00 Secure Msg Audrey A HEALTH 350.1.13.10 ity of [place] 4.2.7.2.686 Michael as BALDEV?BLEA [phone] [address] OFFICE [facility] 2021-10-25 2021-10-25 Patient Doctor [facility] 1.2.840.114 [id number] Univers 00:00:00 00:00:00 Secure Msg Unassigned, HEALTH 350.1.13.10 ity of [place] 4.2.7.2.686 Michael as BALDEV?BLEA [phone] [facility] [address] MEDICAL OFFICE BUILDING 2021-10-25 2021-10-25 Patient Doctor KOBY 1.2.840.114 [id number] Univers 00:00:00 00:00:00 Secure Msg Unassigned, ARYAN 350.1.13.[address] [place] [facility] 4.2.7.2.686 Michael as [phone] [address] 2021-10-24 2021-10-24 Outpatient R THI, [facility] [id number] Univers 15:45:00 16:36:11 AUDREY ity [facility] 2021-10-24 2021-10-24 Driller Operator Lab, [facility] 1.2.840.1 14 [id number] Univers 15:45:00 16:36:11 Visit Xuan Nessjessica Vallecillo HEALTH 350.1.13.10 ity of [place] 4.2.7.2.686 Michael as BALDEV?BLEA [phone] [facility] [address] MEDICAL OFFICE [facility] 2021-10-24 2021-10-24 Driller Operator Lab, Ang [facility] 1.2.840.1 14 [id number] Univers 15:45:00 16:00:00 Visit Thi Audrey Vallecillo HEALTH 350.1.13.10 ity of [place] 4.2.7.2.686 Michael as BALDEV?BLEA [phone] [facility] 353 [facility] OFFICE [facility] 2021-10-24 2021-10-24 Outpatient R THI, [facility] [id number] Univers 14:00:00 15:20:03 AUDREY ity [facility] 2021-10-24 2021-10-24 Office Thi, [facility] 1.2.840.114 [id number] Univers 14:00:00 15:20:03 Visit Audrey Ruth Ann HEALTH 350.1.13.10 i ty of [place] 4.2.7.2.686 Michael as BALDEV?BLEA [phone] Az bassam HOLLINS [address] MEDICAL OFFICE BUILDING 2021-10-24 2021-10-24 Letter Thi [facility] 1.2.840.114 [id number] Univers 00:00:00 00:00:00 (Out) Audrey Ruth Ann HEALTH 350.1.13.10 i ty [facility] 4.2.7.2.686 Michael as BALDEV?BLEA [phone] Az bassam SIMPSON [address] MEDICAL OFFICE BUILDING 2021-10-24 2021-10-24 Patient Doctor [facility] 1.2.840.114 [id number] Univers 00:00:00 00:00:00 Secure Msg Unassigned, MULTISPEC 350.1.13.10 ity of [place].2.[place] [phone] [address] [facility] 2021-10-06 2021-10-06 [facility] 1.2.855.102 [id number] Univers 15:55:10 23:59:00 [facility] 350.1.13.10 ity of [place] 4.2.7.2.686 Michael as BALDEV?BLEA [phone] Az bassam HOLLINS [address] MEDICAL OFFICE [facility] 2021-10-06 2021-10-06 Outpatient Leia QUEEN [facility] [id number] Univers 15:20:00 16:19:36 BELL ity of [facility] 2021-10-06 2021-10-06 [facility] 1.2.840.114 [id number] Univers 15:20:00 16:19:36 Keyla Queen [facility] 350.1.13.10 ity of [facility] 4.2.7.2.686 Michael as BALDEV?BLEA [phone] Az bassam HOLL[place] [address] MEDICAL OFFICE BUILDING 2021-10-06 2021-10-06 Orders Doctor KOBY 1.2.840.114 [id number] Univers 00:00:00 00:00:00 Only Unassigned, ARYAN 350.1.13.10 ity of [place] [facility] 4.2.7.2.686 Michael as [phone] [facility] [address] 2021-10-06 2021-10-06 Letter Provider, [facility] 1.2.488.569 [id number] Univers 00:00:00 00:00:00 (Out) Ang Db HEALTH 350.1.13.10 it y of Urgent Care [place] 4.2.7.2.686 [place] BALDEV?BLEA [phone] Az dical GURVINDER [address] MEDICAL OFFICE BUILDING 2020-11-25 2020-11-25 Telephone Provider, [facility] 1.2.840.114 [id number] Univers 00:00:00 00:00:00 Ang Db Health 350.1.13.10 it y of Urgent Care [place] 4.2.7.2.686 [place] Professio [phone] Az bassam [facility] [address] 2020-11-18 2020-11-18 Letter KOBY Stewart 1.2.840.114 [id number] Univers 00:00:00 00:00:00 (Out) Aneatrice ARYAN 350.1.13.10 ity of HOSPITAL 4.2.7.2.686 Michael as [phone] [facility] [address] 2020-11-17 2020-11-17 Outpatient Leia JACOB [facility] [id number] Univers 15:20:00 15:20:00 DEDRICK ity [facility] 2020-11-17 2020-11-17 Urgent Provider, [facility] 1.2.840.114 [id number] Univers 12:24:40 12:44:40 Keyla Jacob [facility] 350.1.13.10 ity of [place] 4.2.7.2.686 Michael as Abldev?Blea [phone] [facility] 370 [facility] Office Building 2020-06-21 2020-06-21 Outpatient Leia ALDANA [facility] [id number] Univers 14:10:00 14:10:00 VALENTIN ity [facility] 2020-05-31 2020-05-31 Outpatient [facility] [id number] Univers 14:10:00 14:10:00 ity of [facility] 2020-05-31 2020-05-31 Outpatient [facility] [id number] Univers 14:10:00 14:10:00 [facility] 2019-09-27 2019-09-27 Outpatient R CESILIA [facility] [id number] Univers 09:00:00 09:00:[address] [facility] 2019-09-13 2019-09-13 Patient Doctor [facility] 1.2.840.114 [id number] Univers 00:00:00 00:00:00 Secure Msg Unassigned, HEALTH 350.1.13.10 ity of [place] 4.2.7.2.686 Michael as PROFESSIO [phone] Az dical [address] OFFICE BUILDING ONE 2019-09-11 2019-09-11 Outpatient R [facility] [id number] Univers 10:20:00 10:20:00 [facility] 2019-03-19 2019-03-19 Outpatient R [facility] [id number] Univers 16:45:00 23:59:[address] [facility] Results Test Description Test Time Test Comments Results Result Comments Source PULMONARY FUNCTION TEST (RESULTS) 2022-04-16 14:41:34 Test Item Value Reference Range Interpretation Comme nts FVC Actual (test code = 3994) 2.55 L FEV1 Actual (test code = 3993) 2.18 L FEV1/FVC Actual (test code = 3995) 85 % [facility] [id number] 10:30:00 Test Item Value Reference Range Interpretation Comments JANET (test code = JANET) Cologuard (01/01/2020 5:30 AM CDT) ?[employer] (CLIA #:[id number]) COLOGUARD Routine 01/01/2020 5:30 AM CDT Encounter for screening for malignant neoplasm of colon/Stool specimen (specimen) - Per RectumEncounter for screening for malignant neoplasm of rectum? ? A negative result indicates a low likelihood that a colorectal cancer (CRC) or an advanced adenoma (adenomatous polyps with more advanced pre-malignant features) is present. The chance that a person with a negative Cologuard test has a colorectal cancer is less than 1 in 1500 (negative predictive value >99.9%) or has an advanced adenoma is less than 5.3% (negative predictive value 94.7%). These data are based on a prospective cross-sectional screening study of 10,000 individuals at average risk for colorectal cancer who were screened with both Cologuard and colonoscopy. (Jason Galeas al, N Engl J Med 2014;370(14):3643-3676) The normal value (reference range) for this assay is negative. COLOGUARD RE-SCREENING RECOMMENDATION: Periodic routine colorectal cancer screening is an important part of preventive healthcare for asymptomatic persons at average risk for colorectal cancer. Following a negative Cologuard result, the [place] Cancer Society and U.S. Multi-Society Task Force screening guidelines recommend a Cologuard re-screening interval of 3 years. References: [employer] Cancer Society (ACS). Colorectal cancer prevention and early detection. [place], [place]: [place] [employer]; [updated 2015Jun 29]. https://www.cancer.org/ cancer/mjfto-scgosd-jzo cer/detection-diagnosis -staging/acs-recommenda tions.html. Accessed November 05, 2017; Valentin DK, Coy STEVE, Carolina BrockK, Colorectal Cancer Screening: Recommendations for Physicians and Patients from the U.S. Multi-Society Task Force on Colorectal Cancer Screening, Am J Gastroenterology 2017; 112:5718-1572.TEST TYPE: Composite algorithmic analysis of stool DNA-biomarkers with hemoglobin immunoassay. ?Quantitative values of individual biomarkers are not reportable and are not associated with individual biomarker result reference ranges.PRECAUTIONS AND LIMITATIONS: Cologuard is intended for colorectal cancer screening of adults of either sex, 45 years or older, who are at average-risk for colorectal cancer (CRC). Cologuard has been approved for use by the U.S. FDA. Cologuard may produce a false negative or false positive result. A negative Cologuard test result does not guarantee the absence of CRC or advanced adenoma (pre-cancer). Patients with a negative Cologuard test result should be advised to continue participating in a colorectal cancer screening program. The screening interval for Cologuard is currently recommended at an interval of every 3 years by the [employer] Cancer Society and U.S. Multi-Society Task Force. A false positive result occurs when Cologuard produces a positive result, even though a colonoscopy may not find colorectal cancer or precancerous polyps. The performance of Cologuard has been established in a cross sectional study (i.e., single point in time) of average-risk adults aged 50-84. Cologuard performance in patients ages 45 to 49 years was estimated by sub-group analysis of near-age groups. Cologuard performance data in a 10,000 patient pivotal study using colonoscopy as the reference method can be accessed at the following location: [email or web address]. Additional description of the Cologuard test process, warnings and precautions can be found at [email or web address]. Rx only. Lab Interpretation Normal (test code = 76596-0) [facility] [id number] 10:30:00 Test Item Value Reference Range Interpretation Comments JANET (test code = JANET) Cologuard (01/01/2020 5:30 AM CDT) ?[employer] (CLIA #:[id number])Ordered by: Asia Toro Frank E Jr., in [place], [place]. COLOGUARD Routine 01/01/2020 5:30 AM CDT Encounter for screening for malignant neoplasm of colon/Stool specimen (specimen) - Per RectumEncounter for screening for malignant neoplasm of rectum? ? A negative result indicates a low likelihood that a colorectal cancer (CRC) or an advanced adenoma (adenomatous polyps with more advanced pre-malignant features) is present. The chance that a person with a negative Cologuard test has a colorectal cancer is less than 1 in 1500 (negative predictive value >99.9%) or has an advanced adenoma is less than 5.3% (negative predictive value 94.7%). These data are based on a prospective cross-sectional screening study of 10,000 individuals at average risk for colorectal cancer who were screened with both Cologuard and colonoscopy. (Jason Galeas al, N Engl J Med 2014;370(14):4589-1428) The normal value (reference range) for this assay is negative. COLOGUARD RE-SCREENING RECOMMENDATION: Periodic routine colorectal cancer screening is an important part of preventive healthcare for asymptomatic persons at average risk for colorectal cancer. Following a negative Cologuard result, the [place] Cancer Society and U.S. Multi-Society Task Force screening guidelines recommend a Cologuard re-screening interval of 3 years. References: [employer] Cancer Society (ACS). Colorectal cancer prevention and early detection. [place], [place]: [place] Cancer Society; [updated 2015Jun 29]. https://www.cancer.org/ cancer/qvtwy-rndpdv-wbu cer/detection-diagnosis -staging/acs-recommenda tions.html. Accessed November 05, 2017; Valentin DK, Coy STEVE, Carolina BrockK, Colorectal Cancer Screening: Recommendations for Physicians and Patients from the U.S. Multi-Society Task Force on Colorectal Cancer Screening, Am J Gastroenterology 2017; 112:7848-1652.TEST TYPE: Composite algorithmic analysis of stool DNA-biomarkers with hemoglobin immunoassay. ?Quantitative values of individual biomarkers are not reportable and are not associated with individual biomarker result reference ranges.PRECAUTIONS AND LIMITATIONS: Cologuard is intended for colorectal cancer screening of adults of either sex, 45 years or older, who are at average-risk for colorectal cancer (CRC). Cologuard has been approved for use by the U.S. FDA. Cologuard may produce a false negative or false positive result. A negative Cologuard test result does not guarantee the absence of CRC or advanced adenoma (pre-cancer). Patients with a negative Cologuard test result should be advised to continue participating in a colorectal cancer screening program. The screening interval for Cologuard is currently recommended at an interval of every 3 years by the [employer] Cancer Society and U.S. Multi-Society Task Force. A false positive result occurs when Cologuard produces a positive result, even though a colonoscopy may not find colorectal cancer or precancerous polyps. The performance of Cologuard has been established in a cross sectional study (i.e., single point in time) of average-risk adults aged 50-84. Cologuard performance in patients ages 45 to 49 years was estimated by sub-group analysis of near-age groups. Cologuard performance data in a 10,000 patient pivotal study using colonoscopy as the reference method can be accessed at the following location: [email or web address] [email or web address]. Additional description of the Cologuard test process, warnings and precautions can be found at www.[email or web address].com. Rx only. Lab Interpretation Normal (test code = 60979-8) [facility] Notes Date/Time Note Provider Source 2022-11-19 07:45:00 [id number]:45:00Formatting of this [facility] note is different from the original.Images from the original note were not included.Venipuncture collection performed by clean technique on the left anticubitus. Total of 1 attempts were made. Slight pressure and a bandage/dressing were applied to the site(s). The patient experienced no complications. The following specimens were processed according to instructions and sent to [facility] laboratories per lab order on 11/19/2022 : LT BLUE SST 2 RED LAV 1 PPT DK GREEN (LiHep) DK GREEN (SodH) STUBBS DK BLUE (K2) DK BLUE (S) ACD Blood Culture NIPT/NTD Patient has been identified by and name and was provided with cup, antiseptic towelette, and clean catch instructions. 3 urine specimen(s) sent. Unpreserved 3 Urine Culture Aptima tube Other urine 20531-6Atfzm TemoLB7392-53-08T44:11:54Nurse NoteTXT1.2.840.554733.1.13.104.2.7.2.7278 79|[id number] for patient sypg71745-1Xqzho NoteLNUT[address] Tt[id number] SPDUISIBWKDYKDSRN6133-62-93H47:11:541.2.8 40.692111.1.72.3.15|1.2.840.241896.1.13.1 04.2.7.2.727879_[id number] 2022-11-17 17:25:10 2673-29-22E24:25:10Formatting of this [facility] note might be different from the original.Chart reviewed. Labs ordered for upcoming Nephrology appointment per guidelines. MyChart message and/or letter sent to patient as an appointment reminder. 83252-4Ofxaawgnt encounter QknjYE8532-34-19N39:29:26Telephone encounter NoteTXT1.2.840.067163.1.13.104.2.7.2.7278 79|[id number] for patient mccu28832-0BxhlTVMVRWEPXR[address] Scott [id number] XTHRXRAQPSFHZZNGF4694-65-27M42:29:261.2.8 40.292149.1.72.3.15|1.2.840.090654.1.13.1 04.2.7.2.727879_[id number] 2022-10-29 15:30:00 0666-55-91I75:30:00Formatting of this [facility] note is different from the original.Images from the original note were not included.Pt is here to complete all labs for Audrey Ness PA . Fabricio Carver 10/29/2022 3:33 PMVenipuncture collection performed by clean technique on the right anticubitus. Total of 3 attempts were made. Slight pressure and a bandage/dressing were applied to the site(s). The patient experienced no complications. The following specimens were processed according to instructions and sent to [facility] laboratories per lab order on 10/29/2022: LT BLUE SST 3 RED LAV 2 PPT DK GREEN (LiHep) DK GREEN (SodH) STUBBS DK BLUE (K2) DK BLUE (S) ACD Blood Culture NIPT/NTD 94413-4Rjxfc WrmoDS3557-51-28E06:45:14Nurse NoteTXT1.2.840.952971.1.13.104.2.7.2.7278 79|[id number] for patient xycu74210-7Hfnco Note[address] Shah [id number] XYZCWYPHAXJINGWHF4294-53-93G66:45:141.2.8 40.844589.1.72.3.15|1.2.840.237716.1.13.1 04.2.7.2.727879_[id number] 2022-10-25 15:58:22 9952-77-93Y83:58:22Formatting of this [facility] note might be different from the original.Follow-up for refills and fasting labs. 64190-4Gesweplxz encounter TmlmHL5484-23-37V69:58:27Telephone encounter NoteTXT1.2.840.710499.1.13.104.2.7.2.7278 79|[id number] for patient iiou95183-4VgqsXYBRJUDMUM[address] Oq[id number] KKEEKOERUDXGWTJRA7278-50-38W27:58:271.2.8 40.017090.1.72.3.15|1.2.840.926136.1.13.1 04.2.7.2.727879_[id number] 2022-10-22 09:27:35 0905-65-94L48:27:35Formatting of this Low pat[place] [facility] note might be different from the original.Divya,The prior authorization has been approved for the following medication:Drug: UbrelvyInsurance: Optum RXPA#: [id number] Expires: 01/21/2023overMyMeds Ricardo: [id number] We will be reaching out to the patient to schedule a pickling operator or delivery of the medication and beauty counselor the patient on use. Thank you 69258-9Gtumufsro encounter [id number] encounter [id number] for patient [id number] [address] O[id number] [id number] 2022-10-09 08:23:40 [id number]:23:40Formatting of this [facility] note is different from the original.Images from the original note were not included.Requested Renewals Name from pharmacy: LEVOTHYROXINE 75 MCG TABLET Will file in chart as: LEVOTHYROXINE 75 mcg tablet Sig: TAKE ONE TABLET BY MOUTH EVERY MORNING Disp: 30 tablet Refills: 5 (Pharmacy requested: Not specified) Start: 10/08/2022 Class: eRX For: Acquired hypothyroidism Last ordered: 11 months ago (10/24/2021) by MIKE Mcfadden Last refill: 08/14/2022 Rx #: [id number] Endocrinology: Hypothyroid Agents Failed 10/08/2022 09:25 PM Protocol Details Manual Review: ENT providers forward refill request to PCP. Valid encounter within last 12 months TSH in normal range and within 360 days Name from pharmacy: hydroCHLOROthiazide 25 MG TABLET Will file in chart as: HYDROCHLOROTHIAZIDE 25 mg tablet Sig: TAKE ONE TABLET BY MOUTH EVERY MORNING Disp: 30 tablet Refills: 0 (Pharmacy requested: Not specified) Start: 10/08/2022 Class: eRX For: Uncontrolled hypertension Last ordered: 1 month ago (08/19/2022) by MIKE Mcfadden Last refill: 08/19/2022 Rx #: [id number] Cardiovascular: Misc. Diuretics Failed 10/08/2022 09:25 PM Protocol Details Cr in normal range and within 180 days Valid encounter within last 12 months K in normal range and within 180 days Na in normal range and within 180 days Name from pharmacy: ATENOLOL 50 MG TABLET Will file in chart as: ATENOLOL 50 mg tablet Sig: TAKE ONE TABLET BY MOUTH EVERY MORNING Disp: 30 tablet Refills: 5 (Pharmacy requested: Not specified) Start: 10/08/2022 Class: eRX For: Uncontrolled hypertension Last ordered: 10 months ago (12/12/2021) by MIKE Mcfadden Last refill: 08/14/2022 Rx #: [id number] Cardiovascular: Beta Blockers Passed 10/08/2022 09:25 PM Protocol Details Valid encounter within last 12 months Heart rate within normal limits and completed in the last 12 months Name from pharmacy: ATORVASTATIN 20 MG TABLET Will file in chart as: ATORVASTATIN 20 mg tablet Sig: TAKE 1 TABLET BY MOUTH AT BEDTIME ( MUST BE SEEN FOR FURTHER REFILLS) Disp: 30 tablet Refills: 0 (Pharmacy requested: Not specified) Start: 10/08/2022 Class: eRX For: Hypercholesterolemia Last ordered: 1 month ago (08/13/2022) by MIKE Mcfadden Last refill: 08/13/2022 Rx #: [id number] Cardiovascular: Antilipid - HMG-CoA Reductase Inhibitors Passed 10/08/2022 09:25 PM Protocol Details Valid encounter within last 12 months Total Cholesterol within 360 days LDL within 360 days HDL within 360 days Triglycerides within 360 days AST in normal range and within 360 days ALT in normal range and within 360 days To be filled at: [facility] [id number] [address] Recent VisitsDate Type Provider Dept 12/12/21 Office Visit Audrey Ness PA [facility] 10/24/21 Office Visit Audrey Ness PA [facility] Showing recent visits within past 540 days with a meds authorizing provider and meeting all other requirementsFuture AppointmentsNo visits were found meeting these conditions.Showing future appointments within next 150 days with a meds authorizing provider and meeting all other requirements [id number] encounter [id number]:23:53Telephone encounter [id number] for patient [id number] [id number] [id number] [id number]"
[2023-02-09 14:24] LABS: Absolute Lymphocytes (CBC) 0.9 K/uL (0.7-4.9); Hematocrit 37.5 % (36.0-45.0); Lymphocytes % 13.3 % (15.3-44.8); MCV 78.9 fL (80-100); MPV 9.6 fL (7.6-11.3); Platelets 211 thou/uL (152-406); RBC Red Blood Cell Count 4.75 M/uL (3.86-4.86)
[2023-02-09 14:37] LABS: Albumin 3.3 g/dL (3.4-5.0); Bilirubin Total 1.2 mg/dL (0.2-1.0); Potassium 3.4 mEq/L (3.5-5.1); Protein, Total 7.3 g/dL (6.4-8.2)
[2023-02-09] MEDS ORDERED: METHYLPREDNISOLONE 125 MG INJ ONE (14:38)
[2023-02-09] MEDS ORDERED: DICYCLOMINE HCL 10 MG CAP ONE (14:38)
[2023-02-09] MEDS ORDERED: ALBUTEROL 2.5 MG/3 ML NEB SOL ONE (14:38)
[2023-02-09] MEDS ORDERED: IPRATROPIUM BROM 0.5MG/2.5ML ONE (14:39)
--- NOTE | 2023-02-09 15:17 | RAD REPORT ---
EXAM DESCRIPTION: Ivonne Single View02/09/2023 2:47 pm CLINICAL HISTORY: Chest pain COMPARISON: 2017 FINDINGS: The lungs appear clear of acute infiltrate. The heart is mildly enlarged IMPRESSION: No acute abnormalities displayed
--- NOTE | 2023-02-09 15:33 | RAD REPORT ---
EXAM DESCRIPTION: US - Abdomen Exam Limited - 02/09/2023 3:20 pm CLINICAL HISTORY: Abdominal pain. COMPARISON: None. FINDINGS: The patient was not NPO. Gallbladder contracted Limited evaluation. No gross abnormality seen. Limited evaluation common bile duct secondary to overlying bowel gas IMPRESSION: Limited evaluation as patient was not NPO. No gross abnormality seen. If patient's symptoms persist then follow-up ultrasound with the patient fasting would be recommended
[2023-02-09 15:45] LABS: Urine Bacteria None Seen /HPF (<20); Urine Bilirubin NEGATIVE (Negative); Urine Blood 3+ (OVER) (Negative); Urine Clarity Turbid (Clear); Urine Color Light-Yellow (Yellow); Urine Crystals Unidentified Few /HPF (None Seen); Urine Glucose NEGATIVE (Negative); Urine Mucus Slight /HPF (None Seen); Urine Protein 2+ (Negative); Urine RBC >50 /HPF (None Seen); Urine Urobilinogen Normal (Normal)
[2023-02-09] MEDS ORDERED: NA CHLORIDE 0.9% 1,000 ML ONE (16:05)
--- NOTE | 2023-02-09 16:19 | RAD REPORT ---
EXAM DESCRIPTION: CT - Stone Protocol - 02/09/2023 3:57 pm CLINICAL HISTORY: Abdominal pain. Right flank pain COMPARISON: None. TECHNIQUE: Computed axial tomography of the abdomen pelvis was obtained without oral or IV contrast. Lack of IV and oral contrast limits evaluation of solid organs, appendix, bowel, and vessels. Francis l reformatted images were obtained and reviewed. All CT scans are performed using dose optimization technique as appropriate and may include automated exposure control or mA/KV adjustment according to patient size. FINDINGS: A renal calculus is not seen. An ureteral calculus is not noted. A bladder calculus is not present. No hydronephrosis. Moderate bilateral renal cortical thinning The liver, spleen, pancreas and adrenals appear grossly normal There is no evidence of diverticulitis. The appendix appears normal IMPRESSION: Negative for a genitourinary calculus Moderate bilateral renal cortical thinning may be related to prior inflammation.
--- NOTE | 2023-02-09 16:54 | EDPHYS ---
Physician Documentation [facility] Name: Xochitl Gonsalez Age: 53 yrs Sex: Female : 1970 Arrival Date: 02/09/2023 Time: 13:51 Bed 16 Private MD: ED Physician Hima Merrill HPI: 02/09 14:36 This 53 yrs old Female presents to ER via EMS with complaints of Flank Pain. kb 14:38 Patient is a 53-year-old female who presents for abdominal cramping that started at kb 1115 today. Denies nausea, vomiting, diarrhea, fever. States she also had a cough for about 3 weeks.. Historical: - Allergies: 14:02 No Known Allergies; aa5 - PMHx: 14:02 Asthma; epilepsy; Hypothyroidism; Chronic Kidney Disease (Hypothyroidism); Hypertensive aa5 disorder; - Immunization history:: Adult Immunizations unknown. - Social history:: Smoking status: unknown. ROS: 14:37 Constitutional: Negative for fever, chills, and weight loss, kb 14:37 Respiratory: Positive for cough, 14:37 Abdomen/GI: Positive for abdominal pain, Negative for nausea, vomiting, and diarrhea, 14:37 All other systems are negative, Exam: 14:36 Constitutional: This is a well developed, well nourished patient who is awake, alert, kb and in no acute distress. Head/Face: Normocephalic, atraumatic. ENT: Moist Mucous membranes Cardiovascular: Regular rate Abdomen/GI: Soft, non-tender. No distention Skin: Warm, dry with normal turgor. Normal color. MS/ Extremity: Pulses equal, no cyanosis. Neurovascular intact. Full, normal range of motion. Neuro: Awake and alert, GCS 15, oriented to person, place, time, and situation. Moves all extremities. Normal gait. 14:36 Respiratory: the patient does not display signs of respiratory distress, Respirations: normal, Breath sounds: wheezing: expiratory that is mild, is scattered, Vital Signs: 13:55 BP 137 / 68; Pulse 86; Resp 18 S; Temp 98.3(TE); Pulse Ox 98% on R/A; aa5 15:22 BP 131 / 83; Pulse 88; Resp 16; Pulse Ox 100% ; Pain 10/10; nj1 17:24 BP 126 / 69; Pulse 80; Resp 19; Pulse Ox 96% ; nj1 15:22 Pain Scale: Adult nj1 MDM: 13:56 Patient medically screened. rt 14:37 Differential diagnosis: Cholelithiasis, non-specific abd pain, Pyelonephritis, Asthma kb exacerbation, pneumonia. Data reviewed: vital signs, nurses notes. Historians other than the Patient: EMS: [facility]. 16:53 Counseling: I had a detailed discussion with the patient and/or guardian regarding the kb historical points, exam findings, and any diagnostic results supporting the discharge/admit diagnosis, lab results, radiology results, the need for outpatient follow up, a family practitioner, to return to the emergency department if symptoms worsen or persist or if there are any questions or concerns that arise at home. 02/09 14:00 Order name: CBC with Diff; Complete Time: 14:32 kb 02/09 14:00 Order name: CMP; Complete Time: 14:38 kb 02/09 14:00 Order name: Lipase; Complete Time: 14:38 kb 02/09 14:00 Order name: Urinalysis w/ reflexes; Complete Time: 15:51 kb 02/09 14:00 Order name: Chest Single View XRAY; Complete Time: 15:21 kb 02/09 14:38 Order name: US Abdomen Limited; Complete Time: 15:38 kb 02/09 15:55 Order name: Stone Protocol; Complete Time: 16:24 EDMS 02/09 14:00 Order name: IV Saline Lock; Complete Time: 14:09 kb 02/09 14:00 Order name: Labs collected and sent; Complete Time: 14:17 kb Administered Medications: 14:28 Drug: Dicyclomine PO 20 mg PO once Route: PO; nj1 15:00 Follow up: Response: No adverse reaction nj1 14:29 Drug: MethylPrednisoLONE IVP 125 mg IVP once Route: IVP; Site: left antecubital; nj1 15:00 Follow up: Response: No adverse reaction nj1 14:30 Drug: Albuterol Inhalation 2.5 mg Inhalation once Route: Inhalation; nj1 14:30 Drug: Ipratropium Inhalation Aerosol 0.5 mg Inhalation once Route: Inhalation; nj1 15:00 Follow up: Response: No adverse reaction nj1 16:33 Drug: NS 0.9% IV 1000 ml IV at 1000 ml once Route: IV; Rate: 1000 ml; Site: left nj1 antecubital; 17:40 Follow up: Response: No adverse reaction; IV Status: Completed infusion; IV Intake: nj1 1000ml 17:40 Drug: Famotidine IVP 20 mg IVP once; dilute with 10 mL 0.9% NaCl; give over 2 minutes nj1 Route: IVP; Site: left antecubital; 17:41 Not Given (Patient Refused): btdpeojjpkvvqdp19 mg PO once nj1 Disposition: 02/10 13:21 Co-signature as Attending Physician, Hima Merrill MD I reviewed the patient's care rt provided by the Advanced Practice Provider and agree with the diagnosis and treatment plan. Disposition Summary: 02/09/23 16:53 Discharge Ordered Notes: Location: Home kb Condition: Stable kb Diagnosis - Abdominal pain, Generalized kb Followup: kb - With: Emergency Department - When: As needed - Reason: Worsening of condition Followup: kb - With: Private Physician - When: 2 - 3 days - Reason: Recheck today's complaints, Continuance of care, Re-evaluation by your physician Discharge Instructions: - Discharge Summary Sheet kb - Abdominal Pain, Adult, [id number] kb Forms: - Medication Reconciliation Form kb - Thank You Letter kb - Antibiotic Education kb - Prescription Opioid Use kb - Patient Portal Instructions kb - Leadership Thank You Letter kb - Work release form nj1 Prescriptions: - dicyclomine 20 mg Oral tablet - take 1 tablet ORAL route 4 times per day As needed; 20 tablet; Refills: 0, kb Product Selection Permitted Signatures: Dispatcher [employer] Cecile Gross, PROFESSOR OF RADIOLOGY-C PROFESSOR OF RADIOLOGY-Cherry Owens, RN RN aa5 Hima Merrill MD MD rt Aminta Byrnes RN RN nj1 Corrections: (The following items were deleted from the chart) 02/09 15:55 15:39 Abdomen Pelvis W Con+CT.RAD.BRZ ordered. EDPR EDMS
--- NOTE | 2023-02-09 16:54 | ER ---
Nurse's Notes [facility] Name: Xochitl Gonsalez Age: 53 yrs Sex: Female : 1970 Arrival Date: 02/09/2023 Time: 13:51 Bed 16 Private MD: Diagnosis: Abdominal pain, Generalized Presentation: 02/09 13:55 Chief complaint: EMS states: right flank pain and difficulty breathing. Pt also c/o aa5 burning chest pain and cough. 13:55 Coronavirus screen: shortness of breath. Ebola Screen: Patient denies travel to an aa5 Ebola-affected area in the 21 days before illness onset. Risk Assessment: Do you want to hurt yourself or someone else? Patient reports no desire to harm self or others. Onset of symptoms was February 09, 2023. 13:55 Acuity: SRIKANTH 3 aa 13:55 Method Of Arrival: EMS: [facility] 13:55 Initial Sepsis Screen: Does the patient meet any 2 criteria? No. Patient's initial [facility] sepsis screen is negative. Does the patient have a suspected source of infection? No. Patient's initial sepsis screen is negative. 13:55 Care prior to arrival: IV initiated. 18 GA, in the left antecubital area. aa5 Historical: - Allergies: 14:02 No Known Allergies; aa5 - PMHx: 14:02 Asthma; epilepsy; Hypothyroidism; Chronic Kidney Disease (Hypothyroidism); Hypertensive aa5 disorder; - Immunization history:: Adult Immunizations unknown. - Social history:: Smoking status: unknown. Screenin:19 [facility] ED Fall Risk Assessment (Adult) Score/Fall Risk Level 0 - 2 = Low Risk nj1 Oriented to surroundings, Maintained a safe environment, Hourly rounding (assess needs \T\ fall precautionary measures) done. Abuse screen: Denies threats or abuse. Denies injuries from another. Nutritional screening: No deficits noted. Tuberculosis screening: No symptoms or risk factors identified. Assessment: 14:10 General: Appears in no apparent distress. uncomfortable, Behavior is calm, cooperative, nj1 appropriate for age. Pain: Complains of pain in right flank Pain currently is 10 out of 10 on a pain scale. Quality of pain is described as crampy. 14:10 Neuro: Level of Consciousness is awake, alert, obeys commands, Oriented to person, nj1 place, time, situation. Cardiovascular: Patient's skin is warm and dry. Respiratory: Airway is patent Respiratory effort is even, unlabored, cough. 15:22 Reassessment: Patient appears in no apparent distress at this time. No changes from nj1 previously documented assessment. Patient and/or family updated on plan of care and expected duration. Pain level reassessed. Patient is alert, oriented x 3, equal unlabored respirations, skin warm/dry/pink. 17:45 Reassessment: Patient appears in no apparent distress at this time. Patient and/or nj1 family updated on plan of care and expected duration. Pain level reassessed. Patient is alert, oriented x 3, equal unlabored respirations, skin warm/dry/pink. Patient denies pain at this time. Patient states feeling better. Patient states symptoms have improved. Vital Signs: 13:55 BP 137 / 68; Pulse 86; Resp 18 S; Temp 98.3(TE); Pulse Ox 98% on R/A; aa5 15:22 BP 131 / 83; Pulse 88; Resp 16; Pulse Ox 100% ; Pain 10/10; nj1 17:24 BP 126 / 69; Pulse 80; Resp 19; Pulse Ox 96% ; nj1 15:22 Pain Scale: Adult nj1 ED Course: 13:55 Patient arrived in ED. aa5 13:55 Hima Merrill MD is Attending Physician. rt 13:55 Arm band placed on. aa5 13:55 Patient has correct armband on for positive identification. Placed in gown. Bed in low aa5 position. Call light in reach. Side rails up X2. Client placed on continuous cardiac and pulse oximetry monitoring. NIBP monitoring applied. 13:56 Cecile Ellington FNP-C is PHCP. kb 14:02 Triage completed. aa5 14:16 Aminta Byrnes, RN is Primary Nurse. nj1 14:49 Chest Single View XRAY In Process Unspecified. EDMS 15:22 US Abdomen Limited In Process Unspecified. EDMS 15:25 Notified Nurse Practitioner and/or Physician Store Receiving Clerk of Still having intermittent nj1 abdominal/flank pain. 15:59 Stone Protocol In Process Unspecified. EDMS 17:45 Provided Education on: call light, fall precautions. nj1 17:45 No provider procedures requiring assistance completed. IV discontinued, intact, nj1 bleeding controlled. Administered Medications: 14:28 Drug: Dicyclomine PO 20 mg PO once Route: PO; nj1 15:00 Follow up: Response: No adverse reaction nj1 14:29 Drug: MethylPrednisoLONE IVP 125 mg IVP once Route: IVP; Site: left antecubital; nj1 15:00 Follow up: Response: No adverse reaction nj1 14:30 Drug: Albuterol Inhalation 2.5 mg Inhalation once Route: Inhalation; nj1 14:30 Drug: Ipratropium Inhalation Aerosol 0.5 mg Inhalation once Route: Inhalation; nj1 15:00 Follow up: Response: No adverse reaction nj1 16:33 Drug: NS 0.9% IV 1000 ml IV at 1000 ml once Route: IV; Rate: 1000 ml; Site: left nj1 antecubital; 17:40 Follow up: Response: No adverse reaction; IV Status: Completed infusion; IV Intake: nj1 1000ml 17:40 Drug: Famotidine IVP 20 mg IVP once; dilute with 10 mL 0.9% NaCl; give over 2 minutes nj1 Route: IVP; Site: left antecubital; 17:41 Not Given (Patient Refused): gojultelpbjtzwm21 mg PO once nj1 Medication: 17:45 VIS not applicable for this client. nj1 Intake: 17:40 IV: 1000ml; Total: 1000ml. nj1 Outcome: 16:53 Discharge ordered by . kb 17:45 Discharged to home ambulatory, nj1 17:45 Condition: stable 17:45 Discharge instructions given to patient, Instructed on discharge instructions, follow up and referral plans. medication usage, Demonstrated understanding of instructions, follow-up care, medications, Prescriptions given X 1, 17:55 Patient left the ED. nj1 Signatures: Dispatcher [employer] EDME Cecile Ellington, COLLECTIONS ATTORNEY-C COLLECTIONS ATTORNEY-Cherry Owens, RN RN aa5 Hima Merrill MD MD rt Jaco, Norma, RN RN nj1 Corrections: (The following items were deleted from the chart) 14:09 13:55 Chief complaint: EMS states: aretha flank pain and difficulty breathing aa5 aa5 15:31 15:22 BP 131 / 83; Pulse 88bpm; Resp 16bpm; Pulse Ox 100%; nj1 nj1 18:20 18:20 Discharged to home ambulatory, nj1 nj1 18:20 18:20 Condition: stable [place] [id number] 18:20 Discharge instructions given to patient, Instructed on discharge instructions, [facility] follow up and referral plans. medication usage, Demonstrated understanding of instructions, follow-up care, medications, Prescriptions given X 1, [facility] 18: 18:21 Response: No adverse reaction; IV Status: Completed infusion; IV Intake: 1000ml [place] [id number] 18:22 Patient left the ED. [place] [id number]
[2023-02-09] MEDS ORDERED: CYCLOBENZAPRINE 10 MG TAB ONE (17:44)
[2023-02-09] MEDS ORDERED: FAMOTIDINE 20 MG/2 ML VIAL IV ONE (17:44)
[2023-02-09 18:43] VITALS: TEMP 98.3
[2023-02-09 18:50] VITALS: BP 126/69; O2SAT 96
== END 2023-02-09 18:22 | disposition home or self-care (01) ==
LOC: ER 13:51
DX: R10.84 Generalized abdominal pain (principal); R05.9 Cough, unspecified
CPT/HCPCS: 96361; 85025; 81001; 36415; 83690; 80053; 76377; 74176; 71045; 76705; 96375; 96374; 99285; J7613; J7644; J2930; J7030